=== PATIENT | male | born 1985 | race Caucasian/White ===

== ENCOUNTER 2017-07-16 09:09 | Emergency (ER) | payer SELFPAY ==
[~2017-07-16] VITALS: Ht 185.4 cm; Wt 127.0 kg
--- OUTSIDE RECORDS SUMMARY | 2017-07-16 09:24 | XMS REPORT | Continuity of Care Document ---
Author Author [facility] Organization [facility] Address [facility] [address] [place] [id number] Phone Unavailable Support Name Relationship Address Phone ALLISON BRITT MD Caregiver [address] [place] [id number] Unavailable TOM MAGAÑA Next Of Kin [address] [place], [place] [id number] Insurance Providers Payer Name Policy Number Subscriber Name Relationship Medicaid [place] [id number] Gene Magaña 18 Self / Same As Patient Advance Directives Directive Response Recorded Date/Time Advance Directives No 05/17/14 8:19pm Living Will No 05/17/14 8:19pm Health Care Proxy No 02/03/15 12:21pm Power of Emergency Communications Operator for Health Care No 05/17/14 8:19pm Organ, Tissue, or Eye Donor No 05/17/14 8:19pm Do you have a signed organ donor card? No 05/17/14 8:19pm Chief Complaint and Reason for Visit Chief Complaint ABDOMINAL PAIN Reason for Visit Urinary tract infection Gastroenteritis Problems Active Problems Medical Problem Onset Date Status Abdominal pain Unknown Acute Gastroenteritis Unknown Acute Urinary tract infection Unknown Acute Medications Current Home Medications Medication Dose Units Route Directions Days/Qty Instructions Start Date Phenytoin Sodium 100 Mg 200 Mg Oral Twice A Day for Seizure Activity 02/03/15 Metoprolol Succinate 25 Mg 25 Mg Oral Daily for Hypertension 30 Lisinopril (Zestril 20 Mg Tab*) 20 Mg 20 Mg Oral Daily for Hypertension 30 02/03/15 Fluoxetine Hcl 40 Mg 40 Mg Oral Daily for Depression 30 02/03/15 Buspirone Hcl 10 Mg 20 Mg Oral Twice A Day for Anxiety 02/03/15 Ibuprofen (Motrin 200 Mg Tab*) 200 Mg 400 Mg Oral Every 4-6 Hours Diclofenac Sodium 100 Mg 100 Mg Oral Daily 02/03/15 Phenytoin Sodium 100 Mg 200 Mg Oral Twice A Day 60 02/03/15 Ciprofloxacin Hcl 500 Mg 500 Mg Oral Twice A Day 10 02/03/15 Dicyclomine Hcl 20 Mg 20 Mg Oral Four Times Daily as needed for Abdominal Cramping 20 02/03/15 Acetaminophen/Hydrocodone Bitart (Lortab 5-325*) 1 Tab 1 Each Oral Every 6 Hrs As Needed For Pain 10 02/03/15 Past Home Medications Medication Directions Ordered Status Promethazine Hcl 25 Mg Tablet, 25 Mg Oral Every 8 Hours As Needed as needed for Nausea 05/17/14 Discontinued Acetaminophen/Hydrocodone Bitart (Lortab 5-325*) 1 Tab Tablet, 1 Ea Oral Every 4-6 Hrs As Needed Pain as needed for Pain 05/17/14 Discontinued Social History Social History Problem Response Recorded Date/Time Smoking Status Current every day smoker 02/03/2015 1:49pm Tobacco Use Cigarettes 02/03/2015 1:49pm Alcohol Use occasionally 02/03/2015 1:49pm Query Response Start Date Stop Date Smoking Status Current every day smoker Hospital Discharge Instructions No hospital discharge instructions. Plan of Care Discharge Date 02/03/15 2:37pm Disposition 01 HOME, [facility]SISTED LIVING Condition at Discharge Improved Instructions/Education Provided Urinary Tract Infection in Men (ED) Gastroenteritis (ED) Prescriptions See Medication Section Functional Status No functional status results. Allergies, Adverse Reactions, Alerts No known allergies. Immunizations Name Given Type Hx Diphtheria, Pertussis, Tetanus Vaccination Up To Date Historical Hx Influenza Vaccination Yes Historical Hx Pneumococcal Vaccination No Historical Vital Signs Acute Vital Signs Vital Response Date/Time Pain Intensity 4 02/03/2015 2:37pm Pain Location Body Site Modifier 02/03/2015 2:37pm Pain Description 02/03/2015 2:37pm Pain Duration > 6 Hours 02/03/2015 2:37pm Results Laboratory Results Test Name Result Units Flags Reference Collection Date/Time Result Date/ Time Comments White Blood Count 6.2 K/uL 4.8-10.8 02/03/2015 1:05pm 02/03/2015 1: 43pm Red Blood Count 4.61 M/uL L 4.70-6.10 02/03/2015 1:05pm 02/03/2015 1: 43pm Hemoglobin 14.7 gm/dL 14.0-18.0 02/03/2015 1:05pm 02/03/2015 1:43pm Hematocrit 42.9 % 42.0-52.0 02/03/2015 1:05pm 02/03/2015 1:43pm Mean Corpuscular Volume 93.1 fL 80.0-96.1 02/03/2015 1:05pm 02/03/2015 1:43pm Mean Corpuscular Hemoglobin 31.8 pg H 27.0-31.0 02/03/2015 1:05pm 2014 1:43pm Mean Corpuscular Hemoglobin Concent 34.2 g/dL 30.0-37.0 02/03/2015 1: 05pm 02/03/2015 1:43pm Red Cell Distribution Width 12.4 % 11.5-14.5 02/03/2015 1:05pm 2014 1:43pm Platelet Count 162 K/uL 130-400 02/03/2015 1:05pm 02/03/2015 1:43pm Mean Platelet Volume 8.5 fL 7.4-10.4 02/03/2015 1:05pm 02/03/2015 1: 43pm Neutrophils (%) (Auto) 61.8 % 42.2-75.2 02/03/2015 1:05pm 02/03/2015 1: 43pm Lymphocytes (%) (Auto) 22.9 % 20.5-51.1 02/03/2015 1:05pm 02/03/2015 1: 43pm Monocytes (%) (Auto) 10.7 % H 1.7-9.3 02/03/2015 1:05pm 02/03/2015 1: 43pm Eosinophils (%) (Auto) 3.2 % H 0-3 02/03/2015 1:05pm 02/03/2015 1:43pm Basophils (%) (Auto) 1.4 % H 0.0-1.0 02/03/2015 1:05pm 02/03/2015 1: 43pm Neutrophils # (Auto) 3.8 K/uL 2.0-6.9 02/03/2015 1:05pm 02/03/2015 1: 43pm Lymphocytes # (Auto) 1.4 K/uL 1.2-3.4 02/03/2015 1:05pm 02/03/2015 1: 43pm Monocytes # (Auto) 0.7 K/uL H 0.1-0.6 02/03/2015 1:05pm 02/03/2015 1: 43pm Eosinophils # (Auto) 0.2 K/uL 0.0-0.7 02/03/2015 1:05pm 02/03/2015 1: 43pm Basophils # (Auto) 0.1 K/uL 0.0-0.2 02/03/2015 1:05pm 02/03/2015 1: 43pm Random Glucose 89 mg/dL 70-110 02/03/2015 1:05pm 02/03/2015 1:43pm Blood Urea Nitrogen 10 mg/dL 7-18 02/03/2015 1:05pm 02/03/2015 1:43pm Creatinine 0.9 mg/dL 0.8-1.3 02/03/2015 1:05pm 02/03/2015 1:43pm Sodium Level 137 mEq/L 136-145 02/03/2015 1:05pm 02/03/2015 1:43pm Potassium Level 4.1 mEq/L 3.5-5.0 02/03/2015 1:05pm 02/03/2015 1:43pm Chloride Level 102 mEq/L 98-107 02/03/2015 1:05pm 02/03/2015 1:43pm Carbon Dioxide Level 31.0 mEq/L 21-32 02/03/2015 1:05pm 02/03/2015 1: 43pm Calcium Level 8.2 mg/dL L 8.8-10.5 02/03/2015 1:05pm 02/03/2015 1:43pm Total Protein 6.9 gm/dL 6.4-8.2 02/03/2015 1:05pm 02/03/2015 1:43pm Albumin 3.4 gm/dL 3.4-5.0 02/03/2015 1:05pm 02/03/2015 1:43pm Total Bilirubin 0.20 mg/dL 0.00-1.00 02/03/2015 1:05pm 02/03/2015 1: 43pm Aspartate Amino Transf (AST/SGOT) 15 U/L 15-37 02/03/2015 1:05pm 2014 1:43pm Alanine Aminotransferase (ALT/SGPT) 22 U/L 12-78 02/03/2015 1:05pm 1:43pm Total Alkaline Phosphatase 75 U/L 46-116 02/03/2015 1:05pm 02/03/2015 1 :43pm Lipase 183 U/L 65-230 02/03/2015 1:05pm 02/03/2015 1:43pm Phenytoin (Dilantin) Level < 0.5 ug/ml L 10.0-20.0 02/03/2015 1:05pm 1:43pm Urine Color YELLOW YELLOW 02/03/2015 1:05pm 02/03/2015 1:46pm Urine Appearance CLEAR CLEAR 02/03/2015 1:05pm 02/03/2015 1:46pm Urine Glucose (UA) NEGATIVE mg/dL NEGATIVE 02/03/2015 1:05pm 2014 1:46pm Urine Bilirubin NEGATIVE NEGATIVE 02/03/2015 1:05pm 02/03/2015 1: 46pm Urine Ketones NEGATIVE mg/dL NEGATIVE 02/03/2015 1:05pm 02/03/2015 1: 46pm Urine Specific [place] 1.010 1.010-1.025 02/03/2015 1:05pm 2014 1:46pm Urine Occult Blood NEGATIVE NEGATIVE 02/03/2015 1:05pm 02/03/2015 1: 46pm Urine pH 7.5 5.0-8.0 02/03/2015 1:05pm 02/03/2015 1:46pm Urine Protein NEGATIVE mg/dL NEGATIVE 02/03/2015 1:05pm 02/03/2015 1: 46pm Urine Urobilinogen 0.2 mg/dL E.U./dL 0.2-1.0 02/03/2015 1:05pm 2014 1:46pm Urine Nitrate NEGATIVE NEGATIVE 02/03/2015 1:05pm 02/03/2015 1:46pm Urine Leukocyte Esterase NEGATIVE NEGATIVE 02/03/2015 1:05pm 2014 1:46pm Urine RBC NEGATIVE /hpf 0 02/03/2015 1:05pm 02/03/2015 1:46pm Urine WBC 15-19 /hpf H 0-4 02/03/2015 1:05pm 02/03/2015 1:46pm Urine Squamous Epithelial Cells 6-8 /hpf 0-1 02/03/2015 1:05pm 2014 1:46pm Urine Transitional Epithelial Cells 0-1 /hpf 0 02/03/2015 1:05pm 2014 1:46pm Urine Bacteria TRACE H NEGATIVE 02/03/2015 1:05pm 02/03/2015 1:46pm Glomerular Filtration Rate Calc 106.8 mL/min 02/03/2015 1:05pm 2014 1:43pm Procedures No known history of procedures. Encounters Encounter Location Arrival/Admit Date Discharge/Depart Date Attending Provider Departed Emergency Room [place] 02/03/15 12:22pm 02/03/15 2:37pm ALLISON BRITT MD Recent Diagnosis
[2017-07-16] MEDS ORDERED: COLACE (09:39)
--- NOTE | 2017-07-16 09:48 | ED Abdominal Pain ---
General Chief Complaint: Abdominal/GI Problems Stated Complaint: RIGHT SIDE PAIN Source of Information: Patient History of Present Illness Date Seen by Provider: Jul 16, 2017 Time Seen by Provider: 09:30 Initial Comments C/O SEVERE, SHARP CONSTANT RLQ PAIN SINCE 0100 THIS AM C/O NAUSEA AND VOMITED X 1 AT 0300. ATE CEREAL AT 0230 NO DIARRHEA NO URINARY SYMPTOMS NO FEVER PAIN WORSE WITH LAYING FLAT, SLIGHTLY IMPROVED WITH SITTING UP NO IMPROVEMENT WITH IBUPROFEN, AND TOOK HIS REGULAR DOSES OF OMEPRAZOLE AND COLACE THIS AM NO HISTORY OF SIMILAR PT HAD HIRSCHSPRUNG'S AND HAD SURGERY PCP: NONE--MOVED HERE 1 WEEK AGO FROM [place] Allergies and Home Medications Allergies Coded Allergies: No Known Drug Allergies (Unverified , 07/16/17) Home Medications Ondansetron 4 Mg Tab.rapdis, 4 MG PO Q4H, #10 Prescribed by: KELSIE CRUZ on 07/16/17 1152 [Colace] , (Reported) Review of Systems Constitutional: no symptoms reported EENTM: No Symptoms Reported Respiratory: No Symptoms Reported Cardiovascular: No Symptoms Reported Gastrointestinal: See HPI, Abdominal Pain, Denies Constipated, Denies Diarrhea , Nausea, Vomiting Genitourinary: No Symptoms Reported Musculoskeletal: no symptoms reported Skin: no symptoms reported Psychiatric/Neurological: No Symptoms Reported Endocrine: No Symptoms Reported Hematologic/Lymphatic: No Symptoms Reported Past Gidwipk-Tuqqlm-Pnoagi Hx Patient Social History Alcohol Use: Occasionally Uses Recreational Drug Use: No Smoking Status: Current Everyday Smoker (1 PPD) Type Used: Cigarettes (1 PPD) Recent Foreign Travel: No Contact w/Someone Who Travel: No Surgeries History of Surgeries: Yes (BOWEL SURGERY FOR HIRSCHSPRUNG'S, THEN HAD NERVE RESECTION IN LOWER ABDOMEN. ) Surgeries: Abdominal Respiratory History of Respiratory Disorde: No Cardiovascular History of Cardiac Disorders: No Neurological History of Neurological Disord: No Genitourinary History of Genitourinary Disor: No Gastrointestinal History of Gastrointestinal Di: Yes (HIRSCHSPRUNG'S) Gastrointestinal Disorders: Gastroesophageal Reflux, Chronic Constipation Musculoskeletal History of Musculoskeletal Dis: No Endocrine History of Endocrine Disorders: No HEENT History of HEENT Disorders: No Cancer History of Cancer: No Psychosocial History of Psychiatric Problem: No Integumentary History of Skin or Integumenta: No Physical Exam Vital Signs VS - Last 72 Hours, by Label 07/16/17 07/16/17 09:14 10:50 Temp 98.7 Pulse 86 Resp 18 B/P (MAP) 162/124 (137) 167/106 (126) Pulse Ox 95 O2 Delivery Room Air Capillary Refill : General Appearance: WD/WN, no apparent distress, other (WALKS SLIGHTLY BENT AT WAIST, HOLDING RLQ) HEENT: PERRL/EOMI, other (POOR DENTITION) Neck: normal inspection Respiratory: normal breath sounds, no respiratory distress, no accessory muscle use Cardiovascular: regular rate, rhythm, no murmur Gastrointestinal: normal bowel sounds, soft, no organomegaly, no pulsatile mass , No distended, guarding (MUCH GUARDING, AND SPLINTING WITH A PILLOW), rebound, tenderness (RLQ), No hernia, No mass, other (+ PSOAS, + OBTURATOR, + HEEL TAP, NEGATIVE ROVSING'S) Extremities: normal inspection, normal capillary refill Back: normal inspection, no CVA tenderness Neurologic/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, no motor/sensory deficits, alert, normal mood/affect, oriented x 3 Skin: normal color, warm/dry Progress/Results/Core Measures Results/Orders Lab Results Laboratory Tests Test 07/16/17 09:35 07/16/17 10:16 Range/Units White Blood Count 8.8 4.3-11.0 10^3/uL Red Blood Count 5.19 4.35-5.85 10^6/uL Hemoglobin 16.0 13.3-17.7 G/DL Hematocrit 45 40-54 % Mean Corpuscular Volume 87 80-99 FL Mean Corpuscular Hemoglobin 31 25-34 PG Mean Corpuscular Hemoglobin Concent 36 32-36 G/DL Red Cell Distribution Width 12.1 10.0-14.5 % Platelet Count 233 130-400 10^3/uL Mean Platelet Volume 11.4 H 7.4-10.4 FL Neutrophils (%) (Auto) 64 42-75 % Lymphocytes (%) (Auto) 21 12-44 % Monocytes (%) (Auto) 13 H 0-12 % Eosinophils (%) (Auto) 2 0-10 % Basophils (%) (Auto) 0 0-10 % Neutrophils # (Auto) 5.6 1.8-7.8 X 10^3 Lymphocytes # (Auto) 1.9 1.0-4.0 X 10^3 Monocytes # (Auto) 1.1 H 0.0-1.0 X 10^3 Eosinophils # (Auto) 0.2 0.0-0.3 10^3/uL Basophils # (Auto) 0.0 0.0-0.1 10^3/uL Sodium Level 137 135-145 MMOL/L Potassium Level 4.2 3.6-5.0 MMOL/L Chloride Level 103 98-107 MMOL/L Carbon Dioxide Level 24 21-32 MMOL/L Anion Gap 10 5-14 MMOL/L Blood Urea Nitrogen 7 7-18 MG/DL Creatinine 0.74 0.60-1.30 MG/DL Estimat Glomerular Filtration Rate > 60 BUN/Creatinine Ratio 9 Glucose Level 87 70-105 MG/DL Calcium Level 9.7 8.5-10.1 MG/DL Total Bilirubin 0.4 0.1-1.0 MG/DL Aspartate Amino Transf (AST/SGOT) 18 5-34 U/L Alanine Aminotransferase (ALT/SGPT) 26 0-55 U/L Alkaline Phosphatase 69 40-136 U/L Total Protein 7.4 6.4-8.2 GM/DL Albumin 4.1 3.2-4.5 GM/DL Amylase Level 32 25-125 U/L Lipase 21 8-78 U/L Serum Alcohol < 10 <10 MG/DL Urine Color YELLOW Urine Clarity CLEAR Urine pH 7 5-9 Urine Specific [place] 1.015 L 1.016-1.022 Urine Protein NEGATIVE NEGATIVE Urine Glucose (UA) NEGATIVE NEGATIVE Urine Ketones NEGATIVE NEGATIVE Urine Nitrite NEGATIVE NEGATIVE Urine Bilirubin NEGATIVE NEGATIVE Urine Urobilinogen NORMAL NORMAL MG/DL Urine Leukocyte Esterase NEGATIVE NEGATIVE Urine RBC (Auto) NEGATIVE NEGATIVE Urine RBC NONE /HPF Urine WBC RARE /HPF Urine Squamous Epithelial Cells 0-2 /HPF Urine Crystals NONE /LPF Urine Bacteria NEGATIVE /HPF Urine Casts NONE /LPF Urine Mucus NEGATIVE /LPF Urine Culture Indicated NO Urine Opiates Screen NEGATIVE NEGATIVE Urine Oxycodone Screen NEGATIVE NEGATIVE Urine Methadone Screen NEGATIVE NEGATIVE Urine Propoxyphene Screen NEGATIVE NEGATIVE Urine Barbiturates Screen NEGATIVE NEGATIVE Ur Tricyclic Antidepressants Screen NEGATIVE NEGATIVE Urine Phencyclidine Screen NEGATIVE NEGATIVE Urine Amphetamines Screen NEGATIVE NEGATIVE Urine Methamphetamines Screen NEGATIVE NEGATIVE Urine Benzodiazepines Screen NEGATIVE NEGATIVE Urine Cocaine Screen NEGATIVE NEGATIVE Urine Cannabinoids Screen NEGATIVE NEGATIVE My Orders Orders - ANTHONY,KELSIE K DO Saline Lock/Iv-Start (07/16/17 09:34) Amylase (07/16/17 09:34) Cbc With Automated Diff (07/16/17 09:34) Comprehensive Metabolic Panel (07/16/17 09:34) Lipase (07/16/17 09:34) Ua Culture If Indicated (07/16/17 09:34) Saline Lock/Iv-Start (07/16/17 09:41) Lactated Ringers (Lr 1000 Ml Iv Solution (07/16/17 09:41) Ondansetron Injection (Zofran Injectio (07/16/17 09:45) Ketorolac Injection (Toradol Injection) (07/16/17 09:41) Alcohol (07/16/17 09:41) Drug Screen Stat (Urine) (07/16/17 09:41) Ct Abd/Pelv W (Appendicitis) (07/16/17 10:38) Iohexol Injection (Omnipaque 350 Mg/Ml 1 (07/16/17 10:45) Ns (Ivpb) (Sodium Chloride 0.9% Ivpb Bag (07/16/17 10:45) Medications Given in ED Current Medications Medications Dose Ordered Sig/Jose G Route Start Time Stop Time Status Last Admin Dose Admin Iohexol 100 ml ONCE ONCE IV 07/16/17 10:45 07/16/17 10:46 DC 07/16/17 10:48 100 ML Lactated Ringer's 1,000 ml @ 0 mls/hr Q0M ONCE IV 07/16/17 09:41 07/16/17 09:44 DC 07/16/17 10:25 1,000 MLS/HR Ondansetron HCl 4 mg ONCE ONCE IVP 07/16/17 09:45 07/16/17 09:46 DC 07/16/17 10:24 4 MG Sodium Chloride 100 ml ONCE ONCE IV 07/16/17 10:45 07/16/17 10:46 DC 07/16/17 10:48 80 ML Vital Signs/I&O Vital Sign - Last 12Hours 07/16/17 07/16/17 09:14 10:50 Temp 98.7 Pulse 86 Resp 18 B/P (MAP) 162/124 (137) 167/106 (126) Pulse Ox 95 O2 Delivery Room Air Departure Communication (Admissions) Progress Notes 1115--SPOKE WITH DR. CLAY, HE WILL BE DOWN TO SEE PT 1135--DR. CLAY HERE TO SEE PT. 1150--DR. CLAY ADVISES TO SEND PT HOME, ON CLEAR LIQUID DIET. RETURN TO ER OR FOLLOW UP WITH HIM IF NO IMPROVEMENT/SYMPTOMS WORSEN Impression Impression: Primary Impression: RLQ abdominal pain Disposition: HOME, SELF-CARE Condition: Stable Departure-Patient Inst. Referrals: REJI CLAY,LOCAL PHYSICIAN (PCP) Primary Care Physician Patient Instructions: Acute Abdomen (Belly Pain), Adult (DC) Add. Discharge Instructions: CLEAR LIQUIDS--WATER, BROTH, JELLO, GATORADE NO FOOD UNTIL YOUR PAIN IS GONE CONTINUE COLACE AND OMEPRAZOLE PRESCRIBED TAKE MIRALAX DAILY TAKE TYLENOL AND MOTRIN NEEDED FOR PAIN FOLLOW UP WITH DR. CLAY OR RETURN TO ER IF SYMPTOMS WORSEN, OR IF NO IMPROVEMENT IN 2 DAYS CALL TODAY TO ESTABLISH CARE WITH FAMILY PHYSICIAN All discharge instructions reviewed with patient and/or family. Voiced understanding. Scripts Ondansetron (Zofran Odt) 4 Mg Tab.rapdis 4 MG PO Q4H for Nausea/Vomiting, #10 TAB Prov: KELSIE CRUZ DO 07/16/17 Work/School Note: Local [employer] Staff Listing KELSIE CRUZ DO Jul 16, 2017 09:48
[2017-07-16 10:18] LABS: BASOPHILS % (AUTO) 0 % (0-10); EOSINOPHILS # (AUTO) 0.2 10^3/uL (0.0-0.3); EOSINOPHILS % (AUTO) 2 % (0-10); HEMATOCRIT 45 % (40-54); LYMPHOCYTES # (AUTO) 1.9 X 10^3 (1.0-4.0); LYMPHOCYTES % (AUTO) 21 % (12-44); MEAN CORPUSCULAR HEMOGLOBIN 31 PG (25-34); MEAN CORPUSCULAR HGB CONC 36 G/DL (32-36); MEAN CORPUSCULAR VOLUME 87 FL (80-99); MEAN PLATELET VOLUME 11.4 FL (7.4-10.4); MONOCYTES # (AUTO) 1.1 X 10^3 (0.0-1.0); MONOCYTES % (AUTO) 13 % (0-12); NEUTROPHILS # (AUTO) 5.6 X 10^3 (1.8-7.8); NEUTROPHILS % (AUTO) 64 % (42-75); PLATELET COUNT 233 10^3/uL (130-400); RED BLOOD COUNT 5.19 10^6/uL (4.35-5.85); RED CELL DISTRIBUTION WIDTH 12.1 % (10.0-14.5); WHITE BLOOD COUNT 8.8 10^3/uL (4.3-11.0)
[2017-07-16 10:22] LABS: BILIRUBIN,URINE NEGATIVE (NEGATIVE); CLARITY,URINE CLEAR; COLOR,URINE YELLOW; GLUCOSE, URINE (UA) NEGATIVE (NEGATIVE); KETONES,URINE NEGATIVE (NEGATIVE); LEUKOCYTE ESTERASE ,URINE NEGATIVE (NEGATIVE); NITRITE,URINE NEGATIVE (NEGATIVE); PH,URINE 7 (5-9); PROTEIN,URINE NEGATIVE (NEGATIVE); UROBILINOGEN,URINE NORMAL (NORMAL)
[2017-07-16] MEDS: ONDANSETRON 4 MG/2 ML (SDV) Z0FRAN IVP ONE (10:24)
[2017-07-16] MEDS: KETOROLAC 30 MG/ML VIAL IVP STA (10:25)
[2017-07-16] MEDS: LACTATED RINGERS 1,000 ML IV ONE (10:25)
[2017-07-16 10:32] LABS: ALANINE AMINOTRANSFERASE 26 U/L (0-55); ALBUMIN 4.1 GM/DL (3.2-4.5); ALKALINE PHOSPHATASE 69 U/L (40-136); AMYLASE 32 U/L (25-125); BILIRUBIN,TOTAL 0.4 MG/DL (0.1-1.0); BUN/CREATININE RATIO 9; CALCIUM 9.7 MG/DL (8.5-10.1); CARBON DIOXIDE 24 MMOL/L (21-32); CHLORIDE 103 MMOL/L (98-107); CREATININE SERUM 0.74 MG/DL (0.60-1.30); GFR ESTIMATED > 60; GLUCOSE 87 MG/DL (70-105); LIPASE 21 U/L (8-78); POTASSIUM 4.2 MMOL/L (3.6-5.0); SODIUM 137 MMOL/L (135-145); TOTAL PROTEIN 7.4 GM/DL (6.4-8.2)
[2017-07-16 10:37] LABS: BACTERIA,URINE NEGATIVE /HPF; SQUAMOUS EPITHELIAL CELL,UR 0-2 /HPF; WBC,URINE RARE /HPF
[2017-07-16 10:42] LABS: AMPHETAMINE SCREEN, URINE NEGATIVE (NEGATIVE); BARBITURATE SCREEN URINE NEGATIVE (NEGATIVE); BENZODIAZEPINES SCREEN URINE NEGATIVE (NEGATIVE); CANNABINOID SCREEN, URINE NEGATIVE (NEGATIVE); COCAINE SCREEN URINE NEGATIVE (NEGATIVE); METHADONE STAT NEGATIVE (NEGATIVE); METHAMPHETAMINE SCREEN URINE S NEGATIVE (NEGATIVE); OPIATE SCREEN URINE NEGATIVE (NEGATIVE); OXYCODONE STAT NEGATIVE (NEGATIVE); PROPOXYPHENE STAT NEGATIVE (NEGATIVE); TRICYCLIC ANTIDEPRESSANTS SCRE NEGATIVE (NEGATIVE)
[2017-07-16] MEDS: NS 100 ML (IVPB) BAG IV ONE (10:48)
[2017-07-16] MEDS: IOHEXOL 350 MG/ML 100 ML (OMNIPAQUE 350) VIAL IV ONE (10:48)
[2017-07-16 10:50] VITALS: BP 167/106
--- NOTE | 2017-07-16 11:14 | Diagnostic Imaging Report ---
PROCEDURE: CT abdomen and pelvis with contrast, rule out appendicitis. TECHNIQUE: Multiple contiguous axial images were obtained through the abdomen and pelvis after the administration of intravenous contrast. INDICATION: Right-sided abdominal pain with nausea and vomiting. The study is performed to evaluate for appendicitis. No prior studies are available for comparison. The lung bases are clear. The liver and gallbladder are unremarkable. Pancreas and spleen are unremarkable. No adrenal masses detected. There is a tiny cortical low density involving the right kidney, too small to characterize but statistically likely a cyst. Aorta is nonaneurysmal. The small and large bowel loops are normal caliber. The appendix is visualized in the right lower quadrant and is unremarkable. No inflammatory process is seen. There is a moderate stool identified in the rectum and sigmoid. Moderate stool in the right colon is also seen. Small bowel loops are normal caliber. There is no ascites. Bladder is unremarkable. IMPRESSION: 1. No CT evidence of acute appendicitis. 2. Moderate stool within the colon. Study is otherwise unremarkable. Dictated by: Dictated on workstation # [id number]
[2017-07-16] MEDS ORDERED: ONDA4TAB8 PO (11:52)
[2017-07-16 13:10] VITALS: BP 131/74
--- NOTE | 2017-07-16 13:31 | Consultation ---
History of Present Illness History of Present Illness Patient Consulted On(jaida/time) 07/16/17 11:32 Date Seen by Provider: Jul 16, 2017 Time Seen by Provider: 11:32 History of Present Illness Consult requested by Dr. Shah for RLQ abdominal pain. Patient is a 32 year old male who presented to emergency department with abdominal pain nausea and vomiting. Patient states that last night around 11 pm he began having abdominal pain in epigastric that radiated up into his chest. He felt it was his reflux. He took his omeprazole which maybe helped a little. He states the pain the started to move into the right lower quadrant of his abdomen. He went to bed and around 1 am began having emesis and last vomiting at 3 am He was having constant right lower quadrant abdominal pain. Pain is sharp. Still with some nausea. Not had any pain like this previously.Has chronic constipation, but having bowel movements, no blood in stool. Patient had a ct scan which has moderate stool in colon, appendix is visualized without any abnormality. White count is normal. Denies fever sweats chills shortness of breath or chest pain. Allergies and Home Medications Allergies Coded Allergies: No Known Drug Allergies (Unverified , 07/16/17) Home Medications Ondansetron 4 Mg Tab.rapdis, 4 MG PO Q4H, #10 Prescribed by: KELSIE SHAH on 07/16/17 1152 [Colace] , (Reported) Past Ihrmpin-Szycnd-Hhjufw Hx Patient Social History Alcohol Use: Occasionally Uses Recreational Drug Use: No Smoking Status: Current Everyday Smoker (1 PPD) Type Used: Cigarettes (1 PPD) Recent Foreign Travel: No Contact w/Someone Who Travel: No Recent Infectious Disease Expo: No Surgeries History of Surgeries: Yes (BOWEL SURGERY FOR HIRSCHSPRUNG'S, THEN HAD NERVE RESECTION IN LOWER ABDOMEN. ) Surgeries: Abdominal Respiratory History of Respiratory Disorde: No Cardiovascular History of Cardiac Disorders: No Neurological History of Neurological Disord: No Genitourinary History of Genitourinary Disor: No Gastrointestinal History of Gastrointestinal Di: Yes (HIRSCHSPRUNG'S) Gastrointestinal Disorders: Gastroesophageal Reflux, Chronic Constipation Musculoskeletal History of Musculoskeletal Dis: No Endocrine History of Endocrine Disorders: No HEENT History of HEENT Disorders: No Cancer History of Cancer: No Psychosocial History of Psychiatric Problem: No Integumentary History of Skin or Integumenta: No Family Medical History Significant Family History: No Pertinent Family Hx Review of Systems-General Constitutional: no symptoms reported EENTM: no symptoms reported Respiratory: no symptoms reported Cardiovascular: no symptoms reported Gastrointestinal: RLQ, abdominal pain (RLQ), nausea, vomiting Genitourinary: no symptoms reported Musculoskeletal: no symptoms reported Skin: no symptoms reported Psychiatric/Neurological: No Symptoms Reported Physical Exam-General Problems Physical Exam Vital Signs Vital Sign - Last 12Hours 07/16/17 09:14 Temp 98.7 Pulse 86 Resp 18 B/P (MAP) 162/124 (137) Pulse Ox 95 O2 Delivery Room Air Capillary Refill : Less Than 3 Seconds General Appearance: WD/WN, no apparent distress HEENT: PERRL/EOMI, normal ENT inspection Neck: full range of motion, supple Respiratory: chest non-tender, no respiratory distress, no accessory muscle use Cardiovascular: regular rate, rhythm Gastrointestinal: soft (midline scar, does not seem to have pain with palpation in the right lower quadrant no guarding or rebounding) Rectal: deferred Back: normal inspection, no CVA tenderness Neurologic/Psychiatric: alert, oriented x 3 Skin: normal color, warm/dry Lymphatic: no adenopathy Data Review Labs Laboratory Tests 07/16/17 09:35: White Blood Count 8.8, Red Blood Count 5.19, Hemoglobin 16.0, Hematocrit 45, Mean Corpuscular Volume 87, Mean Corpuscular Hemoglobin 31, Mean Corpuscular Hemoglobin Concent 36, Red Cell Distribution Width 12.1, Platelet Count 233, Mean Platelet Volume 11.4H, Neutrophils (%) (Auto) 64, Lymphocytes (%) (Auto) 21 , Monocytes (%) (Auto) 13H, Eosinophils (%) (Auto) 2, Basophils (%) (Auto) 0, Neutrophils # (Auto) 5.6, Lymphocytes # (Auto) 1.9, Monocytes # (Auto) 1.1H, Eosinophils # (Auto) 0.2, Basophils # (Auto) 0.0, Sodium Level 137, Potassium Level 4.2, Chloride Level 103, Carbon Dioxide Level 24, Anion Gap 10, Blood Urea Nitrogen 7, Creatinine 0.74, Estimat Glomerular Filtration Rate > 60, BUN/ Creatinine Ratio 9, Glucose Level 87, Calcium Level 9.7, Total Bilirubin 0.4, Aspartate Amino Transf (AST/SGOT) 18, Alanine Aminotransferase (ALT/SGPT) 26, Alkaline Phosphatase 69, Total Protein 7.4, Albumin 4.1, Amylase Level 32, Lipase 21, Serum Alcohol < 10 07/16/17 10:16: Urine Color YELLOW, Urine Clarity CLEAR, Urine pH 7, Urine Specific [place] 1.015L, Urine Protein NEGATIVE, Urine Glucose (UA) NEGATIVE, Urine Ketones NEGATIVE, Urine Nitrite NEGATIVE, Urine Bilirubin NEGATIVE, Urine Urobilinogen NORMAL, Urine Leukocyte Esterase NEGATIVE, Urine RBC (Auto) NEGATIVE, Urine RBC NONE, Urine WBC RARE, Urine Squamous Epithelial Cells 0-2, Urine Crystals NONE, Urine Bacteria NEGATIVE, Urine Casts NONE, Urine Mucus NEGATIVE, Urine Culture Indicated NO, Urine Opiates Screen NEGATIVE, Urine Oxycodone Screen NEGATIVE, Urine Methadone Screen NEGATIVE, Urine Propoxyphene Screen NEGATIVE, Urine Barbiturates Screen NEGATIVE, Ur Tricyclic Antidepressants Screen NEGATIVE, Urine Phencyclidine Screen NEGATIVE, Urine Amphetamines Screen NEGATIVE, Urine Methamphetamines Screen NEGATIVE, Urine Benzodiazepines Screen NEGATIVE, Urine Cocaine Screen NEGATIVE, Urine Cannabinoids Screen NEGATIVE Assessment/Plan Assessment/Plan Assessment/Plan right lower quadrant abdominal pain, nausea and vomiting. patient with normal labs and normal cat scan, he does have moderate stool in colon. I do not feel that he has appendicitis. Would recommend staying on clear liquids 2 days then advance as tolerates. Miralax for approximately 2 days to decrease stool volume in colon. If any worsening of symptoms or changes in symptoms be re-evaluated at that time. Patient is in agreement with plan. REJI CLAY DO Jul 16, 2017 13:31
== END 2017-07-16 12:08 | disposition home or self-care (01) ==
LOC: ER 09:12
DX: R10.31 Right lower quadrant pain (principal); K21.9 Gastro-esophageal reflux disease without esophagitis
CPT/HCPCS: 36415; 74177; 80053; 80306; 80320; 81000; 82150; 83690; 85025; 96374; 96375

== ENCOUNTER 2017-07-19 02:42 | Inpatient (IN) | payer SELFPAY ==
[~2017-07-19] VITALS: Ht 185.4 cm; Wt 131.7 kg
[~2017-07-19 02:42] MED LIST: COLACE; ONDA4TAB8 PO
[2017-07-19] MEDS ORDERED: LACTATED RINGERS 1,000 ML IV ONE ×2 (03:02→09:05)
--- NOTE | 2017-07-19 03:09 | ED Abdominal Pain ---
General Stated Complaint: ABD PAIN,VOMITING Source of Information: Patient, Other Exam Limitations: No Limitations History of Present Illness Date Seen by Provider: Jul 19, 2017 Time Seen by Provider: 02:56 Initial Comments Patient presents to ER by private conveyance with a chief complaint that he was having abdominal pain in the right lower quadrant radiating to his back and his periumbilical and epigastric region. He describes the pain as sharp and used to be intermittent and has now last day became constant and unbearable despite Tylenol and Motrin. He's not able to keep the medicines down or food down because he is having nausea and vomiting. He was seen a couple days ago in this ER and those records were reviewed. He was seen by surgery as well and had a normal CT scan and labs and sent home on a clear liquid diet which he says he's been doing but keeps throwing it up despite the Zofran every 4-6 hours. He says the Zofran will control his nausea for about 2 hours. He has been using the MiraLAX as well and has had loose stools with that. He's had no fevers, chills, rash. 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 Allergies and Home Medications Allergies Coded Allergies: No Known Drug Allergies (Unverified , 07/16/17) Home Medications Ondansetron 4 Mg Tab.rapdis, 4 MG PO Q4H, #10 Prescribed by: KELSIE CRUZ on 07/16/17 1152 [Colace] , (Reported) Review of Systems Constitutional: No chills, No diaphoresis, No fever, No malaise EENTM: No Blurred Vision, No Double Vision Respiratory: Denies Cough, Denies Shortness of Air Cardiovascular: Denies Chest Pain, Denies Edema Gastrointestinal: See HPI, Abdomen Distended, Abdominal Pain, Denies Constipated, Diarrhea, Nausea, Poor Appetite, Poor Fluid Intake, Denies Rectal Bleeding, Vomiting Genitourinary: Denies Burning, Denies Discharge Musculoskeletal: No back pain, No joint pain Skin: No pruritus, No rash Past Klhmlnl-[id number]-Kooqzq Hx Patient Social History Alcohol Use: Denies Use Recreational Drug Use: No Smoking Status: Current Everyday Smoker Type Used: Cigarettes (0.5 ppd) Recent Foreign Travel: No Contact w/Someone Who Travel: No Surgeries History of Surgeries: Yes Surgeries: Abdominal Respiratory History of Respiratory Disorde: No Cardiovascular History of Cardiac Disorders: No Neurological History of Neurological Disord: No Genitourinary History of Genitourinary Disor: No Gastrointestinal History of Gastrointestinal Di: Yes (HIRSCHSPRUNG'S) Gastrointestinal Disorders: Gastroesophageal Reflux, Chronic Constipation Musculoskeletal History of Musculoskeletal Dis: No Endocrine History of Endocrine Disorders: No HEENT History of HEENT Disorders: No Cancer History of Cancer: No Psychosocial History of Psychiatric Problem: No Integumentary History of Skin or Integumenta: No Family Medical History Significant Family History: No Pertinent Family Hx Physical Exam Vital Signs VS - Last 72 Hours, by Label 07/19/17 02:50 Temp 96.8 Pulse 87 Resp 16 B/P (MAP) 169/99 (122) Pulse Ox 97 O2 Delivery Room Air Capillary Refill : General Appearance: WD/WN, mild distress HEENT: PERRL/EOMI, pharynx normal (oral mucosa is moist) Respiratory: lungs clear, normal breath sounds, no respiratory distress Cardiovascular: normal peripheral pulses, regular rate, rhythm, no edema Peripheral Pulses: 2+ Dorsalis Pedis (R), 2+ Left Dors-Pedis (L), 2+ Radial Pulses (R), 2+ Radial Pulses (L) Gastrointestinal: normal bowel sounds (active), soft, No rebound, tenderness ( right lower quadrant, periumbilical and epigastric as well as a little bit right upper quadrant.) Extremities: normal inspection, no pedal edema, normal capillary refill Back: normal inspection, no CVA tenderness Neurologic/Psychiatric: alert, oriented x 3 Skin: normal color, warm/dry Progress/Results/Core Measures Results/Orders Lab Results Laboratory Tests Test 07/19/17 03:06 07/19/17 04:23 Range/Units White Blood Count 11.7 H 4.3-11.0 10^3/uL Red Blood Count 5.30 4.35-5.85 10^6/uL Hemoglobin 16.5 13.3-17.7 G/DL Hematocrit 45 40-54 % Mean Corpuscular Volume 85 80-99 FL Mean Corpuscular Hemoglobin 31 25-34 PG Mean Corpuscular Hemoglobin Concent 37 H 32-36 G/DL Red Cell Distribution Width 11.7 10.0-14.5 % Platelet Count 235 130-400 10^3/uL Mean Platelet Volume 10.7 H 7.4-10.4 FL Neutrophils (%) (Auto) 74 42-75 % Lymphocytes (%) (Auto) 14 12-44 % Monocytes (%) (Auto) 12 0-12 % Eosinophils (%) (Auto) 1 0-10 % Basophils (%) (Auto) 0 0-10 % Neutrophils # (Auto) 8.6 H 1.8-7.8 X 10^3 Lymphocytes # (Auto) 1.6 1.0-4.0 X 10^3 Monocytes # (Auto) 1.4 H 0.0-1.0 X 10^3 Eosinophils # (Auto) 0.1 0.0-0.3 10^3/uL Basophils # (Auto) 0.0 0.0-0.1 10^3/uL Sodium Level 137 135-145 MMOL/L Potassium Level 4.0 3.6-5.0 MMOL/L Chloride Level 101 98-107 MMOL/L Carbon Dioxide Level 24 21-32 MMOL/L Anion Gap 12 5-14 MMOL/L Blood Urea Nitrogen 13 7-18 MG/DL Creatinine 0.84 0.60-1.30 MG/DL Estimat Glomerular Filtration Rate > 60 BUN/Creatinine Ratio 15 Glucose Level 109 H 70-105 MG/DL Calcium Level 9.6 8.5-10.1 MG/DL Magnesium Level 2.1 1.8-2.4 MG/DL Total Bilirubin 0.4 0.1-1.0 MG/DL Aspartate Amino Transf (AST/SGOT) 15 5-34 U/L Alanine Aminotransferase (ALT/SGPT) 19 0-55 U/L Alkaline Phosphatase 77 40-136 U/L C-Reactive Protein High Sensitivity 0.93 H 0.00-0.50 MG/DL Total Protein 7.9 6.4-8.2 GM/DL Albumin 4.3 3.2-4.5 GM/DL Lipase 19 8-78 U/L Urine Color YELLOW Urine Clarity CLEAR Urine pH 7 5-9 Urine Specific [place] 1.015 L 1.016-1.022 Urine Protein 1+ H NEGATIVE Urine Glucose (UA) NEGATIVE NEGATIVE Urine Ketones 1+ H NEGATIVE Urine Nitrite NEGATIVE NEGATIVE Urine Bilirubin NEGATIVE NEGATIVE Urine Urobilinogen 1 NORMAL MG/DL Urine Leukocyte Esterase 1+ H NEGATIVE Urine RBC (Auto) NEGATIVE NEGATIVE Urine RBC NONE /HPF Urine WBC RARE /HPF Urine Squamous Epithelial Cells 2-5 /HPF Urine Crystals NONE /LPF Urine Bacteria NEGATIVE /HPF Urine Casts NONE /LPF Urine Mucus MODERATE H /LPF Urine Culture Indicated NO Urine Opiates Screen NEGATIVE NEGATIVE Urine Oxycodone Screen NEGATIVE NEGATIVE Urine Methadone Screen NEGATIVE NEGATIVE Urine Propoxyphene Screen NEGATIVE NEGATIVE Urine Barbiturates Screen NEGATIVE NEGATIVE Ur Tricyclic Antidepressants Screen NEGATIVE NEGATIVE Urine Phencyclidine Screen NEGATIVE NEGATIVE Urine Amphetamines Screen NEGATIVE NEGATIVE Urine Methamphetamines Screen NEGATIVE NEGATIVE Urine Benzodiazepines Screen NEGATIVE NEGATIVE Urine Cocaine Screen NEGATIVE NEGATIVE Urine Cannabinoids Screen NEGATIVE NEGATIVE My Orders Orders - ISAIAS PARKER Ct Abd/Pelv W (Appendicitis) (07/19/17 03:02) Cbc With Automated Diff (07/19/17 03:02) Comprehensive Metabolic Panel (07/19/17 03:02) Hs C Reactive Protein (07/19/17 03:02) Drug Screen Stat (Urine) (07/19/17 03:02) Magnesium (07/19/17 03:02) Ua Culture If Indicated (07/19/17 03:02) Saline Lock/Iv-Start (07/19/17 03:02) Lactated Ringers (Lr 1000 Ml Iv Solution (07/19/17 03:02) Fentanyl Injection (Sublimaze Injection (07/19/17 03:15) Lipase (07/19/17 03:09) Ondansetron Injection (Zofran Injectio (07/19/17 03:15) Ondansetron Injection (Zofran Injectio (07/19/17 03:10) Iohexol Injection (Omnipaque 350 Mg/Ml 1 (07/19/17 04:00) Ns (Ivpb) (Sodium Chloride 0.9% Ivpb Bag (07/19/17 04:00) Ketorolac Injection (Toradol Injection) (07/19/17 04:30) Protonix Drip (07/19/17 05:15) Pantoprazole Injection (Protonix Injecti (07/19/17 05:15) Medications Given in ED Current Medications Medications Dose Ordered Sig/Jose G Route Start Time Stop Time Status Last Admin Dose Admin Fentanyl Citrate 50 mcg ONCE ONCE IVP 07/19/17 03:15 07/19/17 03:16 DC 07/19/17 03:14 50 MCG Iohexol 100 ml ONCE ONCE IV 07/19/17 04:00 07/19/17 04:56 DC 07/19/17 03:54 100 ML Ketorolac Tromethamine 15 mg ONCE ONCE IVP 07/19/17 04:30 07/19/17 04:31 DC 07/19/17 04:34 15 MG Lactated Ringer's 1,000 ml @ 0 mls/hr Q0M ONCE IV 07/19/17 03:02 07/19/17 03:05 DC 07/19/17 03:15 0 MLS/HR Ondansetron HCl 8 mg ONCE ONCE IVP 07/19/17 03:15 07/19/17 03:16 DC 07/19/17 03:15 8 MG Sodium Chloride 80 ml ONCE ONCE IV 07/19/17 04:00 07/19/17 04:56 DC 07/19/17 03:54 80 ML Vital Signs/I&O Vital Sign - Last 12Hours 07/19/17 02:50 Temp 96.8 Pulse 87 Resp 16 B/P (MAP) 169/99 (122) Pulse Ox 97 O2 Delivery Room Air Progress Note : Time: 03:09 Progress Note We will repeat abdominal imaging get some lab work and urinalysis. We'll give him some pain medicine and nausea medicine. Departure Communication (Admissions) Time/Spoke to Admitting Phy: 05:[address] Dennis, General Surgery and he recommends in by mouth, Protonix drip and plan for endoscopy today. Impression Impression: Primary Impression: Peptic ulcer disease Disposition: ADMITTED INPATIENT Condition: Improved Admissions Decision to Admit Reason: Admit from ER (General) Decision to Admit/Date: Jul 19, 2017 Time/Decision to Admit Time: 05:16 Departure-Patient Inst. Referrals: NO,LOCAL PHYSICIAN (PCP/Family) Primary Care Physician Copy Copies To 1: NORMAN DENNIS TITUS J Jul 19, 2017 03:09
[2017-07-19] MEDS ORDERED: ONDANSETRON 4 MG/2 ML (SDV) Z0FRAN ONE (03:10)
[2017-07-19 03:15] LABS: BASOPHILS % (AUTO) 0 % (0-10); EOSINOPHILS # (AUTO) 0.1 10^3/uL (0.0-0.3); EOSINOPHILS % (AUTO) 1 % (0-10); HEMATOCRIT 45 % (40-54); HEMOGLOBIN 16.5 G/DL (13.3-17.7); LYMPHOCYTES # (AUTO) 1.6 X 10^3 (1.0-4.0); LYMPHOCYTES % (AUTO) 14 % (12-44); MEAN CORPUSCULAR HEMOGLOBIN 31 PG (25-34); MEAN CORPUSCULAR HGB CONC 37 G/DL (32-36); MEAN CORPUSCULAR VOLUME 85 FL (80-99); MEAN PLATELET VOLUME 10.7 FL (7.4-10.4); MONOCYTES # (AUTO) 1.4 X 10^3 (0.0-1.0); MONOCYTES % (AUTO) 12 % (0-12); NEUTROPHILS # (AUTO) 8.6 X 10^3 (1.8-7.8); NEUTROPHILS % (AUTO) 74 % (42-75); PLATELET COUNT 235 10^3/uL (130-400); RED CELL DISTRIBUTION WIDTH 11.7 % (10.0-14.5); WHITE BLOOD COUNT 11.7 10^3/uL (4.3-11.0)
[2017-07-19] MEDS ORDERED: fentaNYL INJECTION 100 MCG/2 ML AMP IVP ONE (03:15)
[2017-07-19] MEDS ORDERED: ONDANSETRON 4 MG/2 ML (SDV) Z0FRAN IVP ONE ×2 (03:15→05:30)
[2017-07-19 03:34] LABS: ALANINE AMINOTRANSFERASE 19 U/L (0-55); ALBUMIN 4.3 GM/DL (3.2-4.5); ALKALINE PHOSPHATASE 77 U/L (40-136); BILIRUBIN,TOTAL 0.4 MG/DL (0.1-1.0); BUN/CREATININE RATIO 15; CALCIUM 9.6 MG/DL (8.5-10.1); CARBON DIOXIDE 24 MMOL/L (21-32); CHLORIDE 101 MMOL/L (98-107); CREATININE SERUM 0.84 MG/DL (0.60-1.30); GFR ESTIMATED > 60; GLUCOSE 109 MG/DL (70-105); MAGNESIUM 2.1 MG/DL (1.8-2.4); SODIUM 137 MMOL/L (135-145); TOTAL PROTEIN 7.9 GM/DL (6.4-8.2)
[2017-07-19] MEDS ORDERED: IOHEXOL 350 MG/ML 100 ML (OMNIPAQUE 350) VIAL IV ONE (04:00)
[2017-07-19] MEDS ORDERED: NS 100 ML (IVPB) BAG IV ONE (04:00)
[2017-07-19] MEDS ORDERED: KETOROLAC 30 MG/ML VIAL IVP ONE (04:30)
[2017-07-19 04:35] LABS: BILIRUBIN,URINE NEGATIVE (NEGATIVE); CLARITY,URINE CLEAR; COLOR,URINE YELLOW; GLUCOSE, URINE (UA) NEGATIVE (NEGATIVE); KETONES,URINE 1+ (NEGATIVE); LEUKOCYTE ESTERASE ,URINE 1+ (NEGATIVE); NITRITE,URINE NEGATIVE (NEGATIVE); PH,URINE 7 (5-9); PROTEIN,URINE 1+ (NEGATIVE); UROBILINOGEN,URINE 1 MG/DL (NORMAL)
[2017-07-19 04:43] LABS: AMPHETAMINE SCREEN, URINE NEGATIVE (NEGATIVE); BARBITURATE SCREEN URINE NEGATIVE (NEGATIVE); BENZODIAZEPINES SCREEN URINE NEGATIVE (NEGATIVE); CANNABINOID SCREEN, URINE NEGATIVE (NEGATIVE); COCAINE SCREEN URINE NEGATIVE (NEGATIVE); METHADONE STAT NEGATIVE (NEGATIVE); METHAMPHETAMINE SCREEN URINE S NEGATIVE (NEGATIVE); OPIATE SCREEN URINE NEGATIVE (NEGATIVE); OXYCODONE STAT NEGATIVE (NEGATIVE); PROPOXYPHENE STAT NEGATIVE (NEGATIVE); TRICYCLIC ANTIDEPRESSANTS SCRE NEGATIVE (NEGATIVE)
[2017-07-19 04:53] LABS: BACTERIA,URINE NEGATIVE /HPF; WBC,URINE RARE /HPF
[2017-07-19] MEDS ORDERED: PANTOPRAZOLE INJECTION 200 MG in D5W 100 ML IVPB 50 ML IV SCH (05:15)
[2017-07-19] MEDS ORDERED: PANTOPRAZOLE 40 MG/10 ML (PROTONIX) VIAL IV ONE (05:15)
--- NOTE | 2017-07-19 06:09 | Diagnostic Imaging Report ---
PROCEDURE: CT abdomen and pelvis with contrast, rule out appendicitis. TECHNIQUE: Multiple contiguous axial images were obtained through the abdomen and pelvis after the administration of intravenous contrast. INDICATION: Abdominal pain with nausea and vomiting. No prior examinations are available for comparison. FINDINGS: Heart size is normal. Lung bases are clear. The liver is normal in size without focal lesions. Gallbladder is unremarkable. There is no biliary ductal dilatation. Spleen is normal. The pancreas and adrenal glands are unremarkable. There is a small right renal cyst. There is no evidence of nephrolithiasis or obstructive uropathy. There is some questionable mucosal thickening in the distal stomach. There is a small fluid collection contiguous with the gastric lumen extending through the posterior gastric wall suspicious for ulceration with some adjacent stranding. The bowel gas pattern is otherwise nonspecific. There are postsurgical changes in the rectosigmoid colon. There is no CT evidence of appendicitis. The bladder is unremarkable. There is no free air. There is no ascites. The osseous structures are unremarkable. There is no pathologically enlarged adenopathy. Aorta is nonaneurysmal. There are some subcentimeter mesenteric lymph nodes in the upper abdomen. IMPRESSION: Focal mucosal thickening in the distal stomach with a small fluid collection contiguous with the gastric lumen extending through the posterior gastric wall. There is some adjacent inflammatory stranding. Findings are suspicious for gastric ulcer. There is, however, no free air to suggest perforation although penetration through the gastric wall is not excluded given surrounding inflammatory findings. Recommend GI consultation for further workup/management. No evidence of bowel obstruction. There are postsurgical changes in the rectosigmoid colon. No CT evidence of appendicitis. Dictated by: Dictated on workstation # [id number]
[2017-07-19 06:30] VITALS: BP 131/89
[2017-07-19] MEDS ORDERED: 1/2 NS W/KCL 20 MEQ/L 1,000 ML IV SCH (06:45)
[2017-07-19] MEDS: fentaNYL INJECTION 100 MCG/2 ML AMP IV PRN ×4 (06:45→18:15)
[2017-07-19] MEDS: DEXTROSE IV SCH ×2 (07:45)
[2017-07-19] MEDS: PANTOPRAZOLE IV SCH ×2 (07:45)
[2017-07-19 08:00] VITALS: BP 130/70
[2017-07-19] MEDS ORDERED: OMEP20TA7 PO (08:02)
[2017-07-19] MEDS ORDERED: DOCU-143 PO (08:02)
[2017-07-19] MEDS ORDERED: LACTATED RINGERS 1,000 ML IV PRN (09:00)
[2017-07-19] MEDS ORDERED: MIDAZOLAM 5 MG/5 ML (VERSED) VIAL ONE (09:17)
[2017-07-19] MEDS ORDERED: proPOfol 200 MG/20 ML (DIPRIVAN) VIAL IV ONE ×2 (09:17→09:29)
--- NOTE | 2017-07-19 09:21 | History & Physical-Surgical ---
History of Present Illness History of Present Illness Reason for visit/HPI HPI per ED: Patient presents to ER by private conveyance with a chief complaint that he was having abdominal pain in the right lower quadrant radiating to his back and his periumbilical and epigastric region. He describes the pain as sharp and used to be intermittent and has now last day became constant and unbearable despite Tylenol and Motrin. He's not able to keep the medicines down or food down because he is having nausea and vomiting. He was seen a couple days ago in this ER and those records were reviewed. He was seen by surgery as well and had a normal CT scan and labs and sent home on a clear liquid diet which he says he's been doing but keeps throwing it up despite the Zofran every 4-6 hours. He says the Zofran will control his nausea for about 2 hours. He has been using the MiraLAX as well and has had loose stools with that. He's had no fevers, chills, rash. 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 When seen this am he states the pain has been constant and sharp since he left ER 2 day ago, now rating it 10 out of 10. He states all food makes it worse and nothing makes it better. He has hx of "reflux" and has been on omeprazole for 3 months, that was for burning in his throat. He states this is a RUQ pain. Prior to 2 days ago he has never had any pain like this. Date of Admission Jul 19, 2017 at 05:15 Time Seen by Provider: 09:01 I consulted on this patient on 07/19/17 09:16 Attending Physician Cabrera Dennis DO Admitting Physician No,Local Physician Consult Allergies and Home Medications Allergies Coded Allergies: No Known Drug Allergies (Unverified , 07/16/17) Home Medications Docusate Sodium 100 Mg Capsule, 100 MG PO DAILY, (Reported) Omeprazole 20 Mg Tablet.dr, 20 MG PO DAILY, (Reported) Ondansetron 4 Mg Tab.rapdis, 4 MG PO Q4H, #10 Prescribed by: KELSIE CRUZ on 07/16/17 1152 Past [id number]-[id number] Hx Patient Social History Alcohol Use: Denies Use Recreational Drug Use: No Smoking Status: Current Everyday Smoker Type Used: Cigarettes 2nd Hand Smoke Exposure: Yes Recent Foreign Travel: No Contact w/Someone Who Travel: No Recent Infectious Disease Expo: No Recent Hopitalizations: No Physical Abuse Screen: No Sexual Abuse: No Immunizations Up To Date PED Vaccines UTD: No Date of Influenza Vaccine: May 24, 2017 Seasonal Allergies Seasonal Allergies: No Surgeries History of Surgeries: Yes (colon resection) Surgeries: Abdominal Respiratory History of Respiratory Disorde: No Cardiovascular History of Cardiac Disorders: No Neurological History of Neurological Disord: No Genitourinary History of Genitourinary Disor: No Gastrointestinal History of Gastrointestinal Di: Yes (HIRSCHSPRUNG'S) Gastrointestinal Disorders: Gastroesophageal Reflux, Chronic Constipation Musculoskeletal History of Musculoskeletal Dis: No Endocrine History of Endocrine Disorders: No HEENT History of HEENT Disorders: No Cancer History of Cancer: No Psychosocial History of Psychiatric Problem: No Integumentary History of Skin or Integumenta: No Blood Transfusions History of Blood Disorders: No Adverse Reaction to a Blood Tr: No Family Medical History Significant Family History: No Pertinent Family Hx (Pt is adopted and doesn't know) Constitutional: chills, malaise, weakness EENTM: No blurred vision, No mouth pain, No mouth swelling, No epistaxis, No throat pain, No throat swelling Respiratory: No cough, No dyspnea on exertion, No hemoptysis Cardiovascular: No chest pain, No palpitations Gastrointestinal: RUQ, constipation, No hematemesis, No jaundice, No melena, nausea, vomiting Genitourinary: No dysuria, No frequency, No hematuria Musculoskeletal: No back pain, No joint pain, No muscle stiffness Psychiatric/Neurological: Denies Anxiety, Denies Depressed, Denies Headache, Denies Seizure, Denies Tremors Physical Exam Vital Signs Vital Sign - Last 12Hours 07/19/17 02:50 Temp 96.8 Pulse 87 Resp 16 B/P (MAP) 169/99 (122) Pulse Ox 97 O2 Delivery Room Air Capillary Refill : Less Than 3 Seconds General Appearance: WD/WN, Moderate Distress Eyes: Bilateral Eye PERRL, Bilateral Eye EOMI HEENT: Pharynx Normal, No Pale Conjunctivae (L), No Pale Conjunctivae (R), No Scleral Icterus (L), No Scleral Icterus (R) Neck: Full Range of Motion, Normal Inspection, Non Tender, Supple, No Thyromegaly Respiratory: Lungs Clear, Normal Breath Sounds, No Accessory Muscle Use, No Respiratory Distress Cardiovascular: Regular Rate, Rhythm, No Edema, No Murmur Gastrointestinal: Normal Bowel Sounds, No Pulsatile Mass, Soft, Guarding ( voluntary in upper quadrants), Tenderness Rectal: Deferred Back: No CVA Tenderness, No Vertebral Tenderness Extremity: Normal Capillary Refill, Normal Inspection, Normal Range of Motion, Non Tender, No Calf Tenderness Neurologic/Psychiatric: Alert, Oriented x3, No 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, 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 Skin: Normal Color, Warm/Dry Lymphatic: No Adenopathy (neck, axilla or groin) Data Review Labs Laboratory Tests 07/19/17 03:06: White Blood Count 11.7H, Red Blood Count 5.30, Hemoglobin 16.5, Hematocrit 45, Mean Corpuscular Volume 85, Mean Corpuscular Hemoglobin 31, Mean Corpuscular Hemoglobin Concent 37H, Red Cell Distribution Width 11.7, Platelet Count 235, Mean Platelet Volume 10.7H, Neutrophils (%) (Auto) 74, Lymphocytes (%) (Auto) 14 , Monocytes (%) (Auto) 12, Eosinophils (%) (Auto) 1, Basophils (%) (Auto) 0, Neutrophils # (Auto) 8.6H, Lymphocytes # (Auto) 1.6, Monocytes # (Auto) 1.4H, Eosinophils # (Auto) 0.1, Basophils # (Auto) 0.0, Sodium Level 137, Potassium Level 4.0, Chloride Level 101, Carbon Dioxide Level 24, Anion Gap 12, Blood Urea Nitrogen 13, Creatinine 0.84, Estimat Glomerular Filtration Rate > 60, BUN/ Creatinine Ratio 15, Glucose Level 109H, Calcium Level 9.6, Magnesium Level 2.1 , Total Bilirubin 0.4, Aspartate Amino Transf (AST/SGOT) 15, Alanine Aminotransferase (ALT/SGPT) 19, Alkaline Phosphatase 77, C-Reactive Protein High Sensitivity 0.93H, Total Protein 7.9, Albumin 4.3, Lipase 19 07/19/17 04:23: Urine Color YELLOW, Urine Clarity CLEAR, Urine pH 7, Urine Specific [place] 1.015L, Urine Protein 1+H, Urine Glucose (UA) NEGATIVE, Urine Ketones 1+H, Urine Nitrite NEGATIVE, Urine Bilirubin NEGATIVE, Urine Urobilinogen 1, Urine Leukocyte Esterase 1+H, Urine RBC (Auto) NEGATIVE, Urine RBC NONE, Urine WBC RARE, Urine Squamous Epithelial Cells 2-5, Urine Crystals NONE, Urine Bacteria NEGATIVE, Urine Casts NONE, Urine Mucus MODERATEH, Urine Culture Indicated NO, Urine Opiates Screen NEGATIVE, Urine Oxycodone Screen NEGATIVE, Urine Methadone Screen NEGATIVE, Urine Propoxyphene Screen NEGATIVE, Urine Barbiturates Screen NEGATIVE, Ur Tricyclic Antidepressants Screen NEGATIVE, Urine Phencyclidine Screen NEGATIVE, Urine Amphetamines Screen NEGATIVE, Urine Methamphetamines Screen NEGATIVE, Urine Benzodiazepines Screen NEGATIVE, Urine Cocaine Screen NEGATIVE, Urine Cannabinoids Screen NEGATIVE Assessment/Plan Assessment/Plan Assessment/Plan RUQ and Epigastric Abd pain CT shows inflammation of stomach, cannot rule out ulcer but no signs of perforation. Pain is getting worse and will therefore do an EGD on the patient to check stomach. He was admitted last night with pain control, anti-emetics, IV fluids and NPO. Discussed the EGD with pt; risks and complications not limited to pain, bleeding, infection and even possible esophageal perforation. Will probably do biopsies and if it doesn't look to bad will send him home today. All questions answered to his satisfaction. Clinical Quality Measures DVT/VTE Risk/Contraindication: Risk Factor Score Per Nursin RFS Level Per Nursing on Admit: 2=Moderate CABRERA DENNIS DO Jul 19, 2017 09:21
--- NOTE | 2017-07-19 09:44 | Progress Note-Post Operative ---
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
[2017-07-19] MEDS ORDERED: HURRICAINE EXT TUBE (BENZOCAINE) XX PRN (10:00)
--- NOTE | 2017-07-19 10:16 | Physician Progress Note ---
Progress Note Assessment/Plan Time Seen by Provider: 09:58 Events since last exam Pt had EGD and it showed large Duodenal Ulcer that had clotted blood in it; clot cleared out and no active bleeding. He also had a small ulcer in stomach; does not look like it had bled. Could not get past ulcer into duodenum and did not want to cause a perforation. Assessment/Plan Duodenal Ulcer with bleeding Gastric Ulcer Gastritis and Esophagitis Pt will need to be admitted to hospital; probably through the weekend to be kept on a Protonix drip. Will monitor H/H and watch for possible gastric perforation. He cannot eat because this will start production of stomach acids; will wait at least 2 days to feed him. Vitals Last set of Vitals Signs Vital Signs Date Time Temp Pulse Resp B/P (MAP) Pulse Ox O2 Delivery O2 Flow Rate FiO2 07/19/17 09:00 94 Room Air 07/19/17 08:00 97.4 59 20 130/70 (90) Labs Laboratory Tests 07/19/17 03:06: White Blood Count 11.7H, Red Blood Count 5.30, Hemoglobin 16.5, Hematocrit 45, Mean Corpuscular Volume 85, Mean Corpuscular Hemoglobin 31, Mean Corpuscular Hemoglobin Concent 37H, Red Cell Distribution Width 11.7, Platelet Count 235, Mean Platelet Volume 10.7H, Neutrophils (%) (Auto) 74, Lymphocytes (%) (Auto) 14 , Monocytes (%) (Auto) 12, Eosinophils (%) (Auto) 1, Basophils (%) (Auto) 0, Neutrophils # (Auto) 8.6H, Lymphocytes # (Auto) 1.6, Monocytes # (Auto) 1.4H, Eosinophils # (Auto) 0.1, Basophils # (Auto) 0.0, Sodium Level 137, Potassium Level 4.0, Chloride Level 101, Carbon Dioxide Level 24, Anion Gap 12, Blood Urea Nitrogen 13, Creatinine 0.84, Estimat Glomerular Filtration Rate > 60, BUN/ Creatinine Ratio 15, Glucose Level 109H, Calcium Level 9.6, Magnesium Level 2.1 , Total Bilirubin 0.4, Aspartate Amino Transf (AST/SGOT) 15, Alanine Aminotransferase (ALT/SGPT) 19, Alkaline Phosphatase 77, C-Reactive Protein High Sensitivity 0.93H, Total Protein 7.9, Albumin 4.3, Lipase 19 1/26/18 04:23: Urine Color YELLOW, Urine Clarity CLEAR, Urine pH 7, Urine Specific [place] 1.015L, Urine Protein 1+H, Urine Glucose (UA) NEGATIVE, Urine Ketones 1+H, Urine Nitrite NEGATIVE, Urine Bilirubin NEGATIVE, Urine Urobilinogen 1, Urine Leukocyte Esterase 1+H, Urine RBC (Auto) NEGATIVE, Urine RBC NONE, Urine WBC RARE, Urine Squamous Epithelial Cells 2-5, Urine Crystals NONE, Urine Bacteria NEGATIVE, Urine Casts NONE, Urine Mucus MODERATEH, Urine Culture Indicated NO, Urine Opiates Screen NEGATIVE, Urine Oxycodone Screen NEGATIVE, Urine Methadone Screen NEGATIVE, Urine Propoxyphene Screen NEGATIVE, Urine Barbiturates Screen NEGATIVE, Ur Tricyclic Antidepressants Screen NEGATIVE, Urine Phencyclidine Screen NEGATIVE, Urine Amphetamines Screen NEGATIVE, Urine Methamphetamines Screen NEGATIVE, Urine Benzodiazepines Screen NEGATIVE, Urine Cocaine Screen NEGATIVE, Urine Cannabinoids Screen NEGATIVE Clinical Quality Measures DVT/VTE Risk/Contraindication: Risk Factor Score Per Nursin RFS Level Per Nursing on Admit: 2=Moderate NORMAN VEGA DO Jul 19, 2017 10:16
[2017-07-19] MEDS ORDERED: HURRICAINE EXT TUBE (BENZOCAINE) ONE (10:52)
[2017-07-19] MEDS: LACTATED RINGERS 1,000 ML IV SCH ×2 (11:04→18:17)
[2017-07-19 11:39] VITALS: BP 117/70
[2017-07-19] MEDS: NICOTINE 14 MG (NICODERM) PATCH TD SCH (12:57)
--- NOTE | 2017-07-19 14:16 | OPERATIVE REPORT ---
DATE OF SERVICE: 07/19/2017 PREOPERATIVE DIAGNOSIS: Right upper quadrant epigastric pain. POSTOPERATIVE DIAGNOSES: 1. Duodenal ulcer with signs of old bleeding. 2. Gastric ulcer. 3. Gastritis. 4. Esophagitis. PROCEDURE: EGD with biopsy of duodenum as well as antrum, gastric ulcer, and esophagus. SURGEON: NORMAN VEGA DO [employer]ATION ENFORCEMENT OFFICER: None. ANESTHESIA: IV sedation by MED AIDE. SPECIMEN: One biopsy from the duodenum, one biopsy from the antrum, one biopsy from the gastric ulcer, and one biopsy from the esophagus. BLOOD LOSS: Scant. FLUIDS: Per anesthesia. POSTOPERATIVE CONDITION: Stable. INDICATION FOR PROCEDURE: The patient is a 32-year-old male who had increasing abdominal pain. Actually, he presented to the ER 2 days ago, was then sent home on clear liquids and came back with worsening pain, pain 10/10, vomiting, and CT showed inflammation in the stomach and duodenum. FINDINGS: The patient had a small ulcer in the stomach that was not bleeding. He had a very large ulcer in the first portion, right passed the pylorus and duodenum that had some old blood in it, but no active bleeding. He had some gastritis seen and some esophagitis. PROCEDURE NOTE: After informed consent was obtained, the patient was brought to the endoscopy suite and placed in the left lateral decubitus position, administered IV sedation by the MED AIDE who monitored his vitals the entire time, heart rate, blood pressure, and pulse ox and the scope was inserted down the mouth into the esophagus. Distal portion of esophagus looked erythematous. Pushed the scope into the stomach and as soon as I got into the stomach noted a gastric ulcer, took a picture of this. There was also some gastritis and then pushed to the pylorus and into the duodenum and just barely into the duodenum saw old clotted blood, able to suction this out and then saw a very large ulcer. There did not appear to be any bleeding at this time. Took a picture, could not get past this into the rest of the duodenum. I elected to do a biopsy of the duodenum, then did a biopsy of antrum, and then did a biopsy on the edge of the gastric ulcer, retroflexed, did not otherwise appeared to be a hiatal hernia, pulled back into the esophagus and then took another biopsy right at the GE junction and was very erythematous. Then pulled the scope out. The patient tolerated the procedure and he was recovered in the endoscopy suite. Job ID: [id number] DocumentID: [id number] Dictated Date: 07/19/2017 09:54:15 Reprint Sorter Date: 07/19/2017 13:33:41 Dictated By: DO TRACY DEL CID
[2017-07-19 15:14] LABS: BASOPHILS % (AUTO) 0 % (0-10); EOSINOPHILS # (AUTO) 0.1 10^3/uL (0.0-0.3); EOSINOPHILS % (AUTO) 1 % (0-10); HEMATOCRIT 39 % (40-54); HEMOGLOBIN 13.8 G/DL (13.3-17.7); LYMPHOCYTES # (AUTO) 1.8 X 10^3 (1.0-4.0); LYMPHOCYTES % (AUTO) 24 % (12-44); MEAN CORPUSCULAR HEMOGLOBIN 31 PG (25-34); MEAN CORPUSCULAR HGB CONC 36 G/DL (32-36); MEAN CORPUSCULAR VOLUME 87 FL (80-99); MEAN PLATELET VOLUME 10.6 FL (7.4-10.4); MONOCYTES # (AUTO) 1.1 X 10^3 (0.0-1.0); MONOCYTES % (AUTO) 15 % (0-12); NEUTROPHILS # (AUTO) 4.6 X 10^3 (1.8-7.8); NEUTROPHILS % (AUTO) 60 % (42-75); PLATELET COUNT 173 10^3/uL (130-400); RED BLOOD COUNT 4.44 10^6/uL (4.35-5.85); RED CELL DISTRIBUTION WIDTH 11.7 % (10.0-14.5); WHITE BLOOD COUNT 7.6 10^3/uL (4.3-11.0)
[2017-07-19 15:53] VITALS: BP 128/71
[2017-07-19] MEDS: ONDANSETRON 4 MG/2 ML (SDV) Z0FRAN IV PRN ×2 (16:19→21:20)
[2017-07-19 20:46] VITALS: BP 108/58
[2017-07-20] VITALS: BP 104/52
[2017-07-20] MEDS: LACTATED RINGERS 1,000 ML IV SCH ×4 (00:07→18:47)
[2017-07-20] MEDS: fentaNYL INJECTION 100 MCG/2 ML AMP IV PRN ×5 (00:07→18:48)
[2017-07-20 04:00] VITALS: BP 111/55
[2017-07-20] MEDS: DEXTROSE IV SCH ×2 (06:06)
[2017-07-20] MEDS: PANTOPRAZOLE IV SCH ×2 (06:06)
[2017-07-20] MEDS: ONDANSETRON 4 MG/2 ML (SDV) Z0FRAN IV PRN ×4 (06:46→18:47)
[2017-07-20 08:00] VITALS: BP 116/68
[2017-07-20 08:55] LABS: HEMOGLOBIN 14.3 G/DL (13.3-17.7)
[2017-07-20] MEDS ORDERED: NICOTINE PATCH REMOVAL TP SCH (08:59)
[2017-07-20] MEDS ORDERED: NICOTINE 14 MG (NICODERM) PATCH TD SCH (09:00)
[2017-07-20] MEDS: NICOTINE 14 MG (NICODERM) PATCH TD SCH (09:25)
[2017-07-20] MEDS: NICOTINE PATCH REMOVAL TP SCH (09:25)
[2017-07-20 11:59] VITALS: BP 120/72
[2017-07-20 16:00] VITALS: BP 132/71
--- NOTE | 2017-07-20 16:49 | Progress Note ---
Subjective Date Seen by Provider: Jul 20, 2017 Time Seen by Provider: 09:04 Subjective/Events-last exam patient states not had any more emesis. He does have some nausea. Pain he states has improved but still having pain in the epigastric region. Patient hgb is stable so far. He has no other complaints at this time. Denies any vomiting, fever sweats chills shortness of breath or chest pain. Objective Exam Vital Signs Date Time Temp Pulse Resp B/P (MAP) Pulse Ox O2 Delivery O2 Flow Rate FiO2 07/20/17 16:00 98.7 52 20 132/71 (91) 94 Room Air 07/20/17 11:59 97.7 66 20 120/72 (88) 92 Room Air 07/20/17 09:00 Room Air 07/20/17 08:00 97.2 57 20 116/68 (84) 93 Room Air 07/20/17 04:00 96.8 61 20 111/55 (73) 94 Room Air 07/20/17 00:00 97.2 59 16 104/52 (69) 94 Room Air 07/19/17 21:00 Room Air 07/19/17 20:46 98.8 63 20 108/58 (75) 95 Room Air I & O 07/20/17 07:00 Intake Total 1850 ml Output Total 1500 ml Balance 350 ml Capillary Refill : Less Than 3 Seconds General Appearance: WD/WN HEENT: PERRL/EOMI, No Pale Conjunctivae (L), No Pale Conjunctivae (R), No Scleral Icterus (L), No Scleral Icterus (R) Neck: Full Range of Motion, Normal Inspection, Non Tender, Supple, No Thyromegaly Respiratory: No Accessory Muscle Use, No Respiratory Distress Cardiovascular: Regular Rate, Rhythm, No Edema, No Murmur Peripheral Pulses: 2+ Dorsalis Pedis (R), 2+ Left Dors-Pedis (L), 2+ Radial Pulses (R), 2+ Radial Pulses (L) Gastrointestinal: normal bowel sounds, soft, No rebound, tenderness (minimal tenderness in the epigastric region) Extremity: Normal Capillary Refill, Normal Inspection, Normal Range of Motion, Non Tender, No Calf Tenderness Neurologic/Psychiatric: Alert, Oriented x3, No 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, material inspector II- XII Norm as Tested Skin: Normal Color, Warm/Dry Lymphatic: No Adenopathy (neck, axilla or groin) Results Lab Laboratory Tests 07/20/17 08:50: Hemoglobin 14.3, Hematocrit 40 Assessment/Plan Assessment/Plan Assessment/Plan Duodenal Ulcer with bleeding Gastric Ulcer Gastritis and Esophagitis Pt hemoglobin stable. Will continue to check blood work. Patient NPO and IV hydration continue protonix all questions answered. family at bedside Clinical Quality Measures DVT/VTE Risk/Contraindication: Risk Factor Score Per Nursin RFS Level Per Nursing on Admit: 2=Moderate REJI CLAY DO Jul 20, 2017 16:49
[2017-07-20 20:00] VITALS: BP 119/64
[2017-07-21] VITALS: BP 124/77
[2017-07-21] MEDS: fentaNYL INJECTION 100 MCG/2 ML AMP IV PRN ×5 (00:29→19:38)
[2017-07-21] MEDS: ONDANSETRON 4 MG/2 ML (SDV) Z0FRAN IV PRN ×5 (00:29→19:37)
[2017-07-21] MEDS: LACTATED RINGERS 1,000 ML IV SCH ×4 (00:35→21:00)
[2017-07-21] MEDS: PANTOPRAZOLE IV SCH ×2 (05:09)
[2017-07-21] MEDS: DEXTROSE IV SCH ×2 (05:09)
[2017-07-21 06:41] LABS: BASOPHILS % (AUTO) 1 % (0-10); EOSINOPHILS # (AUTO) 0.1 10^3/uL (0.0-0.3); EOSINOPHILS % (AUTO) 2 % (0-10); HEMATOCRIT 37 % (40-54); HEMOGLOBIN 13.4 G/DL (13.3-17.7); LYMPHOCYTES # (AUTO) 1.4 X 10^3 (1.0-4.0); LYMPHOCYTES % (AUTO) 23 % (12-44); MEAN CORPUSCULAR HEMOGLOBIN 32 PG (25-34); MEAN CORPUSCULAR HGB CONC 37 G/DL (32-36); MEAN CORPUSCULAR VOLUME 87 FL (80-99); MEAN PLATELET VOLUME 11.5 FL (7.4-10.4); MONOCYTES # (AUTO) 0.8 X 10^3 (0.0-1.0); MONOCYTES % (AUTO) 14 % (0-12); NEUTROPHILS # (AUTO) 3.6 X 10^3 (1.8-7.8); NEUTROPHILS % (AUTO) 61 % (42-75); PLATELET COUNT 165 10^3/uL (130-400); RED BLOOD COUNT 4.24 10^6/uL (4.35-5.85); RED CELL DISTRIBUTION WIDTH 11.6 % (10.0-14.5)
[2017-07-21 07:37] VITALS: BP 139/89
[2017-07-21] MEDS: NICOTINE 14 MG (NICODERM) PATCH TD SCH (08:58)
[2017-07-21] MEDS: NICOTINE PATCH REMOVAL TP SCH (09:18)
--- NOTE | 2017-07-21 15:37 | Progress Note ---
Subjective Date Seen by Provider: Jul 21, 2017 Time Seen by Provider: 15:35 Subjective/Events-last exam feeling better. pain minimal. no radiation of pain. hgb stable denies n/v fever sweats chills shortness of breath or chest pain. Objective Exam Vital Signs Date Time Temp Pulse Resp B/P (MAP) Pulse Ox O2 Delivery O2 Flow Rate FiO2 07/21/17 08:45 Room Air 07/21/17 07:37 97.5 57 20 139/89 (106) 95 Room Air 07/21/17 00:00 97.0 55 16 124/77 (93) 93 Room Air 07/20/17 21:00 Room Air 07/20/17 20:00 97.5 55 20 119/64 (82) 94 Room Air 07/20/17 16:00 98.7 52 20 132/71 (91) 94 Room Air I & O 07/21/17 07:00 Intake Total 2100 ml Output Total 2620 ml Balance -520 ml Capillary Refill : Less Than 3 Seconds General Appearance: No Apparent Distress, WD/WN HEENT: PERRL/EOMI, No Pale Conjunctivae (L), No Pale Conjunctivae (R), No Scleral Icterus (L), No Scleral Icterus (R) Neck: Full Range of Motion, Normal Inspection, Non Tender, Supple, No Thyromegaly Respiratory: No Accessory Muscle Use, No Respiratory Distress Cardiovascular: Regular Rate, Rhythm, No Edema, No Murmur Peripheral Pulses: 2+ Dorsalis Pedis (R), 2+ Left Dors-Pedis (L), 2+ Radial Pulses (R), 2+ Radial Pulses (L) Gastrointestinal: non tender, soft, no organomegaly, No rebound Extremity: Normal Capillary Refill, Normal Inspection, Normal Range of Motion, Non Tender, No Calf Tenderness Neurologic/Psychiatric: Alert, Oriented x3, No 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, air sealing technician II- XII Norm as Tested Skin: Normal Color, Warm/Dry Lymphatic: No Adenopathy Results Lab Laboratory Tests 07/21/17 06:07: White Blood Count 6.0, Red Blood Count 4.24L, Hemoglobin 13.4, Hematocrit 37L, Mean Corpuscular Volume 87, Mean Corpuscular Hemoglobin 32, Mean Corpuscular Hemoglobin Concent 37H, Red Cell Distribution Width 11.6, Platelet Count 165, Mean Platelet Volume 11.5H, Neutrophils (%) (Auto) 61, Lymphocytes (%) (Auto) 23 , Monocytes (%) (Auto) 14H, Eosinophils (%) (Auto) 2, Basophils (%) (Auto) 1, Neutrophils # (Auto) 3.6, Lymphocytes # (Auto) 1.4, Monocytes # (Auto) 0.8, Eosinophils # (Auto) 0.1, Basophils # (Auto) 0.0 Assessment/Plan Assessment/Plan Assessment/Plan Duodenal Ulcer with bleeding Gastric Ulcer Gastritis and Esophagitis Pt hemoglobin stable. Will continue to check blood work. Patient started on clears continue protonix Clinical Quality Measures DVT/VTE Risk/Contraindication: Risk Factor Score Per Nursin RFS Level Per Nursing on Admit: 2=Moderate REJI CLAY DO Jul 21, 2017 15:37
[2017-07-21 16:00] VITALS: BP 147/67
[2017-07-22] VITALS: BP 129/78
[2017-07-22] MEDS: fentaNYL INJECTION 100 MCG/2 ML AMP IV PRN ×4 (00:28→14:19)
[2017-07-22] MEDS: LACTATED RINGERS 1,000 ML IV SCH ×2 (03:50→10:25)
[2017-07-22] MEDS: DEXTROSE IV SCH ×2 (05:21)
[2017-07-22] MEDS: PANTOPRAZOLE IV SCH ×2 (05:21)
[2017-07-22] MEDS: ONDANSETRON 4 MG/2 ML (SDV) Z0FRAN IV PRN ×2 (05:23→09:20)
[2017-07-22 06:18] LABS: HEMOGLOBIN 13.5 G/DL (13.3-17.7); MEAN PLATELET VOLUME 10.9 FL (7.4-10.4); RED BLOOD COUNT 4.3 10^6/uL (4.35-5.85); RED CELL DISTRIBUTION WIDTH 11.6 % (10.0-14.5); WHITE BLOOD COUNT 5.4 10^3/uL (4.3-11.0)
[2017-07-22 06:36] LABS: BUN/CREATININE RATIO 7; CALCIUM 8.8 MG/DL (8.5-10.1); CARBON DIOXIDE 26 MMOL/L (21-32); CHLORIDE 104 MMOL/L (98-107); CREATININE SERUM 0.81 MG/DL (0.60-1.30); GFR ESTIMATED > 60; GLUCOSE 117 MG/DL (70-105); POTASSIUM 3.6 MMOL/L (3.6-5.0); SODIUM 139 MMOL/L (135-145)
[2017-07-22 08:00] VITALS: BP 155/74
[2017-07-22] MEDS: NICOTINE 14 MG (NICODERM) PATCH TD SCH (09:20)
[2017-07-22] MEDS: NICOTINE PATCH REMOVAL TP SCH (09:20)
--- NOTE | 2017-07-22 14:47 | Physician Progress Note ---
Progress Note Assessment/Plan Time Seen by Provider: 14:31 Events since last exam Pt seen, tolerating clears. Denies hematemesis, ?? melena. Pt wants to eat solid food. Assessment/Plan Duodenal Ulcer with bleeding Gastric Ulcer Gastritis and Esophagitis Will D/C pt home to take Oral Omeprazole 20mg BID. Vitals Last set of Vitals Signs Vital Signs Date Time Temp Pulse Resp B/P (MAP) Pulse Ox O2 Delivery O2 Flow Rate FiO2 07/22/17 09:50 Room Air 07/22/17 08:00 97.5 65 18 155/74 (101) 97 I&O I&O Intake and Output 07/22/17 00:00 Intake Total 3610 ml Output Total 3500 ml Balance 110 ml Intake Oral 1510 ml IV Total 2100 ml Output Urine Total 3500 ml Labs Laboratory Tests 07/22/17 06:12: White Blood Count 5.4, Red Blood Count 4.30L, Hemoglobin 13.5, Hematocrit 37L, Mean Corpuscular Volume 86, Mean Corpuscular Hemoglobin 31, Mean Corpuscular Hemoglobin Concent 36, Red Cell Distribution Width 11.6, Platelet Count 176, Mean Platelet Volume 10.9H, Sodium Level 139, Potassium Level 3.6, Chloride Level 104, Carbon Dioxide Level 26, Anion Gap 9, Blood Urea Nitrogen 6L, Creatinine 0.81, Estimat Glomerular Filtration Rate > 60, BUN/Creatinine Ratio 7 , Glucose Level 117H, Calcium Level 8.8 Clinical Quality Measures DVT/VTE Risk/Contraindication: Risk Factor Score Per Nursin RFS Level Per Nursing on Admit: 2=Moderate NORMAN VEGA DO Jul 22, 2017 14:47
[2017-07-22] MEDS ORDERED: OMEP20TA7 PO (14:49)
--- NOTE | 2017-07-22 14:52 | Discharge Inst-Surgical ---
Discharge Inst-Surgical Depart Medication/Instructions New, Converted or Re-Newed RX: Transmitted to Pharmacy Patient Instructions Follow up Appt: Make appointment for 1 week. Instructions: No lifting restrictions May shower or tub bath; soaking. Use incentive spirometer at home as directed. No Smoking Symptoms to Report: Appetite Changes, Extremity Discoloration, Numbness/Tingling, Swelling Increased , Bleeding Excessive, Eyesight Changes, Pain Increased, Urine Color Change, Constipation(Persistent), Fever over 101 degree F, Pain/Pressure in chest, Urinating Difficulty, Cough Up/Vomit Blood, Heart Beat Irreg/Pounding, Pain/ Pressure in jaw, Cramps in feet or legs, Lightheadedness, Pain/Pressure in shoulder, Diarrhea(Persistent), Memory Changes Suddenly, Questions/Concerns, Weight gain consecutive days, Dizziness/Fainting, Nausea/Vomiting, Shortness of Breath, Weight gain over 2 pounds If questions or concerns contact your physician Or seek help at emergency department. Activity Driving Instructions: You May Drive Diet Discharge Diet: No Restrictions Diet After 24 Hours: Clear Liquid if Nauseous If Any Problems/Questions/Issu: Contact Your Physician, Go to Emergency Room Skin/Wound Care Infection Signs and Symptoms: Temperature Above 101 F NORMAN VEGA DO Jul 22, 2017 14:52
[2017-07-22 15:53] VITALS: BP 155/74
[2017-07-22] MEDS ORDERED: PANTOPRAZOLE 40 MG/10 ML (PROTONIX) VIAL IV SCH (21:00)
== END 2017-07-22 15:50 | disposition home or self-care (01) | DRG 379 ==
LOC: EDUNIT# 02:42 → ER 02:44 → 4TH 05:15
PROVIDERS: ADMIT Surgery; ATTEND Surgery
PROC: 0DB78ZX Excision of Stomach, Pylorus, Via Natural or Artificial Opening Endoscopic, Diagnostic (ICD-10-PCS; 2017-07-19)
PROC: 0DB48ZX Excision of Esophagogastric Junction, Via Natural or Artificial Opening Endoscopic, Diagnostic (ICD-10-PCS; 2017-07-19)
PROC: 0DB98ZX Excision of Duodenum, Via Natural or Artificial Opening Endoscopic, Diagnostic (ICD-10-PCS; principal; 2017-07-19 09:00)
DX: K26.4 Chronic or unspecified duodenal ulcer with hemorrhage (principal); B96.81 Helicobacter pylori [H. pylori] as the cause of diseases classified elsewhere; K29.50 Unspecified chronic gastritis without bleeding; K21.0 Gastro-esophageal reflux disease with esophagitis; F17.210 Nicotine dependence, cigarettes, uncomplicated; K59.09 Other constipation
CPT/HCPCS: 36415; 74177; 80048; 80053; 80306; 81000; 83690; 83735; 85014; 85018; 85025; 85027; 86141

== ENCOUNTER 2017-07-28 13:51 | Emergency (ER) | payer SELFPAY ==
[~2017-07-28] VITALS: Ht 185.4 cm; Wt 129.3 kg
[~2017-07-28 13:51] MED LIST changes: +DOCU-143 PO; +OMEP20TA7 PO
[2017-07-28] MEDS ORDERED: NS IV 1000 ML 1,000 ML IV ONE (14:29)
[2017-07-28] MEDS ORDERED: FAMOTIDINE 20MG/2ML IV (PEPCID) IVP ONE (14:30)
[2017-07-28] MEDS ORDERED: ONDANSETRON 4 MG/2 ML (SDV) Z0FRAN IVP ONE (14:30)
[2017-07-28 14:50] LABS: BASOPHILS # (AUTO) 0.1 10^3/uL (0.0-0.1); BASOPHILS % (AUTO) 1 % (0-10); EOSINOPHILS # (AUTO) 0.2 10^3/uL (0.0-0.3); EOSINOPHILS % (AUTO) 3 % (0-10); HEMATOCRIT 43 % (40-54); HEMOGLOBIN 15.5 G/DL (13.3-17.7); LYMPHOCYTES # (AUTO) 1.5 X 10^3 (1.0-4.0); LYMPHOCYTES % (AUTO) 20 % (12-44); MEAN CORPUSCULAR HEMOGLOBIN 31 PG (25-34); MEAN CORPUSCULAR HGB CONC 36 G/DL (32-36); MEAN CORPUSCULAR VOLUME 87 FL (80-99); MEAN PLATELET VOLUME 10.8 FL (7.4-10.4); MONOCYTES # (AUTO) 0.9 X 10^3 (0.0-1.0); MONOCYTES % (AUTO) 12 % (0-12); NEUTROPHILS # (AUTO) 4.9 X 10^3 (1.8-7.8); NEUTROPHILS % (AUTO) 64 % (42-75); PLATELET COUNT 220 10^3/uL (130-400); RED BLOOD COUNT 4.94 10^6/uL (4.35-5.85); RED CELL DISTRIBUTION WIDTH 12.1 % (10.0-14.5); WHITE BLOOD COUNT 7.6 10^3/uL (4.3-11.0)
[2017-07-28] MEDS ORDERED: fentaNYL INJECTION 100 MCG/2 ML AMP IVP ONE (15:00)
[2017-07-28 15:08] LABS: ALANINE AMINOTRANSFERASE 57 U/L (0-55); ALKALINE PHOSPHATASE 54 U/L (40-136); BILIRUBIN,TOTAL 0.2 MG/DL (0.1-1.0); BUN/CREATININE RATIO 13; CALCIUM 9.5 MG/DL (8.5-10.1); CARBON DIOXIDE 21 MMOL/L (21-32); CHLORIDE 106 MMOL/L (98-107); CREATININE SERUM 0.84 MG/DL (0.60-1.30); GFR ESTIMATED > 60; GLUCOSE 94 MG/DL (70-105); LIPASE 37 U/L (8-78); POTASSIUM 4.1 MMOL/L (3.6-5.0); SODIUM 137 MMOL/L (135-145); TOTAL PROTEIN 7.1 GM/DL (6.4-8.2)
--- NOTE | 2017-07-28 15:28 | Diagnostic Imaging Report ---
Abdominal series. INDICATION: Abdominal pain. Comparison is made with CT from 07/19/2017. FINDINGS: There are surgical sutures demonstrated within the pelvis compatible with prior rectal surgery. Bowel gas pattern is nonobstructed. There is moderate stool within the colon. There is no free air. There are no abdominal calcifications. Lung bases are clear. IMPRESSION: 1. Previous surgical changes involving the rectum. Bowel gas pattern nonobstructed. There is no free air. There is moderate stool within the colon. Dictated by: Dictated on workstation # [id number]
[2017-07-28] MEDS ORDERED: ANTACID SUSP 30 ML UDC (MYLANTA) PO ONE (15:30)
[2017-07-28] MEDS ORDERED: LIDOCAINE 2% VISCOUS 15 ML UDC PO ONE (15:30)
--- NOTE | 2017-07-28 16:01 | ED Abdominal Pain ---
General Chief Complaint: Abdominal/GI Problems Stated Complaint: ULCER/ABD PAIN/VOMITING Nursing Triage Note: ARRIVED VIA AMB TO ROOM 07. STATES HE WAS JUST DISCHARGED ON SATURDAY WITH AN BLEEDING ULCER. COMPLAINS OF INCREASED ABD PAIN ET THAT HE CALLED DR ANDRADE WHO TOLD HIM TO COME TO THE ER. Sepsis Screen: No Definite Risk Source of Information: Patient, Old Records Exam Limitations: No Limitations History of Present Illness Date Seen by Provider: Jul 28, 2017 Time Seen by Provider: 14:14 Initial Comments This 32-year-old gentleman presents to the emergency room with complaints of upper abdominal pain. He was admitted July 19 and found to have gastric and duodenal ulcers by endoscopy with Dr. Vega. He was placed on PPI therapy. Biopsies were performed at that time. Pathology report was reviewed after initial assessment and he was found to have positive H. pylori organisms reported. Patient was not yet aware of this. Patient is afebrile at present but reports a temp of 100.1 last night. He is nauseated. Patient thought he had some blood in his stools recently as well. Allergies and Home Medications Allergies Coded Allergies: No Known Drug Allergies (Verified , 07/19/17) Home Medications Amoxicillin 500 Mg Capsule, 1,000 MG PO BID, #54 Prescribed by: WILLIAM PRATT on 07/28/17 1606 Clarithromycin 500 Mg Tablet, 500 MG PO BID, #28 Prescribed by: WILLIAM PRATT on 07/28/17 1606 Omeprazole 20 Mg Tablet.dr, 20 MG PO BID, #60 Prescribed by: NORMAN VEGA on 07/22/17 1449 Ondansetron 4 Mg Tab.rapdis, 4 MG SL Q4H, #20 Prescribed by: WILLIAM PRATT on 07/28/17 1606 Review of Systems Constitutional: no symptoms reported EENTM: No Symptoms Reported Respiratory: No Symptoms Reported Cardiovascular: No Symptoms Reported Gastrointestinal: See HPI Genitourinary: No Symptoms Reported Musculoskeletal: no symptoms reported Skin: no symptoms reported Psychiatric/Neurological: No Symptoms Reported Endocrine: No Symptoms Reported Hematologic/Lymphatic: No Symptoms Reported Past Vjfhpnq-Whqfdq-Jujlar Hx Patient Social History Alcohol Use: Denies Use Recreational Drug Use: No Smoking Status: Current Everyday Smoker Type Used: Cigarettes 2nd Hand Smoke Exposure: Yes Recent Foreign Travel: No Contact w/Someone Who Travel: No Recent Infectious Disease Expo: No Recent Hopitalizations: No Immunizations Up To Date PED Vaccines UTD: No Date of Influenza Vaccine: May 24, 2017 Seasonal Allergies Seasonal Allergies: No Surgeries History of Surgeries: Yes (colon resection, endoscopy) Surgeries: Abdominal Respiratory History of Respiratory Disorde: No Cardiovascular History of Cardiac Disorders: No Neurological History of Neurological Disord: No Genitourinary History of Genitourinary Disor: No Gastrointestinal History of Gastrointestinal Di: Yes (HIRSCHSPRUNG'S) Gastrointestinal Disorders: Gastroesophageal Reflux, Chronic Constipation, Ulcer Musculoskeletal History of Musculoskeletal Dis: No Endocrine History of Endocrine Disorders: No HEENT History of HEENT Disorders: No Cancer History of Cancer: No Psychosocial History of Psychiatric Problem: No Integumentary History of Skin or Integumenta: No Blood Transfusions History of Blood Disorders: No Adverse Reaction to a Blood Tr: No Family Medical History Significant Family History: No Pertinent Family Hx Physical Exam Vital Signs VS - Last 72 Hours, by Label 07/28/17 07/28/17 13:58 16:14 Temp 97.9 Pulse 98 81 Resp 18 18 B/P (MAP) 151/98 (115) Pulse Ox 98 98 Capillary Refill : Less Than 3 Seconds General Appearance: WD/WN, no apparent distress HEENT: PERRL/EOMI, normal ENT inspection Respiratory: lungs clear, normal breath sounds, no respiratory distress, no accessory muscle use Cardiovascular: regular rate, rhythm, no edema Gastrointestinal: normal bowel sounds, soft, tenderness (Epigastric) Extremities: normal inspection, no pedal edema Neurologic/Psychiatric: lab head II-XII nml as tested, no motor/sensory deficits, alert, normal mood/affect, oriented x 3 Skin: normal color, warm/dry Progress/Results/Core Measures Results/Orders Lab Results Laboratory Tests Test 07/28/17 14:43 Range/Units White Blood Count 7.6 4.3-11.0 10^3/uL Red Blood Count 4.94 4.35-5.85 10^6/uL Hemoglobin 15.5 13.3-17.7 G/DL Hematocrit 43 40-54 % Mean Corpuscular Volume 87 80-99 FL Mean Corpuscular Hemoglobin 31 25-34 PG Mean Corpuscular Hemoglobin Concent 36 32-36 G/DL Red Cell Distribution Width 12.1 10.0-14.5 % Platelet Count 220 130-400 10^3/uL Mean Platelet Volume 10.8 H 7.4-10.4 FL Neutrophils (%) (Auto) 64 42-75 % Lymphocytes (%) (Auto) 20 12-44 % Monocytes (%) (Auto) 12 0-12 % Eosinophils (%) (Auto) 3 0-10 % Basophils (%) (Auto) 1 0-10 % Neutrophils # (Auto) 4.9 1.8-7.8 X 10^3 Lymphocytes # (Auto) 1.5 1.0-4.0 X 10^3 Monocytes # (Auto) 0.9 0.0-1.0 X 10^3 Eosinophils # (Auto) 0.2 0.0-0.3 10^3/uL Basophils # (Auto) 0.1 0.0-0.1 10^3/uL Sodium Level 137 135-145 MMOL/L Potassium Level 4.1 3.6-5.0 MMOL/L Chloride Level 106 98-107 MMOL/L Carbon Dioxide Level 21 21-32 MMOL/L Anion Gap 10 5-14 MMOL/L Blood Urea Nitrogen 11 7-18 MG/DL Creatinine 0.84 0.60-1.30 MG/DL Estimat Glomerular Filtration Rate > 60 BUN/Creatinine Ratio 13 Glucose Level 94 70-105 MG/DL Calcium Level 9.5 8.5-10.1 MG/DL Total Bilirubin 0.2 0.1-1.0 MG/DL Aspartate Amino Transf (AST/SGOT) 23 5-34 U/L Alanine Aminotransferase (ALT/SGPT) 57 H 0-55 U/L Alkaline Phosphatase 54 40-136 U/L Total Protein 7.1 6.4-8.2 GM/DL Albumin 4.0 3.2-4.5 GM/DL Lipase 37 8-78 U/L My Orders Orders - WILLIAM ALVARES MD Cbc With Automated Diff (07/28/17 14:29) Comprehensive Metabolic Panel (07/28/17 14:29) Lipase (07/28/17 14:29) Abdomen, Flat & Upright/Decub (07/28/17 14:29) Saline Lock/Iv-Start (07/28/17 14:29) Ns Iv 1000 Ml (Sodium Chloride 0.9%) (07/28/17 14:29) Famotidine Injection (Pepcid Injection) (07/28/17 14:30) Ondansetron Injection (Zofran Injectio (07/28/17 14:30) Fentanyl Injection (Sublimaze Injection (07/28/17 15:00) Lidocaine 2% Viscous 15 Ml (Xylocaine Vi (07/28/17 15:30) Antacid Suspension (Mylanta Suspension (07/28/17 15:30) Iv Push Cardiac Technician Ed (07/28/17 ) Medications Given in ED Vital Signs/I&O Vital Sign - Last 12Hours 07/28/17 07/28/17 13:58 16:14 Temp 97.9 Pulse 98 81 Resp 18 18 B/P (MAP) 151/98 (115) Pulse Ox 98 98 Blood Pressure Mean: 115 Progress Note : Progress Note Patient was treated with Pepcid, Zofran, and fentanyl followed by GI cocktail. He did have improvement in symptoms. He was hydrated with a liter of normal saline. I discussed his pathology reports with him and the need for treating H. pylori. Labs and KUB and upright x-rays were relatively unremarkable. Diagnostic Imaging Diagonstic Imaging: Xray Plain Films/CT/US/NM/MRI: abdomen, pelvis Comments Abdominal x-ray viewed by me and report reviewed. See report below: NAME: GENE GOLDMAN MED REC#: [id number] PT STATUS: REG ER : 1985 PHYSICIAN: WILLIAM ALVARES MD ADMIT DATE: 07/28/17/ER Signed Date of Exam: 07/28/17 ABDOMEN, FLAT & UPRIGHT/DECUB Abdominal series. INDICATION: Abdominal pain. Comparison is made with CT from 07/19/2017. FINDINGS: There are surgical sutures demonstrated within the pelvis compatible with prior rectal surgery. Bowel gas pattern is nonobstructed. There is moderate stool within the colon. There is no free air. There are no abdominal calcifications. Lung bases are clear. IMPRESSION: 1. Previous surgical changes involving the rectum. Bowel gas pattern nonobstructed. There is no free air. There is moderate stool within the colon. Dictated by: Dictated on workstation # [id number] Dict: 07/28/17 1516 Trans: 07/28/17 1536 Interpreted by: MARIIA PEDERSON MD Electronically signed by: MARIIA PEDERSON MD 07/28/17 1536 Departure Impression Impression: Primary Impression: Peptic ulcer disease Additional Impression: H pylori ulcer Disposition: HOME, SELF-CARE Condition: Improved Departure-Patient Inst. Referrals: NO,LOCAL PHYSICIAN (PCP/Family) Primary Care Physician Patient Instructions: Peptic Ulcers Add. Discharge Instructions: Your biopsies from your endoscopy showed H. pylori. This is a bacteria that grows in the stomach and can cause ulcers. You need to treat this with antibiotics. Complete the entire 2 week course of the antibiotics. You need to continue omeprazole twice daily for at least one month. Follow-up with Dr. Vega within the next couple of weeks. Avoid the following: Eating large meals, eating close to bedtime, caffeine, carbonation, chocolate, tobacco products, alcohol, tomato products, mints, spicy foods, NSAID medications such as ibuprofen or naproxen, fatty or greasy foods, or anything else you know irritates your stomach. Use Zofran as prescribed for nausea. Return to care if symptoms worsen. You should expect gradual improvement over the next few weeks as healing from ulcers takes time. All discharge instructions reviewed with patient and/or family. Voiced understanding. Scripts Ondansetron (Zofran Odt) 4 Mg Tab.rapdis 4 MG SL Q4H, #20 TAB Prov: WILLIAM ALVARES MD 07/28/17 Amoxicillin (Amoxicillin) 500 Mg Capsule 1000 MG PO BID, #54 CAP Prov: WILLIAM ALVARES MD 07/28/17 Clarithromycin (Clarithromycin) 500 Mg Tablet 500 MG PO BID, #28 TAB Prov: WILLIAM ALVARES MD 07/28/17 Copy Copies To 1: NORMAN VEGA JOSHUA T MD Jul 28, 2017 16:01
[2017-07-28] MEDS ORDERED: ONDA4TAB8 SL (16:06)
[2017-07-28] MEDS ORDERED: CLAR-19 PO (16:06)
[2017-07-28] MEDS ORDERED: AMOX500C2 PO (16:06)
[2017-07-28 16:14] VITALS: BP 118/74
== END 2017-07-28 16:14 | disposition home or self-care (01) ==
LOC: EDUNIT# 13:51 → ER 13:52
DX: K25.4 Chronic or unspecified gastric ulcer with hemorrhage (principal); B96.81 Helicobacter pylori [H. pylori] as the cause of diseases classified elsewhere; K21.9 Gastro-esophageal reflux disease without esophagitis; F17.210 Nicotine dependence, cigarettes, uncomplicated
CPT/HCPCS: 36415; 74019; 80053; 83690; 85025; 96374; 96375

== ENCOUNTER → 2017-09-12 | Outpatient (CLI) | payer MEDICAID ==
[~2017-09-12] MED LIST changes: +AMOX500C2 PO; +CLAR-19 PO; +ONDA4TAB8 SL; +TRAM50TA2 PO
--- NOTE | 2017-09-12 14:21 | Diagnostic Imaging Report ---
INDICATION: Injury to the right foot and ankle. TIME OF EXAM: 2:27 p.m. Three views of the right ankle were obtained. FINDINGS: Alignment is normal. The ankle mortise is well maintained. There is a well-corticated osseous density adjacent to the tip of the medial malleolus consistent with an old avulsion. No acute fracture is identified. There are mild talonavicular joint degenerative changes noted. No significant soft tissue swelling is seen. IMPRESSION: Chronic changes. No acute bony abnormality is detected. Dictated by: Dictated on workstation # [id number]
--- NOTE | 2017-09-12 14:25 | Diagnostic Imaging Report ---
INDICATION: Injury to the right foot and ankle. TIME OF EXAM: 02:24 p.m. FINDINGS: The metatarsals are intact. No periosteal reaction or stress reaction is seen. The phalanges are intact. There is a lucency extending through the medial aspect of the navicular bone, suggestive of a fracture. No significant displacement is seen. No other fractures are identified. The hind foot is unremarkable. IMPRESSION: Findings suggestive of a navicular fracture along the medial aspect. No other significant abnormality is detected. Dictated by: Dictated on workstation # [id number]
== END ==
LOC: RAD 13:23
PROVIDERS: ATTEND Nurse Practitioner Family
DX: S99.911A Unspecified injury of right ankle, initial encounter (principal); S99.921A Unspecified injury of right foot, initial encounter
CPT/HCPCS: 73610; 73630

== ENCOUNTER 2017-09-13 13:13 | Emergency (ER) | payer MEDICAID ==
[~2017-09-13] VITALS: Ht 182.9 cm; Wt 127.0 kg
[~2017-09-13 13:13] MED LIST changes: -TRAM50TA2 PO
[2017-09-13 14:44] VITALS: BP 143/91
--- NOTE | 2017-09-13 15:05 | ED Lower Extremity ---
General Chief Complaint: Lower Extremity Stated Complaint: RT FOOT PAIN Nursing Triage Note: Pt c/o R foot pain. Pt had xrays done yesterday and has navicular fracture of R foot. Pt reports he is to be non weight bearing for 6 weeks and is to follow-up with ortho. Pt reports his pain is worse today. Nursing Sepsis Screen: No Definite Risk Source: patient Exam Limitations: no limitations History of Present Illness Date Seen by Provider: Sep 13, 2017 Time Seen by Provider: 15:04 Initial Comments 32-year-old male patient presents to the emergency department with complaints of right foot pain. Patient was diagnosed yesterday with a navicular fracture of the right foot by [facility]. States insurance will not pay for the walking boot, but they will pay for the crutches. he has not picked the crutches up yet. He denies being prescribed pain medication. Reports zhvw-[id number] medications are not controlling symptoms. Onset: yesterday Pain/Injury Location: right foot Method of Injury: twisted Modifying Factors: Improves With Immobilization, Worse With Movement Allergies and Home Medications Allergies Coded Allergies: No Known Drug Allergies (Verified , 07/19/17) Home Medications Amoxicillin 500 Mg Capsule, 1,000 MG PO BID Prescribed by: WILLIAM PRATT on 07/28/17 1606 Clarithromycin 500 Mg Tablet, 500 MG PO BID Prescribed by: WILLIAM PRATT on 07/28/17 1606 Omeprazole 20 Mg Tablet.dr, 20 MG PO BID Prescribed by: NORMAN VEGA on 07/22/17 1449 Ondansetron 4 Mg Tab.rapdis, 4 MG SL Q4H Prescribed by: WILLIAM PRATT on 07/28/17 1606 Tramadol HCl 50 Mg Tablet, 50 MG PO Q4H PRN for pain Prescribed by: NEDA MCNALLY on 09/13/17 1520 Patient Home Medication List Home Medication List Reviewed: Yes Constitutional: no symptoms reported Respiratory: no symptoms reported Cardiovascular: no symptoms reported Musculoskeletal: see HPI, joint pain (rt foot pain), joint swelling (rt foot swelling) Skin: no symptoms reported Psychiatric/Neurological: No Symptoms Reported All Other Systems Reviewed Negative Unless Noted: Yes (Negative excepted noted.) Past Wdohszv-Mokppc-Ezabqy Hx Patient Social History Type Used: Cigarettes 2nd Hand Smoke Exposure: Yes Recent Foreign Travel: No Contact w/Someone Who Travel: No Recent Infectious Disease Expo: No Recent Hopitalizations: No Immunizations Up To Date PED Vaccines UTD: No Date of Influenza Vaccine: May 24, 2017 Seasonal Allergies Seasonal Allergies: No Surgeries History of Surgeries: Yes (colon resection, endoscopy) Surgeries: Abdominal Respiratory History of Respiratory Disorde: No Cardiovascular History of Cardiac Disorders: No Neurological History of Neurological Disord: No Genitourinary History of Genitourinary Disor: No Gastrointestinal History of Gastrointestinal Di: Yes (HIRSCHSPRUNG'S) Gastrointestinal Disorders: Gastroesophageal Reflux, Chronic Constipation, Ulcer Musculoskeletal History of Musculoskeletal Dis: No Endocrine History of Endocrine Disorders: No HEENT History of HEENT Disorders: No Cancer History of Cancer: No Psychosocial History of Psychiatric Problem: No Integumentary History of Skin or Integumenta: No Blood Transfusions History of Blood Disorders: No Adverse Reaction to a Blood Tr: No Reviewed Nursing Assessment Reviewed/Agree w Nursing PMH: Yes Family Medical History Significant Family History: No Pertinent Family Hx Physical Exam Vital Signs Vital Signs - First Documented 09/13/17 14:44 Temp 98.1 Pulse 72 Resp 18 B/P (MAP) 143/91 (108) Pulse Ox 96 O2 Delivery Room Air Capillary Refill : Less Than 3 Seconds General Appearance: WD/WN, no apparent distress Cardiovascular: normal peripheral pulses, regular rate, rhythm, no murmur Respiratory: lungs clear, normal breath sounds, no respiratory distress, no accessory muscle use Legs: bilateral leg non-tender, bilateral leg normal inspection, bilateral leg normal range of motion, bilateral leg no evidence of injury Knees: bilateral knee non-tender, bilateral knee normal inspection, bilateral knee normal range of motion, bilateral knee no evidence of injury Ankles: bilateral ankle non-tender, bilateral ankle normal inspection, bilateral ankle normal range of motion, bilateral ankle no evidence of injury Feet: left foot non-tender, left foot normal inspection, left foot normal range of motion, left foot no evidence of injury, right foot bone tenderness, right foot limited range of motion, right foot pain, right foot soft tissue tenderness, right foot swelling Neurologic/Tendon: normal sensation, normal motor functions, normal tendon functions, responds to pain, no evidence tendon injury Neurologic/Psychiatric: no motor/sensory deficits, alert, normal mood/affect, oriented x 3 Skin: normal color, warm/dry Progress/Results/Core Measures Results/Orders My Orders Orders - NEDA MCNALLY Hydrocodone/Apap 5/325 Tablet (Lortab 5 (09/13/17 15:18) Steplite (09/13/17 15:19) Vital Signs/I&O Vital Sign - Last 12Hours 09/13/17 14:44 Temp 98.1 Pulse 72 Resp 18 B/P (MAP) 143/91 (108) Pulse Ox 96 O2 Delivery Room Air Blood Pressure Mean: 108 Departure Communication (Admissions) Progress Notes radiographs from 09/12/17 reviewed. patient placed in a steplite boot and given 1 dose of hydrocodone. plan for dsch to home. patient to go to DME to get the crutches as instructed by Gisella Pierce. Impression Impression: Primary Impression: Closed navicular fracture of right foot Qualified Codes: S92.254A - Nondisplaced fracture of navicular [scaphoid] of right foot, initial encounter for closed fracture Disposition: HOME, SELF-CARE Condition: Improved Departure-Patient Inst. Decision time for Depature: 15:07 Referrals: SANTINO LINCOLN MD, GORDON L MD (PCP) Primary Care Physician JUAN BENSON MD Patient Instructions: Foot Fracture (DC) Add. Discharge Instructions: All discharge instructions reviewed with patient and/or family. Voiced understanding. Medications as instructed. Elevate the right foot on pillows. Picked at and use the crutches as instructed by Gisella pierce yesterday. Ice pack for 20 minute intervals as needed for pain. Nonweightbearing on the right foot until released by the orthopedic surgeon. Follow-up with orthopedics as instructed by Gisella pierce. Call for appointment time if you have not done so already. Return to the emergency department for worsened symptoms or any other concerns. Scripts Tramadol HCl (Tramadol HCl) 50 Mg Tablet 50 MG PO Q4H Y for pain, #14 TAB 0 Refills Prov: NEDA MCNALLY 09/13/17 Work/School Note: Local [employer] Listing NEDA MCNALLY Sep 13, 2017 15:05
[2017-09-13] MEDS ORDERED: HYDROcodone/APAP 5 MG/325 MG (LORTAB) TAB PO STA (15:18)
[2017-09-13] MEDS ORDERED: TRAM50TA2 PO (15:20)
== END 2017-09-13 15:31 | disposition home or self-care (01) ==
LOC: EDUNIT# 13:13 → ER 13:15
DX: S92.251A Displaced fracture of navicular [scaphoid] of right foot, initial encounter for closed fracture (principal); K21.9 Gastro-esophageal reflux disease without esophagitis; K59.09 Other constipation; Z87.19 Personal history of other diseases of the digestive system; Z77.22 Contact with and (suspected) exposure to environmental tobacco smoke (acute) (chronic); X50.1XXA Overexertion from prolonged static or awkward postures, initial encounter
CPT/HCPCS: 99282

== ENCOUNTER 2017-09-25 05:39 | Outpatient (CLI) | payer MEDICAID ==
[~2017-09-25] VITALS: Ht 182.9 cm; Wt 136.1 kg
[~2017-09-25 05:39] MED LIST changes: +TRAM50TA2 PO
[2017-09-25] MEDS ORDERED: TRAM50TA2 PO ×2 (12:49)
[2017-09-25] MEDS ORDERED: OMEP20TA7 PO ×2 (12:49)
[2017-09-26] MEDS ORDERED: HYDR-34 PO ×2 (12:04)
== END 2017-09-25 13:30 ==
LOC: PREOP 05:39
PROVIDERS: ATTEND Surgery
DX: Z01.818 Encounter for other preprocedural examination (principal); K25.9 Gastric ulcer, unspecified as acute or chronic, without hemorrhage or perforation; B96.81 Helicobacter pylori [H. pylori] as the cause of diseases classified elsewhere

== ENCOUNTER 2017-09-26 09:10 | Emergency (ER) | payer MEDICAID ==
[~2017-09-26] VITALS: Ht 185.4 cm; Wt 131.5 kg
[2017-09-26] MEDS ORDERED: NS IV 1000 ML 1,000 ML IV ONE (09:24)
[2017-09-26] MEDS ORDERED: FAMOTIDINE 20MG/2ML IV (PEPCID) IV STA (09:24)
[2017-09-26] MEDS ORDERED: LIDOCAINE 2% VISCOUS 15 ML UDC PO ONE (09:30)
[2017-09-26] MEDS ORDERED: ANTACID SUSP 30 ML UDC (MYLANTA) PO ONE (09:30)
--- NOTE | 2017-09-26 09:36 | ED GI ---
General Chief Complaint: Abdominal/GI Problems Stated Complaint: RIGHT SIDE PAIN,N/DIZZINESS Nursing Triage Note: TO ROOM C/O ABD PAIN WITH VOMITING FOR 3 DAYS PMH OF Hodan ADAMSON SUPPOSE TO HAVE SCOPE DONE ON SATURDAY. Sepsis Screen: No Definite Risk Source of Information: Patient Exam Limitations: No Limitations History of Present Illness Date Seen by Provider: Sep 26, 2017 Time Seen by Provider: 09:26 Initial Comments Here with report of right upper quadrant abdominal pain. Does have history of H. pylori as well as duodenal ulcer and gastritis. He follows under the care of Dr. Vega. Reports that he's been taking his omeprazole and that is not helping. Reports that he has taken pain medicine which turns out to be ibuprofen. Denies vomiting or diarrhea. Denies blood in his vomit or stool. Has follow-up upper endoscopy scheduled for next Saturday with Dr. Vega. Timing/Duration: 3-4 Days Severity/Quality: Moderate, Severe Location: RUQ Radiation: No Radiation Modifying Factors: Worsens With Eating Associated Symptoms: No Back Pain, No Chest Pain, No Fever/Chills, No Nausea/ Vomiting, No Shortness of Air, No Weakness Allergies and Home Medications Allergies Coded Allergies: No Known Drug Allergies (Verified , 07/19/17) Home Medications Hydrocodone Bit/Acetaminophen 1 Ea Tablet, 1 EACH PO Q6H PRN for PAIN-MODERATE Prescribed by: TAINA SCHULER on 09/26/17 1204 Omeprazole 20 Mg Tablet.dr, 20 MG PO BID, (Reported) Tramadol HCl 50 Mg Tablet, 50 MG PO Q4H PRN for PAIN-MILD TO MODERATE, (Reported ) Patient Home Medication List Home Medication List Reviewed: Yes Review of Systems Constitutional: see HPI, No chills, No fever EENTM: No Symptoms Reported Respiratory: No Symptoms Reported Cardiovascular: Denies Chest Pain, Denies Edema Gastrointestinal: Abdominal Pain, Denies Constipated, Denies Diarrhea, Denies Nausea, Denies Rectal Bleeding, Denies Vomiting Genitourinary: No Symptoms Reported Musculoskeletal: no symptoms reported All Other Systems Reviewed Negative Unless Noted: Yes Past Kxocogo-Qqmvbf-Ajftgt Hx Patient Social History Alcohol Use: Denies Use Recreational Drug Use: No Smoking Status: Current Everyday Smoker Type Used: Cigarettes 2nd Hand Smoke Exposure: Yes Recent Foreign Travel: No Contact w/Someone Who Travel: No Recent Infectious Disease Expo: No Recent Hopitalizations: No Immunizations Up To Date Tetanus Booster (TDap): Unknown PED Vaccines UTD: No Date of Influenza Vaccine: May 24, 2017 Seasonal Allergies Seasonal Allergies: No Surgeries History of Surgeries: Yes (colon resection, r inguinal nerve cut?) Surgeries: Abdominal Respiratory History of Respiratory Disorde: Yes (asthma as kid) Respiratory Disorders: Asthma, Sleep Apnea Cardiovascular History of Cardiac Disorders: No Neurological History of Neurological Disord: No Genitourinary History of Genitourinary Disor: No Gastrointestinal History of Gastrointestinal Di: Yes (HIRSCHSPRUNG'S) Gastrointestinal Disorders: Gastroesophageal Reflux, Ulcer Musculoskeletal History of Musculoskeletal Dis: Yes (right foot fx, currently wearing a boot) Endocrine History of Endocrine Disorders: No HEENT History of HEENT Disorders: No Cancer History of Cancer: No Psychosocial History of Psychiatric Problem: No Integumentary History of Skin or Integumenta: No Blood Transfusions History of Blood Disorders: No Adverse Reaction to a Blood Tr: No Reviewed Nursing Assessment Reviewed/Agree w Nursing PMH: Yes Family Medical History Significant Family History: No Pertinent Family Hx Physical Exam Vital Signs VS - Last 72 Hours, by Label 09/26/17 09:27 Temp 96.6 Pulse 82 Resp 18 B/P (MAP) 149/104 (119) Pulse Ox 98 Capillary Refill : Less Than 3 Seconds General Appearance: WD/WN, no apparent distress HEENT: PERRL/EOMI, pharynx normal Neck: full range of motion, supple Respiratory: lungs clear, normal breath sounds Cardiovascular: regular rate, rhythm, no murmur Gastrointestinal: soft, No guarding, No rebound, tenderness (right upper quadrant) Extremities: non-tender, normal inspection Back: normal inspection, no CVA tenderness, no vertebral tenderness Neurologic/Psychiatric: alert, normal mood/affect Skin: normal color, warm/dry Progress/Results/Core Measures Results/Orders Lab Results Laboratory Tests Test 09/26/17 09:42 09/26/17 09:55 Range/Units Urine Color YELLOW Urine Clarity CLEAR Urine pH 6 5-9 Urine Specific [place] 1.025 H 1.016-1.022 Urine Protein NEGATIVE NEGATIVE Urine Glucose (UA) NEGATIVE NEGATIVE Urine Ketones NEGATIVE NEGATIVE Urine Nitrite NEGATIVE NEGATIVE Urine Bilirubin NEGATIVE NEGATIVE Urine Urobilinogen 4 H NORMAL MG/DL Urine Leukocyte Esterase 1+ H NEGATIVE Urine RBC (Auto) NEGATIVE NEGATIVE Urine RBC NONE /HPF Urine WBC NONE /HPF Urine Squamous Epithelial Cells 0-2 /HPF Urine Crystals PRESENT H /LPF Urine Amorphous Sediment RARE RAMIRO URATES H /LPF Urine Bacteria NEGATIVE /HPF Urine Casts NONE /LPF Urine Mucus MODERATE H /LPF Urine Culture Indicated NO White Blood Count 8.1 4.3-11.0 10^3/uL Red Blood Count 4.86 4.35-5.85 10^6/uL Hemoglobin 15.1 13.3-17.7 G/DL Hematocrit 42 40-54 % Mean Corpuscular Volume 87 80-99 FL Mean Corpuscular Hemoglobin 31 25-34 PG Mean Corpuscular Hemoglobin Concent 36 32-36 G/DL Red Cell Distribution Width 12.5 10.0-14.5 % Platelet Count 233 130-400 10^3/uL Mean Platelet Volume 10.5 H 7.4-10.4 FL Neutrophils (%) (Auto) 60 42-75 % Lymphocytes (%) (Auto) 21 12-44 % Monocytes (%) (Auto) 15 H 0-12 % Eosinophils (%) (Auto) 3 0-10 % Basophils (%) (Auto) 1 0-10 % Neutrophils # (Auto) 4.9 1.8-7.8 X 10^3 Lymphocytes # (Auto) 1.7 1.0-4.0 X 10^3 Monocytes # (Auto) 1.2 H 0.0-1.0 X 10^3 Eosinophils # (Auto) 0.2 0.0-0.3 10^3/uL Basophils # (Auto) 0.1 0.0-0.1 10^3/uL Sodium Level 137 135-145 MMOL/L Potassium Level 4.1 3.6-5.0 MMOL/L Chloride Level 103 98-107 MMOL/L Carbon Dioxide Level 24 21-32 MMOL/L Anion Gap 10 5-14 MMOL/L Blood Urea Nitrogen 10 7-18 MG/DL Creatinine 0.82 0.60-1.30 MG/DL Estimat Glomerular Filtration Rate > 60 BUN/Creatinine Ratio 12 Glucose Level 70 70-105 MG/DL Calcium Level 9.4 8.5-10.1 MG/DL Magnesium Level 2.3 1.8-2.4 MG/DL Total Bilirubin 0.4 0.1-1.0 MG/DL Aspartate Amino Transf (AST/SGOT) 23 5-34 U/L Alanine Aminotransferase (ALT/SGPT) 29 0-55 U/L Alkaline Phosphatase 68 40-136 U/L Total Protein 7.4 6.4-8.2 GM/DL Albumin 4.2 3.2-4.5 GM/DL Amylase Level 31 25-125 U/L Lipase 28 8-78 U/L My Orders Orders - TAINA SCHULER MD Amylase (09/26/17 09:24) Cbc With Automated Diff (09/26/17:24) Comprehensive Metabolic Panel (09/26/17:24) Lipase (09/26/17:24) Magnesium (09/26/17:24) Ua Culture If Indicated (09/26/17:24) Saline Lock/Iv-Start (09/26/17:24) Ns Iv 1000 Ml (Sodium Chloride 0.9%) (09/26/17:24) Famotidine Injection (Pepcid Injection) (09/26/17 09:24) Lidocaine 2% Viscous 15 Ml (Xylocaine Vi (09/26/17 09:30) Antacid Suspension (Mylanta Suspension (09/26/17 09:30) Fentanyl Injection (Sublimaze Injection (09/26/17 10:25) Chest 1 View, Ap/Pa Only (09/26/17 11:59) Medications Given in ED Current Medications Medications Dose Ordered Sig/Jose G Route Start Time Stop Time Status Last Admin Dose Admin Al Hydrox/Mg Hydrox/Simethicone 30 ml ONCE ONCE PO 09/26/17 09:30 09/26/17 09:31 DC 09/26/17 09:57 30 ML Lidocaine HCl 15 ml ONCE ONCE PO 09/26/17 09:30 09/26/17 09:31 DC 09/26/17 09:57 15 ML Ondansetron HCl 4 mg ONCE ONCE IVP 09/26/17 11:15 09/26/17 11:16 DC 09/26/17 11:14 4 MG Sodium Chloride 1,000 ml @ 0 mls/hr Q0M ONCE IV 09/26/17 09:24 09/26/17 09:27 DC 09/26/17 09:59 1,000 MLS/HR Vital Signs/I&O Vital Sign - Last 12Hours 09/26/17 09:27 Temp 96.6 Pulse 82 Resp 18 B/P (MAP) 149/104 (119) Pulse Ox 98 Blood Pressure Mean: 119 Progress Note : Progress Note IV, labs, normal saline 1 L bolus, Pepcid 20 mg IV and GI cocktail ordered. Pain persists. Fentanyl 75 g IV ordered. Patient instructed to stop taking ibuprofen as this will worsen his ulcers. Monitor patient. 1200: I discussed the case with Dr. Vega. He is requesting x-ray. If there is no free air it' s okay for discharge with pain medicine and continue with scheduled upper endoscopy next week. This was discussed with the patient and he agrees. X-ray ordered. Diagnostic Imaging Diagonstic Imaging: Xray Plain Films/CT/US/NM/MRI: chest Comments NAME: G[facility] REC#: [id number] PT STATUS: REG ER : 1985 PHYSICIAN: TAINA SCHULER MD ADMIT DATE: 09/26/17/ER Draft Date of Exam:09/26/17 CHEST 1 VIEW, AP/PA ONLY INDICATION: Upper abdominal pain and vomiting. COMPARISON: CT abdomen pelvis from 07/19/2017. FINDINGS: No airspace consolidations in the visible lungs. Please note the posterior lower lobes are poorly evaluated by portable radiography. No pleural effusion or pneumothorax. Heart is normal in size. Prominence of the left leno is likely due to normal pulmonary vasculature. No free intraperitoneal air. IMPRESSION: 1. No acute cardiopulmonary process by portable radiography. 2. No free intraperitoneal air. Dictated on workstation # [id number] Dict: 09/26/17 1217 Trans: 09/26/17 1222 [facility] [id number] Interpreted by: LANA SIMPSON MD Electronically signed by: Departure Impression Impression: Primary Impression: Right upper quadrant abdominal pain Additional Impression: Peptic ulcer disease Disposition: 01 HOME, SELF-CARE Condition: Stable Departure-Patient Inst. Decision time for Depature: 12:02 Referrals: CAMERON JUAREZ MD (PCP/Family) Primary Care Physician Patient Instructions: Acute Abdomen (Belly Pain), Adult (DC), Peptic Ulcers (DC ) Add. Discharge Instructions: All discharge instructions reviewed with patient and/or family. Voiced understanding. Clear liquid diet or light diet for the next few days and then follow instructions for prep for upper endoscopy. Avoid ibuprofen/Motrin/Aleve/ Naprosyn/aspirin for pain control as this will increase her risk of bleeding. You may take the prescribed pain medicine or Tylenol/acetaminophen but do not take both as both have acetaminophen as an ingredient. Return for worse pain, fever, vomiting, weakness, breathing problems or other concerns as needed. You should take your omeprazole 20 mg tablets twice daily and you may add Pepcid or the generic famotidine 20 mg twice daily to decrease acid. Scripts Hydrocodone Bit/Acetaminophen (LORTAB 7.5 MG TABLET) 1 Ea Tablet 1 EACH PO Q6H Y for PAIN-MODERATE, #14 TAB 0 Refills Prov: TAINA SCHULER MD 09/26/17 Copy Copies To 1: NORMAN VEGA TIMOTHY D MD Sep 26, 2017 09:36
[2017-09-26 09:49] LABS: BILIRUBIN,URINE NEGATIVE (NEGATIVE); CLARITY,URINE CLEAR; COLOR,URINE YELLOW; GLUCOSE, URINE (UA) NEGATIVE (NEGATIVE); KETONES,URINE NEGATIVE (NEGATIVE); LEUKOCYTE ESTERASE ,URINE 1+ (NEGATIVE); NITRITE,URINE NEGATIVE (NEGATIVE); PH,URINE 6 (5-9); PROTEIN,URINE NEGATIVE (NEGATIVE); UROBILINOGEN,URINE 4 MG/DL (NORMAL)
[2017-09-26 10:07] LABS: BASOPHILS # (AUTO) 0.1 10^3/uL (0.0-0.1); BASOPHILS % (AUTO) 1 % (0-10); EOSINOPHILS # (AUTO) 0.2 10^3/uL (0.0-0.3); EOSINOPHILS % (AUTO) 3 % (0-10); HEMATOCRIT 42 % (40-54); HEMOGLOBIN 15.1 G/DL (13.3-17.7); LYMPHOCYTES # (AUTO) 1.7 X 10^3 (1.0-4.0); LYMPHOCYTES % (AUTO) 21 % (12-44); MEAN CORPUSCULAR HEMOGLOBIN 31 PG (25-34); MEAN CORPUSCULAR HGB CONC 36 G/DL (32-36); MEAN CORPUSCULAR VOLUME 87 FL (80-99); MEAN PLATELET VOLUME 10.5 FL (7.4-10.4); MONOCYTES # (AUTO) 1.2 X 10^3 (0.0-1.0); MONOCYTES % (AUTO) 15 % (0-12); NEUTROPHILS # (AUTO) 4.9 X 10^3 (1.8-7.8); NEUTROPHILS % (AUTO) 60 % (42-75); PLATELET COUNT 233 10^3/uL (130-400); RED BLOOD COUNT 4.86 10^6/uL (4.35-5.85); RED CELL DISTRIBUTION WIDTH 12.5 % (10.0-14.5); WHITE BLOOD COUNT 8.1 10^3/uL (4.3-11.0)
[2017-09-26] MEDS ORDERED: fentaNYL INJECTION 100 MCG/2 ML AMP IVP STA (10:25)
[2017-09-26 10:27] LABS: ALANINE AMINOTRANSFERASE 29 U/L (0-55); ALBUMIN 4.2 GM/DL (3.2-4.5); ALKALINE PHOSPHATASE 68 U/L (40-136); AMYLASE 31 U/L (25-125); BILIRUBIN,TOTAL 0.4 MG/DL (0.1-1.0); BUN/CREATININE RATIO 12; CALCIUM 9.4 MG/DL (8.5-10.1); CARBON DIOXIDE 24 MMOL/L (21-32); CHLORIDE 103 MMOL/L (98-107); CREATININE SERUM 0.82 MG/DL (0.60-1.30); GFR ESTIMATED > 60; GLUCOSE 70 MG/DL (70-105); LIPASE 28 U/L (8-78); MAGNESIUM 2.3 MG/DL (1.8-2.4); POTASSIUM 4.1 MMOL/L (3.6-5.0); SODIUM 137 MMOL/L (135-145); TOTAL PROTEIN 7.4 GM/DL (6.4-8.2)
[2017-09-26 10:41] LABS: AMORPHOUS SEDIMENT,UR RARE AMOR URATES /LPF; BACTERIA,URINE NEGATIVE /HPF; SQUAMOUS EPITHELIAL CELL,UR 0-2 /HPF
[2017-09-26] MEDS ORDERED: ONDANSETRON 4 MG/2 ML (SDV) Z0FRAN IVP ONE (11:15)
[2017-09-26] MEDS ORDERED: HYDR-34 PO (12:04)
--- NOTE | 2017-09-26 12:22 | Diagnostic Imaging Report ---
INDICATION: Upper abdominal pain and vomiting. COMPARISON: CT abdomen pelvis from 07/19/2017. FINDINGS: No airspace consolidations in the visible lungs. Please note the posterior lower lobes are poorly evaluated by portable radiography. No pleural effusion or pneumothorax. Heart is normal in size. Prominence of the left leno is likely due to normal pulmonary vasculature. No free intraperitoneal air. IMPRESSION: 1. No acute cardiopulmonary process by portable radiography. 2. No free intraperitoneal air. Dictated by: Dictated on workstation # [id number]
[2017-09-26 12:30] VITALS: BP 142/88
[2017-09-30] MEDS ORDERED: SUCR1TAB36 PO (13:41)
== END 2017-09-26 12:30 | disposition home or self-care (01) ==
LOC: EDUNIT# 09:10 → ER 09:12
DX: K27.9 Peptic ulcer, site unspecified, unspecified as acute or chronic, without hemorrhage or perforation (principal); J45.909 Unspecified asthma, uncomplicated; G47.30 Sleep apnea, unspecified; K21.9 Gastro-esophageal reflux disease without esophagitis; F17.210 Nicotine dependence, cigarettes, uncomplicated; Z90.49 Acquired absence of other specified parts of digestive tract; Z87.19 Personal history of other diseases of the digestive system; Z86.19 Personal history of other infectious and parasitic diseases
CPT/HCPCS: 36415; 71045; 80053; 81000; 82150; 83690; 83735; 85025; 96361; 96374; 96375

== ENCOUNTER 2017-09-30 06:57 | Day surgery (SDC) | payer MEDICAID ==
[~2017-09-30] VITALS: Ht 185.4 cm; Wt 131.5 kg
[~2017-09-30 06:57] MED LIST changes: +HYDR-34 PO
[2017-09-30] MEDS ORDERED: ONDANSETRON 4 MG (ZOFRAN) ORAL DISSOLVE TAB SL STA (07:13)
[2017-09-30] MEDS ORDERED: NS IV 1000 ML 1,000 ML IV STA (07:13)
[2017-09-30] MEDS ORDERED: fentaNYL INJECTION 100 MCG/2 ML AMP IVP STA (07:13)
[2017-09-30 07:31] LABS: BASOPHILS % (AUTO) 1 % (0-10); EOSINOPHILS # (AUTO) 0.2 10^3/uL (0.0-0.3); EOSINOPHILS % (AUTO) 2 % (0-10); HEMATOCRIT 44 % (40-54); HEMOGLOBIN 15.6 G/DL (13.3-17.7); LYMPHOCYTES % (AUTO) 24 % (12-44); MEAN CORPUSCULAR HEMOGLOBIN 31 PG (25-34); MEAN CORPUSCULAR HGB CONC 36 G/DL (32-36); MEAN CORPUSCULAR VOLUME 87 FL (80-99); MEAN PLATELET VOLUME 10.4 FL (7.4-10.4); MONOCYTES # (AUTO) 1.1 X 10^3 (0.0-1.0); MONOCYTES % (AUTO) 14 % (0-12); NEUTROPHILS # (AUTO) 4.7 X 10^3 (1.8-7.8); NEUTROPHILS % (AUTO) 59 % (42-75); PLATELET COUNT 235 10^3/uL (130-400); RED BLOOD COUNT 5.07 10^6/uL (4.35-5.85); RED CELL DISTRIBUTION WIDTH 12.5 % (10.0-14.5)
--- NOTE | 2017-09-30 07:38 | ED Abdominal Pain ---
General Stated Complaint: AB PAIN W VOMITING Source of Information: Patient History of Present Illness Date Seen by Provider: Sep 30, 2017 Time Seen by Provider: 07:00 Initial Comments Here with report of right upper quadrant abdominal pain and vomiting. Reports that he vomited blood at 11 p.m. last night. Has had a few other episodes of vomiting until about 3 a.m. and none since. States that progressively lessened with respect to bloody show on the vomit. He is due to have upper endoscopy today with Dr. Dennis. Presented to the ER due to pain and concerns for vomiting blood. Timing/Duration: 12 Hours, Getting Worse Severity/Quality: Moderate, Severe Location: RUQ Radiation: Back Activities at Onset: None Modifying Factors: Worsens With Eating, Improves With Vomiting Associated Symptoms: Nausea/Vomiting Allergies and Home Medications Allergies Coded Allergies: No Known Drug Allergies (Verified , 07/19/17) Home Medications Hydrocodone Bit/Acetaminophen 1 Ea Tablet, 1 EACH PO Q6H PRN for PAIN-MODERATE Prescribed by: TAINA SCHULER on 09/26/17 1204 Omeprazole 20 Mg Tablet., 20 MG PO BID, (Reported) Tramadol HCl 50 Mg Tablet, 50 MG PO Q4H PRN for PAIN-MILD TO MODERATE, (Reported ) Patient Home Medication List Home Medication List Reviewed: Yes Review of Systems Constitutional: no symptoms reported EENTM: No Symptoms Reported Respiratory: Denies Cough, Denies Shortness of Air Cardiovascular: Denies Chest Pain, Denies Edema Gastrointestinal: Abdominal Pain, Denies Rectal Bleeding, Vomiting Genitourinary: No Symptoms Reported Musculoskeletal: no symptoms reported All Other Systems Reviewed Negative Unless Noted: Yes Past Bxhpiny-Imzxze-Rnustf Hx Past Med/Social Hx: Reviewed Nursing Past Med/Soc Hx Patient Social History Alcohol Use: Denies Use Recreational Drug Use: No Smoking Status: Current Everyday Smoker Type Used: Cigarettes, Smokeless Tobacco 2nd Hand Smoke Exposure: Yes Recent Foreign Travel: No Contact w/Someone Who Travel: No Recent Hopitalizations: No Immunizations Up To Date Tetanus Booster (TDap): Unknown PED Vaccines UTD: No Date of Influenza Vaccine: May 24, 2017 Seasonal Allergies Seasonal Allergies: No Past Medical History Surgeries: Yes (colon resection, r inguinal nerve cut?) Abdominal Respiratory: Yes (asthma as kid) Asthma, Sleep Apnea Cardiac: No Neurological: No Genitourinary: No Gastrointestinal: Yes (HIRSCHSPRUNG'S) Gastroesophageal Reflux, Ulcer Musculoskeletal: Yes (right foot fx, currently wearing a boot) Endocrine: No HEENT: No Cancer: No Psychosocial: No Integumentary: No Blood Disorders: No Adverse Reaction/Blood Tranf: No Family Medical History Reviewed Nursing Family Hx No Pertinent Family Hx Physical Exam Vital Signs Vital Signs - First Documented 09/30/17 07:03 Temp 97.6 Pulse 92 Resp 14 B/P (MAP) 153/104 (120) O2 Delivery Room Air Capillary Refill : General Appearance: WD/WN, no apparent distress HEENT: PERRL/EOMI, pharynx normal Neck: full range of motion, supple Respiratory: lungs clear, normal breath sounds Cardiovascular: regular rate, rhythm, no murmur Gastrointestinal: non tender, soft Extremities: non-tender, normal inspection Back: normal inspection, no CVA tenderness, no vertebral tenderness Neurologic/Psychiatric: alert, oriented x 3 Skin: normal color, warm/dry Progress/Results/Core Measures Lab Results Laboratory Tests Test 09/30/17 07:15 Range/Units White Blood Count 8.0 4.3-11.0 10^3/uL Red Blood Count 5.07 4.35-5.85 10^6/uL Hemoglobin 15.6 13.3-17.7 G/DL Hematocrit 44 40-54 % Mean Corpuscular Volume 87 80-99 FL Mean Corpuscular Hemoglobin 31 25-34 PG Mean Corpuscular Hemoglobin Concent 36 32-36 G/DL Red Cell Distribution Width 12.5 10.0-14.5 % Platelet Count 235 130-400 10^3/uL Mean Platelet Volume 10.4 7.4-10.4 FL Neutrophils (%) (Auto) 59 42-75 % Lymphocytes (%) (Auto) 24 12-44 % Monocytes (%) (Auto) 14 H 0-12 % Eosinophils (%) (Auto) 2 0-10 % Basophils (%) (Auto) 1 0-10 % Neutrophils # (Auto) 4.7 1.8-7.8 X 10^3 Lymphocytes # (Auto) 2.0 1.0-4.0 X 10^3 Monocytes # (Auto) 1.1 H 0.0-1.0 X 10^3 Eosinophils # (Auto) 0.2 0.0-0.3 10^3/uL Basophils # (Auto) 0.0 0.0-0.1 10^3/uL Sodium Level 139 135-145 MMOL/L Potassium Level 4.3 3.6-5.0 MMOL/L Chloride Level 105 98-107 MMOL/L Carbon Dioxide Level 26 21-32 MMOL/L Anion Gap 8 5-14 MMOL/L Blood Urea Nitrogen 11 7-18 MG/DL Creatinine 0.87 0.60-1.30 MG/DL Estimat Glomerular Filtration Rate > 60 BUN/Creatinine Ratio 13 Glucose Level 95 70-105 MG/DL Calcium Level 9.5 8.5-10.1 MG/DL Total Bilirubin 0.4 0.1-1.0 MG/DL Aspartate Amino Transf (AST/SGOT) 19 5-34 U/L Alanine Aminotransferase (ALT/SGPT) 25 0-55 U/L Alkaline Phosphatase 71 40-136 U/L Total Protein 7.1 6.4-8.2 GM/DL Albumin 4.3 3.2-4.5 GM/DL Lipase 29 8-78 U/L My Orders Orders - TAINA SCHULER MD Cbc With Automated Diff (09/30/17 07:13) Comprehensive Metabolic Panel (09/30/17 07:13) Lipase (09/30/17 07:13) Chest 1 View, Ap/Pa Only (09/30/17 07:13) Ondansetron Oral Dissolve Tab (Zofran (09/30/17 07:13) Ns Iv 1000 Ml (Sodium Chloride 0.9%) (09/30/17 07:13) Saline Lock/Iv-Start (09/30/17 07:13) Fentanyl Injection (Sublimaze Injection (09/30/17 07:13) Morphine Injection (Morphine Injection (09/30/17 08:15) Lr 1000 Ml (09/30/17 08:30) Vital Signs/I&O 09/30/17 07:03 Temp 97.6 Pulse 92 Resp 14 B/P (MAP) 153/104 (120) O2 Delivery Room Air Progress Note : Progress Note Seen and evaluated. I did discuss discussed the case with Dr. Dennis. We will get basic labs, chest x-ray and provide IV fluids and nausea and pain relief. Normal saline 1 L bolus, fentanyl 75 g IV and Zofran 4 mg IV ordered. 0820: Labs complete and x-ray complete. I did discuss the case with Dr. Dennis. We will send the patient down to outpatient surgery area were he will await endoscopy later today. Hopefully it will be prior to the 1300 schedule appointment time that he has. This is discussed with patient and family who agree. We will initiate LR at 125 an hour. Morphine 6 mg IV ordered for continued pain. Diagonstic Imaging: Xray Plain Films/CT/US/NM/MRI: chest Comments [facility]IA [facility]. [place], [place] NAME: GENE GOLDMAN [facility] REC#: [id number] PT STATUS: REG ER : 1985 PHYSICIAN: TAINA SCHULER MD ADMIT DATE: 09/30/17/ER Draft Date of Exam:09/30/17 CHEST 1 VIEW, AP/PA ONLY INDICATION: Hemoptysis COMPARISON: 09/26/2017 FINDINGS: Single frontal view of the chest demonstrates normal heart size and pulmonary vascularity. The lungs are well aerated and clear. No large pleural effusion or pneumothorax is seen. The visualized osseous structures show no acute abnormalities. IMPRESSION: 1. No acute cardiopulmonary process. Dictated on workstation # [id number] Dict: 09/30/17 0802 Trans: 09/30/17 0803 REGINA [id number] Interpreted by: ANAHI GAY MD Electronically signed by: Departure Impression Primary Impression: Right upper quadrant abdominal pain Additional Impression: Hematemesis Qualified Codes: K92.0 - Hematemesis Disposition: ADMITTED INPATIENT Condition: Stable Departure-Patient Inst. Decision time for Depature: 08:27 Referrals: CAMERON JUAREZ MD (PCP/Family) Primary Care Physician Patient Instructions: Peptic Ulcers (DC) Add. Discharge Instructions: Go directly to same day surgery. Discharge instructions per Dr. Dennis. TAINA SCHULER MD Sep 30, 2017 07:38
[2017-09-30 07:58] LABS: ALANINE AMINOTRANSFERASE 25 U/L (0-55); ALBUMIN 4.3 GM/DL (3.2-4.5); ALKALINE PHOSPHATASE 71 U/L (40-136); BILIRUBIN,TOTAL 0.4 MG/DL (0.1-1.0); BUN/CREATININE RATIO 13; CALCIUM 9.5 MG/DL (8.5-10.1); CARBON DIOXIDE 26 MMOL/L (21-32); CHLORIDE 105 MMOL/L (98-107); CREATININE SERUM 0.87 MG/DL (0.60-1.30); GFR ESTIMATED > 60; GLUCOSE 95 MG/DL (70-105); LIPASE 29 U/L (8-78); POTASSIUM 4.3 MMOL/L (3.6-5.0); SODIUM 139 MMOL/L (135-145); TOTAL PROTEIN 7.1 GM/DL (6.4-8.2)
--- NOTE | 2017-09-30 08:04 | Diagnostic Imaging Report ---
INDICATION: Hemoptysis COMPARISON: 09/26/2017 FINDINGS: Single frontal view of the chest demonstrates normal heart size and pulmonary vascularity. The lungs are well aerated and clear. No large pleural effusion or pneumothorax is seen. The visualized osseous structures show no acute abnormalities. IMPRESSION: 1. No acute cardiopulmonary process. Dictated by: Dictated on workstation # [id number]
[2017-09-30] MEDS ORDERED: morphine INJ 10 MG/ML 1ML (SYR OR VIAL) IVP STA (08:15)
[2017-09-30] MEDS ORDERED: LACTATED RINGERS 1,000 ML IV SCH (08:30)
[2017-09-30] MEDS ORDERED: LACTATED RINGERS 1,000 ML IV STA (11:12)
[2017-09-30 11:13] VITALS: BP 119/71
[2017-09-30] MEDS ORDERED: HURRICAINE EXT TUBE (BENZOCAINE) XX PRN (11:15)
[2017-09-30] MEDS ORDERED: MIDAZOLAM 2 MG/2 ML (VERSED) VIAL ONE (12:47)
[2017-09-30] MEDS ORDERED: proPOfol 200 MG/20 ML (DIPRIVAN) VIAL IV ONE ×2 (12:47→13:05)
--- NOTE | 2017-09-30 13:19 | Progress Note-Pre Operative ---
Pre-Operative Progress Note H&P Reviewed The H&P was reviewed, patient examined and no changes noted. Time Seen by Provider: 12:14 Date H&P Reviewed: Sep 30, 2017 Time H&P Reviewed: 12:16 Pre-Operative Diagnosis: Hematemesis, hx gastric ulcer NORMAN VEGA DO Sep 30, 2017 13:18
--- NOTE | 2017-09-30 13:20 | Progress Note-Post Operative ---
Post-Operative Progess Note Surgeon (s)/Salesperson Fashion Accessories (s) Surgeon NORMAN VEGA DO Salesperson Fashion Accessories: none Pre-Operative Diagnosis Hematemesis, hx gastric ulcer Post-Operative Diagnosis Duodenal Ulcer Gastric ulcer Gastritis Esophagitis Procedure & Operative Findings Date of Procedure 09/30/17 Procedure Performed/Findings EGD with biopsy Anesthesia Type IV sedation by HORIZONTAL BORING MILL OPERATOR Estimated Blood Loss Estimated blood loss (mL): scant Specimens/Packing Specimens Removed duodenal bx antral bx NORMAN VEGA DO Sep 30, 2017 13:19
[2017-09-30 13:35] VITALS: BP 112/62
[2017-09-30] MEDS ORDERED: SUCR1TAB36 PO ×2 (13:41)
--- NOTE | 2017-09-30 13:43 | Endoscopy Discharge Instruct ---
Endo Procedure/Findings Findings 1.: Duodenal Ulcer 2.: Gastric Ulcer 3.: Gastritis 4.: Hamilton's Esophagus Discharge Instructions - Activity: You might feel a little sleepy until tomorrow. This is due to the medicine you received to relax you. Until tomorrow, you should: NOT drive a car, operate machinery or power tools. NOT drink any alcoholic beverages. NOT make any important decisions or sign importortant papers. Do not return to work until tomorrow, unless otherwise instructed. Resume previous activities tomorrow. Diet: Start by taking liquids. If you tolerate liquids, advance to solid food. Notify Physician - If you experience excessive bleeding, unusual abdominal pain, fever, or chest pain, contact your doctor immediately. Follow-Up: - I have received and understand the above instructions and will call my doctor if I have any further questions. Patient Signature Date Nurse Signature Other (Relationship) NORMAN VEGA DO Sep 30, 2017 13:43
[2017-09-30 13:55] VITALS: BP 105/70
[2017-09-30 14:13] VITALS: BP 105/70
[2017-09-30] MEDS ORDERED: HURRICAINE EXT TUBE (BENZOCAINE) ONE (14:27)
--- NOTE | 2017-09-30 21:41 | OPERATIVE REPORT ---
DATE OF SERVICE: PREOPERATIVE DIAGNOSES: Hematemesis, history of gastric ulcer, H. pylori. POSTOPERATIVE DIAGNOSES: 1. Duodenal ulcer. 2. Gastric ulcer. 3. Gastritis. 4. Esophagitis. 5. Hematemesis. PROCEDURE: EGD with biopsy. SURGEON: Cabrera Dennis DO TAFFY PULLER: None. ANESTHESIA: IV sedation by AMERICAN HISTORY PROFESSOR. SPECIMENS: One biopsy from the duodenum and one biopsy of the antrum. BLOOD LOSS: Scant. FLUIDS: Per anesthesia. POSTOPERATIVE CONDITION: Stable. INDICATION FOR PROCEDURE: The patient is a 32-year-old male who had a history of some gastritis. I believe he had a duodenal ulcer previously as well as a gastric ulcer. H. pylori positive came in actually last night for hematemesis, but workup in the ER was negative. Hemoglobin was stable. Chest x-ray was normal, and he was discharged and then admitted to same-day surgery for his planned EGD today. FINDINGS: The patient still had a duodenal ulcer that looked a little bit better, very small, possibly beginning of a gastric ulcer, had some gastritis as well as some esophagitis, almost looked like possibly beginnings of Hamilton's, but no active bleeding, did not see any blood in the stomach. PROCEDURE NOTE: After informed consent was obtained, the patient was brought to the endoscopy suite, placed in the bed in the left lateral decubitus position. He was administered IV sedation by the AMERICAN HISTORY PROFESSOR, who then monitored his vitals the entire time, heart rate, blood pressure and pulse ox and the scope was then inserted, pushed down the mouth into the esophagus and down in the stomach. Upon entering noted some gastritis, pushed toward the pylorus and noted the gastric ulcer, able to get past this and the second portion of the duodenum looked good, took a picture of this. There was the beginnings of an ulcer in the stomach just away from the pylorus. There was no blood, bright red or maroon in the stomach. Elected to do a biopsy at the duodenal ulcer and then a biopsy at the antrum of the to get the gastric ulcer, took pictures. Retroflexed, took pictures and then pulled back into the esophagus, looked like some creeping up of the Z-line, took a picture of this. This is definitely esophagitis, may be the beginnings of Hamilton esophagus and at this point then removed the scope. The patient tolerated the procedure and he was recovered in the endoscopy suite. Job ID: [id number] DocumentID: [id number] Dictated Date: 09/30/2017 13:49:48 Pit Clerk Date: 09/30/2017 21:40:10 Dictated By: CABRERA DENNIS DO
== END 2017-09-30 14:05 | disposition home or self-care (01) ==
LOC: EDUNIT# 06:57 → ER 06:59 → SDC 08:39
PROVIDERS: ATTEND Surgery
DX: K26.9 Duodenal ulcer, unspecified as acute or chronic, without hemorrhage or perforation (principal); K29.70 Gastritis, unspecified, without bleeding; K25.9 Gastric ulcer, unspecified as acute or chronic, without hemorrhage or perforation; K20.9 Esophagitis, unspecified; K92.0 Hematemesis; F17.210 Nicotine dependence, cigarettes, uncomplicated
CPT/HCPCS: 36415; 71045; 80053; 83690; 85025; 96361; 96374; 96375

== ENCOUNTER 2017-10-18 10:03 | Emergency (ER) | payer MEDICAID ==
[~2017-10-18] VITALS: Ht 185.4 cm; Wt 131.5 kg
[~2017-10-18 10:03] MED LIST changes: +ONDA8TAB13 PO; +SUCR1TAB36 PO
--- NOTE | 2017-10-18 11:13 | Diagnostic Imaging Report ---
Patient History: Dyspnea, cough. Technique: Two views of the chest Comparison: 09/30/2017 FINDINGS: The lung volumes are normal. No focal consolidation is seen. No large pleural effusion or pneumothorax is seen. The cardiomediastinal silhouette is normal in size and contour. No acute osseous abnormality is seen. IMPRESSION: No acute pulmonary abnormality seen. Dictated by: Dictated on workstation # [id number]
[2017-10-18] MEDS ORDERED: D-ME118S33 PO (11:17)
[2017-10-18] MEDS ORDERED: AZIT250T12 PO (11:17)
[2017-10-18] MEDS ORDERED: PRD20T PO (11:17)
--- NOTE | 2017-10-18 11:18 | ED Cough/URI ---
General Chief Complaint: Cough/Cold/Flu Symptoms Stated Complaint: CHEST DISCOMFORT,BACKPAIN,THROAT PAIN Nursing Triage Note: PT HAS COUGH, C/P SORE THROAT FROM HAVING VIRAL ILLNESS Source: patient Exam Limitations: no limitations History of Present Illness Date Seen by Provider: Oct 18, 2017 Time Seen by Provider: 11:13 Initial Comments ER with a cough or elective of greenish sputum, left lateral lower chest pain worse with deep breathing and coughing, sore throat, diffuse body aches. He was seen here a few days ago diagnosed with viral illness. He continues to smoke but states that he used to smoke 2 packs per day and now he only smokes 5 cigarettes per day. No fevers. Timing/Duration: constant Severity/Quality: productive cough Associated Symptoms: cough Allergies and Home Medications Allergies Coded Allergies: No Known Drug Allergies (Verified , 07/19/17) Home Medications Hydrocodone Bit/Acetaminophen 1 Ea Tablet, 1 EACH PO Q6H PRN for PAIN-MODERATE Prescribed by: TAINA SCHULER on 09/26/17 1204 Omeprazole 20 Mg Tablet.dr, 20 MG PO BID, (Reported) Ondansetron 8 Mg Tab.rapdis, 8 MG PO Q6H PRN for NAUSEA/VOMITING-1ST LINE Prescribed by: NEDA MCNALLY on 10/14/17 1913 Sucralfate 1 Gm Tablet, 1 GM PO QID Prescribed by: NORMAN VEGA on 09/30/17 1341 Tramadol HCl 50 Mg Tablet, 50 MG PO Q4H PRN for PAIN-MILD TO MODERATE, (Reported ) Patient Home Medication List Home Medication List Reviewed: Yes Review of Systems Constitutional: see HPI; No chills, No fever EENTM: see HPI Respiratory: see HPI, cough; No hemoptysis, No orthopnea; phlegm, short of breath Cardiovascular: no symptoms reported Genitourinary: no symptoms reported Musculoskeletal: no symptoms reported Skin: no symptoms reported Psychiatric/Neurological: No Symptoms Reported Hematologic/Lymphatic: No Symptoms Reported Immunological/Allergic: no symptoms reported Past Npjtgvs-Aevqpz-Jhstew Hx Patient Social History Alcohol Use: Denies Use Recreational Drug Use: No Type Used: Cigarettes, Smokeless Tobacco 2nd Hand Smoke Exposure: Yes Recent Foreign Travel: No Contact w/Someone Who Travel: No Recent Infectious Disease Expo: No Recent Hopitalizations: No Physical Abuse: No Sexual Abuse: No Immunizations Up To Date Tetanus Booster (TDap): Unknown PED Vaccines UTD: No Date of Influenza Vaccine: May 24, 2017 Seasonal Allergies Seasonal Allergies: No Past Medical History Surgeries: Yes (colon resection, r inguinal nerve cut?) Abdominal Respiratory: Yes (asthma as kid) Asthma, Sleep Apnea Cardiac: No Neurological: No Genitourinary: No Gastrointestinal: Yes (HIRSCHSPRUNG'S) Gastroesophageal Reflux, Ulcer Musculoskeletal: Yes (right foot fx, currently wearing a boot) Endocrine: No HEENT: No Cancer: No Psychosocial: No Nursing Suicide Risk Score: 0 Integumentary: No Blood Disorders: No Adverse Reaction/Blood Tranf: No Family Medical History No Pertinent Family Hx Physical Exam Vital Signs Vital Signs - First Documented 10/18/17 10:10 Temp 97.8 Pulse 87 Resp 16 B/P (MAP) 148/90 (109) Pulse Ox 97 Capillary Refill : Less Than 3 Seconds General Appearance: WD/WN, no apparent distress Eyes: Bilateral Eye Normal Inspection, Bilateral Eye PERRL, Bilateral Eye EOMI HEENT: PERRL/EOMI, normal ENT inspection Neck: non-tender, full range of motion Respiratory: normal breath sounds, no respiratory distress, no accessory muscle use; No wheezing Cardiovascular: regular rate, rhythm, no murmur Gastrointestinal: normal bowel sounds, non tender, soft Neurologic/Psychiatric: alert, normal mood/affect, oriented x 3 Skin: normal color, warm/dry Progress/Results/Core Measures Suspected Sepsis Recent Fever Within 48 Hours: No Infection Criteria Present: None New/Unexplained Altered Menta: No Sepsis Screen: No Definite Risk SIRS Temperature:97.8 Pulse: 87 Respiratory Rate: 16 Blood Pressure 148 /90 Mean: 109 Results/Orders My Orders Orders - HUNTER COULTER APRN Chest Pa/Lat (2 View) (10/18/17 11:00) Vital Signs/I&O 10/18/17 10:10 Temp 97.8 Pulse 87 Resp 16 B/P (MAP) 148/90 (109) Pulse Ox 97 Capillary Refill : Less Than 3 Seconds Blood Pressure Mean: 109 Departure Impression Primary Impression: Bronchitis Disposition: 01 HOME, SELF-CARE Condition: Stable Departure-Patient Inst. Decision time for Depature: 11:15 Referrals: CAMERON JUAREZ MD (PCP/Family) Primary Care Physician Patient Instructions: Acute Bronchitis, Adult (DC) Add. Discharge Instructions: 1. Continue to reduce your smoking 2. Medication as directed 3. See your doctor next week and return to ER for any worsening . All discharge instructions reviewed with patient and/or family. Voiced understanding. Scripts Prednisone (Prednisone) 20 Mg Tab 40 MG PO DAILY, #8 TAB Prov: HUNTER COULTER APRN 10/18/17 D-Methorphan Hb/P-Epd HCl/Bpm (Bromfed Dm Cough Syrup) 118 Ml Syrup 5 ML PO Q4H PRN for CONGESTION, #120 ML Prov: HUNTER COULTER APRN 10/18/17 Azithromycin (Azithromycin) 250 Mg Tablet 250 MG PO UD, #6 TAB TAKE 2 TABLETS ON DAY ONE THEN TAKE 1 TABLET DAILY FOR FOUR MORE DAYS Prov: HUNTER COULTER APRN 10/18/17 HUNTER COULTER APRN Oct 18, 2017 11:18
[2017-10-18 11:26] VITALS: BP 148/90
[2017-11-07] MEDS ORDERED: CYCL5TAB PO (12:18)
== END 2017-10-18 11:26 | disposition home or self-care (01) ==
LOC: EDUNIT# 10:03 → ER 10:06
DX: J40 Bronchitis, not specified as acute or chronic (principal); G47.30 Sleep apnea, unspecified; K21.9 Gastro-esophageal reflux disease without esophagitis; F17.210 Nicotine dependence, cigarettes, uncomplicated; Z77.22 Contact with and (suspected) exposure to environmental tobacco smoke (acute) (chronic); Z87.19 Personal history of other diseases of the digestive system; Z90.49 Acquired absence of other specified parts of digestive tract
CPT/HCPCS: 71046

== ENCOUNTER 2017-11-20 08:13 | Emergency (ER) | payer MEDICAID ==
[~2017-11-20] VITALS: Ht 182.9 cm; Wt 2.7 kg
[~2017-11-20 08:13] MED LIST changes: +AZIT250T12 PO; +CYCL5TAB PO; +D-ME118S33 PO; +PRD20T PO
[2017-11-20] MEDS ORDERED: NS IV 1000 ML 1,000 ML IV ONE (08:28)
[2017-11-20] MEDS ORDERED: fentaNYL INJECTION 100 MCG/2 ML AMP IVP ONE (08:30)
[2017-11-20] MEDS ORDERED: ONDANSETRON 4 MG/2 ML (SDV) Z0FRAN IVP ONE (08:30)
[2017-11-20 09:06] LABS: BASOPHILS % (AUTO) 0 % (0-10); EOSINOPHILS # (AUTO) 0.3 10^3/uL (0.0-0.3); EOSINOPHILS % (AUTO) 5 % (0-10); HEMATOCRIT 45 % (40-54); HEMOGLOBIN 15.9 G/DL (13.3-17.7); LYMPHOCYTES # (AUTO) 1.7 X 10^3 (1.0-4.0); LYMPHOCYTES % (AUTO) 25 % (12-44); MEAN CORPUSCULAR HEMOGLOBIN 30 PG (25-34); MEAN CORPUSCULAR HGB CONC 35 G/DL (32-36); MEAN CORPUSCULAR VOLUME 86 FL (80-99); MEAN PLATELET VOLUME 10.7 FL (7.4-10.4); MONOCYTES # (AUTO) 0.8 X 10^3 (0.0-1.0); MONOCYTES % (AUTO) 12 % (0-12); NEUTROPHILS # (AUTO) 4.1 X 10^3 (1.8-7.8); NEUTROPHILS % (AUTO) 59 % (42-75); PLATELET COUNT 234 10^3/uL (130-400); RED BLOOD COUNT 5.23 10^6/uL (4.35-5.85); RED CELL DISTRIBUTION WIDTH 12.8 % (10.0-14.5); WHITE BLOOD COUNT 6.9 10^3/uL (4.3-11.0)
[2017-11-20 09:07] LABS: BILIRUBIN,URINE NEGATIVE (NEGATIVE); CLARITY,URINE CLEAR; COLOR,URINE YELLOW; GLUCOSE, URINE (UA) NEGATIVE (NEGATIVE); KETONES,URINE NEGATIVE (NEGATIVE); LEUKOCYTE ESTERASE ,URINE NEGATIVE (NEGATIVE); NITRITE,URINE NEGATIVE (NEGATIVE); PH,URINE 7 (5-9); PROTEIN,URINE NEGATIVE (NEGATIVE); UROBILINOGEN,URINE NORMAL (NORMAL)
[2017-11-20 09:15] LABS: BACTERIA,URINE NEGATIVE /HPF
[2017-11-20 09:29] LABS: ALANINE AMINOTRANSFERASE 25 U/L (0-55); ALBUMIN 4.1 GM/DL (3.2-4.5); ALKALINE PHOSPHATASE 67 U/L (40-136); BILIRUBIN,TOTAL 0.3 MG/DL (0.1-1.0); BUN/CREATININE RATIO 11; CALCIUM 9.3 MG/DL (8.5-10.1); CARBON DIOXIDE 24 MMOL/L (21-32); CHLORIDE 106 MMOL/L (98-107); CREATININE SERUM 0.75 MG/DL (0.60-1.30); GFR ESTIMATED > 60; GLUCOSE 113 MG/DL (70-105); POTASSIUM 4.3 MMOL/L (3.6-5.0); SODIUM 139 MMOL/L (135-145)
[2017-11-20] MEDS ORDERED: IOHEXOL 350 MG/ML 100 ML (OMNIPAQUE 350) VIAL IV ONE (09:30)
[2017-11-20] MEDS ORDERED: NS 250 ML (IVPB) BAG IV ONE (09:30)
--- NOTE | 2017-11-20 09:56 | Diagnostic Imaging Report ---
PROCEDURE: CT abdomen and pelvis with contrast, rule out appendicitis. TECHNIQUE: Multiple contiguous axial images were obtained through the abdomen and pelvis after the administration of intravenous contrast. INDICATION: 24 hours history of progressive severity of right lower quadrant pain accompanied by nausea. Exam compared with study 11/07/2017. The air-containing appendix is once again visualized and unremarkable. No findings of appendicitis. The liver, gallbladder, bile ducts, spleen, adrenals and pancreas were unremarkable. There is a right renal cortical cyst, simple and benign, the kidney is unobstructed and appeared otherwise normal and were nonacute. There is postsurgical changes to the rectosigmoid with mild rectosigmoidal colonic constipation but no kristina obstruction. Urinary bladder tariq are mildly thickened however it is not well distended and this may be on an artifactual basis. Cystitis could not be excluded however based upon its CT thickening. No perinephric or periureteric edema and there is no focal inflammatory infiltration of fat identified. There is no ascites, abscess, hematoma or other fluid collection. There is no diverticulitis. IMPRESSION: 1. Mild rectosigmoidal constipation postsurgical change without evidence for breakdown or obstruction. Benign renal cortical cyst. Normal appendix. No focal inflammatory process. We do acknowledge thickening of the urinary bladder tariq however is not well-distended and may be physiologic. Correlate clinically for potential cystitis however. No other potential acute findings were found. Dictated by: Dictated on workstation # [id number]
[2017-11-20] MEDS ORDERED: KETOROLAC 30 MG/ML VIAL IVP ONE (10:15)
[2017-11-20] MEDS ORDERED: POLY119P5 PO (10:57)
[2017-11-20] MEDS ORDERED: ONDA4TAB8 SL (10:57)
--- NOTE | 2017-11-20 10:57 | ED Abdominal Pain ---
General Chief Complaint: Abdominal/GI Problems Stated Complaint: RT SIDE PAIN/NAUSEA,LIGHT-HEADED History of Present Illness Date Seen by Provider: November 20, 2017 Time Seen by Provider: 08:15 Initial Comments This 32-year-old gentleman presents to the emergency room with complaints of right lower quadrant pain and vomiting that started yesterday. It has intensified since onset. He states pain is worse with walking. Applying pressure to the abdomen improves the pain. She did have some diarrhea. He denies fever. He has a history of Hirschsprung's disease and bowel surgery. He also had an EGD in September demonstrating duodenal and gastric ulcers as well as esophagitis. Allergies and Home Medications Allergies Coded Allergies: No Known Drug Allergies (Verified , 07/19/17) Home Medications Azithromycin 250 Mg Tablet, 250 MG PO UD TAKE 2 TABLETS ON DAY ONE THEN TAKE 1 TABLET DAILY FOR FOUR MORE DAYS Prescribed by: HUNTER COULTER on 10/18/17 1117 Cyclobenzaprine HCl 5 Mg Tablet, 5 MG PO TID Prescribed by: HUNTER COULTER on 11/07/17 1218 D-Methorphan Hb/P-Epd HCl/Bpm 118 Ml Syrup, 5 ML PO Q4H PRN for CONGESTION Prescribed by: HUNTER COULTER on 10/18/17 111 Hydrocodone Bit/Acetaminophen 1 Ea Tablet, 1 EACH PO Q6H PRN for PAIN-MODERATE Prescribed by: TAINA SCHULER on 09/26/17 1204 Omeprazole 20 Mg Tablet.dr, 20 MG PO BID, (Reported) Ondansetron 8 Mg Tab.rapdis, 8 MG PO Q6H PRN for NAUSEA/VOMITING-1ST LINE Prescribed by: NEDA MCNALLY on 10/14/17 191 Ondansetron 4 Mg Tab.rapdis, 4 MG SL Q4H PRN for NAUSEA/VOMITING-1ST LINE Prescribed by: WILLIAM PRATT on 11/20/17 105 Polyethylene Glycol 3350 119 Gm Powder, 17 GM PO TID PRN for CONSTIPATION-1ST LINE Fill cap to line. Disolve in 8-12 oz clear liquid. Take 3 doses today, then TID as needed Prescribed by: WILLIAM PRATT on 11/20/17 105 Prednisone 20 Mg Tab, 40 MG PO DAILY Prescribed by: HUNTER COULTER on 10/18/17 1117 Sucralfate 1 Gm Tablet, 1 GM PO QID Prescribed by: NORMAN VEGA on 09/30/17 1341 Tramadol HCl 50 Mg Tablet, 50 MG PO Q4H PRN for PAIN-MILD TO MODERATE, (Reported ) Patient Home Medication List Home Medication List Reviewed: Yes Review of Systems Constitutional: no symptoms reported EENTM: No Symptoms Reported Respiratory: No Symptoms Reported Cardiovascular: No Symptoms Reported Gastrointestinal: See HPI Genitourinary: No Symptoms Reported Musculoskeletal: no symptoms reported Skin: no symptoms reported Psychiatric/Neurological: No Symptoms Reported Endocrine: No Symptoms Reported Hematologic/Lymphatic: No Symptoms Reported Past Hqeppdu-Ngxcfn-Zbvicc Hx Past Med/Social Hx: Reviewed and Corrections made Patient Social History Type Used: Cigarettes, Smokeless Tobacco 2nd Hand Smoke Exposure: Yes Recent Foreign Travel: No Contact w/Someone Who Travel: No Recent Hopitalizations: No Immunizations Up To Date Tetanus Booster (TDap): Unknown PED Vaccines UTD: No Date of Influenza Vaccine: May 24, 2017 Seasonal Allergies Seasonal Allergies: No Past Medical History Surgeries: Yes (colon resection, r inguinal nerve cut?) Abdominal Respiratory: Yes (asthma as kid) Asthma, Sleep Apnea Cardiac: No Neurological: No Genitourinary: No Gastrointestinal: Yes (HIRSCHSPRUNG'S, esophagitis) Gastroesophageal Reflux, Ulcer (Duodenal and gastric) Musculoskeletal: Yes (right foot fx) Endocrine: No HEENT: No Cancer: No Psychosocial: No Integumentary: No Blood Disorders: No Adverse Reaction/Blood Tranf: No Family Medical History Reviewed Nursing Family Hx No Pertinent Family Hx Physical Exam Vital Signs Vital Signs - First Documented 11/20/17 08:20 Temp 98.1 Pulse 70 Resp 16 B/P (MAP) 140/92 (108) Pulse Ox 98 Capillary Refill : General Appearance: WD/WN, no apparent distress HEENT: PERRL/EOMI, normal ENT inspection Neck: normal inspection Respiratory: lungs clear, normal breath sounds, no respiratory distress, no accessory muscle use Cardiovascular: regular rate, rhythm, no edema, no murmur Gastrointestinal: soft, abnormal bowel sounds (Decreased), rebound (Lower quadrant), tenderness (Right lower quadrant), other (Positive Rovsing's and heel tap on the right) Extremities: normal inspection, no pedal edema Neurologic/Psychiatric: intelligence analyst II-XII nml as tested, no motor/sensory deficits, alert, normal mood/affect, oriented x 3 Skin: normal color, warm/dry Progress/Results/Core Measures Results/Orders Lab Results Laboratory Tests Test 11/20/17 08:50 Range/Units White Blood Count 6.9 4.3-11.0 10^3/uL Red Blood Count 5.23 4.35-5.85 10^6/uL Hemoglobin 15.9 13.3-17.7 G/DL Hematocrit 45 40-54 % Mean Corpuscular Volume 86 80-99 FL Mean Corpuscular Hemoglobin 30 25-34 PG Mean Corpuscular Hemoglobin Concent 35 32-36 G/DL Red Cell Distribution Width 12.8 10.0-14.5 % Platelet Count 234 130-400 10^3/uL Mean Platelet Volume 10.7 H 7.4-10.4 FL Neutrophils (%) (Auto) 59 42-75 % Lymphocytes (%) (Auto) 25 12-44 % Monocytes (%) (Auto) 12 0-12 % Eosinophils (%) (Auto) 5 0-10 % Basophils (%) (Auto) 0 0-10 % Neutrophils # (Auto) 4.1 1.8-7.8 X 10^3 Lymphocytes # (Auto) 1.7 1.0-4.0 X 10^3 Monocytes # (Auto) 0.8 0.0-1.0 X 10^3 Eosinophils # (Auto) 0.3 0.0-0.3 10^3/uL Basophils # (Auto) 0.0 0.0-0.1 10^3/uL Urine Color YELLOW Urine Clarity CLEAR Urine pH 7 5-9 Urine Specific [place] 1.010 L 1.016-1.022 Urine Protein NEGATIVE NEGATIVE Urine Glucose (UA) NEGATIVE NEGATIVE Urine Ketones NEGATIVE NEGATIVE Urine Nitrite NEGATIVE NEGATIVE Urine Bilirubin NEGATIVE NEGATIVE Urine Urobilinogen NORMAL NORMAL MG/DL Urine Leukocyte Esterase NEGATIVE NEGATIVE Urine RBC (Auto) NEGATIVE NEGATIVE Urine RBC NONE /HPF Urine WBC NONE /HPF Urine Squamous Epithelial Cells 2-5 /HPF Urine Crystals NONE /LPF Urine Bacteria NEGATIVE /HPF Urine Casts NONE /LPF Urine Mucus NEGATIVE /LPF Urine Culture Indicated NO Sodium Level 139 135-145 MMOL/L Potassium Level 4.3 3.6-5.0 MMOL/L Chloride Level 106 98-107 MMOL/L Carbon Dioxide Level 24 21-32 MMOL/L Anion Gap 9 5-14 MMOL/L Blood Urea Nitrogen 8 7-18 MG/DL Creatinine 0.75 0.60-1.30 MG/DL Estimat Glomerular Filtration Rate > 60 BUN/Creatinine Ratio 11 Glucose Level 113 H 70-105 MG/DL Calcium Level 9.3 8.5-10.1 MG/DL Total Bilirubin 0.3 0.1-1.0 MG/DL Aspartate Amino Transf (AST/SGOT) 21 5-34 U/L Alanine Aminotransferase (ALT/SGPT) 25 0-55 U/L Alkaline Phosphatase 67 40-136 U/L Total Protein 7.0 6.4-8.2 GM/DL Albumin 4.1 3.2-4.5 GM/DL My Orders Orders - WILLIAM ALVARES MD Cbc With Automated Diff (11/20/17 08:28) Comprehensive Metabolic Panel (11/20/17 08:28) Ua Culture If Indicated (11/20/17 08:28) Saline Lock/Iv-Start (11/20/17 08:28) Ns Iv 1000 Ml (Sodium Chloride 0.9%) (11/20/17 08:28) Ondansetron Injection (Zofran Injectio (11/20/17 08:30) Fentanyl Injection (Sublimaze Injection (11/20/17 08:30) Ct Abd/Pelv W (Appendicitis) (11/20/17 09:16) Iohexol Injection (Omnipaque 350 Mg/Ml 1 (11/20/17 09:30) Ns (Ivpb) (Sodium Chloride 0.9%) (11/20/17 09:30) Ketorolac Injection (Toradol Injection) (11/20/17 10:15) Iv [employer] Ed (11/20/17 ) Medications Given in ED Vital Signs/I&O 11/20/17 11/20/17 11/20/17 11/20/17 08:20 08:58 10:20 11:10 Temp 98.1 97.5 97.5 97.5 Pulse 70 70 Resp 16 16 B/P (MAP) 140/92 (108) 132/82 (83) Pulse Ox 98 98 Progress Progress Note : Progress Note Patient was initially treated with fentanyl, Zofran, and IV fluids. Patient had signs of peritonitis on exam and CT scan was felt appropriate. CT demonstrated rectosigmoid constipation but a normal appendix. After further discussion with the patient, I believe he has had some overflow diarrhea related to constipation. We discussed treatment plan. Toradol was given for further pain management. Diagnostic Imaging Diagonstic Imaging: CT Plain Films/CT/US/NM/MRI: abdomen, pelvis Comments CT abdomen and pelvis viewed by me and report reviewed. See report below: NAME: GENE GOLDMAN [facility] REC#: [id number] PT STATUS: DEP ER : 1985 PHYSICIAN: WILLIAM ALVARES MD ADMIT DATE: 11/20/17/ER Signed Date of Exam: 11/20/17 CT ABD/PELV W (APPENDICITIS) PROCEDURE: CT abdomen and pelvis with contrast, rule out appendicitis. TECHNIQUE: Multiple contiguous axial images were obtained through the abdomen and pelvis after the administration of intravenous contrast. INDICATION: 24 hours history of progressive severity of right lower quadrant pain accompanied by nausea. Exam compared with study 11/07/2017. The air-containing appendix is once again visualized and unremarkable. No findings of appendicitis. The liver, gallbladder, bile ducts, spleen, adrenals and pancreas were unremarkable. There is a right renal cortical cyst, simple and benign, the kidney is unobstructed and appeared otherwise normal and were nonacute. There is postsurgical changes to the rectosigmoid with mild rectosigmoidal colonic constipation but no kristina obstruction. Urinary bladder tariq are mildly thickened however it is not well distended and this may be on an artifactual basis. Cystitis could not be excluded however based upon its CT thickening. No perinephric or periureteric edema and there is no focal inflammatory infiltration of fat identified. There is no ascites, abscess, hematoma or other fluid collection. There is no diverticulitis. IMPRESSION: 1. Mild rectosigmoidal constipation postsurgical change without evidence for breakdown or obstruction. Benign renal cortical cyst. Normal appendix. No focal inflammatory process. We do acknowledge thickening of the urinary bladder tariq however is not well-distended and may be physiologic. Correlate clinically for potential cystitis however. No other potential acute findings were found. Dictated by: Dictated on workstation # [id number] Dict: 11/20/17 0947 Trans: 11/20/17 1703 Interpreted by: MEANS,JIL D Electronically signed by: JIL MEANS 11/20/171703 Departure Impression Primary Impression: Right lower quadrant pain Additional Impressions: Nausea and vomiting Qualified Codes: R11.2 - Nausea with vomiting, unspecified Constipation Qualified Codes: K59.00 - Constipation, unspecified Overflow diarrhea Disposition: HOME, SELF-CARE Condition: Improved Departure-Patient Inst. Decision time for Depature: 10:52 Referrals: CAMERON JUAREZ MD (PCP/Family) Primary Care Physician Patient Instructions: Constipation, Adult (DC) Add. Discharge Instructions: Drink plenty of clear liquids. Stick with a clear liquid diet today. Take 3 doses of MiraLAX today and then 3 times daily as needed after that for constipation. Tomorrow gradually advance your diet with small quantities of bland food as tolerated. Use Zofran (ondansetron) as prescribed for nausea and vomiting. Try to use Tylenol (acetaminophen) alone for pain. You may take up to 1000 mg every 6 hours as needed. You may use ibuprofen sparingly and temporarily up to 600 mg every 6 hours as needed for backup pain control. Avoid excessive use of ibuprofen because of your history of ulcers. Return to care if symptoms worsen. All discharge instructions reviewed with patient and/or family. Voiced understanding. Scripts Ondansetron (Zofran Odt) 4 Mg Tab.rapdis 4 MG SL Q4H PRN for NAUSEA/VOMITING-1ST LINE, #10 TAB Prov: WILLIAM ALVARES MD 11/20/17 Polyethylene Glycol 3350 (Miralax) 119 Gm Powder 17 GM PO TID PRN for CONSTIPATION-1ST LINE, #1 EA Fill cap to line. Disolve in 8-12 oz clear liquid. Take 3 doses today, then TID as needed Prov: WILLIAM ALVARES MD 11/20/17 Copy Copies To 1: NORMAN VEGA JOSHUA T MD November 20, 2017 10:56
[2017-11-20 11:10] VITALS: BP 132/82
[2017-12-16] MEDS ORDERED: SUCR1TAB36 PO (10:13)
[2017-12-16] MEDS ORDERED: HYDR-3820 PO (10:13)
== END 2017-11-20 11:10 | disposition home or self-care (01) ==
LOC: EDUNIT# 08:13 → ER 08:15
DX: K59.00 Constipation, unspecified (principal); R11.2 Nausea with vomiting, unspecified; J45.909 Unspecified asthma, uncomplicated; G47.30 Sleep apnea, unspecified; K21.9 Gastro-esophageal reflux disease without esophagitis; Z98.890 Other specified postprocedural states; Z87.19 Personal history of other diseases of the digestive system; Z79.52 Long term (current) use of systemic steroids; Z77.22 Contact with and (suspected) exposure to environmental tobacco smoke (acute) (chronic); Z90.49 Acquired absence of other specified parts of digestive tract
CPT/HCPCS: 36415; 74177; 80053; 81000; 85025; 96361; 96374; 96375

== ENCOUNTER 2017-11-22 18:49 | Emergency (ER) | payer MEDICAID ==
[~2017-11-22] VITALS: Ht 185.4 cm; Wt 131.5 kg
[~2017-11-22 18:49] MED LIST changes: +POLY119P5 PO
[2017-11-22] MEDS ORDERED: NS IV 1000 ML 1,000 ML IV ONE (19:48)
[2017-11-22] MEDS ORDERED: KETOROLAC 30 MG/ML VIAL IVP STA (19:48)
--- NOTE | 2017-11-22 20:11 | ED Abdominal Pain ---
General Chief Complaint: Abdominal/GI Problems Stated Complaint: UPPER ABD PAIN Nursing Triage Note: pt presents to er with complaint of right sided abd pain. states he was seen in this er last night and sent home. [facility] he went to [facility] ER today in [place] and was told he has "biliary colic". states he called dr vega and was instructed by him that he needed to come back to er the and tell them he needs an ultra sound. per patient "dr vega did not want him to be in pain". Sepsis Screen: No Definite Risk Source of Information: Patient Exam Limitations: No Limitations History of Present Illness Date Seen by Provider: Nov 22, 2017 Time Seen by Provider: 19:40 Initial Comments Here with complaint of right upper quadrant abdominal pain. He brings paperwork from [facility] with reported concerns of possible gallbladder stones or gallbladder disease from 11/20/17. Patient was also seen here on 11/20/[address] scan done which does not show gallbladder disease but did show constipation and patient was given instructions for that. Has not seen his doctor in the interim but states has appointment with Dr. Juarez next week. Patient does have multiple visits for abdominal pain. Does have history of Hirschsprung's disease. Also has history of H. pylori infection and treatment. Nursing triage information reviewed as well. Timing/Duration: 2-3 Days Severity/Quality: Moderate Location: RUQ Radiation: No Radiation Activities at Onset: None Modifying Factors: Worsens With Eating Associated Symptoms: No Back Pain, No Chest Pain, No Fever/Chills, No Nausea/ Vomiting, No Shortness of Air, No Weakness Allergies and Home Medications Allergies Coded Allergies: No Known Drug Allergies (Verified , 07/19/17) Home Medications Azithromycin 250 Mg Tablet, 250 MG PO UD TAKE 2 TABLETS ON DAY ONE THEN TAKE 1 TABLET DAILY FOR FOUR MORE DAYS Prescribed by: HUNTER COULTER on 10/18/17 1117 Cyclobenzaprine HCl 5 Mg Tablet, 5 MG PO TID Prescribed by: HUNTER COULTER on 11/07/17 1218 D-Methorphan Hb/P-Epd HCl/Bpm 118 Ml Syrup, 5 ML PO Q4H PRN for CONGESTION Prescribed by: HUNTER COULTER on 10/18/17 1117 Hydrocodone Bit/Acetaminophen 1 Ea Tablet, 1 EACH PO Q6H PRN for PAIN-MODERATE Prescribed by: TAINA SCHULER on 09/26/17 1204 Omeprazole 20 Mg Tablet.dr, 20 MG PO BID, (Reported) Ondansetron 8 Mg Tab.rapdis, 8 MG PO Q6H PRN for NAUSEA/VOMITING-1ST LINE Prescribed by: NEDA MCNALLY on 10/14/17 191 Ondansetron 4 Mg Tab.rapdis, 4 MG SL Q4H PRN for NAUSEA/VOMITING-1ST LINE Prescribed by: WILLIAM PRATT on 11/20/17 1057 Polyethylene Glycol 3350 119 Gm Powder, 17 GM PO TID PRN for CONSTIPATION-1ST LINE Fill cap to line. Disolve in 8-12 oz clear liquid. Take 3 doses today, then TID as needed Prescribed by: WILLIAM PRATT on 11/20/17 105 Prednisone 20 Mg Tab, 40 MG PO DAILY Prescribed by: HUNTER COULTER on 10/18/17 1117 Sucralfate 1 Gm Tablet, 1 GM PO QID Prescribed by: NORMAN VEGA on 09/30/17 1341 Tramadol HCl 50 Mg Tablet, 50 MG PO Q4H PRN for PAIN-MILD TO MODERATE, (Reported ) Patient Home Medication List Home Medication List Reviewed: Yes Review of Systems Constitutional: see HPI; No chills, No fever EENTM: No Symptoms Reported Respiratory: No Symptoms Reported Cardiovascular: No Symptoms Reported Gastrointestinal: Abdominal Pain; Denies Nausea, Denies Vomiting Genitourinary: No Symptoms Reported All Other Systems Reviewed Negative Unless Noted: Yes Past Sdsxgmg-Eqpjsp-Itlhci Hx Past Med/Social Hx: Reviewed Nursing Past Med/Soc Hx Patient Social History Alcohol Use: Denies Use Recreational Drug Use: No Type Used: Cigarettes, Smokeless Tobacco 2nd Hand Smoke Exposure: Yes Recent Foreign Travel: No Contact w/Someone Who Travel: No Recent Infectious Disease Expo: No Recent Hopitalizations: No Immunizations Up To Date Tetanus Booster (TDap): Unknown PED Vaccines UTD: No Date of Influenza Vaccine: May 24, 2017 Seasonal Allergies Seasonal Allergies: No Past Medical History Surgeries: Yes (colon resection, r inguinal nerve cut?) Abdominal Respiratory: Yes (asthma as kid) Asthma, Sleep Apnea Cardiac: No Neurological: No Genitourinary: No Gastrointestinal: Yes (HIRSCHSPRUNG'S, esophagitis) Gastroesophageal Reflux, Ulcer Musculoskeletal: Yes (right foot fx) Endocrine: No HEENT: No Cancer: No Psychosocial: No Integumentary: No Blood Disorders: No Adverse Reaction/Blood Tranf: No Family Medical History Reviewed Nursing Family Hx No Pertinent Family Hx Physical Exam Vital Signs Vital Signs - First Documented 11/22/17 19:11 Temp 98.7 Pulse 80 Resp 20 B/P (MAP) 174/105 (128) Pulse Ox 97 O2 Delivery Room Air Capillary Refill : Less Than 3 Seconds General Appearance: WD/WN, no apparent distress Neck: full range of motion, supple Respiratory: lungs clear, normal breath sounds Cardiovascular: regular rate, rhythm, no murmur Peripheral Pulses: 2+ Dorsalis Pedis (R), 2+ Left Dors-Pedis (L), 2+ Radial Pulses (R), 2+ Radial Pulses (L) Gastrointestinal: soft, tenderness (right upper quadrant) Extremities: normal range of motion, non-tender Back: normal inspection, no CVA tenderness, no vertebral tenderness Neurologic/Psychiatric: alert, oriented x 3 Skin: normal color, warm/dry Progress/Results/Core Measures Results/Orders Lab Results Laboratory Tests Test 11/22/17 20:15 Range/Units White Blood Count 8.7 4.3-11.0 10^3/uL Red Blood Count 4.63 4.35-5.85 10^6/uL Hemoglobin 14.5 13.3-17.7 G/DL Hematocrit 40 40-54 % Mean Corpuscular Volume 86 80-99 FL Mean Corpuscular Hemoglobin 31 25-34 PG Mean Corpuscular Hemoglobin Concent 36 32-36 G/DL Red Cell Distribution Width 12.6 10.0-14.5 % Platelet Count 199 130-400 10^3/uL Mean Platelet Volume 10.7 H 7.4-10.4 FL Neutrophils (%) (Auto) 62 42-75 % Lymphocytes (%) (Auto) 20 12-44 % Monocytes (%) (Auto) 16 H 0-12 % Eosinophils (%) (Auto) 2 0-10 % Basophils (%) (Auto) 0 0-10 % Neutrophils # (Auto) 5.4 1.8-7.8 X 10^3 Lymphocytes # (Auto) 1.7 1.0-4.0 X 10^3 Monocytes # (Auto) 1.4 H 0.0-1.0 X 10^3 Eosinophils # (Auto) 0.2 0.0-0.3 10^3/uL Basophils # (Auto) 0.0 0.0-0.1 10^3/uL Sodium Level 140 135-145 MMOL/L Potassium Level 3.8 3.6-5.0 MMOL/L Chloride Level 106 98-107 MMOL/L Carbon Dioxide Level 25 21-32 MMOL/L Anion Gap 9 5-14 MMOL/L Blood Urea Nitrogen 13 7-18 MG/DL Creatinine 0.91 0.60-1.30 MG/DL Estimat Glomerular Filtration Rate > 60 BUN/Creatinine Ratio 14 Glucose Level 100 70-105 MG/DL Calcium Level 9.3 8.5-10.1 MG/DL Total Bilirubin 0.3 0.1-1.0 MG/DL Aspartate Amino Transf (AST/SGOT) 18 5-34 U/L Alanine Aminotransferase (ALT/SGPT) 29 0-55 U/L Alkaline Phosphatase 68 40-136 U/L Total Protein 6.8 6.4-8.2 GM/DL Albumin 3.9 3.2-4.5 GM/DL Amylase Level 29 25-125 U/L Lipase 23 8-78 U/L My Orders Orders - TAINA SCHULER MD Amylase (11/22/17 19:48) Cbc With Automated Diff (11/22/17 19:48) Comprehensive Metabolic Panel (11/22/17 19:48) Lipase (11/22/17 19:48) Saline Lock/Iv-Start (11/22/17 19:48) Ns Iv 1000 Ml (Sodium Chloride 0.9%) (11/22/17 19:48) Ketorolac Injection (Toradol Injection) (11/22/17 19:48) Us Gallbladder [id number] (11/22/17 19:48) Fentanyl Injection (Sublimaze Injection (11/22/17 20:47) Medications Given in ED Current Medications Medications Dose Ordered Sig/Jose G Route Start Time Stop Time Status Last Admin Dose Admin Sodium Chloride 1,000 ml @ 0 mls/hr Q0M ONCE IV 11/22/17 19:48 11/22/17 19:49 DC 11/22/17 20:15 1,000 MLS/HR Vital Signs/I&O 11/22/17 19:11 Temp 98.7 Pulse 80 Resp 20 B/P (MAP) 174/105 (128) Pulse Ox 97 O2 Delivery Room Air Blood Pressure Mean: 128 Progress Progress Note : Progress Note Seen and evaluated. IV, labs and ultrasound gallbladder ordered. Toradol 30 mg IV ordered. I have reviewed the records as detailed in the history portion. Monitor patient. Patient has persistent pain. Fentanyl 75 g IV ordered. Monitor patient. 2154: Ultrasound complete results noted. No significant findings. Labs are also normal. These compare well with the other day. Patient will need HIDA scan or further evaluation from his surgeon. Does have history of significant reflux disease and I have asked him to add famotidine or ranitidine [id number] to his regimen as this may be a component of his reflux and gastritis/gastric ulcer disease. Discharged home with return precautions. Patient verbalize understanding instructions and agreement with plan. Diagnostic Imaging Diagonstic Imaging: Ultrasound Plain Films/CT/US/NM/MRI: abdomen Comments VIA [facility]. [place], [place] NAME: GENE GOLDMAN [facility] REC#: [id number] PT STATUS: REG ER : 1985 PHYSICIAN: TAINA SCHUELR MD ADMIT DATE: 11/22/17/ER Draft Date of Exam:11/22/17 US GALLBLADDER [id number] PROCEDURE: US Gallbladder. TECHNIQUE: Multiple real-time grayscale images were obtained over the right upper quadrant in various projections. INDICATION: Abdominal pain. FINDINGS: Liver appears normal. Gallbladder is not distended. Gallbladder wall is not dilated. There is no pericholecystic edema. No gallstones are demonstrated. Intrahepatic radicles are not dilated. Common duct is not well visualized due to bowel gas. Right kidney appears normal. There is no ascites. There is normal flow in the portal vein with Doppler sampling. IMPRESSION: Slightly limited right upper quadrant ultrasound due to considerable gas obscuring the pancreas and common duct. No abnormalities demonstrated. Dictated on workstation # [id number] Dict: 11/22/172143 Trans: 11/22/172146 [facility] [id number] Interpreted by: NORMAN SIMPSON MD Electronically signed by: Departure Impression Primary Impression: Right upper quadrant abdominal pain Disposition: HOME, SELF-CARE Condition: Stable Departure-Patient Inst. Decision time for Depature: 22:03 Referrals: CAMERON JUAREZ MD (PCP/Family) Primary Care Physician Patient Instructions: Acute Abdomen (Belly Pain), Adult (DC), Peptic Ulcers (DC ) Add. Discharge Instructions: All discharge instructions reviewed with patient and/or family. Voiced understanding. Take medications as directed. You may add Pepcid/famotidine or Zantac/ ranitidine daily to your stomach medicine regimen. Restart your sucralfate/ Carafate Call Dr. Vega's office on Saturday for recheck and further evaluation. Return for worse pain, fever, vomiting, weakness, breathing problems or other concerns as needed. You should continue with bland diet. Copy Copies To 1: NORMAN VEGA TIMOTHY D MD Nov 22, 2017 20:11
[2017-11-22 20:25] LABS: BASOPHILS % (AUTO) 0 % (0-10); EOSINOPHILS # (AUTO) 0.2 10^3/uL (0.0-0.3); EOSINOPHILS % (AUTO) 2 % (0-10); HEMATOCRIT 40 % (40-54); HEMOGLOBIN 14.5 G/DL (13.3-17.7); LYMPHOCYTES # (AUTO) 1.7 X 10^3 (1.0-4.0); LYMPHOCYTES % (AUTO) 20 % (12-44); MEAN CORPUSCULAR HEMOGLOBIN 31 PG (25-34); MEAN CORPUSCULAR HGB CONC 36 G/DL (32-36); MEAN CORPUSCULAR VOLUME 86 FL (80-99); MEAN PLATELET VOLUME 10.7 FL (7.4-10.4); MONOCYTES # (AUTO) 1.4 X 10^3 (0.0-1.0); MONOCYTES % (AUTO) 16 % (0-12); NEUTROPHILS # (AUTO) 5.4 X 10^3 (1.8-7.8); NEUTROPHILS % (AUTO) 62 % (42-75); PLATELET COUNT 199 10^3/uL (130-400); RED BLOOD COUNT 4.63 10^6/uL (4.35-5.85); RED CELL DISTRIBUTION WIDTH 12.6 % (10.0-14.5); WHITE BLOOD COUNT 8.7 10^3/uL (4.3-11.0)
[2017-11-22 20:41] LABS: ALANINE AMINOTRANSFERASE 29 U/L (0-55); ALBUMIN 3.9 GM/DL (3.2-4.5); ALKALINE PHOSPHATASE 68 U/L (40-136); AMYLASE 29 U/L (25-125); BILIRUBIN,TOTAL 0.3 MG/DL (0.1-1.0); BUN/CREATININE RATIO 14; CALCIUM 9.3 MG/DL (8.5-10.1); CARBON DIOXIDE 25 MMOL/L (21-32); CHLORIDE 106 MMOL/L (98-107); CREATININE SERUM 0.91 MG/DL (0.60-1.30); GFR ESTIMATED > 60; GLUCOSE 100 MG/DL (70-105); LIPASE 23 U/L (8-78); POTASSIUM 3.8 MMOL/L (3.6-5.0); SODIUM 140 MMOL/L (135-145); TOTAL PROTEIN 6.8 GM/DL (6.4-8.2)
[2017-11-22] MEDS ORDERED: fentaNYL INJECTION 100 MCG/2 ML AMP IVP STA (20:47)
--- NOTE | 2017-11-22 21:48 | Diagnostic Imaging Report ---
PROCEDURE: US Gallbladder. TECHNIQUE: Multiple real-time grayscale images were obtained over the right upper quadrant in various projections. INDICATION: Abdominal pain. FINDINGS: Liver appears normal. Gallbladder is not distended. Gallbladder wall is not dilated. There is no pericholecystic edema. No gallstones are demonstrated. Intrahepatic radicles are not dilated. Common duct is not well visualized due to bowel gas. Right kidney appears normal. There is no ascites. There is normal flow in the portal vein with Doppler sampling. IMPRESSION: Slightly limited right upper quadrant ultrasound due to considerable gas obscuring the pancreas and common duct. No abnormalities demonstrated. Dictated by: Dictated on workstation # [id number]
[2017-11-22 22:17] VITALS: BP 174/105
[2017-12-16] MEDS ORDERED: SUCR1TAB36 PO (10:13)
[2017-12-16] MEDS ORDERED: HYDR-3820 PO (10:13)
== END 2017-11-22 22:17 | disposition home or self-care (01) ==
LOC: EDUNIT# 18:49 → ER 18:51
DX: R10.11 Right upper quadrant pain (principal); Q43.1 Hirschsprung's disease; J45.909 Unspecified asthma, uncomplicated; G47.30 Sleep apnea, unspecified; K21.9 Gastro-esophageal reflux disease without esophagitis; Z87.19 Personal history of other diseases of the digestive system; Z79.52 Long term (current) use of systemic steroids; Z77.22 Contact with and (suspected) exposure to environmental tobacco smoke (acute) (chronic)
CPT/HCPCS: 36415; 76705; 80053; 82150; 83690; 85025; 96361; 96374; 96375

== ENCOUNTER → 2017-12-09 | Outpatient (CLI) | payer MEDICAID ==
[~2017-12-09] MED LIST changes: +CATHETER FLUSH 10 ML SYR IV PRN; +HYDR-3820 PO
--- NOTE | 2017-12-09 12:06 | Diagnostic Imaging Report ---
Indication: Abdominal pain. Technique: Acquisitions were acquired of the abdomen after the administration of 5.25 mCi of technetium 99m Choletec. Ejection fraction was calculated after the patient ingested Ensure. Findings: There is homogeneous uptake of isotope throughout the liver. Significant fluid accumulation within the gallbladder by 30 minutes. Free flow of activity seen in small bowel. Gallbladder ejection fractions is in the lower limits of normal at 32.5%. Impression: No evidence evidence of cystic duct obstruction with a lower limits of normal, ejection fraction 32.5% Dictated by: Dictated on workstation # [id number]
== END ==
LOC: CARD 09:13
PROVIDERS: ATTEND Surgery
DX: R93.2 Abnormal findings on diagnostic imaging of liver and biliary tract (principal)
CPT/HCPCS: 78227

== ENCOUNTER 2017-12-12 05:29 | Outpatient (CLI) | payer MEDICAID ==
[~2017-12-12] VITALS: Ht 185.4 cm; Wt 131.5 kg
[~2017-12-12 05:29] MED LIST changes: -CATHETER FLUSH 10 ML SYR IV PRN; -HYDR-3820 PO
[2017-12-12] MEDS ORDERED: DOCU-143 PO (09:35)
[2017-12-16] MEDS ORDERED: SUCR1TAB36 PO (10:13)
[2017-12-16] MEDS ORDERED: HYDR-3820 PO (10:13)
== END 2017-12-12 10:00 | disposition home or self-care (01) ==
LOC: PREOP 05:29
PROVIDERS: ATTEND Surgery
DX: Z29.8 Encounter for other specified prophylactic measures (principal)

== ENCOUNTER 2017-12-19 20:40 | Emergency (ER) | payer MEDICAID ==
[~2017-12-19] VITALS: Ht 185.4 cm; Wt 127.0 kg
[~2017-12-19 20:40] MED LIST changes: +HYDR-3820 PO; +OXYC-197 PO
[2017-12-19] MEDS ORDERED: LACTATED RINGERS 1,000 ML IV ONE (20:47)
--- NOTE | 2017-12-19 20:52 | ED Abdominal Pain ---
General Chief Complaint: Abdominal/GI Problems Stated Complaint: ABD PAIN Source of Information: Patient, EMS Exam Limitations: No Limitations History of Present Illness Date Seen by Provider: Dec 19, 2017 Time Seen by Provider: 20:43 Initial Comments Patient presents to the ER by EMS with chief complaint that he had a cholecystectomy on Saturday by Dr. Vega and since then has had some abdominal pain. Says today it got worse radiating up into his chest. Planned appointment at Dr. Vega's office but had to miss it because Dr. Vega had a emergency surgery. He says he went home but was not feeling any better so he called ambulance and came in because the pain started going into his chest. Feels tightness in his belly and nausea but no vomiting. He is been passing gas and had one stool earlier today. His last dose of Tylenol and Percocet was about 1: 00 this afternoon. He says he had a fever this afternoon around 101F. EMS reports no fever. Patient had an IV established and was given 4 mg Zofran. Patient says Zofran helped his nausea tremendously. He has no history of other abdominal surgeries, trauma or other significant medical problems. He does take omeprazole still as well as the hydrocodone, Percocet and Tylenol. Allergies and Home Medications Allergies Coded Allergies: ketoprofen (Verified Allergy, Unknown, RASH, 12/12/17) ketorolac (Verified Allergy, Unknown, RASH, 12/12/17) cephalexin (Verified Adverse Reaction, Mild, NAUSEA, 12/17/17) Home Medications Docusate Sodium 100 Mg Capsule, 100 MG PO DAILY, (Reported) Hydrocodone/Acetaminophen 1 Each Tablet, 1 TAB PO Q6H Prescribed by: NORMAN VEGA on 12/16/17 1013 Omeprazole 20 Mg Tablet.dr 20 MG PO BID, (Reported) Oxycodone HCl/Acetaminophen 1 Each Tablet, 1-2 EACH PO Q6H PRN for PAIN- MODERATE TO SEVERE Prescribed by: WILLIAM PRATT on 12/17/17 174 Sucralfate 1 Gm Tablet, 1 GM PO QIDACHS Prescribed by: NORMAN VEGA on 12/16/17 1013 Patient Home Medication List Home Medication List Reviewed: Yes Review of Systems Constitutional: No chills, No diaphoresis, No fever, No malaise EENTM: No Blurred Vision, No Double Vision Respiratory: Denies Cough, Denies Shortness of Air, Denies Wheezing Cardiovascular: See HPI, Chest Pain; Denies Edema Gastrointestinal: Abdomen Distended, Abdominal Pain; Denies Constipated, Denies Diarrhea; Nausea; Denies Poor Fluid Intake, Denies Vomiting; Other (had a bowel movement today. Passing gas.) Genitourinary: Denies Burning, Denies Discharge Musculoskeletal: No back pain, No joint pain Skin: No change in color, No change in hair/nails, No pruritus, No rash Psychiatric/Neurological: Denies Headache, Denies Numbness, Denies Paresthesia Past Woolgvw-Hfbfpc-Thtwgk Hx Patient Social History Alcohol Use: Denies Use Recreational Drug Use: No Smoking Status: Current Everyday Smoker Type Used: Cigarettes, Smokeless Tobacco 2nd Hand Smoke Exposure: Yes Recent Hopitalizations: No Immunizations Up To Date Tetanus Booster (TDap): Unknown PED Vaccines UTD: No Date of Influenza Vaccine: May 24, 2017 Seasonal Allergies Seasonal Allergies: No Past Medical History Surgeries: Yes (colon resection, r inguinal nerve cut?) Abdominal, Gallbladder Respiratory: Yes (asthma as kid) Asthma, Sleep Apnea Cardiac: No Neurological: No Genitourinary: No Gastrointestinal: Yes (HIRSCHSPRUNG'S, esophagitis) Gastroesophageal Reflux, Ulcer Musculoskeletal: Yes (right foot fx) Endocrine: No HEENT: No Cancer: No Psychosocial: No Integumentary: No Blood Disorders: No Adverse Reaction/Blood Tranf: No Family Medical History No Pertinent Family Hx Physical Exam Vital Signs Vital Signs - First Documented 12/19/17 20:40 Temp 96.1 Pulse 101 Resp 18 B/P (MAP) 147/103 (118) Pulse Ox 94 O2 Delivery Room Air Capillary Refill : General Appearance: WD/WN, mild distress HEENT: PERRL/EOMI, pharynx normal Neck: non-tender, normal inspection Respiratory: chest non-tender, lungs clear, normal breath sounds, no respiratory distress, no accessory muscle use Cardiovascular: normal peripheral pulses, regular rate, rhythm Peripheral Pulses: 2+ Dorsalis Pedis (R), 2+ Left Dors-Pedis (L), 2+ Radial Pulses (R), 2+ Radial Pulses (L) Gastrointestinal: normal bowel sounds, distended, tenderness (bilateral upper quadrants), other (no mesenteric signs or psoas sign) Extremities: normal inspection, no pedal edema, normal capillary refill Neurologic/Psychiatric: alert, normal mood/affect, oriented x 3 Skin: normal color, warm/dry, other (well approximated surgical wounds with mild ecchymosis around him. Mild tenderness to palpation. No discharge or drainage.) Focused Exam Lactate Level 12/19/17 20:58: Lactic Acid Level 1.49 Lactic Acid Level Laboratory Tests Test 12/19/17 20:58 Lactic Acid Level 1.49 MMOL/L (0.50-2.00) Progress/Results/Core Measures Results/Orders Lab Results Laboratory Tests Test 12/19/17 20:49 12/19/17 20:58 12/19/17 22:14 Range/Units White Blood Count 14.2 H 4.3-11.0 10^3/uL Red Blood Count 4.72 4.35-5.85 10^6/uL Hemoglobin 14.7 13.3-17.7 G/DL Hematocrit 41 40-54 % Mean Corpuscular Volume 87 80-99 FL Mean Corpuscular Hemoglobin 31 25-34 PG Mean Corpuscular Hemoglobin Concent 36 32-36 G/DL Red Cell Distribution Width 12.5 10.0-14.5 % Platelet Count 194 130-400 10^3/uL Mean Platelet Volume 10.8 H 7.4-10.4 FL Neutrophils (%) (Auto) 78 H 42-75 % Lymphocytes (%) (Auto) 8 L 12-44 % Monocytes (%) (Auto) 13 H 0-12 % Eosinophils (%) (Auto) 1 0-10 % Basophils (%) (Auto) 0 0-10 % Neutrophils # (Auto) 11.1 H 1.8-7.8 X 10^3 Lymphocytes # (Auto) 1.1 1.0-4.0 X 10^3 Monocytes # (Auto) 1.8 H 0.0-1.0 X 10^3 Eosinophils # (Auto) 0.2 0.0-0.3 10^3/uL Basophils # (Auto) 0.0 0.0-0.1 10^3/uL Prothrombin Time 17.2 H 12.2-14.7 SEC INR Comment 1.4 0.8-1.4 Activated Partial Thromboplast Time 27 24-35 SEC Sodium Level 135 135-145 MMOL/L Potassium Level 3.8 3.6-5.0 MMOL/L Chloride Level 99 98-107 MMOL/L Carbon Dioxide Level 22 21-32 MMOL/L Anion Gap 14 5-14 MMOL/L Blood Urea Nitrogen 16 7-18 MG/DL Creatinine 0.75 0.60-1.30 MG/DL Estimat Glomerular Filtration Rate > 60 BUN/Creatinine Ratio 21 Glucose Level 153 H 70-105 MG/DL Calcium Level 9.8 8.5-10.1 MG/DL Total Bilirubin 0.8 0.1-1.0 MG/DL Aspartate Amino Transf (AST/SGOT) 22 5-34 U/L Alanine Aminotransferase (ALT/SGPT) 47 0-55 U/L Alkaline Phosphatase 88 40-136 U/L Troponin I < 0.30 <0.30 NG/ML Total Protein 7.4 6.4-8.2 GM/DL Albumin 3.8 3.2-4.5 GM/DL Lactic Acid Level 1.49 0.50-2.00 MMOL/L Urine Color YELLOW Urine Clarity CLEAR Urine pH 6.5 5-9 Urine Specific [place] 1.010 L 1.016-1.022 Urine Protein 2+ H NEGATIVE Urine Glucose (UA) NEGATIVE NEGATIVE Urine Ketones NEGATIVE NEGATIVE Urine Nitrite NEGATIVE NEGATIVE Urine Bilirubin 1+ H NEGATIVE Urine Urobilinogen 4 H NORMAL MG/DL Urine Leukocyte Esterase 1+ H NEGATIVE Urine RBC (Auto) 1+ H NEGATIVE Urine RBC RARE /HPF Urine WBC 0-2 /HPF Urine Squamous Epithelial Cells 0-2 /HPF Urine Crystals NONE /LPF Urine Bacteria NEGATIVE /HPF Urine Casts NONE /LPF Urine Mucus SMALL H /LPF Urine Culture Indicated NO My Orders Orders - ISAIAS PARKER Cbc With Automated Diff (12/19/17 20:47) Comprehensive Metabolic Panel (12/19/17 20:47) Lactic Acid Analyzer (12/19/17 20:47) Blood Culture (12/19/17 20:47) Sputum Culture (12/19/17 20:47) Ua Culture If Indicated (12/19/17 20:47) Protime With Inr (12/19/17 20:47) Partial Thromboplastin Time (12/19/17 20:47) Chest 1 View, Ap/Pa Only (12/19/17 20:47) O2 (12/19/17 20:47) Saline Lock/Iv-Start (12/19/17 20:47) Troponin I (12/19/17 20:47) Piperacillin/Tazobactam (Zosyn Vial) (12/19/17 21:00) Vital Signs Adult Sepsis Patie Q15M (12/19/17 20:47) Remove Rings In Anticipation O (12/19/17 20:47) Lactated Ringers (Lr 1000 Ml Iv Solution (12/19/17 20:47) Ekg Tracing (12/19/17 20:47) Fentanyl Injection (Sublimaze Injection (12/19/17 21:00) Iohexol Injection (Omnipaque 350 Mg/Ml 1 (12/19/17 21:30) Ns (Ivpb) (Sodium Chloride 0.9%) (12/19/17 21:30) Ct Chest/Abdomen/Pelvis W (12/19/17 21:26) Hydrocodone/Apap 5/325 Tablet (Lortab 5 (12/19/17 22:30) Medications Given in ED Current Medications Medications Dose Ordered Sig/Jose G Route Start Time Stop Time Status Last Admin Dose Admin Acetaminophen/ Hydrocodone Bitart 1 tab ONCE ONCE PO 12/19/17 22:30 12/19/17 22:31 DC 12/19/17 22:36 1 TAB Fentanyl Citrate 50 mcg ONCE ONCE IVP 12/19/17 21:00 12/19/17 21:01 DC 12/19/17 21:02 50 MCG Iohexol 100 ml ONCE ONCE IV 12/19/17 21:30 12/19/17 21:31 DC 12/19/17 21:22 100 ML Lactated Ringer's 1,000 ml @ 0 mls/hr Q0M ONCE IV 12/19/17 20:47 12/19/17 20:51 DC 12/19/17 21:02 0 MLS/HR Piperacillin Sod/ Tazobactam Sod 3.375 gm/Sodium Chloride 100 ml @ 200 mls/hr ONCE ONCE IV 12/19/17 21:00 12/19/17 21:29 DC 12/19/17 21:13 200 MLS/HR Sodium Chloride 80 ml ONCE ONCE IV 12/19/17 21:30 12/19/17 21:31 DC 12/19/17 21:22 80 ML Vital Signs/I&O 6/12/19/17 12/19/17 20:40 20:40 21:02 Temp 96.1 96.1 Pulse 101 Resp 18 B/P (MAP) 147/103 (118) Pulse Ox 94 94 O2 Delivery Room Air Room Air Progress Progress Note : Time: 22:43 Progress Note Despite his minimally elevated leukocytosis she is not having a cough or fevers or adventitious vital signs. His tachycardia has improved with some IV fluids and pain meds. [place] that his tachycardia is probably more due to pain and discomfort. It does not appear to be a pneumonia and seems to be more atelectasis. He has an incentive spirometer with done some more teaching on how to use an why it is important to use it. Also taught him about moving around. We 've given him the option to stay overnight versus going home but he would probably get more mobility at home and he would sitting in a hospital bed. We have encouraged him to get up and walk around and do a couple inhalations through the incentive spirometer every time a commercial comes on it is watching TV or at least 10 an hour. His is present and they agree to do this. He has diclofenac at home to make sure he has some more of that in addition to Tylenol and Zofran. We will give him a couple of hydrocodone for breakthrough pain but we have encouraged him to avoid using these as they will further setback his incomplete postop ileus. We have given him strict return precautions. He has a planned appointment on Saturday, 4 days from now with the surgeon. Initial ECG Impression Date: Dec 19, 2017 Initial ECG Impression Time: 21:59 Initial ECG Rate: 91 Initial ECG Rhythm: Normal Sinus Initial ECG Intervals: Normal Initial ECG Impression: Normal Initial ECG Comparisson: No Previous ECG Available Comment No ST elevation or depression. Diagnostic Imaging Diagonstic Imaging: CT (c/c) Plain Films/CT/US/NM/MRI: chest, abdomen, pelvis Comments NAME: GENE GOLDMAN MED REC#: [id number] PHYSICIAN: ISAIAS PARKER MD CC: MARIIA PEDERSON MD; ISAIAS PARKER Page 2 of 2 RADIOLOGY REPORT VIA [place], [place] CC: MARIIA PEDERSON MD; KEITH,ISAIAS J Page 1 of 2 RADIOLOGY REPORT NAME: GENE [facility]OLDMAN [facility] REC#: [id number] PT STATUS: REG ER : 1985 PHYSICIAN: ISAIAS PARKER MD ADMIT DATE: 12/19/17/ER Signed Date of Exam: 12/19/17 CT CHEST/ABDOMEN/PELVIS W PROCEDURE: CT chest, abdomen, and pelvis with contrast. TECHNIQUE: Multiple contiguous axial images were obtained through the chest, abdomen, and pelvis after the administration of intravenous contrast. INDICATION: Chest, abdomen and pelvis pain. Recent history of gallbladder surgery and prior history of colon resection. Comparison is made to the previous CT examination from 11/20/2017. FINDINGS: There are wedge-shaped regions of consolidation demonstrated within both of the lower lobes posteriorly that are most likely reflective of regions of atelectasis though superimposed infiltrate cannot be completely excluded. There is no pleural effusion. There is no pneumothorax. Thoracic aorta is normal in caliber. Pulmonary arteries normal in size. There is no pericardial effusion. There are small foci of free air demonstrated below the right diaphragm that are likely related to the patient's laparoscopic cholecystectomy. There is a small degree of fluid along the inferior aspect of the right hepatic lobe and along the right colic gutter. There are surgical clips related to the cholecystectomy. There is no abnormal biliary dilatation. Pancreas appears normal. The spleen is unremarkable. There is no adrenal mass. The kidneys appear nonobstructed. There are prior surgical sutures demonstrated within the rectum. There is a moderate degree of stool demonstrated within the colon. There appears to be some liquid stool within the right colon. Small bowel loops are also mildly prominent and fluid filled. There is no well-defined transition point. The appendix appears normal. There is no free fluid in the pelvis. There is no encapsulated fluid collection to suggest abscess. There are no pathologically enlarged lymph nodes demonstrated. The urinary bladder is nondistended. There are fat-containing inguinal hernias. The aorta is normal in caliber. No acute or suspicious osseous abnormality demonstrated. IMPRESSION: 1. Small foci of free air demonstrated below the right diaphragm likely related to the patient's recent laparoscopic cholecystectomy. 2. There is a small degree of fluid tracking along the undersurface of the right liver and along the right colic gutter. This may also be postoperative in nature. The possibility of a bile leak cannot be completely excluded though there is no focal fluid evident within the gallbladder fossa. 3. Fluid-filled loops of mildly prominent small bowel without definitive transition point would be most suggestive of a postoperative ileus at this time. Continued followup to exclude the possibility of a developing obstruction should be considered. 4. Prior operative changes involving the rectum. Moderate stool demonstrated throughout the colon. There also appears to be some liquid stool within the right colon. The appendix appears normal. 5. Wedge-shaped regions of alveolar consolidation within the lungs are favored to be reflective of regions of dependent atelectasis that would not be possible to exclude superimposed infiltrates based on imaging alone. Dictated by: Dictated on workstation # [id number] Dict: 12/19/172141 Trans: 12/19/172205 Interpreted by: MARIIA PEDERSON MD Electronically signed by: MARIIA PEDERSON MD 12/19/172205 Reviewed: Reviewed by Me Diagonstic Imaging: Xray Plain Films/CT/US/NM/MRI: chest Comments NAME: GENE GOLDMAN MED REC#: [id number] PHYSICIAN: ISAIAS PARKER MD CC: MARIIA PEDERSON MD; ISAIAS PARKER Page 2 of 2 RADIOLOGY REPORT VIA [place], [place] CC: MARIIA PEDERSON MD; ISAIAS PARKER Page 1 of 2 RADIOLOGY REPORT NAME: GENE GOLDMAN MED REC#: [id number] PT STATUS: REG ER : 1985 PHYSICIAN: ISAIAS PARKER MD ADMIT DATE: 12/19/17/ER Signed Date of Exam: 12/19/17 CT CHEST/ABDOMEN/PELVIS W PROCEDURE: CT chest, abdomen, and pelvis with contrast. TECHNIQUE: Multiple contiguous axial images were obtained through the chest, abdomen, and pelvis after the administration of intravenous contrast. INDICATION: Chest, abdomen and pelvis pain. Recent history of gallbladder surgery and prior history of colon resection. Comparison is made to the previous CT examination from 11/20/2017. FINDINGS: There are wedge-shaped regions of consolidation demonstrated within both of the lower lobes posteriorly that are most likely reflective of regions of atelectasis though superimposed infiltrate cannot be completely excluded. There is no pleural effusion. There is no pneumothorax. Thoracic aorta is normal in caliber. Pulmonary arteries normal in size. There is no pericardial effusion. There are small foci of free air demonstrated below the right diaphragm that are likely related to the patient's laparoscopic cholecystectomy. There is a small degree of fluid along the inferior aspect of the right hepatic lobe and along the right colic gutter. There are surgical clips related to the cholecystectomy. There is no abnormal biliary dilatation. Pancreas appears normal. The spleen is unremarkable. There is no adrenal mass. The kidneys appear nonobstructed. There are prior surgical sutures demonstrated within the rectum. There is a moderate degree of stool demonstrated within the colon. There appears to be some liquid stool within the right colon. Small bowel loops are also mildly prominent and fluid filled. There is no well-defined transition point. The appendix appears normal. There is no free fluid in the pelvis. There is no encapsulated fluid collection to suggest abscess. There are no pathologically enlarged lymph nodes demonstrated. The urinary bladder is nondistended. There are fat-containing inguinal hernias. The aorta is normal in caliber. No acute or suspicious osseous abnormality demonstrated. IMPRESSION: 1. Small foci of free air demonstrated below the right diaphragm likely related to the patient's recent laparoscopic cholecystectomy. 2. There is a small degree of fluid tracking along the undersurface of the right liver and along the right colic gutter. This may also be postoperative in nature. The possibility of a bile leak cannot be completely excluded though there is no focal fluid evident within the gallbladder fossa. 3. Fluid-filled loops of mildly prominent small bowel without definitive transition point would be most suggestive of a postoperative ileus at this time. Continued followup to exclude the possibility of a developing obstruction should be considered. 4. Prior operative changes involving the rectum. Moderate stool demonstrated throughout the colon. There also appears to be some liquid stool within the right colon. The appendix appears normal. 5. Wedge-shaped regions of alveolar consolidation within the lungs are favored to be reflective of regions of dependent atelectasis that would not be possible to exclude superimposed infiltrates based on imaging alone. Dictated by: Dictated on workstation # [id number] Dict: 12/19/172141 Trans: 12/19/172205 Interpreted by: MARIIA PEDERSON MD Electronically signed by: MARIIA PEDERSON MD 12/19/17 1703 Reviewed: Reviewed by Me Consults : Consulting Physician: NORMAN VEGA DO Consults Notes Patient case discussed Dr. Vega did observe the patient and his imaging. We agreed it neurologically could be a little bit of ileus for the patient's giving a history that he is passing gas and having bowel movements today. The patient is having quite a bit of pain and could be related to the distention and areas that look like postoperative ileus on CT scan. The rest the changes seen on CT appear to be postoperative. With his mild white count but no cough it 's felt that most of this is probably atelectasis in his lung bases although it' s hard to rule out pneumonia. Patient has been encouraged several times take deep breaths and without it might be advantageous to have respiratory therapy work with him with an incentive's from her and chest physiotherapy as well as physical therapy to get him up and walk him around to help with his ileus if we were to keep him overnight. Surgery is also not against sending the patient home if the patient feels he can try these things home. Departure Impression Primary Impression: Postoperative ileus Additional Impression: Atelectasis, bilateral Disposition: 01 HOME, SELF-CARE Condition: Improved Departure-Patient Inst. Decision time for Depature: 22:51 Referrals: NORMAN VEGA GORDON L MD (PCP) Primary Care Physician Patient Instructions: Atelectasis, Postoperative Ileus (DC) Add. Discharge Instructions: When you're awake you should be moving around as much as possible. Stay out of the heat drink lots of fluids. MiraLAX once a day is okay. Use the Tylenol 1000 mg every 8 hours as well as the diclofenac as prescribed. If you're still having severe pain and you cannot walk through it you may use the hydrocodone one tablet every 6 hours. Every time you use the hydrocodone however it will set you back in terms of your ileus. Chew bubble gum as often as possible. Use the incentive spirometer at least 10 inhalations every hour. Keep your follow- up appointment on Saturday with Dr. Vega, General Surgery. Return to the ER if you are feeling fevers above 102.5, intractable nausea and vomiting that does not respond to the Zofran 1 tablet every 6 hours, or you're unable to pass a bowel movement for more than 2 days. All discharge instructions reviewed with patient and/or family. Voiced understanding. Scripts Ondansetron (Ondansetron Odt) 4 Mg Tab.rapdis 4 MG PO Q6H PRN for NAUSEA/VOMITING, #8 TAB 0 Refills Prov: ISAIAS PARKER 12/19/17 Hydrocodone Bit/Acetaminophen (Hydrocodone/Acetaminophen 5/325mg Tablet) 1 Tab Tab 1 EACH PO Q6H PRN for BREAKTHROUGH PAIN, #10 TAB 0 Refills Prov: ISAIAS PARKER 12/19/17 Diclofenac Sodium (Diclofenac Sodium) 50 Mg Tablet.dr 50 MG PO Q8H PRN for PAIN-MODERATE for 7 Days, #28 TAB 0 Refills Prov: ISAIAS PARKER 12/19/17 Copy Copies To 1: NORMAN VEGA DO ISAIAS PARKER Dec 19, 2017 20:52
[2017-12-19 20:55] LABS: BASOPHILS % (AUTO) 0 % (0-10); EOSINOPHILS # (AUTO) 0.2 10^3/uL (0.0-0.3); EOSINOPHILS % (AUTO) 1 % (0-10); HEMATOCRIT 41 % (40-54); HEMOGLOBIN 14.7 G/DL (13.3-17.7); LYMPHOCYTES # (AUTO) 1.1 X 10^3 (1.0-4.0); LYMPHOCYTES % (AUTO) 8 % (12-44); MEAN CORPUSCULAR HEMOGLOBIN 31 PG (25-34); MEAN CORPUSCULAR HGB CONC 36 G/DL (32-36); MEAN CORPUSCULAR VOLUME 87 FL (80-99); MEAN PLATELET VOLUME 10.8 FL (7.4-10.4); MONOCYTES # (AUTO) 1.8 X 10^3 (0.0-1.0); MONOCYTES % (AUTO) 13 % (0-12); NEUTROPHILS # (AUTO) 11.1 X 10^3 (1.8-7.8); NEUTROPHILS % (AUTO) 78 % (42-75); PLATELET COUNT 194 10^3/uL (130-400); RED BLOOD COUNT 4.72 10^6/uL (4.35-5.85); RED CELL DISTRIBUTION WIDTH 12.5 % (10.0-14.5); WHITE BLOOD COUNT 14.2 10^3/uL (4.3-11.0)
[2017-12-19] MEDS ORDERED: PIPERACILLIN/TAZOBACTAM 3.375 GM in NS (IVPB) 100 ML IV ONE (21:00)
[2017-12-19] MEDS ORDERED: fentaNYL INJECTION 100 MCG/2 ML AMP IVP ONE (21:00)
[2017-12-19 21:09] LABS: INR 1.4 (0.8-1.4); PROTHROMBIN TIME PATIENT 17.2 SEC (12.2-14.7)
[2017-12-19 21:13] LABS: ALANINE AMINOTRANSFERASE 47 U/L (0-55); ALBUMIN 3.8 GM/DL (3.2-4.5); ALKALINE PHOSPHATASE 88 U/L (40-136); BILIRUBIN,TOTAL 0.8 MG/DL (0.1-1.0); BUN/CREATININE RATIO 21; CALCIUM 9.8 MG/DL (8.5-10.1); CARBON DIOXIDE 22 MMOL/L (21-32); CHLORIDE 99 MMOL/L (98-107); CREATININE SERUM 0.75 MG/DL (0.60-1.30); GFR ESTIMATED > 60; GLUCOSE 153 MG/DL (70-105); POTASSIUM 3.8 MMOL/L (3.6-5.0); SODIUM 135 MMOL/L (135-145); TOTAL PROTEIN 7.4 GM/DL (6.4-8.2)
[2017-12-19] MEDS ORDERED: IOHEXOL 350 MG/ML 100 ML (OMNIPAQUE 350) VIAL IV ONE (21:30)
[2017-12-19] MEDS ORDERED: NS 250 ML (IVPB) BAG IV ONE (21:30)
--- NOTE | 2017-12-19 21:59 | Diagnostic Imaging Report ---
PROCEDURE: CT chest, abdomen, and pelvis with contrast. TECHNIQUE: Multiple contiguous axial images were obtained through the chest, abdomen, and pelvis after the administration of intravenous contrast. INDICATION: Chest, abdomen and pelvis pain. Recent history of gallbladder surgery and prior history of colon resection. Comparison is made to the previous CT examination from 11/20/2017. FINDINGS: There are wedge-shaped regions of consolidation demonstrated within both of the lower lobes posteriorly that are most likely reflective of regions of atelectasis though superimposed infiltrate cannot be completely excluded. There is no pleural effusion. There is no pneumothorax. Thoracic aorta is normal in caliber. Pulmonary arteries normal in size. There is no pericardial effusion. There are small foci of free air demonstrated below the right diaphragm that are likely related to the patient's laparoscopic cholecystectomy. There is a small degree of fluid along the inferior aspect of the right hepatic lobe and along the right colic gutter. There are surgical clips related to the cholecystectomy. There is no abnormal biliary dilatation. Pancreas appears normal. The spleen is unremarkable. There is no adrenal mass. The kidneys appear nonobstructed. There are prior surgical sutures demonstrated within the rectum. There is a moderate degree of stool demonstrated within the colon. There appears to be some liquid stool within the right colon. Small bowel loops are also mildly prominent and fluid filled. There is no well-defined transition point. The appendix appears normal. There is no free fluid in the pelvis. There is no encapsulated fluid collection to suggest abscess. There are no pathologically enlarged lymph nodes demonstrated. The urinary bladder is nondistended. There are fat-containing inguinal hernias. The aorta is normal in caliber. No acute or suspicious osseous abnormality demonstrated. IMPRESSION: 1. Small foci of free air demonstrated below the right diaphragm likely related to the patient's recent laparoscopic cholecystectomy. 2. There is a small degree of fluid tracking along the undersurface of the right liver and along the right colic gutter. This may also be postoperative in nature. The possibility of a bile leak cannot be completely excluded though there is no focal fluid evident within the gallbladder fossa. 3. Fluid-filled loops of mildly prominent small bowel without definitive transition point would be most suggestive of a postoperative ileus at this time. Continued followup to exclude the possibility of a developing obstruction should be considered. 4. Prior operative changes involving the rectum. Moderate stool demonstrated throughout the colon. There also appears to be some liquid stool within the right colon. The appendix appears normal. 5. Wedge-shaped regions of alveolar consolidation within the lungs are favored to be reflective of regions of dependent atelectasis that would not be possible to exclude superimposed infiltrates based on imaging alone. Dictated by: Dictated on workstation # [id number]
--- NOTE | 2017-12-19 22:03 | Diagnostic Imaging Report ---
EXAMINATION: Portable chest. INDICATION: Shortness of breath. COMPARISON: CT from earlier in the same day. FINDINGS: Patchy regions of alveolar opacification within both lungs are demonstrated with low lung volumes. This may reflect postoperative atelectasis but infiltrate could not be completely excluded. There is no effusion. There is no pneumothorax. Heart size and mediastinal contours are appropriate. On the upright view, there is an air-fluid level demonstrated within the left colon. IMPRESSION: 1. Low lung volumes with patchy alveolar opacities most likely reflective of postoperative atelectasis though it would not be possible to exclude inflammatory infiltrate. 2. Air fluid levels noted within the colon on the upright view. Findings in conjunction with the CT examination suggest a postoperative ileus. Continued followup to exclude developing obstruction could be considered. Dictated by: Dictated on workstation # [id number]
[2017-12-19 22:20] LABS: CLARITY,URINE CLEAR; COLOR,URINE YELLOW; GLUCOSE, URINE (UA) NEGATIVE (NEGATIVE); KETONES,URINE NEGATIVE (NEGATIVE); LEUKOCYTE ESTERASE ,URINE 1+ (NEGATIVE); NITRITE,URINE NEGATIVE (NEGATIVE); PH,URINE 6.5 (5-9); PROTEIN,URINE 2+ (NEGATIVE); UROBILINOGEN,URINE 4 MG/DL (NORMAL)
[2017-12-19 22:27] LABS: BILIRUBIN,URINE 1+ (NEGATIVE)
[2017-12-19 22:28] LABS: BACTERIA,URINE NEGATIVE /HPF; RBC,URINE RARE /HPF; SQUAMOUS EPITHELIAL CELL,UR 0-2 /HPF; WBC,URINE 0-2 /HPF
[2017-12-19] MEDS ORDERED: HYDROcodone/APAP 5 MG/325 MG (LORTAB) TAB PO ONE (22:30)
[2017-12-19] MEDS ORDERED: RX-HYDROCODONE/APAP 5/325 MG #4 TAB PK PO PRN (22:45)
[2017-12-19] MEDS ORDERED: RX-ONDANSETRON 4 MG ODT (ZOFRAN) PPK #4 PO STA (22:45)
[2017-12-19] MEDS ORDERED: DICL50TA6 PO (22:55)
[2017-12-19] MEDS ORDERED: ACHD5005 PO (22:55)
[2017-12-19] MEDS ORDERED: ONDA4TAB11 PO (22:55)
[2017-12-19 23:01] VITALS: BP 138/93
== END 2017-12-19 22:57 | disposition home or self-care (01) ==
LOC: EDUNIT# 20:40 → ER 20:41
DX: K56.7 Ileus, unspecified (principal); J98.11 Atelectasis; K21.9 Gastro-esophageal reflux disease without esophagitis; J45.909 Unspecified asthma, uncomplicated; G47.30 Sleep apnea, unspecified; F17.210 Nicotine dependence, cigarettes, uncomplicated; Z98.890 Other specified postprocedural states; Z87.81 Personal history of (healed) traumatic fracture; Z87.19 Personal history of other diseases of the digestive system; Z90.49 Acquired absence of other specified parts of digestive tract; Z88.5 Allergy status to narcotic agent; Z88.6 Allergy status to analgesic agent; Z88.1 Allergy status to other antibiotic agents
CPT/HCPCS: 36415; 71045; 71260; 74177; 80053; 81000; 83605; 84484; 85025; 85610; 85730; 87040; 93005; 96361; 96365; 96375

== ENCOUNTER → 2018-01-21 | Outpatient (CLI) | payer MEDICAID ==
[~2018-01-21] MED LIST changes: +ACHD5005 PO; +DICL50TA6 PO; +ONDA4TAB11 PO
[2018-01-21 08:50] LABS: BASOPHILS % (AUTO) 1 % (0-10); EOSINOPHILS # (AUTO) 0.2 10^3/uL (0.0-0.3); EOSINOPHILS % (AUTO) 5 % (0-10); HEMATOCRIT 42 % (40-54); HEMOGLOBIN 14.6 G/DL (13.3-17.7); LYMPHOCYTES # (AUTO) 1.4 X 10^3 (1.0-4.0); LYMPHOCYTES % (AUTO) 27 % (12-44); MEAN CORPUSCULAR HEMOGLOBIN 30 PG (25-34); MEAN CORPUSCULAR HGB CONC 34 G/DL (32-36); MEAN CORPUSCULAR VOLUME 86 FL (80-99); MEAN PLATELET VOLUME 10.1 FL (7.4-10.4); MONOCYTES # (AUTO) 0.7 X 10^3 (0.0-1.0); MONOCYTES % (AUTO) 13 % (0-12); NEUTROPHILS # (AUTO) 2.9 X 10^3 (1.8-7.8); NEUTROPHILS % (AUTO) 56 % (42-75); PLATELET COUNT 169 10^3/uL (130-400); RED BLOOD COUNT 4.91 10^6/uL (4.35-5.85); RED CELL DISTRIBUTION WIDTH 13.1 % (10.0-14.5); WHITE BLOOD COUNT 5.3 10^3/uL (4.3-11.0)
[2018-01-21 09:14] LABS: ALANINE AMINOTRANSFERASE 28 U/L (0-55); ALKALINE PHOSPHATASE 76 U/L (40-136); BILIRUBIN,TOTAL 0.4 MG/DL (0.1-1.0); BUN/CREATININE RATIO 15; CALCIUM 9.6 MG/DL (8.5-10.1); CARBON DIOXIDE 24 MMOL/L (21-32); CHLORIDE 106 MMOL/L (98-107); CHOLESTEROL 171 MG/DL (< 200); CREATININE SERUM 0.68 MG/DL (0.60-1.30); GFR ESTIMATED > 60; GLUCOSE 92 MG/DL (70-105); HDL CHOLESTEROL 40 MG/DL (40-60); POTASSIUM 4.2 MMOL/L (3.6-5.0); SODIUM 138 MMOL/L (135-145); TOTAL PROTEIN 6.9 GM/DL (6.4-8.2); TRIGLYCERIDES 77 MG/DL (<150); VLDL CHOLESTEROL 15 MG/DL (5-40)
== END ==
LOC: LAB 08:33
PROVIDERS: ATTEND Family Medicine
DX: Z13.1 Encounter for screening for diabetes mellitus (principal); Z13.220 Encounter for screening for lipoid disorders; Z83.3 Family history of diabetes mellitus
CPT/HCPCS: 36415; 80053; 80061; 83036; 85025

== ENCOUNTER 2018-02-13 13:55 | Outpatient (RCR) | payer MEDICAID ==
[~2018-02-13 13:55] MED LIST changes: -OXYC-197 PO; +OXYC1TAB87 PO
--- NOTE | 2018-02-14 23:41 | Physician Query-Final Dx ---
KAMILLA BOGGS 02/14/18 2341: Clinic Account Progress/Dx Physician Query: Please give diagnosis Please provide diagnosis, sign or symptom for the H-Pylori test. Date of Service Feb 13, 2018 at 13:55 NORMAN VEGA DO 02/15/18 1507: Clinic Account Progress/Dx DIAGNOSIS: Diagnosis Chronic Abd pain with nausea and vomiting. Severe abdominal pain KAMILLA BOGGS Feb 14, 2018 23:41 NORMAN VEGA DO Feb 15, 2018 15:07
== END 2018-02-21 | disposition home or self-care (01) ==
LOC: LAB 13:55
PROVIDERS: ATTEND Surgery
DX: R11.2 Nausea with vomiting, unspecified (principal); R10.9 Unspecified abdominal pain
CPT/HCPCS: 36415; 87338

== ENCOUNTER 2018-02-28 15:51 | Outpatient (CLI) | payer MEDICAID ==
[~2018-02-28] VITALS: Ht 185.4 cm; Wt 127.0 kg
== END 2018-02-28 16:04 | disposition home or self-care (01) ==
LOC: PREOP 15:51
PROVIDERS: ATTEND Surgery
DX: Z01.818 Encounter for other preprocedural examination (principal)

== ENCOUNTER 2018-03-05 09:31 | Day surgery (SDC) | payer MEDICAID ==
[~2018-03-05] VITALS: Ht 185.4 cm; Wt 127.0 kg
--- OUTSIDE RECORDS SUMMARY | 2018-03-05 09:35 | XMS REPORT ---
Author Author Grant Lara [facility] Address [address] [facility], [facility] [address] [place], [place] [id number] Care Team Providers Care Survey Engineer Name Role Phone Grant Lara PCP Allergies and Adverse Reactions Name Reaction Notes Keflex Plan of Treatment Not available. Medications Active Name Start Date Estimated Completion Date SIG Comments omeprazole 20 mg oral capsule,delayed release(DR/EC) take 1 capsule (20 mg) by oral route once daily before a meal hydrochlorothiazide 25 mg oral tablet 03/03/2018 02/26/2019 take 1 tablet (25 mg) by oral route once daily for 30 days Ambien 10 mg oral tablet 03/03/2018 06/01/2018 take 1 tablet (10 mg) by oral route once daily at bedtime for 30 days Problem List Not available. Vital Signs Date Time BP-Sys(mm[Hg] BP-Ermelinda(mm[Hg]) HR(bpm) RR(rpm) Temp WT HT HC BMI BSA BMI Percentile O2 Sat(%) 03/03/2018 10:12:00 AM 140 mmHg 96 mmHg 95 bpm 18 rpm 98.1 F 300.25 lbs 73 in 39.6128 kg/m 2.6485 m 97 % Social History Name Description Comments Tobacco Current every day smoker Tobacco chew use 03/03/2018 - Alcohol Light 03/03/2018 - History of Procedures Not available. Results Summary Not available. History Of Immunizations Not available. History of Past Illness Name Date of Onset Comments Hypertension Sleep apnea with use of continuous positive airway pressure (CPAP) 03/03/2018 Hypertension Mar 03 2018 10:14AM Insomnia, unspecified Mar 03 2018 10:14AM Sleep apnea with use of continuous positive airway pressure (CPAP) Mar 03 2018 10:14AM Payers Insurance Name Company Name Plan Name Plan Number Policy Number Policy Group Number Start Date [facility] [id number] N/A History of Encounters Visit Date Visit Type Provider 03/03/2018 Office visit Grant Lara MD 12/05/2017 [facility] Salvador Solorzano MD
--- OUTSIDE RECORDS SUMMARY | 2018-03-05 09:36 | XMS REPORT | Continuity of Care Document ---
Author Author [facility] Organization [facility] Address [facility] [address] [place] [address] Phone Unavailable Support Name Relationship Address Phone AZAEL ALVAREZ DO Caregiver Unknown Unavailable TOM MAGAÑA Next Of Kin [address] [place] [address] Insurance Providers Payer Name Policy Number Subscriber Name Relationship [place] [id number] Gene Magaña 20 Self / Same As Patient Advance Directives Directive Response Recorded Date/Time Advance Directives No 05/17/14 8:19pm Living Will No 05/17/14 8:19pm Health Care Proxy No 05/17/14 8:19pm Power of Trial Lawyer for Health Care No 05/17/14 8:19pm Organ, Tissue, or Eye Donor No 05/17/14 8:19pm Do you have a signed organ donor card? No 05/17/14 8:19pm Problems Medical Problems Problem Onset Date Status Abdominal pain Unknown Active Medications Medication Dose Route Sig Days/Qty Instructions Order Date Discontinued Date Status Promethazine HCl 25 Mg PO EVERY 8 HOURS NEEDED PRN NAUSEA 10 Qty Active Acetaminophen/Hydrocodone Bitart (Lortab 5-325*) 1 Ea PO EVERY 4-6 HRS NEEDED PAIN PRN PAIN 15 Qty 05/17/14 Active Social History No social history. Hospital Discharge Instructions No hospital discharge instructions. Plan of Care No plan of care. Functional Status Query Response Date Recorded Patient Behavior Cooperative Appropriate May 17, 2014 8:20pm Allergies, Adverse Reactions, Alerts No known allergies. Immunizations Name Given Type Hx Diphtheria, Pertussis, Tetanus Vaccination Up To Date Historical Hx Influenza Vaccination Yes Historical Hx Pneumococcal Vaccination No Historical Vital Signs Acute Vital Signs Vital Response Date/Time Temperature (Fahrenheit) 97.2 degrees F (97.6 - 99.5) Temperature Source Temporal Artery Pulse Rate (adult) 73 bpm (60 - 90) Respiratory Rate 20 bpm (12 - 24) Blood Pressure 130/71 mm Hg O2 Sat by Pulse Oximetry 93 % (95 - 100) Oxygen Delivery Method Pain Intensity 6 Pain Location Body Site Modifier Pain Description Pain Duration > 6 Hours Height 6 ft 1 in Weight 260 lb Body Mass Index 34.0 kg/m^2 Results Test Source Date Result Interp. Ref. Range Comments Urine Amorphous Sediment May 17, 2014 9:10pm 3+ H - Urine Bacteria May 17, 2014 9:10pm Negative - Urine Squamous Epithelial Cells May 17, 2014 9:10pm 3-5 /hpf - Urine WBC May 17, 2014 9:10pm Negative /hpf - Urine RBC May 17, 2014 9:10pm Negative /hpf - Urine Leukocyte Esterase May 17, 2014 9:10pm Negative - Urine Nitrate May 17, 2014 9:10pm Negative - Urine Urobilinogen May 17, 2014 9:10pm 0.2 E.U./dL - Urine Protein May 17, 2014 9:10pm Negative mg/dL - Urine pH May 17, 2014 9:10pm 7.0 - Urine Occult Blood May 17, 2014 9:10pm Negative - Urine Specific [place] May 17, 2014 9:10pm 1.020 N 1.010-1.025 Urine Ketones May 17, 2014 9:10pm Negative mg/dL - Urine Bilirubin May 17, 2014 9:10pm Negative - Urine Glucose (UA) May 17, 2014 9:10pm Negative mg/dL - Urine Appearance May 17, 2014 9:10pm Sl cloudy H - Urine Color May 17, 2014 9:10pm Lt. yellow - Glomerular Filtration Rate Calc May 17, 2014 8:55pm 143.8 mL/min H 60.0-128.0 Lipase May 17, 2014 8:55pm 146 U/L N 65-230 Amylase Level May 17, 2014 8:55pm 32 U/L N 25-115 Total Alkaline Phosphatase May 17, 2014 8:55pm 74 U/L N 50-136 Alanine Aminotransferase (ALT/SGPT) May 17, 2014 8:55pm 21 U/L N 12 -78 Aspartate Amino Transf (AST/SGOT) May 17, 2014 8:55pm 15 U/L N 15- 37 Total Bilirubin May 17, 2014 8:55pm 0.20 mg/dL N 0.00-1.00 Albumin May 17, 2014 8:55pm 3.6 gm/dL N 3.4-5.0 Total Protein May 17, 2014 8:55pm 6.9 gm/dL N 6.4-8.2 Calcium Level May 17, 2014 8:55pm 8.7 mg/dL L 8.8-10.5 Carbon Dioxide Level May 17, 2014 8:55pm 26.9 mEq/L N 21-32 Chloride Level May 17, 2014 8:55pm 102 mEq/L N 98-107 Potassium Level May 17, 2014 8:55pm 3.8 mEq/L N 3.5-5.0 Sodium Level May 17, 2014 8:55pm 138 mEq/L N 136-145 Creatinine May 17, 2014 8:55pm 0.7 mg/dL L 0.8-1.3 Blood Urea Nitrogen May 17, 2014 8:55pm 10 mg/dL N 7-18 Random Glucose May 17, 2014 8:55pm 96 mg/dL N 70-110 Basophils # (Auto) May 17, 2014 8:55pm 0.1 K/uL N 0.0-0.2 Eosinophils # (Auto) May 17, 2014 8:55pm 0.2 K/uL N 0.0-0.7 Monocytes # (Auto) May 17, 2014 8:55pm 1.3 K/uL H 0.1-0.6 Lymphocytes # (Auto) May 17, 2014 8:55pm 1.7 K/uL N 1.2-3.4 Neutrophils # (Auto) May 17, 2014 8:55pm 7.1 K/uL H 2.0-6.9 Basophils (%) (Auto) May 17, 2014 8:55pm 1.2 % H 0.0-1.0 Eosinophils (%) (Auto) May 17, 2014 8:55pm 1.8 % N 0.0-2.0 Monocytes (%) (Auto) May 17, 2014 8:55pm 12.3 % H 1.7-9.3 Lymphocytes (%) (Auto) May 17, 2014 8:55pm 16.6 % L 20.5-51.1 Neutrophils (%) (Auto) May 17, 2014 8:55pm 68.1 % N 42.2-75.2 Mean Platelet Volume May 17, 2014 8:55pm 10.6 fL H 7.4-10.4 Platelet Count May 17, 2014 8:55pm 221 K/uL N 130-400 Red Cell Distribution Width May 17, 2014 8:55pm 9.9 % L 11.5-14.5 Mean Corpuscular Hemoglobin Concent May 17, 2014 8:55pm 36.7 g/dL N 30.0-37.0 Mean Corpuscular Hemoglobin May 17, 2014 8:55pm 31.9 pg H 27.0- 31.0 Mean Corpuscular Volume May 17, 2014 8:55pm 87.0 fL N 80.0-96.1 Hematocrit May 17, 2014 8:55pm 42.6 % N 42.0-52.0 Hemoglobin May 17, 2014 8:55pm 15.6 gm/dL N 14.0-18.0 Red Blood Count May 17, 2014 8:55pm 4.89 M/uL N 4.70-6.10 White Blood Count May 17, 2014 8:55pm 10.4 K/uL N 4.8-10.8 Procedures Procedure Status Date Provider(s) Computed tomography of abdomen and pelvis with contrast completed 05/17/14 AZAEL ALVAREZ DO X-ray of chest, PA and lateral views completed 05/17/14 AZAEL ALVAREZ DO Encounters Encounter Location Date/Time Departed Emergency [facility] 05/17/14 8:17pm Recent Diagnosis
--- OUTSIDE RECORDS SUMMARY | 2018-03-05 09:39 | XMS REPORT | Continuity of Care Document ---
Demographics Preferred Language Unknown Marital Status Unknown Faith Affiliation Unknown Race Unknown Ethnic Group Unknown Author Author [facility] Organization [facility] Address Unknown Phone Unavailable Allergies Active Description Code Type Severity Reaction Onset Reported/Identified Relationship to Patient Clinical Status Yes No Known Drug Allergies [id number] Drug Allergy Unknown N/A 09/30/2017 Yes cephalexin [id number] Drug Allergy Unknown NAUSEA 12/12/2017 Yes ketoprofen [id number] Drug Allergy Unknown RASH 12/12/2017 Yes ketorolac [id number] Drug Allergy Unknown RASH 12/12/2017 Yes cephalexin [id number] Drug Allergy Mild NAUSEA 12/17/2017 Medications There is no data. Problems Date Dx Coded Attending Type Code Diagnosis Diagnosed By 07/16/2017 KELSIE CRUZ DO Ot K21.9 GASTRO-ESOPHAGEAL REFLUX DISEASE WITHOUT 07/16/2017 ANTHONY DO KELSIE K Ot R10.31 RIGHT LOWER QUADRANT PAIN 07/16/2017 VAIBHAV CRUZ DOA K Ot R11.2 NAUSEA WITH VOMITING, UNSPECIFIED 07/21/2017 ANTHONY DO KELSIE K Ot K21.9 GASTRO-ESOPHAGEAL REFLUX DISEASE WITHOUT 07/21/2017 ANTHONY DO KELSIE K Ot R10.31 RIGHT LOWER QUADRANT PAIN 07/21/2017 ANTHONY DO KELSIE K Ot R11.2 NAUSEA WITH VOMITING, UNSPECIFIED 07/22/2017 GARY COON NORMAN B Ot 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 PYLORI THE CAUSE OF DISE 07/22/2017 GARY COON NORMAN B Ot F17.210 NICOTINE DEPENDENCE, CIGARETTES, UNCOMPL 07/22/2017 GARY COON NORMAN B Ot K21.0 GASTRO-ESOPHAGEAL REFLUX DISEASE WITH ES 07/22/2017 GARY COON NORMAN B Ot K26.4 CHRONIC OR UNSPECIFIED DUODENAL ULCER [place] 07/22/2017 GARY COON NORMAN B Ot K29.50 UNSPECIFIED CHRONIC GASTRITIS WITHOUT BL 07/22/2017 GARY COON NORMAN B Ot K59.09 OTHER CONSTIPATION 07/22/2017 GARY COON NORMAN B Ot 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 PYLORI THE CAUSE OF DISE 07/22/2017 GARY COON NORMAN B Ot F17.210 NICOTINE DEPENDENCE, CIGARETTES, UNCOMPL 07/22/2017 GARY COONNORMAN B Ot K21.0 GASTRO-ESOPHAGEAL REFLUX DISEASE WITH ES 07/22/2017 EZEKIELLATANYA NORMAN COON Ot K26.4 CHRONIC OR UNSPECIFIED DUODENAL ULCER [place] 07/22/2017 GARY COONALESHIAIC B Ot K29.50 UNSPECIFIED CHRONIC GASTRITIS WITHOUT BL 07/22/2017 ALESHIA VEGA DOIC B Ot K59.09 OTHER CONSTIPATION 07/28/2017 WILLIAM ALVARES MD Ot 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 PYLORI THE CAUSE OF DISE 07/28/2017 WILLIAM ALVARES MD Ot F17.210 NICOTINE DEPENDENCE, CIGARETTES, UNCOMPL 07/28/2017 WILLIAM ALVARES MD Ot K21.9 GASTRO-ESOPHAGEAL REFLUX DISEASE WITHOUT 07/28/2017 WILLIAM ALVARES MD Ot K25.4 CHRONIC OR UNSPECIFIED GASTRIC ULCER WIT 07/29/2017 WILLIAM ALVARES MD Ot 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 PYLORI THE CAUSE OF DISE 07/29/2017 WILLIAM ALVARES MD Ot F17.210 NICOTINE DEPENDENCE, CIGARETTES, UNCOMPL 07/29/2017 WILLIAM ALVARES MD Ot K21.9 GASTRO-ESOPHAGEAL REFLUX DISEASE WITHOUT 07/29/2017 WILLIAM ALVARES MD Ot K25.4 CHRONIC OR UNSPECIFIED GASTRIC ULCER WIT 09/13/2017 PINO ROSASA ALTERATIONS TAILOR-C Ot S99.911A UNSPECIFIED INJURY OF RIGHT ANKLE, INITI 09/13/2017 ALISON ETHEL ALTERATIONS TAILOR-C Ot S99.921A UNSPECIFIED INJURY OF RIGHT FOOT, INITIA 09/13/2017 ALISON, ETHEL ALTERATIONS TAILOR-C Ot S99.911A UNSPECIFIED INJURY OF RIGHT ANKLE, INITI 09/13/2017 ALISON, ETHEL ALTERATIONS TAILOR-C Ot S99.921A UNSPECIFIED INJURY OF RIGHT FOOT, INITIA 09/13/2017 NEDA LOMAX Ot K21.9 GASTRO-ESOPHAGEAL REFLUX DISEASE WITHOUT 09/13/2017 NEDA LOMAX Ot K59.09 OTHER CONSTIPATION 09/13/2017 NEDA LOMAX Ot M79.671 PAIN IN RIGHT FOOT 09/13/2017 NEDA LOMAX Ot S92.251A DISP FX OF NAVICULAR OF RIGHT FOOT, INIT 09/13/2017 NEDA LOMAX Ot X50.1XXA OVEREXERTION FROM PROLONGED STATIC OR AW 09/13/2017 NEDA LOMAX Ot Z77.22 CNTCT W AND EXPSR TO ENVIRON TOBACCO SMO 09/13/2017 NEDA LOMAX Ot Z87.19 PERSONAL HISTORY OF OTHER DISEASES OF TH 09/16/2017 NEDA LOMAX Ot K21.9 GASTRO-ESOPHAGEAL REFLUX DISEASE WITHOUT 09/16/2017 NEDA LOMAX Ot K59.09 OTHER CONSTIPATION 09/16/2017 NEDA LOMAX Ot M79.671 PAIN IN RIGHT FOOT 09/16/2017 NEDA LOMAX Ot S92.251A DISP FX OF NAVICULAR OF RIGHT FOOT, INIT 09/16/2017 NEDA LOMAX Ot X50.1XXA OVEREXERTION FROM PROLONGED STATIC OR AW 09/16/2017 NEDA LOMAX Ot Z77.22 CNTCT W AND EXPSR TO ENVIRON TOBACCO SMO 09/16/2017 NEDA LOMAX Ot Z87.19 PERSONAL HISTORY OF OTHER DISEASES OF TH 09/25/2017 NORMAN VEGA DO Ot 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 PYLORI THE CAUSE OF DISE 09/25/2017 NORMAN VEGA DO Ot K25.9 GASTRIC ULCER, UNSP ACUTE OR CHRONIC, 09/25/2017 NORMAN VEGA DO Ot Z01.818 ENCOUNTER FOR OTHER PREPROCEDURAL EXAMIN 09/25/2017 ETHEL ROSAS-Catrachita Ot S99.911A UNSPECIFIED INJURY OF RIGHT ANKLE, INITI 09/25/2017 ETHEL ROSAS-Catrachita Ot S99.921A UNSPECIFIED INJURY OF RIGHT FOOT, INITIA 09/26/2017 TAINA SCHULER MD Ot F17.210 NICOTINE DEPENDENCE, CIGARETTES, UNCOMPL 09/26/2017 TAINA SCHULER MD Ot G47.30 SLEEP APNEA, UNSPECIFIED 09/26/2017 TAINA SCHULER MD Ot J45.909 UNSPECIFIED ASTHMA, UNCOMPLICATED 09/26/2017 TAINA SCHULER MD Ot K21.9 GASTRO-ESOPHAGEAL REFLUX DISEASE WITHOUT 09/26/2017 HARINI MD, TAINA D Ot K27.9 PEPTIC ULC, SITE UNSP, UNSP AC OR CHR 09/26/2017 TAINA SCHULER MD Ot R10.11 RIGHT UPPER QUADRANT PAIN 09/26/2017 TAINA SCHULER MD Ot Z86.19 PERSONAL HISTORY OF OTHER INFECTIOUS AND 09/26/2017 TAINA SCHULER MD Ot Z87.19 PERSONAL HISTORY OF OTHER DISEASES OF TH 09/26/2017 TAINA SCHULER MD Ot Z90.49 ACQUIRED ABSENCE OF OTHER SPECIFIED PART 09/30/2017 TAINA SCHULER MD Ot F17.210 NICOTINE DEPENDENCE, CIGARETTES, UNCOMPL 09/30/2017 TAINA SCHULER MD Ot G47.30 SLEEP APNEA, UNSPECIFIED 09/30/2017 TAINA SCHULER MD Ot J45.909 UNSPECIFIED ASTHMA, UNCOMPLICATED 09/30/2017 TAINA SCHULER MD Ot K21.9 GASTRO-ESOPHAGEAL REFLUX DISEASE WITHOUT 09/30/2017 TAINA SCHULER MD Ot K27.9 PEPTIC ULC, SITE UNSP, UNSP AC OR CHR 09/30/2017 TAINA SCHULER MD Ot R10.11 RIGHT UPPER QUADRANT PAIN 09/30/2017 TAINA SCHULER MD Ot Z86.19 PERSONAL HISTORY OF OTHER INFECTIOUS AND 09/30/2017 TAINA SCHULER MD Ot Z87.19 PERSONAL HISTORY OF OTHER DISEASES OF TH 09/30/2017 TAINA SCHULER MD Ot Z90.49 ACQUIRED ABSENCE OF OTHER SPECIFIED PART 09/30/2017 NORMAN VEGA DO Ot F17.210 NICOTINE DEPENDENCE, CIGARETTES, UNCOMPL 09/30/2017 ALESHIA VEGA DOIC B Ot K20.9 ESOPHAGITIS, UNSPECIFIED 09/30/2017 ALESHIA VEGA DOIC B Ot K25.9 GASTRIC ULCER, UNSP ACUTE OR CHRONIC, 09/30/2017 NORMAN VEGA DO B Ot K26.9 DUODENAL ULCER, UNSP ACUTE OR CHRONIC 09/30/2017 ALESHIA VEGA DOIC B Ot K29.70 GASTRITIS, UNSPECIFIED, WITHOUT BLEEDING 09/30/2017 NORMAN VEGA DO B Ot K92.0 HEMATEMESIS 10/02/2017 NORMAN VEGA DO B Ot 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 PYLORI THE CAUSE OF DISE 10/02/2017 ALESHIA VEGA DOIC B Ot K25.9 GASTRIC ULCER, UNSP ACUTE OR CHRONIC, 10/02/2017 GARY COON NORMAN B Ot Z01.818 ENCOUNTER FOR OTHER PREPROCEDURAL EXAMIN 10/02/2017 GARY COONALESHIAIC B Ot F17.210 NICOTINE DEPENDENCE, CIGARETTES, UNCOMPL 10/02/2017 GARY COONNORMAN B Ot K20.9 ESOPHAGITIS, UNSPECIFIED 10/02/2017 GARY COONALESHIAIC B Ot K25.9 GASTRIC ULCER, UNSP ACUTE OR CHRONIC, 10/02/2017 GARY COONALESHIAIC B Ot K26.9 DUODENAL ULCER, UNSP ACUTE OR CHRONIC 10/02/2017 GARY COONNORMAN B Ot K29.70 GASTRITIS, UNSPECIFIED, WITHOUT BLEEDING 10/02/2017 GARY COONNORMAN B Ot K92.0 HEMATEMESIS 10/14/2017 ETHEL ROSAS ALTERATIONS TAILOR-C Ot S99.911A UNSPECIFIED INJURY OF RIGHT ANKLE, INITI 10/14/2017 ETHEL ROSAS ALTERATIONS TAILOR-C Ot S99.921A UNSPECIFIED INJURY OF RIGHT FOOT, INITIA 10/14/2017 NEDA LOMAX Ot B97.89 OTH VIRAL AGENTS THE CAUSE OF DISEASE 10/14/2017 NEDA LOMAX Ot F17.210 NICOTINE DEPENDENCE, CIGARETTES, UNCOMPL 10/14/2017 NEDA LOMAX Ot G47.30 SLEEP APNEA, UNSPECIFIED 10/14/2017 NEDA LOMAX Ot J02.9 ACUTE PHARYNGITIS, UNSPECIFIED 10/14/2017 NEDA LOMAX Ot J45.909 UNSPECIFIED ASTHMA, UNCOMPLICATED 10/14/2017 NEDA LOMAX Ot J98.8 OTHER SPECIFIED RESPIRATORY DISORDERS 10/14/2017 NEDA LOMAX Ot K21.9 GASTRO-ESOPHAGEAL REFLUX DISEASE WITHOUT 10/14/2017 NEDA LOMAX Ot R11.2 NAUSEA WITH VOMITING, UNSPECIFIED 10/14/2017 NEDA LOMAX Ot R19.7 DIARRHEA, UNSPECIFIED 10/14/2017 NEDA LOMAX Ot Z87.19 PERSONAL HISTORY OF OTHER DISEASES OF TH 10/14/2017 NEDA LOMAX Ot Z87.39 PERSONAL HISTORY OF DISEASES OF THE MS S 10/16/2017 NEDA LOMAX Ot B97.89 OTH VIRAL AGENTS THE CAUSE OF DISEASE 10/16/2017 NEDA LOMAX Ot F17.210 NICOTINE DEPENDENCE, CIGARETTES, UNCOMPL 10/16/2017 NEDA LOMAX Ot G47.30 SLEEP APNEA, UNSPECIFIED 10/16/2017 NEDA LOMAX Ot J02.9 ACUTE PHARYNGITIS, UNSPECIFIED 10/16/2017 NEDA LOMAX Ot J45.909 UNSPECIFIED ASTHMA, UNCOMPLICATED 10/16/2017 NEDA LOMAX Ot J98.8 OTHER SPECIFIED RESPIRATORY DISORDERS 10/16/2017 NEDA LOMAX Ot K21.9 GASTRO-ESOPHAGEAL REFLUX DISEASE WITHOUT 10/16/2017 NEDA LOMAX Ot R11.2 NAUSEA WITH VOMITING, UNSPECIFIED 10/16/2017 NEDA LOMAX Ot R19.7 DIARRHEA, UNSPECIFIED 10/16/2017 NEDA LOMAX Ot Z87.19 PERSONAL HISTORY OF OTHER DISEASES OF TH 10/16/2017 NEDA LOMAX Ot Z87.39 PERSONAL HISTORY OF DISEASES OF THE MS S 10/18/2017 HUNTER COULTER APRN Ot F17.210 NICOTINE DEPENDENCE, CIGARETTES, UNCOMPL 10/18/2017 HUNTER COULTER APRN Ot G47.30 SLEEP APNEA, UNSPECIFIED 10/18/2017 HUNTER COULTER APRN Ot J40 BRONCHITIS, NOT SPECIFIED ACUTE OR CH 10/18/2017 HUNTER COULTER APRN Ot K21.9 GASTRO-ESOPHAGEAL REFLUX DISEASE WITHOUT 10/18/2017 HUNTER COULTER APRN Ot R05 COUGH 10/18/2017 HUNTER COULTER APRN Ot Z77.22 CNTCT W AND EXPSR TO ENVIRON TOBACCO SMO 10/18/2017 HUNTER COULTER APRN Ot Z87.19 PERSONAL HISTORY OF OTHER DISEASES OF TH 10/18/2017 HUNTER COULTER APRN Ot Z90.49 ACQUIRED ABSENCE OF OTHER SPECIFIED PART 10/20/2017 NEDA LOMAX Ot B97.89 OTH VIRAL AGENTS THE CAUSE OF DISEASE 10/20/2017 NEDA LOMAX Ot F17.210 NICOTINE DEPENDENCE, CIGARETTES, UNCOMPL 10/20/2017 NEDA LOMAX Ot G47.30 SLEEP APNEA, UNSPECIFIED 10/20/2017 NEDA LOMAX Ot J02.9 ACUTE PHARYNGITIS, UNSPECIFIED 10/20/2017 NEDA LOMAX Ot J45.909 UNSPECIFIED ASTHMA, UNCOMPLICATED 10/20/2017 NEDA LOMAX Ot J98.8 OTHER SPECIFIED RESPIRATORY DISORDERS 10/20/2017 NEDA LOMAX Ot K21.9 GASTRO-ESOPHAGEAL REFLUX DISEASE WITHOUT 10/20/2017 NEDA LOMAX Ot R11.2 NAUSEA WITH VOMITING, UNSPECIFIED 10/20/2017 NEDA LOMAX Ot R19.7 DIARRHEA, UNSPECIFIED 10/20/2017 NEDA LOMAX Ot Z87.19 PERSONAL HISTORY OF OTHER DISEASES OF 10/20/2017 NEDA LOMAX Ot Z87.39 PERSONAL HISTORY OF DISEASES OF THE MS S 10/21/2017 HUNTER COULTER APRN Ot F17.210 NICOTINE DEPENDENCE, CIGARETTES, UNCOMPL 10/21/2017 HUNTER COULTER APRN Ot G47.30 SLEEP APNEA, UNSPECIFIED 10/21/2017 HUNTER COULTER APRN Ot J40 BRONCHITIS, NOT SPECIFIED ACUTE OR CH 10/21/2017 HUNTER COULTER APRN Ot K21.9 GASTRO-ESOPHAGEAL REFLUX DISEASE WITHOUT 10/21/2017 HUNTER COULTER APRN Ot R05 COUGH 10/21/2017 HUNTER COULTER APRN Ot Z77.22 CNTCT W AND EXPSR TO ENVIRON TOBACCO SMO 10/21/2017 HUNTER COULTER APRN Ot Z87.19 PERSONAL HISTORY OF OTHER DISEASES OF 10/21/2017 HUNTER COULTER APRN Ot Z90.49 ACQUIRED ABSENCE OF OTHER SPECIFIED PART 10/23/2017 DELMAN DO, NORMAN B Ot A04.8 OTHER SPECIFIED BACTERIAL INTESTINAL INF 10/23/2017 DELLATANYA DO, NORMAN B Ot A04.8 OTHER SPECIFIED BACTERIAL INTESTINAL INF 11/07/2017 DELMAN DO, NORMAN B Ot A04.8 OTHER SPECIFIED BACTERIAL INTESTINAL INF 11/07/2017 DELLATANYA COON, NORMAN B Ot A04.8 OTHER SPECIFIED BACTERIAL INTESTINAL INF 11/07/2017 HUNTER COULTER APRN Ot G47.30 SLEEP APNEA, UNSPECIFIED 11/07/2017 HUNTER COULTER BODY SHOP MECHANIC Ot J45.909 UNSPECIFIED ASTHMA, UNCOMPLICATED 11/07/2017 HUNTER COULTER BODY SHOP MECHANIC Ot K21.9 GASTRO-ESOPHAGEAL REFLUX DISEASE WITHOUT 11/07/2017 HUNTER COULTER BODY SHOP MECHANIC Ot M54.5 LOW BACK PAIN 11/07/2017 HUNTER COULTER APRN Ot Z77.22 CNTCT W AND EXPSR TO ENVIRON TOBACCO SMO 11/07/2017 HUNTER COULTER APRN Ot Z79.52 AUDIT TECH (CURRENT) USE OF SYSTEMIC STER 11/07/2017 HUNTER COULETR APRN Ot Z87.19 PERSONAL HISTORY OF OTHER DISEASES OF TH 11/07/2017 HUNTER COULTER APRN Ot Z90.49 ACQUIRED ABSENCE OF OTHER SPECIFIED PART 11/11/2017 HUNTER COULTER APRN Ot G47.30 SLEEP APNEA, UNSPECIFIED 11/11/2017 HUNTER COULTER APRN Ot J45.909 UNSPECIFIED ASTHMA, UNCOMPLICATED 11/11/2017 HUNTER COULTER APRN Ot K21.9 GASTRO-ESOPHAGEAL REFLUX DISEASE WITHOUT 11/11/2017 HUNTER COULTER APRN Ot M54.5 LOW BACK PAIN 11/11/2017 HUNTER COULTER APRN Ot Z77.22 CNTCT W AND EXPSR TO ENVIRON TOBACCO SMO 11/11/2017 HUNTER COULTER APRN Ot Z79.52 SHELTER (CURRENT) USE OF SYSTEMIC STER 11/11/2017 HUNTER COULTER BODY SHOP MECHANIC Ot Z87.19 PERSONAL HISTORY OF OTHER DISEASES OF TH 11/11/2017 HUNTER COULTER APRN Ot Z90.49 ACQUIRED ABSENCE OF OTHER SPECIFIED PART 11/20/2017 GIORGIO ANDERSEN, WILLIAM T Ot G47.30 SLEEP APNEA, UNSPECIFIED 11/20/2017 GIORGIO ANDERSEN, WILLIAM T Ot J45.909 UNSPECIFIED ASTHMA, UNCOMPLICATED 11/20/2017 WILLIAM ALVARES MD T Ot K21.9 GASTRO-ESOPHAGEAL REFLUX DISEASE WITHOUT 11/20/2017 WILLIAM ALVARES MD Ot K59.00 CONSTIPATION, UNSPECIFIED 11/20/2017 WILLIAM ALVARES MD Ot R10.31 RIGHT LOWER QUADRANT PAIN 11/20/2017 WILLIAM ALVARES MD Ot R11.2 NAUSEA WITH VOMITING, UNSPECIFIED 11/20/2017 WILLIAM ALVARES MD Ot Z77.22 CNTCT W AND EXPSR TO ENVIRON TOBACCO SMO 11/20/2017 WILLIAM ALVARES MD Ot Z79.52 SHELTER (CURRENT) USE OF SYSTEMIC STER 11/20/2017 WILLIAM ALVARES MD Ot Z87.19 PERSONAL HISTORY OF OTHER DISEASES OF 11/20/2017 WILLIAM ALVARES MD Ot Z90.49 ACQUIRED ABSENCE OF OTHER SPECIFIED PART 11/20/2017 WILLIAM ALVARES MD Ot Z98.890 OTHER SPECIFIED POSTPROCEDURAL STATES 11/22/2017 WILLIAM ALVARES MD Ot G47.30 SLEEP APNEA, UNSPECIFIED 11/22/2017 WILLIAM ALVARES MD Ot J45.909 UNSPECIFIED ASTHMA, UNCOMPLICATED 11/22/2017 WILLIAM ALVARES MD Ot K21.9 GASTRO-ESOPHAGEAL REFLUX DISEASE WITHOUT 11/22/2017 WILLIAM ALVARES MD Ot K59.00 CONSTIPATION, UNSPECIFIED 11/22/2017 WILLIAM ALVARES MD Ot R10.31 RIGHT LOWER QUADRANT PAIN 11/22/2017 WILLIAM ALVARES MD Ot R11.2 NAUSEA WITH VOMITING, UNSPECIFIED 11/22/2017 WILLIAM ALVARES MD Ot Z77.22 CNTCT W AND EXPSR TO ENVIRON TOBACCO SMO 11/22/2017 WILLIAM ALVARES MD Ot Z79.52 AUDIT TECH (CURRENT) USE OF SYSTEMIC STER 11/22/2017 WILLIAM ALVARES MD Ot Z87.19 PERSONAL HISTORY OF OTHER DISEASES OF TH 11/22/2017 WILLIAM ALVARES MD Ot Z90.49 ACQUIRED ABSENCE OF OTHER SPECIFIED PART 11/22/2017 WILLIAM ALVARES MD Ot Z98.890 OTHER SPECIFIED POSTPROCEDURAL STATES 11/22/2017 TAINA SCHULER MD Ot G47.30 SLEEP APNEA, UNSPECIFIED 11/22/2017 TAINA SCHULER MD Ot J45.909 UNSPECIFIED ASTHMA, UNCOMPLICATED 11/22/2017 TAINA SCHULER MD Ot K21.9 GASTRO-ESOPHAGEAL REFLUX DISEASE WITHOUT 11/22/2017 TAINA SCHULER MD Ot 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 11/22/2017 TAINA SCHULER MD Ot R10.11 RIGHT UPPER QUADRANT PAIN 11/22/2017 TAINA SCHULER MD Ot Z77.22 CNTCT W AND EXPSR TO ENVIRON TOBACCO SMO 11/22/2017 TAINA SCHULER MD Ot Z79.52 SHELTER (CURRENT) USE OF SYSTEMIC STER 11/22/2017 TAINA SCHULER MD Ot Z87.19 PERSONAL HISTORY OF OTHER DISEASES OF TH 11/25/2017 TAINA SCHULER MD Ot G47.30 SLEEP APNEA, UNSPECIFIED 11/25/2017 ATINA SCHULER MD Ot J45.909 UNSPECIFIED ASTHMA, UNCOMPLICATED 11/25/2017 TAINA SCHULER MD Ot K21.9 GASTRO-ESOPHAGEAL REFLUX DISEASE WITHOUT 11/25/2017 ATINA SCHULER MD Ot 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 11/25/2017 TAINA SCHULER MD Ot R10.11 RIGHT UPPER QUADRANT PAIN 11/25/2017 TAINA SCHULER MD Ot Z77.22 CNTCT W AND EXPSR TO ENVIRON TOBACCO SMO 11/25/2017 TAINA SCHULER MD Ot Z79.52 SHELTER (CURRENT) USE OF SYSTEMIC STER 11/25/2017 TAINA SCHULER MD Ot Z87.19 PERSONAL HISTORY OF OTHER DISEASES OF TH 12/12/2017 NORMAN VEGA DO Ot Z29.8 ENCOUNTER FOR OTHER SPECIFIED PROPHYLACT 12/12/2017 NORMAN VEGA DO Ot R93.2 ABNORMAL FINDINGS ON DX IMAGING OF LIVER 12/16/2017 NORMAN VEGA DO Ot A04.8 OTHER SPECIFIED BACTERIAL INTESTINAL INF 12/16/2017 NORMAN VEGA DO Ot R93.2 ABNORMAL FINDINGS ON DX IMAGING OF LIVER 12/16/2017 NORMAN VEGA DO Ot F17.210 NICOTINE DEPENDENCE, CIGARETTES, UNCOMPL 12/16/2017 NORMAN VEGA DO Ot G47.33 OBSTRUCTIVE SLEEP APNEA (ADULT) (PEDIATR 12/16/2017 NORMAN VEGA DO Ot J45.909 UNSPECIFIED ASTHMA, UNCOMPLICATED 12/16/2017 NORMAN VEGA DO Ot K21.0 GASTRO-ESOPHAGEAL REFLUX DISEASE WITH ES 12/16/2017 NORMAN VEGA DO Ot K25.7 CHRONIC GASTRIC ULCER WITHOUT HEMORRHAGE 12/16/2017 NORMAN VEGA DO Ot K26.9 DUODENAL ULCER, UNSP ACUTE OR CHRONIC 12/16/2017 NORMAN VEGA DO Ot K29.50 UNSPECIFIED CHRONIC GASTRITIS WITHOUT BL 12/16/2017 NORMAN VEGA DO Ot K29.80 DUODENITIS WITHOUT BLEEDING 12/16/2017 NORMAN VEGA DO Ot K81.1 CHRONIC CHOLECYSTITIS 12/16/2017 NORMAN VEGA DO Ot K82.8 OTHER SPECIFIED DISEASES OF GALLBLADDER 12/16/2017 NORMAN VEGA DO Ot 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 12/16/2017 NORMAN VEGA DO Ot Z11.2 ENCOUNTER FOR SCREENING FOR OTHER BACTER 12/17/2017 WILLIAM ALVARES MD Ot G47.30 SLEEP APNEA, UNSPECIFIED 12/17/2017 WILLIAM ALVARES MD Ot G89.18 OTHER ACUTE POSTPROCEDURAL PAIN 12/17/2017 WILLIAM ALVARES MD Ot J45.909 UNSPECIFIED ASTHMA, UNCOMPLICATED 12/17/2017 WILLIAM ALVARES MD Ot K21.9 GASTRO-ESOPHAGEAL REFLUX DISEASE WITHOUT 12/17/2017 WILLIAM ALVARES MD Ot R06.00 DYSPNEA, UNSPECIFIED 12/17/2017 WILLIAM ALVARES MD Ot R10.10 UPPER ABDOMINAL PAIN, UNSPECIFIED 12/17/2017 WILLIAM ALVARES MD Ot Z77.22 CNTCT W AND EXPSR TO ENVIRON TOBACCO SMO 12/17/2017 WILLIAM ALVARES MD Ot Z87.2 PERSONAL HISTORY OF DISEASES OF THE SKIN 12/17/2017 WILLIAM ALVARES MD Ot Z90.49 ACQUIRED ABSENCE OF OTHER SPECIFIED PART 12/18/2017 NORMAN VEGA DO Ot F17.210 NICOTINE DEPENDENCE, CIGARETTES, UNCOMPL 12/18/2017 NORMAN VEGA DO Ot G47.33 OBSTRUCTIVE SLEEP APNEA (ADULT) (PEDIATR 12/18/2017 ALESHIA VEGA DOIC Santosh Ot J45.909 UNSPECIFIED ASTHMA, UNCOMPLICATED 12/18/2017 ALESHIA VEGA DOIC B Ot K21.0 GASTRO-ESOPHAGEAL REFLUX DISEASE WITH ES 12/18/2017 ALESHIA VEGA DOIC B Ot K25.7 CHRONIC GASTRIC ULCER WITHOUT HEMORRHAGE 12/18/2017 ALESHIA VEGA DOIC B Ot K26.9 DUODENAL ULCER, UNSP ACUTE OR CHRONIC 12/18/2017 ALESHIA VEGA DOIC B Ot K29.50 UNSPECIFIED CHRONIC GASTRITIS WITHOUT BL 12/18/2017 ALESHIA VEGA DOIC B Ot K29.80 DUODENITIS WITHOUT BLEEDING 12/18/2017 ALESHIA VEGA DOIC B Ot K81.1 CHRONIC CHOLECYSTITIS 12/18/2017 NORMAN VEGA DO B Ot K82.8 OTHER SPECIFIED DISEASES OF GALLBLADDER 12/18/2017 NORMAN VEGA DO Ot 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 12/18/2017 NORMAN VEGA DO Ot Z11.2 ENCOUNTER FOR SCREENING FOR OTHER BACTER 12/18/2017 WILLIAM ALVARES MD, Ot G47.30 SLEEP APNEA, UNSPECIFIED 12/18/2017 WILLIAM ALVARES MD Ot G89.18 OTHER ACUTE POSTPROCEDURAL PAIN 12/18/2017 WILLIAM ALVARES MD, Ot J45.909 UNSPECIFIED ASTHMA, UNCOMPLICATED 12/18/2017 WILLIAM ALVARES MD Ot K21.9 GASTRO-ESOPHAGEAL REFLUX DISEASE WITHOUT 12/18/2017 WILLIAM ALVARES MD Ot R06.00 DYSPNEA, UNSPECIFIED 12/18/2017 WILLIAM ALVARES MD Ot R10.10 UPPER ABDOMINAL PAIN, UNSPECIFIED 12/18/2017 WILLIAM ALVARES MD, Ot Z77.22 CNTCT W AND EXPSR TO ENVIRON TOBACCO SMO 12/18/2017 WILLIAM ALVARES MD, Ot Z87.2 PERSONAL HISTORY OF DISEASES OF THE SKIN 12/18/2017 WILLIAM ALVARES MD Ot Z90.49 ACQUIRED ABSENCE OF OTHER SPECIFIED PART 12/19/2017 ISAIAS PARKER MD Ot F17.210 NICOTINE DEPENDENCE, CIGARETTES, UNCOMPL 12/19/2017 ISAIAS PARKER MD Ot G47.30 SLEEP APNEA, UNSPECIFIED 12/19/2017 ISAIAS PARKER MD Ot J45.909 UNSPECIFIED ASTHMA, UNCOMPLICATED 12/19/2017 ISAIAS PARKER MD Ot J98.11 ATELECTASIS 12/19/2017 ISAIAS PARKER MD Ot K21.9 GASTRO-ESOPHAGEAL REFLUX DISEASE WITHOUT 12/19/2017 ISAIAS PARKER MD Ot K56.7 ILEUS, UNSPECIFIED 12/19/2017 ISAIAS PARKER MD Ot R10.9 UNSPECIFIED ABDOMINAL PAIN 12/19/2017 ISAIAS PARKER MD Ot Z87.19 PERSONAL HISTORY OF OTHER DISEASES OF 12/19/2017 ISAIAS PARKER MD Ot Z87.81 PERSONAL HISTORY OF (HEALED) TRAUMATIC F 12/19/2017 ISAIAS PARKER MD Ot Z88.1 ALLERGY STATUS TO OTHER ANTIBIOTIC AGENT 12/19/2017 ISAIAS PARKER MD Ot Z88.5 ALLERGY STATUS TO NARCOTIC AGENT STATUS 12/19/2017 ISAIAS PARKER MD Ot Z88.6 ALLERGY STATUS TO ANALGESIC AGENT STATUS 12/19/2017 ISAIAS PARKER MD Ot Z90.49 ACQUIRED ABSENCE OF OTHER SPECIFIED PART 12/19/2017 ISAIAS PARKER MD Ot Z98.890 OTHER SPECIFIED POSTPROCEDURAL STATES 12/23/2017 ISAIAS PARKER MD Ot F17.210 NICOTINE DEPENDENCE, CIGARETTES, UNCOMPL 12/23/2017 ISAIAS PARKER MD Ot G47.30 SLEEP APNEA, UNSPECIFIED 12/23/2017 ISAIAS PARKER MD Ot J45.909 UNSPECIFIED ASTHMA, UNCOMPLICATED 12/23/2017 ISAIAS PARKER MD Ot J98.11 ATELECTASIS 12/23/2017 ISAIAS PARKER MD Ot K21.9 GASTRO-ESOPHAGEAL REFLUX DISEASE WITHOUT 12/23/2017 ISAIAS PARKER MD Ot K56.7 ILEUS, UNSPECIFIED 12/23/2017 ISAIAS PARKER MD Ot R10.9 UNSPECIFIED ABDOMINAL PAIN 12/23/2017 ISAIAS PARKER MD Ot Z87.19 PERSONAL HISTORY OF OTHER DISEASES OF 12/23/2017 ISAIAS PARKER MD Ot Z87.81 PERSONAL HISTORY OF (HEALED) TRAUMATIC F 12/23/2017 ISAIAS PARKER MD Ot Z88.1 ALLERGY STATUS TO OTHER ANTIBIOTIC AGENT 12/23/2017 ISAIAS PARKER MD Ot Z88.5 ALLERGY STATUS TO NARCOTIC AGENT STATUS 12/23/2017 ISAIAS PARKER MD Ot Z88.6 ALLERGY STATUS TO ANALGESIC AGENT STATUS 12/23/2017 ISAIAS PARKER MD Ot Z90.49 ACQUIRED ABSENCE OF OTHER SPECIFIED PART 12/23/2017 ISAIAS PARKER MD Ot Z98.890 OTHER SPECIFIED POSTPROCEDURAL STATES 12/27/2017 NORMAN VEGA DO B Ot 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 PYLORI THE CAUSE OF DISE 12/27/2017 NORMAN VEGA DO B Ot F17.210 NICOTINE DEPENDENCE, CIGARETTES, UNCOMPL 12/27/2017 NORMAN VEGA DO B Ot K21.0 GASTRO-ESOPHAGEAL REFLUX DISEASE WITH ES 12/27/2017 ALESHIA VEGA DOIC B Ot K26.4 CHRONIC OR UNSPECIFIED DUODENAL ULCER [place] 12/27/2017 NORMAN VEGA DO B Ot K29.50 UNSPECIFIED CHRONIC GASTRITIS WITHOUT BL 12/27/2017 ALESHIA VEGA DOIC B Ot K59.09 OTHER CONSTIPATION 12/30/2017 ALESHIA VEGA DOIC B Ot R93.2 ABNORMAL FINDINGS ON DX IMAGING OF LIVER 01/15/2018 NORMAN VEGA DO B Ot F17.210 NICOTINE DEPENDENCE, CIGARETTES, UNCOMPL 01/15/2018 ALESHIA VEGA DOIC B Ot G47.33 OBSTRUCTIVE SLEEP APNEA (ADULT) (PEDIATR 01/15/2018 ALESHIA VEGA DOIC B Ot J45.909 UNSPECIFIED ASTHMA, UNCOMPLICATED 01/15/2018 ALESHIA VEGA DOIC B Ot K21.0 GASTRO-ESOPHAGEAL REFLUX DISEASE WITH ES 01/15/2018 ALESHIA VEGA DOIC B Ot K25.7 CHRONIC GASTRIC ULCER WITHOUT HEMORRHAGE 01/15/2018 ALESHIA VEGA DOIC B Ot K26.9 DUODENAL ULCER, UNSP ACUTE OR CHRONIC 01/15/2018 NORMAN VEGA DO B Ot K29.50 UNSPECIFIED CHRONIC GASTRITIS WITHOUT BL 01/15/2018 ALESHIA VEGA DOIC B Ot K29.80 DUODENITIS WITHOUT BLEEDING 01/15/2018 NORMAN VEGA DO B Ot K81.1 CHRONIC CHOLECYSTITIS 01/15/2018 NORMAN VEGA DO Ot K82.8 OTHER SPECIFIED DISEASES OF GALLBLADDER 01/15/2018 NORMAN VEGA DO Ot 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 01/15/2018 NORMAN VEGA DO Ot Z11.2 ENCOUNTER FOR SCREENING FOR OTHER BACTER 01/21/2018 ALESHIA VEGA DOIC Santosh Ot A04.8 OTHER SPECIFIED BACTERIAL INTESTINAL INF 01/21/2018 ALESHIA VEGA DOIC B Ot R93.2 ABNORMAL FINDINGS ON DX IMAGING OF LIVER 02/10/2018 CAMERON JUAREZ MD Ot Z13.1 ENCOUNTER FOR SCREENING FOR DIABETES KEESHA 02/10/2018 CAMERON JUAREZ MD Ot Z13.220 ENCOUNTER FOR SCREENING FOR LIPOID DISOR 02/10/2018 CAMERON JUAREZ MD Ot Z83.3 FAMILY HISTORY OF DIABETES MELLITUS 02/13/2018 Ot G47.10 HYPERSOMNIA , UNSPECIFIED 02/13/2018 Ot G47.33 OBSTRUCTIVE SLEEP APNEA (ADULT) (PEDIATR 02/13/2018 Ot I10 ESSENTIAL ( PRIMARY) HYPERTENSION 02/13/2018 Ot R06.83 SNORING 02/13/2018 CAMERON JUAREZ MD Ot Z13.1 ENCOUNTER FOR SCREENING FOR DIABETES KEESHA 02/13/2018 CAMERON JUAREZ MD Ot Z13.220 ENCOUNTER FOR SCREENING FOR LIPOID DISOR 02/13/2018 CAMERON JUAREZ MD Ot Z83.3 FAMILY HISTORY OF DIABETES MELLITUS 02/17/2018 Ot G47.10 HYPERSOMNIA , UNSPECIFIED 02/17/2018 Ot G47.33 OBSTRUCTIVE SLEEP APNEA (ADULT) (PEDIATR 02/17/2018 Ot I10 ESSENTIAL ( PRIMARY) HYPERTENSION 02/17/2018 Ot R06.83 SNORING 02/28/2018 Ot Z01.818 ENCOUNTER FOR OTHER PREPROCEDURAL EXAMIN 03/05/2018 NORMAN VEGA DO Ot A04.8 OTHER SPECIFIED BACTERIAL INTESTINAL INF 03/05/2018 NORMAN VEGA DO Ot R93.2 ABNORMAL FINDINGS ON DX IMAGING OF LIVER 03/05/2018 CAMERON JUAREZ MD Ot Z13.1 ENCOUNTER FOR SCREENING FOR DIABETES KEESHA 03/05/2018 CAMERON JUAREZ MD Ot Z13.220 ENCOUNTER FOR SCREENING FOR LIPOID DISOR 03/05/2018 CAMERON JUAREZ MD Ot Z83.3 FAMILY HISTORY OF DIABETES MELLITUS 03/05/2018 NORMAN VEGA DO Ot R10.9 UNSPECIFIED ABDOMINAL PAIN 03/05/2018 NORMAN VEGA DO Ot R11.2 NAUSEA WITH VOMITING, UNSPECIFIED Procedures Code Description Performed By Performed On [id number] EXCISION OF ESOPHAGOGASTRIC JUNCTION, EN 07/19/2017 [id number] EXCISION OF STOMACH, PYLORUS, ENDO, DIAG 07/19/2017 [id number] EXCISION OF DUODENUM, ENDO , DIAGN 07/19/2017 Results Test Result Range Complete blood count (CBC) with automated white blood cell (WBC) differential - 07/16/17 09:35 Blood leukocytes automated count (number/volume) 8.8 10*3/uL 4.3-11.0 Blood erythrocytes automated count (number/volume) 5.19 10*6/uL 4.35-5.85 Venous blood hemoglobin measurement (mass/volume) 16.0 g/dL 13.3-17.7 Blood hematocrit (volume fraction) 45 % 40-54 Automated erythrocyte mean corpuscular volume 87 [foz_us] 80-99 Automated erythrocyte mean corpuscular hemoglobin (mass per erythrocyte) 31 pg 25-34 Automated erythrocyte mean corpuscular hemoglobin concentration measurement ( mass/volume) 36 g/dL 32-36 Automated erythrocyte distribution width ratio 12.1 % 10.0-14.5 Automated blood platelet count (count/volume) 233 10*3/uL 130-400 Automated blood platelet mean volume measurement 11.4 [foz_us] 7.4-10.4 Automated blood neutrophils/100 leukocytes 64 % 42-75 Automated blood lymphocytes/100 leukocytes 21 % 12-44 Blood monocytes/100 leukocytes 13 % 0-12 Automated blood eosinophils/100 leukocytes 2 % 0-10 Automated blood basophils/100 leukocytes 0 % 0-10 Blood neutrophils automated count (number/volume) 5.6 10*3 1.8-7.8 Blood lymphocytes automated count (number/volume) 1.9 10*3 1.0-4.0 Blood monocytes automated count (number/volume) 1.1 10*3 0.0-1.0 Automated eosinophil count 0.2 10*3/uL 0.0-0.3 Automated blood basophil count (count/volume) 0.0 10*3/uL 0.0-0.1 Comprehensive metabolic panel - 07/16/17 09:35 Serum or plasma sodium measurement (moles/volume) 137 mmol/L 135-145 Serum or plasma potassium measurement (moles/volume) 4.2 mmol/L 3.6-5.0 Serum or plasma chloride measurement (moles/volume) 103 mmol/L 98-107 Carbon dioxide 24 mmol/L 21-32 Serum or plasma anion gap determination (moles/volume) 10 mmol/L 5-14 Serum or plasma urea nitrogen measurement (mass/volume) 7 mg/dL 7-18 Serum or plasma creatinine measurement (mass/volume) 0.74 mg/dL 0.60-1.30 Serum or plasma urea nitrogen/creatinine mass ratio 9 NRG Serum or plasma creatinine measurement with calculation of estimated glomerular filtration rate > NRG Serum or plasma glucose measurement (mass/volume) 87 mg/dL 70-105 Serum or plasma calcium measurement (mass/volume) 9.7 mg/dL 8.5-10.1 Serum or plasma total bilirubin measurement (mass/volume) 0.4 mg/dL 0.1-1.0 Serum or plasma alkaline phosphatase measurement (enzymatic activity/volume) 69 U/L 40-136 Serum or plasma aspartate aminotransferase measurement (enzymatic activity/ volume) 18 U/L 5-34 Serum or plasma alanine aminotransferase measurement (enzymatic activity/volume ) 26 U/L 0-55 Serum or plasma protein measurement (mass/volume) 7.4 g/dL 6.4-8.2 Serum or plasma albumin measurement (mass/volume) 4.1 g/dL 3.2-4.5 Serum or plasma amylase measurement (enzymatic activity/volume) - 07/16/17 09: 35 Serum or plasma amylase measurement (enzymatic activity/volume) 32 U /L 25-125 Lipase - 07/16/17 09:35 Lipase 21 U/L 8-78 Serum or plasma ethanol measurement (mass/volume) - 07/16/17 09:35 Serum or plasma ethanol measurement (mass/volume) < mg/dL <10 Complete urinalysis with reflex to culture - 07/16/17 10:16 Urine color determination YELLOW NRG Urine clarity determination CLEAR NRG Urine pH measurement by test strip 7 5-9 Specific gravity of urine by test strip 1.015 1.016- 1.022 Urine protein assay by test strip, semi-quantitative NEGATIVE NEGATIVE Urine glucose detection by automated test strip NEGATIVE NEGATIVE Erythrocytes detection in urine sediment by light microscopy NEGATIVE NEGATIVE Urine ketones detection by automated test strip NEGATIVE NEGATIVE Urine nitrite detection by test strip NEGATIVE NEGATIVE Urine total bilirubin detection by test strip NEGATIVE NEGATIVE Urine urobilinogen measurement by automated test strip (mass/volume) NORMAL NORMAL Urine leukocyte esterase detection by dipstick NEGATIVE NEGATIVE Automated urine sediment erythrocyte count by microscopy (number/high power field) NONE NRG Automated urine sediment leukocyte count by microscopy (number/high power field ) RARE NRG Bacteria detection in urine sediment by light microscopy NEGATIVE NRG Squamous epithelial cells detection in urine sediment by light microscopy 0-2 NRG Crystals detection in urine sediment by light microscopy NONE NRG Casts detection in urine sediment by light microscopy NONE NRG Mucus detection in urine sediment by light microscopy NEGATIVE NRG Complete urinalysis with reflex to culture NO NRG Urine drug screening test - 07/16/17 10:16 Urine phencyclidine detection by screening method NEGATIVE NEGATIVE Urine benzodiazepines detection by screening method NEGATIVE NEGATIVE Urine cocaine detection NEGATIVE NEGATIVE Urine amphetamines detection by screening method NEGATIVE NEGATIVE Urine methamphetamine detection by screening method NEGATIVE NEGATIVE Urine cannabinoids detection by screening method NEGATIVE NEGATIVE Urine opiates detection by screening method NEGATIVE NEGATIVE Urine barbiturates detection NEGATIVE NEGATIVE Screening urine tricyclic antidepressants detection NEGATIVE NEGATIVE Urine methadone detection by screening method NEGATIVE NEGATIVE Urine oxycodone detection NEGATIVE NEGATIVE Urine propoxyphene detection NEGATIVE NEGATIVE Complete blood count (CBC) with automated white blood cell (WBC) differential - 07/19/17 03:06 Blood leukocytes automated count (number/volume) 11.7 10*3/uL 4.3-11.0 Blood erythrocytes automated count (number/volume) 5.30 10*6/uL 4.35-5.85 Venous blood hemoglobin measurement (mass/volume) 16.5 g/dL 13.3-17.7 Blood hematocrit (volume fraction) 45 % 40-54 Automated erythrocyte mean corpuscular volume 85 [foz_us] 80-99 Automated erythrocyte mean corpuscular hemoglobin (mass per erythrocyte) 31 pg 25-34 Automated erythrocyte mean corpuscular hemoglobin concentration measurement ( mass/volume) 37 g/dL 32-36 Automated erythrocyte distribution width ratio 11.7 % 10.0-14.5 Automated blood platelet count (count/volume) 235 10*3/uL 130-400 Automated blood platelet mean volume measurement 10.7 [foz_us] 7.4-10.4 Automated blood neutrophils/100 leukocytes 74 % 42-75 Automated blood lymphocytes/100 leukocytes 14 % 12-44 Blood monocytes/100 leukocytes 12 % 0-12 Automated blood eosinophils/100 leukocytes 1 % 0-10 Automated blood basophils/100 leukocytes 0 % 0-10 Blood neutrophils automated count (number/volume) 8.6 10*3 1.8-7.8 Blood lymphocytes automated count (number/volume) 1.6 10*3 1.0-4.0 Blood monocytes automated count (number/volume) 1.4 10*3 0.0-1.0 Automated eosinophil count 0.1 10*3/uL 0.0-0.3 Automated blood basophil count (count/volume) 0.0 10*3/uL 0.0-0.1 Comprehensive metabolic panel - 07/19/17 03:06 Serum or plasma sodium measurement (moles/volume) 137 mmol/L 135-145 Serum or plasma potassium measurement (moles/volume) 4.0 mmol/L 3.6-5.0 Serum or plasma chloride measurement (moles/volume) 101 mmol/L 98-107 Carbon dioxide 24 mmol/L 21-32 Serum or plasma anion gap determination (moles/volume) 12 mmol/L 5-14 Serum or plasma urea nitrogen measurement (mass/volume) 13 mg/dL 7-18 Serum or plasma creatinine measurement (mass/volume) 0.84 mg/dL 0.60-1.30 Serum or plasma urea nitrogen/creatinine mass ratio 15 NRG Serum or plasma creatinine measurement with calculation of estimated glomerular filtration rate > NRG Serum or plasma glucose measurement (mass/volume) 109 mg/dL 70-105 Serum or plasma calcium measurement (mass/volume) 9.6 mg/dL 8.5-10.1 Serum or plasma total bilirubin measurement (mass/volume) 0.4 mg/dL 0.1-1.0 Serum or plasma alkaline phosphatase measurement (enzymatic activity/volume) 77 U/L 40-136 Serum or plasma aspartate aminotransferase measurement (enzymatic activity/ volume) 15 U/L 5-34 Serum or plasma alanine aminotransferase measurement (enzymatic activity/volume ) 19 U/L 0-55 Serum or plasma protein measurement (mass/volume) 7.9 g/dL 6.4-8.2 Serum or plasma albumin measurement (mass/volume) 4.3 g/dL 3.2-4.5 Magnesium - 07/19/17 03:06 Magnesium 2.1 mg/dL 1.8-2.4 Serum or plasma C reactive protein measurement (mass/volume) - 07/19/17 03:06 Serum or plasma C reactive protein measurement (mass/volume) 0.93 mg /dL 0.00-0.50 Lipase - 07/19/17 03:06 Lipase 19 U/L 8-78 Urine drug screening test - 07/19/17 04:23 Urine phencyclidine detection by screening method NEGATIVE NEGATIVE Urine benzodiazepines detection by screening method NEGATIVE NEGATIVE Urine cocaine detection NEGATIVE NEGATIVE Urine amphetamines detection by screening method NEGATIVE NEGATIVE Urine methamphetamine detection by screening method NEGATIVE NEGATIVE Urine cannabinoids detection by screening method NEGATIVE NEGATIVE Urine opiates detection by screening method NEGATIVE NEGATIVE Urine barbiturates detection NEGATIVE NEGATIVE Screening urine tricyclic antidepressants detection NEGATIVE NEGATIVE Urine methadone detection by screening method NEGATIVE NEGATIVE Urine oxycodone detection NEGATIVE NEGATIVE Urine propoxyphene detection NEGATIVE NEGATIVE Complete urinalysis with reflex to culture - 07/19/17 04:23 Urine color determination YELLOW NRG Urine clarity determination CLEAR NRG Urine pH measurement by test strip 7 5-9 Specific gravity of urine by test strip 1.015 1.016- 1.022 Urine protein assay by test strip, semi-quantitative 1+ NEGATIVE Urine glucose detection by automated test strip NEGATIVE NEGATIVE Erythrocytes detection in urine sediment by light microscopy NEGATIVE NEGATIVE Urine ketones detection by automated test strip 1+ NEGATIVE Urine nitrite detection by test strip NEGATIVE NEGATIVE Urine total bilirubin detection by test strip NEGATIVE NEGATIVE Urine urobilinogen measurement by automated test strip (mass/volume) 1 mg/dL NORMAL Urine leukocyte esterase detection by dipstick 1+ NEGATIVE Automated urine sediment erythrocyte count by microscopy (number/high power field) NONE NRG Automated urine sediment leukocyte count by microscopy (number/high power field ) RARE NRG Bacteria detection in urine sediment by light microscopy NEGATIVE NRG Squamous epithelial cells detection in urine sediment by light microscopy 2-5 NRG Crystals detection in urine sediment by light microscopy NONE NRG Casts detection in urine sediment by light microscopy NONE NRG Mucus detection in urine sediment by light microscopy MODERATE NRG Complete urinalysis with reflex to culture NO NRG Complete blood count (CBC) with automated white blood cell (WBC) differential - 07/19/17 15:07 Blood leukocytes automated count (number/volume) 7.6 10*3/uL 4.3-11.0 Blood erythrocytes automated count (number/volume) 4.44 10*6/uL 4.35-5.85 Venous blood hemoglobin measurement (mass/volume) 13.8 g/dL 13.3-17.7 Blood hematocrit (volume fraction) 39 % 40-54 Automated erythrocyte mean corpuscular volume 87 [foz_us] 80-99 Automated erythrocyte mean corpuscular hemoglobin (mass per erythrocyte) 31 pg 25-34 Automated erythrocyte mean corpuscular hemoglobin concentration measurement ( mass/volume) 36 g/dL 32-36 Automated erythrocyte distribution width ratio 11.7 % 10.0-14.5 Automated blood platelet count (count/volume) 173 10*3/uL 130-400 Automated blood platelet mean volume measurement 10.6 [foz_us] 7.4-10.4 Automated blood neutrophils/100 leukocytes 60 % 42-75 Automated blood lymphocytes/100 leukocytes 24 % 12-44 Blood monocytes/100 leukocytes 15 % 0-12 Automated blood eosinophils/100 leukocytes 1 % 0-10 Automated blood basophils/100 leukocytes 0 % 0-10 Blood neutrophils automated count (number/volume) 4.6 10*3 1.8-7.8 Blood lymphocytes automated count (number/volume) 1.8 10*3 1.0-4.0 Blood monocytes automated count (number/volume) 1.1 10*3 0.0-1.0 Automated eosinophil count 0.1 10*3/uL 0.0-0.3 Automated blood basophil count (count/volume) 0.0 10*3/uL 0.0-0.1 Whole blood hemoglobin and hematocrit panel - 07/20/17 08:50 Venous blood hemoglobin measurement (mass/volume) 14.3 g/dL 13.3-17.7 Blood hematocrit (volume fraction) 40 % 40-54 Complete blood count (CBC) with automated white blood cell (WBC) differential - 07/21/17 06:07 Blood leukocytes automated count (number/volume) 6.0 10*3/uL 4.3-11.0 Blood erythrocytes automated count (number/volume) 4.24 10*6/uL 4.35-5.85 Venous blood hemoglobin measurement (mass/volume) 13.4 g/dL 13.3-17.7 Blood hematocrit (volume fraction) 37 % 40-54 Automated erythrocyte mean corpuscular volume 87 [foz_us] 80-99 Automated erythrocyte mean corpuscular hemoglobin (mass per erythrocyte) 32 pg 25-34 Automated erythrocyte mean corpuscular hemoglobin concentration measurement ( mass/volume) 37 g/dL 32-36 Automated erythrocyte distribution width ratio 11.6 % 10.0-14.5 Automated blood platelet count (count/volume) 165 10*3/uL 130-400 Automated blood platelet mean volume measurement 11.5 [foz_us] 7.4-10.4 Automated blood neutrophils/100 leukocytes 61 % 42-75 Automated blood lymphocytes/100 leukocytes 23 % 12-44 Blood monocytes/100 leukocytes 14 % 0-12 Automated blood eosinophils/100 leukocytes 2 % 0-10 Automated blood basophils/100 leukocytes 1 % 0-10 Blood neutrophils automated count (number/volume) 3.6 10*3 1.8-7.8 Blood lymphocytes automated count (number/volume) 1.4 10*3 1.0-4.0 Blood monocytes automated count (number/volume) 0.8 10*3 0.0-1.0 Automated eosinophil count 0.1 10*3/uL 0.0-0.3 Automated blood basophil count (count/volume) 0.0 10*3/uL 0.0-0.1 Automated blood complete blood count (hemogram) panel - 07/22/17 06:12 Blood leukocytes automated count (number/volume) 5.4 10*3/uL 4.3-11.0 Blood erythrocytes automated count (number/volume) 4.30 10*6/uL 4.35-5.85 Venous blood hemoglobin measurement (mass/volume) 13.5 g/dL 13.3-17.7 Blood hematocrit (volume fraction) 37 % 40-54 Automated erythrocyte mean corpuscular volume 86 [foz_us] 80-99 Automated erythrocyte mean corpuscular hemoglobin (mass per erythrocyte) 31 pg 25-34 Automated erythrocyte mean corpuscular hemoglobin concentration measurement ( mass/volume) 36 g/dL 32-36 Automated erythrocyte distribution width ratio 11.6 % 10.0-14.5 Automated blood platelet count (count/volume) 176 10*3/uL 130-400 Automated blood platelet mean volume measurement 10.9 [foz_us] 7.4-10.4 Whole blood basic metabolic panel - 07/22/17 06:12 Serum or plasma sodium measurement (moles/volume) 139 mmol/L 135-145 Serum or plasma potassium measurement (moles/volume) 3.6 mmol/L 3.6-5.0 Serum or plasma chloride measurement (moles/volume) 104 mmol/L 98-107 Carbon dioxide 26 mmol/L 21-32 Serum or plasma anion gap determination (moles/volume) 9 mmol/L 5-14 Serum or plasma urea nitrogen measurement (mass/volume) 6 mg/dL 7-18 Serum or plasma creatinine measurement (mass/volume) 0.81 mg/dL 0.60-1.30 Serum or plasma urea nitrogen/creatinine mass ratio 7 NRG Serum or plasma creatinine measurement with calculation of estimated glomerular filtration rate > NRG Serum or plasma glucose measurement (mass/volume) 117 mg/dL 70-105 Serum or plasma calcium measurement (mass/volume) 8.8 mg/dL 8.5-10.1 Complete blood count (CBC) with automated white blood cell (WBC) differential - 07/28/17 14:43 Blood leukocytes automated count (number/volume) 7.6 10*3/uL 4.3-11.0 Blood erythrocytes automated count (number/volume) 4.94 10*6/uL 4.35-5.85 Venous blood hemoglobin measurement (mass/volume) 15.5 g/dL 13.3-17.7 Blood hematocrit (volume fraction) 43 % 40-54 Automated erythrocyte mean corpuscular volume 87 [foz_us] 80-99 Automated erythrocyte mean corpuscular hemoglobin (mass per erythrocyte) 31 pg 25-34 Automated erythrocyte mean corpuscular hemoglobin concentration measurement ( mass/volume) 36 g/dL 32-36 Automated erythrocyte distribution width ratio 12.1 % 10.0-14.5 Automated blood platelet count (count/volume) 220 10*3/uL 130-400 Automated blood platelet mean volume measurement 10.8 [foz_us] 7.4-10.4 Automated blood neutrophils/100 leukocytes 64 % 42-75 Automated blood lymphocytes/100 leukocytes 20 % 12-44 Blood monocytes/100 leukocytes 12 % 0-12 Automated blood eosinophils/100 leukocytes 3 % 0-10 Automated blood basophils/100 leukocytes 1 % 0-10 Blood neutrophils automated count (number/volume) 4.9 10*3 1.8-7.8 Blood lymphocytes automated count (number/volume) 1.5 10*3 1.0-4.0 Blood monocytes automated count (number/volume) 0.9 10*3 0.0-1.0 Automated eosinophil count 0.2 10*3/uL 0.0-0.3 Automated blood basophil count (count/volume) 0.1 10*3/uL 0.0-0.1 Comprehensive metabolic panel - 07/28/17 14:43 Serum or plasma sodium measurement (moles/volume) 137 mmol/L 135-145 Serum or plasma potassium measurement (moles/volume) 4.1 mmol/L 3.6-5.0 Serum or plasma chloride measurement (moles/volume) 106 mmol/L 98-107 Carbon dioxide 21 mmol/L 21-32 Serum or plasma anion gap determination (moles/volume) 10 mmol/L 5-14 Serum or plasma urea nitrogen measurement (mass/volume) 11 mg/dL 7-18 Serum or plasma creatinine measurement (mass/volume) 0.84 mg/dL 0.60-1.30 Serum or plasma urea nitrogen/creatinine mass ratio 13 NRG Serum or plasma creatinine measurement with calculation of estimated glomerular filtration rate > NRG Serum or plasma glucose measurement (mass/volume) 94 mg/dL 70-105 Serum or plasma calcium measurement (mass/volume) 9.5 mg/dL 8.5-10.1 Serum or plasma total bilirubin measurement (mass/volume) 0.2 mg/dL 0.1-1.0 Serum or plasma alkaline phosphatase measurement (enzymatic activity/volume) 54 U/L 40-136 Serum or plasma aspartate aminotransferase measurement (enzymatic activity/ volume) 23 U/L 5-34 Serum or plasma alanine aminotransferase measurement (enzymatic activity/volume ) 57 U/L 0-55 Serum or plasma protein measurement (mass/volume) 7.1 g/dL 6.4-8.2 Serum or plasma albumin measurement (mass/volume) 4.0 g/dL 3.2-4.5 Lipase - 07/28/17 14:43 Lipase 37 U/L 8-78 Complete urinalysis with reflex to culture - 09/26/17 09:42 Urine color determination YELLOW NRG Urine clarity determination CLEAR NRG Urine pH measurement by test strip 6 5-9 Specific gravity of urine by test strip 1.025 1.016- 1.022 Urine protein assay by test strip, semi-quantitative NEGATIVE NEGATIVE Urine glucose detection by automated test strip NEGATIVE NEGATIVE Erythrocytes detection in urine sediment by light microscopy NEGATIVE NEGATIVE Urine ketones detection by automated test strip NEGATIVE NEGATIVE Urine nitrite detection by test strip NEGATIVE NEGATIVE Urine total bilirubin detection by test strip NEGATIVE NEGATIVE Urine urobilinogen measurement by automated test strip (mass/volume) 4 mg/dL NORMAL Urine leukocyte esterase detection by dipstick 1+ NEGATIVE Automated urine sediment erythrocyte count by microscopy (number/high power field) NONE NRG Automated urine sediment leukocyte count by microscopy (number/high power field ) NONE NRG Bacteria detection in urine sediment by light microscopy NEGATIVE NRG Squamous epithelial cells detection in urine sediment by light microscopy 0-2 NRG Crystals detection in urine sediment by light microscopy PRESENT NRG Casts detection in urine sediment by light microscopy NONE NRG Mucus detection in urine sediment by light microscopy MODERATE NRG Complete urinalysis with reflex to culture NO NRG Amorphous sediment detection in urine sediment by light microscopy RARE RAMIRO URATES NRG Complete blood count (CBC) with automated white blood cell (WBC) differential - 09/26/17 09:55 Blood leukocytes automated count (number/volume) 8.1 10*3/uL 4.3-11.0 Blood erythrocytes automated count (number/volume) 4.86 10*6/uL 4.35-5.85 Venous blood hemoglobin measurement (mass/volume) 15.1 g/dL 13.3-17.7 Blood hematocrit (volume fraction) 42 % 40-54 Automated erythrocyte mean corpuscular volume 87 [foz_us] 80-99 Automated erythrocyte mean corpuscular hemoglobin (mass per erythrocyte) 31 pg 25-34 Automated erythrocyte mean corpuscular hemoglobin concentration measurement ( mass/volume) 36 g/dL 32-36 Automated erythrocyte distribution width ratio 12.5 % 10.0-14.5 Automated blood platelet count (count/volume) 233 10*3/uL 130-400 Automated blood platelet mean volume measurement 10.5 [foz_us] 7.4-10.4 Automated blood neutrophils/100 leukocytes 60 % 42-75 Automated blood lymphocytes/100 leukocytes 21 % 12-44 Blood monocytes/100 leukocytes 15 % 0-12 Automated blood eosinophils/100 leukocytes 3 % 0-10 Automated blood basophils/100 leukocytes 1 % 0-10 Blood neutrophils automated count (number/volume) 4.9 10*3 1.8-7.8 Blood lymphocytes automated count (number/volume) 1.7 10*3 1.0-4.0 Blood monocytes automated count (number/volume) 1.2 10*3 0.0-1.0 Automated eosinophil count 0.2 10*3/uL 0.0-0.3 Automated blood basophil count (count/volume) 0.1 10*3/uL 0.0-0.1 Comprehensive metabolic panel - 09/26/17 09:55 Serum or plasma sodium measurement (moles/volume) 137 mmol/L 135-145 Serum or plasma potassium measurement (moles/volume) 4.1 mmol/L 3.6-5.0 Serum or plasma chloride measurement (moles/volume) 103 mmol/L 98-107 Carbon dioxide 24 mmol/L 21-32 Serum or plasma anion gap determination (moles/volume) 10 mmol/L 5-14 Serum or plasma urea nitrogen measurement (mass/volume) 10 mg/dL 7-18 Serum or plasma creatinine measurement (mass/volume) 0.82 mg/dL 0.60-1.30 Serum or plasma urea nitrogen/creatinine mass ratio 12 NRG Serum or plasma creatinine measurement with calculation of estimated glomerular filtration rate > NRG Serum or plasma glucose measurement (mass/volume) 70 mg/dL 70-105 Serum or plasma calcium measurement (mass/volume) 9.4 mg/dL 8.5-10.1 Serum or plasma total bilirubin measurement (mass/volume) 0.4 mg/dL 0.1-1.0 Serum or plasma alkaline phosphatase measurement (enzymatic activity/volume) 68 U/L 40-136 Serum or plasma aspartate aminotransferase measurement (enzymatic activity/ volume) 23 U/L 5-34 Serum or plasma alanine aminotransferase measurement (enzymatic activity/volume ) 29 U/L 0-55 Serum or plasma protein measurement (mass/volume) 7.4 g/dL 6.4-8.2 Serum or plasma albumin measurement (mass/volume) 4.2 g/dL 3.2-4.5 Magnesium - 09/26/17 09:55 Magnesium 2.3 mg/dL 1.8-2.4 Serum or plasma amylase measurement (enzymatic activity/volume) - 09/26/17 09: 55 Serum or plasma amylase measurement (enzymatic activity/volume) 31 U /L 25-125 Lipase - 09/26/17 09:55 Lipase 28 U/L 8-78 Complete blood count (CBC) with automated white blood cell (WBC) differential - 09/30/17 07:15 Blood leukocytes automated count (number/volume) 8.0 10*3/uL 4.3-11.0 Blood erythrocytes automated count (number/volume) 5.07 10*6/uL 4.35-5.85 Venous blood hemoglobin measurement (mass/volume) 15.6 g/dL 13.3-17.7 Blood hematocrit (volume fraction) 44 % 40-54 Automated erythrocyte mean corpuscular volume 87 [foz_us] 80-99 Automated erythrocyte mean corpuscular hemoglobin (mass per erythrocyte) 31 pg 25-34 Automated erythrocyte mean corpuscular hemoglobin concentration measurement ( mass/volume) 36 g/dL 32-36 Automated erythrocyte distribution width ratio 12.5 % 10.0-14.5 Automated blood platelet count (count/volume) 235 10*3/uL 130-400 Automated blood platelet mean volume measurement 10.4 [foz_us] 7.4-10.4 Automated blood neutrophils/100 leukocytes 59 % 42-75 Automated blood lymphocytes/100 leukocytes 24 % 12-44 Blood monocytes/100 leukocytes 14 % 0-12 Automated blood eosinophils/100 leukocytes 2 % 0-10 Automated blood basophils/100 leukocytes 1 % 0-10 Blood neutrophils automated count (number/volume) 4.7 10*3 1.8-7.8 Blood lymphocytes automated count (number/volume) 2.0 10*3 1.0-4.0 Blood monocytes automated count (number/volume) 1.1 10*3 0.0-1.0 Automated eosinophil count 0.2 10*3/uL 0.0-0.3 Automated blood basophil count (count/volume) 0.0 10*3/uL 0.0-0.1 Comprehensive metabolic panel - 09/30/17 07:15 Serum or plasma sodium measurement (moles/volume) 139 mmol/L 135-145 Serum or plasma potassium measurement (moles/volume) 4.3 mmol/L 3.6-5.0 Serum or plasma chloride measurement (moles/volume) 105 mmol/L 98-107 Carbon dioxide 26 mmol/L 21-32 Serum or plasma anion gap determination (moles/volume) 8 mmol/L 5-14 Serum or plasma urea nitrogen measurement (mass/volume) 11 mg/dL 7-18 Serum or plasma creatinine measurement (mass/volume) 0.87 mg/dL 0.60-1.30 Serum or plasma urea nitrogen/creatinine mass ratio 13 NRG Serum or plasma creatinine measurement with calculation of estimated glomerular filtration rate > NRG Serum or plasma glucose measurement (mass/volume) 95 mg/dL 70-105 Serum or plasma calcium measurement (mass/volume) 9.5 mg/dL 8.5-10.1 Serum or plasma total bilirubin measurement (mass/volume) 0.4 mg/dL 0.1-1.0 Serum or plasma alkaline phosphatase measurement (enzymatic activity/volume) 71 U/L 40-136 Serum or plasma aspartate aminotransferase measurement (enzymatic activity/ volume) 19 U/L 5-34 Serum or plasma alanine aminotransferase measurement (enzymatic activity/volume ) 25 U/L 0-55 Serum or plasma protein measurement (mass/volume) 7.1 g/dL 6.4-8.2 Serum or plasma albumin measurement (mass/volume) 4.3 g/dL 3.2-4.5 Lipase - 09/30/17 07:15 Lipase 29 U/L 8-78 Complete blood count (CBC) with automated white blood cell (WBC) differential - 10/14/17 17:43 Blood leukocytes automated count (number/volume) 5.8 10*3/uL 4.3-11.0 Blood erythrocytes automated count (number/volume) 4.82 10*6/uL 4.35-5.85 Venous blood hemoglobin measurement (mass/volume) 14.8 g/dL 13.3-17.7 Blood hematocrit (volume fraction) 41 % 40-54 Automated erythrocyte mean corpuscular volume 86 [foz_us] 80-99 Automated erythrocyte mean corpuscular hemoglobin (mass per erythrocyte) 31 pg 25-34 Automated erythrocyte mean corpuscular hemoglobin concentration measurement ( mass/volume) 36 g/dL 32-36 Automated erythrocyte distribution width ratio 12.8 % 10.0-14.5 Automated blood platelet count (count/volume) 185 10*3/uL 130-400 Automated blood platelet mean volume measurement 10.3 [foz_us] 7.4-10.4 Automated blood neutrophils/100 leukocytes 66 % 42-75 Automated blood lymphocytes/100 leukocytes 15 % 12-44 Blood monocytes/100 leukocytes 13 % 0-12 Automated blood eosinophils/100 leukocytes 5 % 0-10 Automated blood basophils/100 leukocytes 1 % 0-10 Blood neutrophils automated count (number/volume) 3.9 10*3 1.8-7.8 Blood lymphocytes automated count (number/volume) 0.9 10*3 1.0-4.0 Blood monocytes automated count (number/volume) 0.8 10*3 0.0-1.0 Automated eosinophil count 0.3 10*3/uL 0.0-0.3 Automated blood basophil count (count/volume) 0.0 10*3/uL 0.0-0.1 Complete urinalysis with reflex to culture - 10/14/17 18:05 Urine color determination YELLOW NRG Urine clarity determination CLEAR NRG Urine pH measurement by test strip 6.5 5-9 Specific gravity of urine by test strip 1.020 1.016- 1.022 Urine protein assay by test strip, semi-quantitative NEGATIVE NEGATIVE Urine glucose detection by automated test strip NEGATIVE NEGATIVE Erythrocytes detection in urine sediment by light microscopy NEGATIVE NEGATIVE Urine ketones detection by automated test strip NEGATIVE NEGATIVE Urine nitrite detection by test strip NEGATIVE NEGATIVE Urine total bilirubin detection by test strip NEGATIVE NEGATIVE Urine urobilinogen measurement by automated test strip (mass/volume) NORMAL NORMAL Urine leukocyte esterase detection by dipstick NEGATIVE NEGATIVE Automated urine sediment erythrocyte count by microscopy (number/high power field) NONE NRG Automated urine sediment leukocyte count by microscopy (number/high power field ) NONE NRG Bacteria detection in urine sediment by light microscopy NEGATIVE NRG Squamous epithelial cells detection in urine sediment by light microscopy 0-2 NRG Crystals detection in urine sediment by light microscopy NONE NRG Casts detection in urine sediment by light microscopy NONE NRG Mucus detection in urine sediment by light microscopy NEGATIVE NRG Complete urinalysis with reflex to culture NO NRG Urine drug screening test - 10/14/17 18:05 Urine phencyclidine detection by screening method NEGATIVE NEGATIVE Urine benzodiazepines detection by screening method NEGATIVE NEGATIVE Urine cocaine detection NEGATIVE NEGATIVE Urine amphetamines detection by screening method NEGATIVE NEGATIVE Urine methamphetamine detection by screening method NEGATIVE NEGATIVE Urine cannabinoids detection by screening method NEGATIVE NEGATIVE Urine opiates detection by screening method NEGATIVE NEGATIVE Urine barbiturates detection NEGATIVE NEGATIVE Screening urine tricyclic antidepressants detection NEGATIVE NEGATIVE Urine methadone detection by screening method NEGATIVE NEGATIVE Urine oxycodone detection NEGATIVE NEGATIVE Urine propoxyphene detection NEGATIVE NEGATIVE Comprehensive metabolic panel - 10/14/17 18:17 Serum or plasma sodium measurement (moles/volume) 138 mmol/L 135-145 Serum or plasma potassium measurement (moles/volume) 4.1 mmol/L 3.6-5.0 Serum or plasma chloride measurement (moles/volume) 106 mmol/L 98-107 Carbon dioxide 26 mmol/L 21-32 Serum or plasma anion gap determination (moles/volume) 6 mmol/L 5-14 Serum or plasma urea nitrogen measurement (mass/volume) 11 mg/dL 7-18 Serum or plasma creatinine measurement (mass/volume) 0.75 mg/dL 0.60-1.30 Serum or plasma urea nitrogen/creatinine mass ratio 15 NRG Serum or plasma creatinine measurement with calculation of estimated glomerular filtration rate > NRG Serum or plasma glucose measurement (mass/volume) 86 mg/dL 70-105 Serum or plasma calcium measurement (mass/volume) 8.9 mg/dL 8.5-10.1 Serum or plasma total bilirubin measurement (mass/volume) 0.5 mg/dL 0.1-1.0 Serum or plasma alkaline phosphatase measurement (enzymatic activity/volume) 69 U/L 40-136 Serum or plasma aspartate aminotransferase measurement (enzymatic activity/ volume) 28 U/L 5-34 Serum or plasma alanine aminotransferase measurement (enzymatic activity/volume ) 39 U/L 0-55 Serum or plasma protein measurement (mass/volume) 6.6 g/dL 6.4-8.2 Serum or plasma albumin measurement (mass/volume) 4.0 g/dL 3.2-4.5 Lipase - 10/14/17 18:17 Lipase 23 U/L 8-78 Serum or plasma C reactive protein measurement (mass/volume) - 10/14/17 18:17 Serum or plasma C reactive protein measurement (mass/volume) 0.57 mg /dL 0.00-0.50 Serum Helicobacter pylori antibody assay (units/volume) - 10/22/17 10:36 Helicobacter pylori ab [units/volume] in serum 5.17 u[iU]/mL 0.00-0.79 Interpretation of Helicobacter pylori IgG antibody assay Positive Negative Complete urinalysis with reflex to culture - 11/07/17 10:30 Urine color determination YELLOW NRG Urine clarity determination CLEAR NRG Urine pH measurement by test strip 7 5-9 Specific gravity of urine by test strip 1.015 1.016- 1.022 Urine protein assay by test strip, semi-quantitative NEGATIVE NEGATIVE Urine glucose detection by automated test strip NEGATIVE NEGATIVE Erythrocytes detection in urine sediment by light microscopy NEGATIVE NEGATIVE Urine ketones detection by automated test strip NEGATIVE NEGATIVE Urine nitrite detection by test strip NEGATIVE NEGATIVE Urine total bilirubin detection by test strip NEGATIVE NEGATIVE Urine urobilinogen measurement by automated test strip (mass/volume) NORMAL NORMAL Urine leukocyte esterase detection by dipstick NEGATIVE NEGATIVE Automated urine sediment erythrocyte count by microscopy (number/high power field) NONE NRG Automated urine sediment leukocyte count by microscopy (number/high power field ) [HPF] NRG Bacteria detection in urine sediment by light microscopy NEGATIVE NRG Squamous epithelial cells detection in urine sediment by light microscopy 0-2 NRG Crystals detection in urine sediment by light microscopy PRESENT NRG Casts detection in urine sediment by light microscopy NONE NRG Mucus detection in urine sediment by light microscopy NEGATIVE NRG Complete urinalysis with reflex to culture NO NRG Amorphous sediment detection in urine sediment by light microscopy MOD RAMIRO URATES NRG Renal epithelial cells detection in urine sediment by light microscopy NONE NRG Chlamydia DNA amp probe, urine - 11/07/17 10:30 Chlamydia DNA amp probe, urine Not Detected Not Detected Urine Neisseria gonorrhoeae DNA assay - 11/07/17 10:30 Gonorrhea amp DNA-urine Not Detected Not Detected Complete blood count (CBC) with automated white blood cell (WBC) differential - 11/20/17 08:50 Blood leukocytes automated count (number/volume) 6.9 10*3/uL 4.3-11.0 Blood erythrocytes automated count (number/volume) 5.23 10*6/uL 4.35-5.85 Venous blood hemoglobin measurement (mass/volume) 15.9 g/dL 13.3-17.7 Blood hematocrit (volume fraction) 45 % 40-54 Automated erythrocyte mean corpuscular volume 86 [foz_us] 80-99 Automated erythrocyte mean corpuscular hemoglobin (mass per erythrocyte) 30 pg 25-34 Automated erythrocyte mean corpuscular hemoglobin concentration measurement ( mass/volume) 35 g/dL 32-36 Automated erythrocyte distribution width ratio 12.8 % 10.0-14.5 Automated blood platelet count (count/volume) 234 10*3/uL 130-400 Automated blood platelet mean volume measurement 10.7 [foz_us] 7.4-10.4 Automated blood neutrophils/100 leukocytes 59 % 42-75 Automated blood lymphocytes/100 leukocytes 25 % 12-44 Blood monocytes/100 leukocytes 12 % 0-12 Automated blood eosinophils/100 leukocytes 5 % 0-10 Automated blood basophils/100 leukocytes 0 % 0-10 Blood neutrophils automated count (number/volume) 4.1 10*3 1.8-7.8 Blood lymphocytes automated count (number/volume) 1.7 10*3 1.0-4.0 Blood monocytes automated count (number/volume) 0.8 10*3 0.0-1.0 Automated eosinophil count 0.3 10*3/uL 0.0-0.3 Automated blood basophil count (count/volume) 0.0 10*3/uL 0.0-0.1 Complete urinalysis with reflex to culture - 11/20/17 08:50 Urine color determination YELLOW NRG Urine clarity determination CLEAR NRG Urine pH measurement by test strip 7 5-9 Specific gravity of urine by test strip 1.010 1.016- 1.022 Urine protein assay by test strip, semi-quantitative NEGATIVE NEGATIVE Urine glucose detection by automated test strip NEGATIVE NEGATIVE Erythrocytes detection in urine sediment by light microscopy NEGATIVE NEGATIVE Urine ketones detection by automated test strip NEGATIVE NEGATIVE Urine nitrite detection by test strip NEGATIVE NEGATIVE Urine total bilirubin detection by test strip NEGATIVE NEGATIVE Urine urobilinogen measurement by automated test strip (mass/volume) NORMAL NORMAL Urine leukocyte esterase detection by dipstick NEGATIVE NEGATIVE Automated urine sediment erythrocyte count by microscopy (number/high power field) NONE NRG Automated urine sediment leukocyte count by microscopy (number/high power field ) NONE NRG Bacteria detection in urine sediment by light microscopy NEGATIVE NRG Squamous epithelial cells detection in urine sediment by light microscopy 2-5 NRG Crystals detection in urine sediment by light microscopy NONE NRG Casts detection in urine sediment by light microscopy NONE NRG Mucus detection in urine sediment by light microscopy NEGATIVE NRG Complete urinalysis with reflex to culture NO NRG Comprehensive metabolic panel - 11/20/17 08:50 Serum or plasma sodium measurement (moles/volume) 139 mmol/L 135-145 Serum or plasma potassium measurement (moles/volume) 4.3 mmol/L 3.6-5.0 Serum or plasma chloride measurement (moles/volume) 106 mmol/L 98-107 Carbon dioxide 24 mmol/L 21-32 Serum or plasma anion gap determination (moles/volume) 9 mmol/L 5-14 Serum or plasma urea nitrogen measurement (mass/volume) 8 mg/dL 7-18 Serum or plasma creatinine measurement (mass/volume) 0.75 mg/dL 0.60-1.30 Serum or plasma urea nitrogen/creatinine mass ratio 11 NRG Serum or plasma creatinine measurement with calculation of estimated glomerular filtration rate > NRG Serum or plasma glucose measurement (mass/volume) 113 mg/dL 70-105 Serum or plasma calcium measurement (mass/volume) 9.3 mg/dL 8.5-10.1 Serum or plasma total bilirubin measurement (mass/volume) 0.3 mg/dL 0.1-1.0 Serum or plasma alkaline phosphatase measurement (enzymatic activity/volume) 67 U/L 40-136 Serum or plasma aspartate aminotransferase measurement (enzymatic activity/ volume) 21 U/L 5-34 Serum or plasma alanine aminotransferase measurement (enzymatic activity/volume ) 25 U/L 0-55 Serum or plasma protein measurement (mass/volume) 7.0 g/dL 6.4-8.2 Serum or plasma albumin measurement (mass/volume) 4.1 g/dL 3.2-4.5 Complete blood count (CBC) with automated white blood cell (WBC) differential - 11/22/17 20:15 Blood leukocytes automated count (number/volume) 8.7 10*3/uL 4.3-11.0 Blood erythrocytes automated count (number/volume) 4.63 10*6/uL 4.35-5.85 Venous blood hemoglobin measurement (mass/volume) 14.5 g/dL 13.3-17.7 Blood hematocrit (volume fraction) 40 % 40-54 Automated erythrocyte mean corpuscular volume 86 [foz_us] 80-99 Automated erythrocyte mean corpuscular hemoglobin (mass per erythrocyte) 31 pg 25-34 Automated erythrocyte mean corpuscular hemoglobin concentration measurement ( mass/volume) 36 g/dL 32-36 Automated erythrocyte distribution width ratio 12.6 % 10.0-14.5 Automated blood platelet count (count/volume) 199 10*3/uL 130-400 Automated blood platelet mean volume measurement 10.7 [foz_us] 7.4-10.4 Automated blood neutrophils/100 leukocytes 62 % 42-75 Automated blood lymphocytes/100 leukocytes 20 % 12-44 Blood monocytes/100 leukocytes 16 % 0-12 Automated blood eosinophils/100 leukocytes 2 % 0-10 Automated blood basophils/100 leukocytes 0 % 0-10 Blood neutrophils automated count (number/volume) 5.4 10*3 1.8-7.8 Blood lymphocytes automated count (number/volume) 1.7 10*3 1.0-4.0 Blood monocytes automated count (number/volume) 1.4 10*3 0.0-1.0 Automated eosinophil count 0.2 10*3/uL 0.0-0.3 Automated blood basophil count (count/volume) 0.0 10*3/uL 0.0-0.1 Comprehensive metabolic panel - 11/22/17 20:15 Serum or plasma sodium measurement (moles/volume) 140 mmol/L 135-145 Serum or plasma potassium measurement (moles/volume) 3.8 mmol/L 3.6-5.0 Serum or plasma chloride measurement (moles/volume) 106 mmol/L 98-107 Carbon dioxide 25 mmol/L 21-32 Serum or plasma anion gap determination (moles/volume) 9 mmol/L 5-14 Serum or plasma urea nitrogen measurement (mass/volume) 13 mg/dL 7-18 Serum or plasma creatinine measurement (mass/volume) 0.91 mg/dL 0.60-1.30 Serum or plasma urea nitrogen/creatinine mass ratio 14 NRG Serum or plasma creatinine measurement with calculation of estimated glomerular filtration rate > NRG Serum or plasma glucose measurement (mass/volume) 100 mg/dL 70-105 Serum or plasma calcium measurement (mass/volume) 9.3 mg/dL 8.5-10.1 Serum or plasma total bilirubin measurement (mass/volume) 0.3 mg/dL 0.1-1.0 Serum or plasma alkaline phosphatase measurement (enzymatic activity/volume) 68 U/L 40-136 Serum or plasma aspartate aminotransferase measurement (enzymatic activity/ volume) 18 U/L 5-34 Serum or plasma alanine aminotransferase measurement (enzymatic activity/volume ) 29 U/L 0-55 Serum or plasma protein measurement (mass/volume) 6.8 g/dL 6.4-8.2 Serum or plasma albumin measurement (mass/volume) 3.9 g/dL 3.2-4.5 Serum or plasma amylase measurement (enzymatic activity/volume) - 11/22/17 20: 15 Serum or plasma amylase measurement (enzymatic activity/volume) 29 U /L 25-125 Lipase - 11/22/17 20:15 Lipase 23 U/L 8-78 Methicillin resistant Staphylococcus aureus (MRSA) screening culture - 07:42 Methicillin resistant Staphylococcus aureus (MRSA) screening culture NEG NRG Complete blood count (CBC) with automated white blood cell (WBC) differential - 12/17/17 15:31 Blood leukocytes automated count (number/volume) 15.3 10*3/uL 4.3-11.0 Blood erythrocytes automated count (number/volume) 4.59 10*6/uL 4.35-5.85 Venous blood hemoglobin measurement (mass/volume) 14.4 g/dL 13.3-17.7 Blood hematocrit (volume fraction) 40 % 40-54 Automated erythrocyte mean corpuscular volume 87 [foz_us] 80-99 Automated erythrocyte mean corpuscular hemoglobin (mass per erythrocyte) 31 pg 25-34 Automated erythrocyte mean corpuscular hemoglobin concentration measurement ( mass/volume) 36 g/dL 32-36 Automated erythrocyte distribution width ratio 12.8 % 10.0-14.5 Automated blood platelet count (count/volume) 207 10*3/uL 130-400 Automated blood platelet mean volume measurement 11.0 [foz_us] 7.4-10.4 Automated blood neutrophils/100 leukocytes 78 % 42-75 Automated blood lymphocytes/100 leukocytes 11 % 12-44 Blood monocytes/100 leukocytes 11 % 0-12 Automated blood eosinophils/100 leukocytes 0 % 0-10 Automated blood basophils/100 leukocytes 0 % 0-10 Blood neutrophils automated count (number/volume) 11.9 10*3 1.8-7.8 Blood lymphocytes automated count (number/volume) 1.7 10*3 1.0-4.0 Blood monocytes automated count (number/volume) 1.7 10*3 0.0-1.0 Automated eosinophil count 0.1 10*3/uL 0.0-0.3 Automated blood basophil count (count/volume) 0.0 10*3/uL 0.0-0.1 Blood manual differential performed detection - 12/17/17 15:31 Blood monocytes/100 leukocytes 4 % NR Manual blood segmented neutrophils/100 leukocytes 84 % NRG Blood band neutrophils/100 leukocytes 0 % NRG Manual blood lymphocytes/100 leukocytes 12 % NRG Manual eosinophils/100 leukocytes in nose 0 % NRG Manual blood basophils/100 leukocytes 0 % NRG Blood erythrocyte morphology finding identification [facility] Comprehensive metabolic panel - 12/17/17 15:31 Serum or plasma sodium measurement (moles/volume) 137 mmol/L 135-145 Serum or plasma potassium measurement (moles/volume) 4.4 mmol/L 3.6-5.0 Serum or plasma chloride measurement (moles/volume) 101 mmol/L 98-107 Carbon dioxide 22 mmol/L 21-32 Serum or plasma anion gap determination (moles/volume) 14 mmol/L 5-14 Serum or plasma urea nitrogen measurement (mass/volume) 15 mg/dL 7-18 Serum or plasma creatinine measurement (mass/volume) 0.77 mg/dL 0.60-1.30 Serum or plasma urea nitrogen/creatinine mass ratio 19 NRG Serum or plasma creatinine measurement with calculation of estimated glomerular filtration rate > NRG Serum or plasma glucose measurement (mass/volume) 112 mg/dL 70-105 Serum or plasma calcium measurement (mass/volume) 9.7 mg/dL 8.5-10.1 Serum or plasma total bilirubin measurement (mass/volume) 0.5 mg/dL 0.1-1.0 Serum or plasma alkaline phosphatase measurement (enzymatic activity/volume) 61 U/L 40-136 Serum or plasma aspartate aminotransferase measurement (enzymatic activity/ volume) 48 U/L 5-34 Serum or plasma alanine aminotransferase measurement (enzymatic activity/volume ) 57 U/L 0-55 Serum or plasma protein measurement (mass/volume) 7.5 g/dL 6.4-8.2 Serum or plasma albumin measurement (mass/volume) 4.2 g/dL 3.2-4.5 Lipase - 12/17/17 15:31 Lipase 13 U/L 8-78 Complete blood count (CBC) with automated white blood cell (WBC) differential - 12/19/17 20:49 Blood leukocytes automated count (number/volume) 14.2 10*3/uL 4.3-11.0 Blood erythrocytes automated count (number/volume) 4.72 10*6/uL 4.35-5.85 Venous blood hemoglobin measurement (mass/volume) 14.7 g/dL 13.3-17.7 Blood hematocrit (volume fraction) 41 % 40-54 Automated erythrocyte mean corpuscular volume 87 [foz_us] 80-99 Automated erythrocyte mean corpuscular hemoglobin (mass per erythrocyte) 31 pg 25-34 Automated erythrocyte mean corpuscular hemoglobin concentration measurement ( mass/volume) 36 g/dL 32-36 Automated erythrocyte distribution width ratio 12.5 % 10.0-14.5 Automated blood platelet count (count/volume) 194 10*3/uL 130-400 Automated blood platelet mean volume measurement 10.8 [foz_us] 7.4-10.4 Automated blood neutrophils/100 leukocytes 78 % 42-75 Automated blood lymphocytes/100 leukocytes 8 % 12-44 Blood monocytes/100 leukocytes 13 % 0-12 Automated blood eosinophils/100 leukocytes 1 % 0-10 Automated blood basophils/100 leukocytes 0 % 0-10 Blood neutrophils automated count (number/volume) 11.1 10*3 1.8-7.8 Blood lymphocytes automated count (number/volume) 1.1 10*3 1.0-4.0 Blood monocytes automated count (number/volume) 1.8 10*3 0.0-1.0 Automated eosinophil count 0.2 10*3/uL 0.0-0.3 Automated blood basophil count (count/volume) 0.0 10*3/uL 0.0-0.1 PT panel in platelet poor plasma by coagulation assay - 12/19/17 20:49 Prothrombin time (PT) in platelet poor plasma by coagulation assay 17.2 s 12.2-14.7 INR in platelet poor plasma or blood by coagulation assay 1.4 0.8-1.4 Activated partial thromboplastin time (aPTT) in platelet poor plasma bycoagulation assay - 12/19/17 20:49 Activated partial thromboplastin time (aPTT) in platelet poor plasma bycoagulation assay 27 s 24-35 Comprehensive metabolic panel - 12/19/17 20:49 Serum or plasma sodium measurement (moles/volume) 135 mmol/L 135-145 Serum or plasma potassium measurement (moles/volume) 3.8 mmol/L 3.6-5.0 Serum or plasma chloride measurement (moles/volume) 99 mmol/L 98-107 Carbon dioxide 22 mmol/L 21-32 Serum or plasma anion gap determination (moles/volume) 14 mmol/L 5-14 Serum or plasma urea nitrogen measurement (mass/volume) 16 mg/dL 7-18 Serum or plasma creatinine measurement (mass/volume) 0.75 mg/dL 0.60-1.30 Serum or plasma urea nitrogen/creatinine mass ratio 21 NRG Serum or plasma creatinine measurement with calculation of estimated glomerular filtration rate > NRG Serum or plasma glucose measurement (mass/volume) 153 mg/dL 70-105 Serum or plasma calcium measurement (mass/volume) 9.8 mg/dL 8.5-10.1 Serum or plasma total bilirubin measurement (mass/volume) 0.8 mg/dL 0.1-1.0 Serum or plasma alkaline phosphatase measurement (enzymatic activity/volume) 88 U/L 40-136 Serum or plasma aspartate aminotransferase measurement (enzymatic activity/ volume) 22 U/L 5-34 Serum or plasma alanine aminotransferase measurement (enzymatic activity/volume ) 47 U/L 0-55 Serum or plasma protein measurement (mass/volume) 7.4 g/dL 6.4-8.2 Serum or plasma albumin measurement (mass/volume) 3.8 g/dL 3.2-4.5 Serum or plasma troponin i.cardiac measurement (mass/volume) - 12/19/17 20:49 Serum or plasma troponin i.cardiac measurement (mass/volume) < ng/ mL <0.30 Blood lactic acid measurement (moles/volume) - 12/19/17 20:58 Blood lactic acid measurement (moles/volume) 1.49 mmol/L 0.50-2.00 Bacterial blood culture - 12/19/17 20:58 Bacterial blood culture NG NRG Bacterial blood culture - 12/19/17 21:11 Bacterial blood culture NG NRG Complete urinalysis with reflex to culture - 12/19/17 22:14 Urine color determination YELLOW NRG Urine clarity determination CLEAR NRG Urine pH measurement by test strip 6.5 5-9 Specific gravity of urine by test strip 1.010 1.016- 1.022 Urine protein assay by test strip, semi-quantitative 2+ NEGATIVE Urine glucose detection by automated test strip NEGATIVE NEGATIVE Erythrocytes detection in urine sediment by light microscopy 1+ NEGATIVE Urine ketones detection by automated test strip NEGATIVE NEGATIVE Urine nitrite detection by test strip NEGATIVE NEGATIVE Urine total bilirubin detection by test strip 1+ NEGATIVE Urine urobilinogen measurement by automated test strip (mass/volume) 4 mg/dL NORMAL Urine leukocyte esterase detection by dipstick 1+ NEGATIVE Automated urine sediment erythrocyte count by microscopy (number/high power field) RARE NRG Automated urine sediment leukocyte count by microscopy (number/high power field ) [HPF] NRG Bacteria detection in urine sediment by light microscopy NEGATIVE NRG Squamous epithelial cells detection in urine sediment by light microscopy 0-2 NRG Crystals detection in urine sediment by light microscopy NONE NRG Casts detection in urine sediment by light microscopy NONE NRG Mucus detection in urine sediment by light microscopy SMALL NRG Complete urinalysis with reflex to culture NO NRG Complete blood count (CBC) with automated white blood cell (WBC) differential - 01/21/18 08:44 Blood leukocytes automated count (number/volume) 5.3 10*3/uL 4.3-11.0 Blood erythrocytes automated count (number/volume) 4.91 10*6/uL 4.35-5.85 Venous blood hemoglobin measurement (mass/volume) 14.6 g/dL 13.3-17.7 Blood hematocrit (volume fraction) 42 % 40-54 Automated erythrocyte mean corpuscular volume 86 [foz_us] 80-99 Automated erythrocyte mean corpuscular hemoglobin (mass per erythrocyte) 30 pg 25-34 Automated erythrocyte mean corpuscular hemoglobin concentration measurement ( mass/volume) 34 g/dL 32-36 Automated erythrocyte distribution width ratio 13.1 % 10.0-14.5 Automated blood platelet count (count/volume) 169 10*3/uL 130-400 Automated blood platelet mean volume measurement 10.1 [foz_us] 7.4-10.4 Automated blood neutrophils/100 leukocytes 56 % 42-75 Automated blood lymphocytes/100 leukocytes 27 % 12-44 Blood monocytes/100 leukocytes 13 % 0-12 Automated blood eosinophils/100 leukocytes 5 % 0-10 Automated blood basophils/100 leukocytes 1 % 0-10 Blood neutrophils automated count (number/volume) 2.9 10*3 1.8-7.8 Blood lymphocytes automated count (number/volume) 1.4 10*3 1.0-4.0 Blood monocytes automated count (number/volume) 0.7 10*3 0.0-1.0 Automated eosinophil count 0.2 10*3/uL 0.0-0.3 Automated blood basophil count (count/volume) 0.0 10*3/uL 0.0-0.1 Comprehensive metabolic panel - 01/21/18 08:44 Serum or plasma sodium measurement (moles/volume) 138 mmol/L 135-145 Serum or plasma potassium measurement (moles/volume) 4.2 mmol/L 3.6-5.0 Serum or plasma chloride measurement (moles/volume) 106 mmol/L 98-107 Carbon dioxide 24 mmol/L 21-32 Serum or plasma anion gap determination (moles/volume) 8 mmol/L 5-14 Serum or plasma urea nitrogen measurement (mass/volume) 10 mg/dL 7-18 Serum or plasma creatinine measurement (mass/volume) 0.68 mg/dL 0.60-1.30 Serum or plasma urea nitrogen/creatinine mass ratio 15 NRG Serum or plasma creatinine measurement with calculation of estimated glomerular filtration rate > NRG Serum or plasma glucose measurement (mass/volume) 92 mg/dL 70-105 Serum or plasma calcium measurement (mass/volume) 9.6 mg/dL 8.5-10.1 Serum or plasma total bilirubin measurement (mass/volume) 0.4 mg/dL 0.1-1.0 Serum or plasma alkaline phosphatase measurement (enzymatic activity/volume) 76 U/L 40-136 Serum or plasma aspartate aminotransferase measurement (enzymatic activity/ volume) 19 U/L 5-34 Serum or plasma alanine aminotransferase measurement (enzymatic activity/volume ) 28 U/L 0-55 Serum or plasma protein measurement (mass/volume) 6.9 g/dL 6.4-8.2 Serum or plasma albumin measurement (mass/volume) 4.0 g/dL 3.2-4.5 Lipid 1996 panel - 01/21/18 08:44 Serum or plasma triglyceride measurement (mass/volume) 77 mg/dL <150 Serum or plasma cholesterol measurement (mass/volume) 171 mg/dL < 200 Serum or plasma cholesterol in HDL measurement (mass/volume) 40 mg/ dL 40-60 Cholesterol in LDL [mass/volume] in serum or plasma by direct assay 123 mg/dL 1-129 Serum or plasma cholesterol in VLDL measurement (mass/volume) 15 mg/ dL 5-40 Hemoglobin A1c - 01/21/18 08:44 Blood hemoglobin A1C measurement (mass/volume) 5.6 % 4.0- 5.6 MEAN BLOOD GLUCOSE 114 % <=126 Encounters ACCT No. Visit Date/Time Discharge Status Pt. Type Provider Facility Loc./Unit Complaint [id number] 01/09/2018 11:23:23 01/09/2018 23:59:59 CLS Outpatient Salvador Solorzano [id number] 02/13/2018 13:55:00 02/13/2018 23:59:59 CLS Outpatient NORMAN VEGA DO [facility] LAB H-PYLORI [id number] 01/21/2018 08:33:00 01/21/2018 23:59:59 CLS Outpatient CAMERON JUAREZ MD [facility] LAB SCREENING,FAMILY HX [id number] 12/19/2017 20:41:00 12/19/2017 22:57:00 DIS Emergency KEITH ANDERSEN, ISAIAS Mann [facility] ER ABD PAIN [id number] 12/17/2017 15:02:00 12/17/2017 17:44:00 DIS Emergency GIORGIO ANDERSEN, WILLIAM Mejia [facility] ER CHEST PAIN;ABD PAIN; TROUBLE WALKING [id number] 12/16/2017 07:34:00 12/16/2017 12:40:00 DIS Outpatient NORMAN VEGA DO [facility] SDC GALLBLADDER DISEASE, CHRONIC GASTRIC ULCER [id number] 12/12/2017 05:29:00 12/12/2017 10:00:00 DIS Outpatient NORMAN VEGA DO [facility] PREOP GALLBLADDER DISEASE, CHRONIC GASTRIC ULCER [id number] 11/29/2017 12:00:00 11/29/2017 23:59:59 CLS Outpatient NOMRAN VEGA DO [facility] CARD ABD PAIN [id number] 11/22/2017 18:51:00 11/22/2017 22:17:00 DIS Emergency HARINI ANDERSEN, TAINA Romano [facility] ER UPPER ABD PAIN [id number] 11/20/2017 08:15:00 11/20/2017 11:10:00 DIS Emergency GIORGIO ANDERSEN, WILLIAM Mejia [facility] ER RT SIDE PAIN/NAUSEA, LIGHT-HEADED [id number] 11/07/2017 10:23:00 11/07/2017 12:23:00 DIS Emergency HUNTER COULTER APRN [facility] ER LOWER BACK PAIN,HURTS TO URINATE [id number] 10/22/2017 10:28:00 10/22/2017 23:59:59 CLS Outpatient NORMAN VEGA DO [facility] LAB H-PYLORI [id number] 10/18/2017 10:06:00 10/18/2017 11:26:00 DIS Emergency HUNTER COULTER APRN [facility] ER CHEST DISCOMFORT,BACKPAIN, THROAT PAIN [id number] 10/14/2017 17:13:00 10/14/2017 19:19:00 DIS Emergency NEDA LOMAX [facility] ER WEAK;ABD PAIN;N/V [id number] 09/30/2017 14:00:00 09/30/2017 23:59:59 CLS Preadmit NORMAN VEGA DO [facility] ENDO HX OF H-PYLORI [id number] 09/30/2017 08:39:00 09/30/2017 14:05:00 DIS Outpatient NORMAN VEGA DO [facility] SDC ENDO [id number] 09/26/2017 09:12:00 09/26/2017 12:30:00 DIS Emergency TAINA SCHULER MD [facility] ER RIGHT SIDE PAIN,N/ DIZZINESS [id number] 09/25/2017 05:39:00 09/25/2017 13:30:00 DIS Outpatient NORMAN VEGA DO [facility] PREOP EGD [id number] 09/13/2017 13:15:00 09/13/2017 15:31:00 DIS Emergency NEDA LOMAX [facility] ER RT FOOT PAIN [id number] 09/12/2017 13:23:00 09/12/2017 23:59:59 CLS Outpatient REIDANJALIETHEL ALTERATIONS TAILOR-C [facility] RAD [id number] 07/28/2017 13:52:00 07/28/2017 16:14:00 DIS Emergency WILLIAM ALVARES MD [facility] ER ULCER/ABD PAIN/ VOMITING [id number] 07/19/2017 10:16:00 07/22/2017 14:49:00 DIS Inpatient NORMAN VEGA DO [facility] 4TH PUD-POSS PERFORATION [id number] 07/16/2017 09:12:00 07/16/2017 12:08:00 DIS Emergency KELSIE CRUZ DO [facility] ER RIGHT SIDE PAIN [id number] 03/05/2018 09:31:00 ACT Outpatient NORMAN VEGA DO [facility] ENDO RECTAL BLEEDING/HX H PYLORI [id number] 02/28/2018 15:51:00 Document Registration [id number] 02/10/2018 16:19:00 Document Registration
[2018-03-05] MEDS ORDERED: LACTATED RINGERS 1,000 ML IV STA (09:46)
[2018-03-05] MEDS ORDERED: HURRICAINE EXT TUBE (BENZOCAINE) XX PRN (10:00)
[2018-03-05 10:02] VITALS: BP 129/94
[2018-03-05] MEDS ORDERED: HYDR25TA4 PO (10:06)
[2018-03-05] MEDS ORDERED: ZOLP10TA5 PO (10:06)
[2018-03-05] MEDS ORDERED: MIDAZOLAM 2 MG/2 ML (VERSED) VIAL ONE ×2 (11:08→11:26)
[2018-03-05] MEDS ORDERED: PROPOFOL INJECTION 50 ML IV ONE (11:08)
[2018-03-05] MEDS ORDERED: HURRICAINE EXT TUBE (BENZOCAINE) ONE (11:13)
--- NOTE | 2018-03-05 11:13 | Progress Note-Pre Operative ---
Pre-Operative Progress Note H&P Reviewed The H&P was reviewed, patient examined and no changes noted. Time Seen by Provider: 11:10 Date H&P Reviewed: Mar 05, 2018 Time H&P Reviewed: 10:12 Pre-Operative Diagnosis: Gastric/Duodenal ulcer, Hx H. Pylori, Rectal bleed NORMAN VEGA DO Mar 05, 2018 11:13
--- NOTE | 2018-03-05 12:10 | Progress Note-Post Operative ---
Post-Operative Progess Note Surgeon (s)/Nurse Practitioner Hospitalist (s) Surgeon NORMAN VEGA DO Nurse Practitioner Hospitalist: Chidi Antonio, MSIII Pre-Operative Diagnosis Gastric/Duodenal ulcer, Hx H. Pylori, Rectal bleed Post-Operative Diagnosis Duodenal Ulcer -resolved Gastritis Sigmoid colon polyp Internal hemorrhoids Poor prep Procedure & Operative Findings Date of Procedure 03/05/18 Procedure Performed/Findings EGD with bx Colon with snare Anesthesia Type IV sedation by ASSISTANT Estimated Blood Loss Estimated blood loss (mL): scant Specimens/Packing Specimens Removed Antral bx Body of stomach bx Sigmoid colon polyp NORMAN VEGA DO Mar 05, 2018 12:10
--- NOTE | 2018-03-05 12:11 | Endoscopy Discharge Instruct ---
Endo Procedure/Findings Findings 1.: Gastritis 2.: Polyp 3.: Internal Hemorrhoids Discharge Instructions - Activity: You might feel a little sleepy until tomorrow. This is due to the medicine you received to relax you. Until tomorrow, you should: NOT drive a car, operate machinery or power tools. NOT drink any alcoholic beverages. NOT make any important decisions or sign importortant papers. Do not return to work until tomorrow, unless otherwise instructed. Resume previous activities tomorrow. Diet: Start by taking liquids. If you tolerate liquids, advance to solid food. Make an appointment for one week. Notify Physician - If you experience excessive bleeding, unusual abdominal pain, fever, or chest pain, contact your doctor immediately. Follow-Up: - I have received and understand the above instructions and will call my doctor if I have any further questions. Patient Signature Date Nurse Signature Other (Relationship) NORMAN VEGA DO Mar 05, 2018 12:11
[2018-03-05 12:20] VITALS: BP 114/66
[2018-03-05 12:45] VITALS: BP 110/60
[2018-03-05 12:50] VITALS: BP 110/60
--- NOTE | 2018-03-05 15:22 | OPERATIVE REPORT ---
DATE OF SERVICE: 03/05/2018 PREOPERATIVE DIAGNOSES: 1. Gastric/duodenal ulcer. 2. H. pylori. 3. Chronic gastritis. 4. Rectal bleed. POSTOPERATIVE DIAGNOSES: 1. Healed gastroduodenal ulcer. 2. Gastritis. 3. Polyp. 4. Internal hemorrhoids. PROCEDURES: 1. EGD with biopsy. 2. Colonoscopy with snare polypectomy. SURGEON: Cabrera Dennis DO. PULL OVER: Medical student, Chidi Antonio, level III. SPECIMEN: 1. Biopsy from the antrum and biopsy from the body of stomach. 2. A polyp from the sigmoid colon. BLOOD LOSS: Scant. FLUIDS: Per anesthesia. POSTOPERATIVE CONDITION: Stable. INDICATION FOR PROCEDURE: The patient is a 33-year-old male who has had resistant H. pylori and had a gastroduodenal ulcer, unable to really get into the duodenum last time I attempted the EGD. I also recently noted some rectal bleeding and needed a colonoscopy. FINDINGS: The patient had some, definitely, erythema in the antrum and the body of the stomach; however, denies any ulcers in the stomach and actually did not see an ulcer at the spot right past the pylorus and the duodenum, unable to get into the duodenum and pushed down, it looked good. He also had a polyp in the sigmoid colon, some internal hemorrhoids, but unfortunately had a very poor prep, stool covering all tariq and not able to do a complete colonoscopy. PROCEDURE NOTE: After informed consent was obtained, the patient was brought to the endoscopy suite and placed on the bed in left lateral position. He was administered IV sedation by the PHARMACY TECHNICIAN who then monitored his vitals the entire time, heart rate, blood pressure and pulse ox. A scope was inserted down the mouth through the esophagus into the stomach. Upon entry, I noted some erythema around the antrum and did a biopsy here, able then to push into the first portion of the duodenum and actually got all the way in possibly even into the second portion, took a picture, it looked very good, could see the papilla, took a picture of this and then looking right just past the pylorus. I did not see any ulceration. Then, I was able to get into the duodenum this time, whereas last time I could not. I looked up at the body of stomach. It was also pretty erythematous and thickened, so did another biopsy here. I then looked up and retroflexed, did not really see a hiatal hernia and no ulcers in the upper portion of the stomach, pulled back into the esophagus at the GE junction, looked good and pulled up the rest of the esophagus, looked good and pulled the scope out of the mouth. Switched gloves and switched cameras and went down below, put in the colonoscopy, little bit of stool covering the rectal vaults. Pushed past this into the sigmoid, up past the splenic flexure into the transverse colon. Unfortunately, at the transverse colon, probably at the hepatic flexure, just too much liquid fecal material, started to get in some retained vegetable parts, so at this point then stopped the procedure, pulled back slowly, tried to wash off the tariq, but could not get them all washed off. Looked at the transverse colon to the hepatic flexure and took down the descending colon and sigmoid colon. Again, all the tariq were covered in stool. Did not see any large masses, but into the sigmoid, the tariq were somewhat cleaned off and saw a polyp, took a picture of this and then did a snare polypectomy and then continued down in the rectum, retroflexed the rectal vault, saw some minimal internal hemorrhoids, took a picture of this and then removed the scope. The patient tolerated procedure well, recovered in endoscopy. He will need a repeat colonoscopy with a better bowel prep. Job ID: [id number] DocumentID: [id number] Dictated Date: 03/05/2018 12:07:37 Glucose And Syrup Weigher Date: 03/05/2018 15:21:41 Dictated By: CABRERA DENNIS DO MTDRosalina
== END 2018-03-05 12:50 | disposition home or self-care (01) ==
LOC: ENDO 09:31
PROVIDERS: ATTEND Surgery
DX: D12.5 Benign neoplasm of sigmoid colon (principal); Z09 Encounter for follow-up examination after completed treatment for conditions other than malignant neoplasm; K29.50 Unspecified chronic gastritis without bleeding; K64.8 Other hemorrhoids; Z87.19 Personal history of other diseases of the digestive system; Q43.1 Hirschsprung's disease; F17.210 Nicotine dependence, cigarettes, uncomplicated; I10 Essential (primary) hypertension; J45.909 Unspecified asthma, uncomplicated; G73.3 Myasthenic syndromes in other diseases classified elsewhere; K21.9 Gastro-esophageal reflux disease without esophagitis; Z79.899 Other long term (current) drug therapy
CPT/HCPCS: 88305

== ENCOUNTER 2018-07-06 09:40 | Emergency (ER) | payer MEDICAID ==
[~2018-07-06] VITALS: Ht 185.4 cm; Wt 131.5 kg
[~2018-07-06 09:40] MED LIST changes: +HYDR25TA4 PO; +ZOLP10TA5 PO
--- OUTSIDE RECORDS SUMMARY | 2018-07-06 09:45 | XMS REPORT ---
Author Author Latoya Joseph [facility] Address [address] [place], [place] [id number] Care Team Providers Care Web Sizer Name Role Phone Latoya Joseph PCP Grant Lara PreferredProvider Allergies and Adverse Reactions Name Reaction Notes Keflex Plan of Treatment Planned Activity Comments Planned Date Planned Time Plan/Goal MRI LOWER EXT ANY JOINT W/O CONTRAST 04/03/2018 12:00 AM Medications Active Name Start Date Estimated Completion [...] once daily at bedtime for 30 days diclofenac sodium 75 mg oral tablet,delayed release (DR/EC) 04/01/20182017 take 1 tablet (75 mg) by oral route 2 times per day for 30 days Name Start Date Expiration Date SIG Comments Augmentin 875-125 mg oral tablet 03/12/2018 03/19/2018 take 1 tablet by oral route every 12 hours for 7 days Problem List Not available. Vital Signs Date Time BP-Sys(mm[Hg] BP-Ermelinda(mm[Hg]) HR(bpm) RR(rpm) Temp WT HT HC BMI BSA BMI Percentile O2 Sat(%) 04/01/2018 8:54:00 AM 136 mmHg 82 mmHg 80 bpm 18 rpm 97.9 F 316.6 lbs 73 in 41.7699 kg/m 2.7197 m 96 % 03/12/2018 8:50:00 AM 140 mmHg 90 mmHg 83 bpm 16 rpm 97.7 F 303 lbs 73 in 39.98 kg/m2 2.66 m2 98 % 03/03/2018 10:12:00 AM 140 mmHg 96 mmHg 95 bpm 18 rpm 98.1 F 300.25 lbs 73 in 39.6128 kg/m 2.6485 m 97 % Social History Name Description Comments Tobacco Current every day smoker Tobacco chew use 03/03/2018 - Alcohol Light 03/03/2018 - History of Procedures Date Ordered Description Order Status 04/01/2018 12:00 AM IMMUNIZATION ADMIN Reviewed 04/01/2018 12:00 AM FLU VAC NO PRSV 4 OSMANI 3 YRS+ Reviewed Results Summary Not available. History Of Immunizations Name Date Admin Mfg Name Mfg Code Trade Name Lot# Route Inj Vis Given Vis Pub CVX Influenza 04/01/2018 ID [employer] Velia or [place] BCQ Flulaval quadrivalent [id number] Intramuscular Left Arm 04/01/2018 06/24/2018 158 History of Past Illness Name Date of Onset Comments Hypertension Sleep apnea with use of continuous positive airway pressure (CPAP) 03/03/2018 Hypertension Mar 03 2018 10:14AM Insomnia, unspecified Mar 03 2018 10:14AM Sleep apnea with use of continuous positive airway pressure (CPAP) Mar 03 2018 10:14AM Sinusitis Mar 12 2018 8:56AM Paronychia of finger, right Mar 12 2018 8:56AM Acute pain of left knee Apr 01 2018 8:56AM Flu Vaccine Apr 02 2018 4:20PM Left knee pain Apr 03 2018 3:56PM Left Knee swelling Apr 03 2018 3:56PM Payers Insurance Name Company Name Plan Name Plan Number Policy Number Policy Group Number Start Date [facility] - RHC - Community Plan of [facility] Comm [id number] N/A [facility] [id number] [facility] Allies [id number] N/A History of Encounters Visit Date Visit Type Provider 04/01/2018 Office visit Latoya Joseph APRN 03/12/2018 Office visit Grant Lara MD 03/03/2018 Office visit Grant Lara MD 12/05/2017 [facility] Salvador Solorzano MD
--- OUTSIDE RECORDS SUMMARY | 2018-07-06 09:45 | XMS REPORT ---
Author Author Latoya Joseph [facility] Address [address] [place], [place] [id number] Care Team Providers Care Door Operator Name Role Phone Latoya Joseph PCP Grant [...] Given Vis Pub CVX Influenza 04/01/2018 ID [employer] Velia or [place] BCQ Flulaval quadrivalent [id number] Intramuscular Left Arm [...] 8:56AM Flu Vaccine Apr 02 2018 4:20PM Payers Insurance Name Company Name Plan Name Plan Number Policy Number Policy Group Number Start Date [facility] - Community Plan of [facility] Comm [id number] N/A [facility] [id number] [facility] Allies [id number] N/A History of Encounters Visit Date Visit Type Provider 04/01/2018 Office visit Latoya Joseph APRN 03/12/2018 Office visit Grant Lara MD 03/03/2018 Office visit Grant Lara MD 12/05/2017 [facility] Salvador Solorzano MD
--- OUTSIDE RECORDS SUMMARY | 2018-07-06 09:45 | XMS REPORT ---
Author Author Latoya Joseph [facility] Address [address] [place], [place] [id number] Care Team Providers Care Felt Puller Name Role Phone Latoya Joseph PCP Gratn Lara PreferredProvider Allergies and Adverse Reactions Name Reaction Notes Keflex Plan of Treatment Planned Activity Comments Planned Date Planned Time Plan/Goal Flu vaccine 3 yrs & older, Quadrivalent, Preservative-free (single-dose syringe ) 04/01/2018 12:00 AM Medications Active Name Start Date [...] Status 04/01/2018 12:00 AM IMMUNIZATION ADMIN Reviewed Results Summary Not available. History Of [...] Policy Number Policy Group Number Start Date [facility] - RHC - Community Plan of [facility] Comm [id number] N/A [facility] [address] [facility] Allies [id number] N/A History of Encounters Visit Date Visit Type Provider 04/01/2018 Office visit Latoya Joseph APRN 03/12/2018 Office visit Grant Lara MD 03/03/2018 Office visit Grant Lara MD 12/05/2017 [facility] Salvador Solorzano MD
--- OUTSIDE RECORDS SUMMARY | 2018-07-06 09:45 | XMS REPORT ---
Author Author Grant Lara [facility] Address [address] [place], [place] [id number] Care Team Providers Care Crystal Lapper Name Role Phone Grant Lara PCP Grant Lara PreferredProvider Allergies and Adverse [...] once daily at bedtime for 30 days Augmentin 875-125 mg oral tablet 03/12/2018 03/19/2018 take 1 tablet by oral route every 12 hours for 7 days Problem List Not available. Vital Signs Date Time BP-Sys(mm[Hg] BP-Ermelinda(mm[Hg]) HR(bpm) RR(rpm) Temp WT HT HC BMI BSA BMI Percentile O2 Sat(%) 03/12/2018 8:50:00 AM 140 mmHg 90 mmHg 83 bpm 16 rpm 97.7 F 303 lbs 73 in 39.9756 kg/m 2.6606 m 98 % 03/03/2018 10:12:00 AM 140 mmHg 96 mmHg 95 bpm 18 rpm 98.1 F 300.25 lbs 73 in 39.61 kg/m2 2.65 m2 97 % Social History Name Description Comments [...] of finger, right Mar 12 2018 8:56AM Payers Insurance Name Company Name Plan Name Plan Number Policy Number Policy Group Number Start Date [facility] [id number] [facility] [id number] N/A History of Encounters Visit Date Visit Type Provider 03/12/2018 Office visit Grant Lara MD 03/03/2018 Office visit Grant Lara MD 12/05/2017 [facility] Salvador Solorzano MD
--- OUTSIDE RECORDS SUMMARY | 2018-07-06 09:45 | XMS REPORT ---
Author Author Latoya Joseph [facility] Address [address] [place], [place] [phone] Care Team Providers Care Director Of Accounting Name Role Phone Latoya Joseph PCP Grant [...] of left knee Apr 01 2018 8:56AM Payers Insurance Name Company Name Plan Name Plan Number Policy Number Policy Group Number Start Date [facility] - RHC - Community Plan of [facility] Comm [id number] N/A [facility] [id number] [facility] Allies [id number] N/A History of Encounters Visit Date Visit Type Provider 04/01/2018 Office visit Latoya Joseph APRN 03/12/2018 Office visit Grant Lara MD 03/03/2018 Office visit Grant Lara MD 12/05/2017 [facility] Salvador Solorzano MD
--- OUTSIDE RECORDS SUMMARY | 2018-07-06 09:45 | XMS REPORT ---
Author Author Grant Lara [facility] Address [address] [place], [place] [phone] Care Team Providers Care Automotive Hardware Engineer Name Role Phone Grant Lara PCP Grant [...] oral route once daily for 30 days trazodone 50 mg oral tablet take 1 tablet (50 mg) by oral route once daily at bedtime Name Start Date Expiration Date SIG Comments Augmentin 875-125 mg oral tablet 03/12/2018 03/19/2018 take 1 tablet by oral route every 12 hours for 7 days diclofenac sodium 75 mg oral tablet,delayed release (DR/EC) 04/01/20182017 take 1 tablet (75 mg) by oral route 2 times per day for 30 days Augmentin 875-125 mg oral tablet 04/22/2018 04/29/2018 take 1 tablet by oral route every 12 hours for 7 days Discontinued Name Start Date Discontinued Date SIG Comments Ambien 10 mg oral tablet 03/03/2018 04/21/2018 take 1 tablet (10 mg) by oral route once daily at bedtime for 30 days Problem List Not available. Vital Signs Date Time BP-Sys(mm[Hg] BP-Ermelinda(mm[Hg]) HR(bpm) RR(rpm) Temp WT HT HC BMI BSA BMI Percentile O2 Sat(%) 04/22/2018 1:18:00 PM 134 mmHg 88 mmHg 85 bpm 18 rpm 98.1 F 311.375 lbs 73 in 41.0806 kg/m 2.6971 m 95 % 04/01/2018 8:54:00 AM 136 mmHg 82 mmHg 80 bpm 18 rpm 97.9 F 316.6 lbs 73 in 41.77 kg/m2 2.72 m2 96 % 03/12/2018 8:50:00 AM 140 mmHg 90 mmHg 83 bpm 16 rpm 97.7 F 303 lbs 73 in 39.9756 kg/m 2.6606 m 98 % 03/03/2018 10:12:00 AM 140 mmHg 96 mmHg 95 bpm 18 rpm 98.1 F 300.25 lbs 73 in 39.6128 kg/m 2.65 m2 97 % Social History Name Description Comments Tobacco Current every day smoker Tobacco chew use 03/03/2018 - Alcohol Light 03/03/2018 - History of Procedures Date Ordered Description Order Status 04/01/2018 12:00 AM IMMUNIZATION ADMIN Reviewed 04/01/2018 12:00 AM FLU VAC NO PRSV 4 OSMANI 3 YRS+ Reviewed 04/03/2018 12:00 AM MRI JNT OF LWR EXTRE W/O DYE Returned Results Summary Not available. History Of Immunizations Name Date Admin Mfg Name Mfg Code Trade Name Lot# Route Inj Vis Given Vis Pub CVX Influenza 04/01/2018 ID [employer] Velia or [place] BCQ Flulaval quadrivalent [id number] Intramuscular Left Arm [...] Left Knee swelling Apr 03 2018 3:56PM Sinusitis Apr 22 2018 1:21PM EL (obstructive sleep apnea) Apr 22 2018 1:21PM Payers Insurance Name Company Name Plan Name Plan Number Policy Number Policy Group Number Start Date [facility] - RHC - Community Plan of [facility] Comm [id number] N/A [facility] [address] [facility] Allies [id number] N/A History of Encounters Visit Date Visit Type Provider 04/22/2018 Office visit Grant Lara MD 04/01/2018 Office visit Latoya Joseph APRN 03/12/2018 Office visit Grant Lara MD 03/03/2018 Office visit Grant Lara MD 12/05/2017 [facility] Salvador Solorzano MD
--- OUTSIDE RECORDS SUMMARY | 2018-07-06 09:48 | XMS REPORT | Continuity of Care Document ---
Author Author [facility] Organization [facility] Address Unknown Phone Unavailable Allergies Active Description Code Type Severity Reaction Onset Reported/Identified Relationship to Patient Clinical Status Yes KEFLEX [id number] BRANDNAME N/A RASH Yes KETOPROFEN [id number] DRUG N/A LETHARGY; RASH; RASH Yes No Known Drug Allergies [id number] Drug Allergy Unknown N/A 09/30/2017 Yes cephalexin [id number] Drug Allergy Unknown NAUSEA 12/12/2017 Yes ketoprofen [id number] Drug Allergy Unknown RASH 12/12/2017 Yes ketorolac [id number] Drug Allergy Unknown RASH 12/12/2017 Yes cephalexin [id number] Drug Allergy Mild NAUSEA 12/17/2017 Medications There is no data. Problems Date Dx Coded Attending Type Code Diagnosis Diagnosed By 07/16/2017 KELSIE CRUZ DO Ot K21.9 GASTRO-ESOPHAGEAL REFLUX DISEASE WITHOUT 07/16/2017 VAIBHAV CRUZ DOA K Ot R10.31 RIGHT LOWER QUADRANT PAIN 07/16/2017 VAIBHAV CRUZ DOA K Ot R11.2 NAUSEA WITH VOMITING, UNSPECIFIED 07/21/2017 VAIBHAV CRUZ DOA K Ot K21.9 GASTRO-ESOPHAGEAL REFLUX DISEASE WITHOUT 07/21/2017 ANTHONY VAIBHAV COONA K Ot R10.31 RIGHT LOWER QUADRANT PAIN 07/21/2017 VAIBHAV CRUZ DOA K Ot R11.2 NAUSEA WITH VOMITING, UNSPECIFIED 07/22/2017 ALESHIA VEGA DOIC B Ot 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 PYLORI THE CAUSE OF DISE 07/22/2017 ALESHIA VEGA DOIC B Ot F17.210 NICOTINE DEPENDENCE, CIGARETTES, UNCOMPL 07/22/2017 NORMAN VEGA DO B Ot K21.0 GASTRO-ESOPHAGEAL REFLUX DISEASE WITH ES 07/22/2017 ALESHIA VEGA DOIC B Ot K26.4 CHRONIC OR UNSPECIFIED DUODENAL ULCER [place] 07/22/2017 NORMAN VEGA DO B Ot K29.50 UNSPECIFIED CHRONIC GASTRITIS WITHOUT BL 07/22/2017 DELMAN DO, NORMAN B Ot K59.09 OTHER CONSTIPATION 07/22/2017 GARY COON NORMAN B Ot 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 PYLORI THE CAUSE OF DISE 07/22/2017 ALESHIA VEGA DOIC B Ot F17.210 NICOTINE DEPENDENCE, CIGARETTES, UNCOMPL 07/22/2017 ALESHIA VEGA DOIC B Ot K21.0 GASTRO-ESOPHAGEAL REFLUX DISEASE WITH ES 07/22/2017 ALESHIA VEGA DOIC B Ot K26.4 CHRONIC OR UNSPECIFIED DUODENAL ULCER [place] 07/22/2017 ALESHIA VEGA DOIC B Ot K29.50 UNSPECIFIED CHRONIC GASTRITIS WITHOUT BL 07/22/2017 GARY OCON NORMAN B Ot K59.09 OTHER CONSTIPATION 07/28/2017 WILLIAM [...] Ot K21.9 GASTRO-ESOPHAGEAL REFLUX DISEASE WITHOUT 07/29/2017 WILLAIM ALVARES MD Ot K25.4 CHRONIC OR UNSPECIFIED GASTRIC ULCER WIT 09/13/2017 ALISON, ETHEL CIGAR HEAD PUNCHER-C Ot S99.911A UNSPECIFIED INJURY OF RIGHT ANKLE, INITI 09/13/2017 LARERY, ETHEL CIGAR HEAD PUNCHER-C Ot S99.921A UNSPECIFIED INJURY OF RIGHT FOOT, INITIA 09/13/2017 LARERY, ETHEL CIGAR HEAD PUNCHER-C Ot S99.911A UNSPECIFIED INJURY OF RIGHT ANKLE, INITI 09/13/2017 LARERY, ETHEL CIGAR HEAD PUNCHER-C Ot S99.921A UNSPECIFIED INJURY OF RIGHT FOOT, INITIA 09/13/2017 NEDA LOMAX Ot K21.9 GASTRO-ESOPHAGEAL REFLUX DISEASE WITHOUT 09/13/2017 ANNIA LOMAXSONU Acuña Ot K59.09 OTHER CONSTIPATION 09/13/2017 DALI JACINTALEROYSOLE Acuña Ot M79.671 PAIN IN RIGHT FOOT 09/13/2017 DALI WORKMAN NEDA L Ot S92.251A DISP FX OF NAVICULAR OF RIGHT FOOT, INIT 09/13/2017 DALI JACINTA NEDA L Ot X50.1XXA OVEREXERTION FROM PROLONGED STATIC OR AW 09/13/2017 DALI WORKMAN NEDA L Ot Z77.22 CNTCT W AND EXPSR TO ENVIRON TOBACCO SMO 09/13/2017 DALI WORKMAN NEDA L Ot Z87.19 PERSONAL HISTORY OF OTHER DISEASES OF TH 09/16/2017 NEDA LOMAX Ot K21.9 GASTRO-ESOPHAGEAL REFLUX DISEASE WITHOUT 09/16/2017 DALI WORKMAN NEDA L Ot K59.09 OTHER CONSTIPATION 09/16/2017 DALI WORKMAN NEDA L Ot M79.671 PAIN IN RIGHT FOOT 09/16/2017 NEDA LOMAX Ot S92.251A DISP FX OF NAVICULAR OF RIGHT FOOT, INIT 09/16/2017 DALI WORKMAN NEDA L Ot X50.1XXA OVEREXERTION FROM PROLONGED STATIC OR [...] ENCOUNTER FOR OTHER PREPROCEDURAL EXAMIN 09/25/2017 ETHEL ROSAS Ot S99.911A UNSPECIFIED INJURY OF RIGHT ANKLE, INITI 09/25/2017 ETHEL ROSAS Ot S99.921A UNSPECIFIED INJURY OF RIGHT FOOT, INITIA 09/26/2017 HARINI ANDERSEN, TAINA Romano Ot F17.210 NICOTINE DEPENDENCE, CIGARETTES, UNCOMPL 09/26/2017 HARINI ANDERSEN, TAINA Romano Ot G47.30 SLEEP APNEA, UNSPECIFIED 09/26/2017 TAINA SCHULER MD Ot J45.909 UNSPECIFIED ASTHMA, UNCOMPLICATED 09/26/2017 TAINA SCHULER MD Ot K21.9 GASTRO-ESOPHAGEAL REFLUX DISEASE WITHOUT 09/26/2017 TAINA SCHULER MD Ot K27.9 PEPTIC ULC, [...] ACQUIRED ABSENCE OF OTHER SPECIFIED PART 09/30/2017 ALESHIA VEGA DOIC B Ot F17.210 NICOTINE DEPENDENCE, CIGARETTES, UNCOMPL 09/30/2017 NORMAN VEGA DO B Ot K20.9 ESOPHAGITIS, UNSPECIFIED 09/30/2017 NORMAN VEGA DO B Ot K25.9 GASTRIC ULCER, UNSP ACUTE OR CHRONIC, 09/30/2017 NORMAN VEGA DO B Ot K26.9 DUODENAL ULCER, UNSP ACUTE OR CHRONIC 09/30/2017 DELMAN DO, NORMAN B Ot K29.70 GASTRITIS, UNSPECIFIED, WITHOUT BLEEDING 09/30/2017 NORMAN VEGA DO B Ot K92.0 HEMATEMESIS 10/02/2017 NORMAN VEGA DO Ot 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 PYLORI THE CAUSE OF DISE 10/02/2017 NORMAN VEGA DO Ot K25.9 GASTRIC ULCER, UNSP ACUTE OR CHRONIC, 10/02/2017 NORMAN VEGA DO Ot Z01.818 ENCOUNTER FOR OTHER PREPROCEDURAL EXAMIN 10/02/2017 ALESHIA VEGA DOIC B Ot F17.210 NICOTINE DEPENDENCE, CIGARETTES, UNCOMPL 10/02/2017 NORMAN VEGA DO B Ot K20.9 ESOPHAGITIS, UNSPECIFIED 10/02/2017 NORMAN VEGA DO Ot K25.9 GASTRIC ULCER, UNSP ACUTE OR CHRONIC, 10/02/2017 NORMAN VEGA DO Ot K26.9 DUODENAL ULCER, UNSP ACUTE OR CHRONIC 10/02/2017 NORMAN VEGA DO B Ot K29.70 GASTRITIS, UNSPECIFIED, WITHOUT BLEEDING 10/02/2017 NORMAN VEGA DO B Ot K92.0 HEMATEMESIS 10/14/2017 ETHEL ROSAS CIGAR HEAD PUNCHER-C Ot S99.911A UNSPECIFIED INJURY OF RIGHT ANKLE, INITI 10/14/2017 ETHEL ROSAS CIGAR HEAD PUNCHER-C Ot S99.921A UNSPECIFIED INJURY OF RIGHT FOOT, [...] PERSONAL HISTORY OF OTHER DISEASES OF TH 10/20/2017 NEDA LOMAX Ot Z87.39 PERSONAL HISTORY [...] ACQUIRED ABSENCE OF OTHER SPECIFIED PART 10/23/2017 ALESHIA VEGA DOIC B Ot A04.8 OTHER SPECIFIED BACTERIAL INTESTINAL INF 10/23/2017 ALESHIA VEGA DOIC B Ot A04.8 OTHER SPECIFIED BACTERIAL INTESTINAL INF 11/07/2017 DELMAN DO, NORMAN B Ot A04.8 OTHER SPECIFIED BACTERIAL INTESTINAL INF 11/07/2017 DELLATANYA DO, NORMAN B Ot A04.8 OTHER SPECIFIED BACTERIAL INTESTINAL INF 11/07/2017 HUNTER COULTER APRN Ot G47.30 SLEEP APNEA, UNSPECIFIED 11/07/2017 HUNTER COULTER APRN Ot J45.909 UNSPECIFIED ASTHMA, UNCOMPLICATED 11/07/2017 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 Ot K21.9 GASTRO-ESOPHAGEAL REFLUX DISEASE WITHOUT 11/07/2017 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 Ot M54.5 LOW BACK PAIN 11/07/2017 HUNTER COULTER APRN Ot Z77.22 CNTCT W AND EXPSR TO ENVIRON TOBACCO SMO 11/07/2017 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 Ot Z79.52 MCC (CURRENT) USE OF SYSTEMIC STER 11/07/2017 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 Ot Z87.19 PERSONAL HISTORY OF OTHER DISEASES [...] TO ENVIRON TOBACCO SMO 11/11/2017 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 Ot Z79.52 MCC (CURRENT) USE OF SYSTEMIC STER 11/11/2017 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 Ot Z87.19 PERSONAL HISTORY OF OTHER DISEASES OF TH 11/11/2017 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 Ot Z90.49 ACQUIRED ABSENCE OF OTHER SPECIFIED PART 11/20/2017 GIORGIO ANDERSEN, WILLIAM Mejia Ot G47.30 SLEEP APNEA, UNSPECIFIED 11/20/2017 WILLIAM ALVARES MD Ot J45.909 UNSPECIFIED ASTHMA, UNCOMPLICATED 11/20/2017 WILLIAM ALVARES MD Ot K21.9 GASTRO-ESOPHAGEAL REFLUX DISEASE WITHOUT 11/20/2017 WILLIAM ALVARES MD Ot K59.00 CONSTIPATION, UNSPECIFIED 11/20/2017 WILLIAM ALVARES MD Ot R10.31 RIGHT LOWER QUADRANT PAIN 11/20/2017 WILLIAM ALVARES MD Ot R11.2 NAUSEA WITH VOMITING, UNSPECIFIED 11/20/2017 WILLIAM ALVARES MD Ot Z77.22 CNTCT W AND EXPSR TO ENVIRON TOBACCO SMO 11/20/2017 WILLIAM ALVARES MD Ot 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 11/20/2017 WILLIAM [...] SMO 11/22/2017 WILLIAM ALVARES MD Ot 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 11/22/2017 WILLIAM ALVARES MD Ot Z87.19 PERSONAL HISTORY OF OTHER DISEASES OF 11/22/2017 WILLIAM ALVARES MD Ot Z90.49 ACQUIRED [...] SMO 11/22/2017 TAINA SCHULER MD Ot Z79.52 MCC (CURRENT) USE OF SYSTEMIC STER 11/22/2017 TAINA SCHULER MD Ot Z87.19 PERSONAL HISTORY OF OTHER DISEASES OF 11/25/2017 TAINA SCHULER MD Ot G47.30 SLEEP APNEA, UNSPECIFIED 11/25/2017 TAINA SCHULER MD Ot J45.909 UNSPECIFIED ASTHMA, UNCOMPLICATED 11/25/2017 TAINA SCHULER MD Ot K21.9 GASTRO-ESOPHAGEAL REFLUX DISEASE WITHOUT 11/25/2017 TAINA SCHULER MD Ot 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 11/25/2017 TAINA SCHULER MD Ot R10.11 RIGHT UPPER QUADRANT PAIN 11/25/2017 TAINA SCHULER MD Ot Z77.22 CNTCT W AND EXPSR TO ENVIRON TOBACCO SMO 11/25/2017 TAINA SCHULER MD Ot 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 11/25/2017 TAINA [...] FINDINGS ON DX IMAGING OF LIVER 12/16/2017 DELMAN DO, NORMAN B Ot F17.210 NICOTINE DEPENDENCE, CIGARETTES, UNCOMPL 12/16/2017 ALESHIA VEGA DOIC B Ot G47.33 OBSTRUCTIVE SLEEP APNEA (ADULT) (PEDIATR 12/16/2017 NORMAN VEGA DO Ot J45.909 UNSPECIFIED ASTHMA, UNCOMPLICATED 12/16/2017 ALESHIA VEGA DOIC B Ot K21.0 GASTRO-ESOPHAGEAL REFLUX DISEASE WITH ES 12/16/2017 NORMAN VEGA DO Ot K25.7 CHRONIC GASTRIC ULCER WITHOUT HEMORRHAGE 12/16/2017 ALESHIA VEGA DOIC B Ot K26.9 DUODENAL ULCER, UNSP ACUTE OR CHRONIC 12/16/2017 ALESHIA VEGA DOIC B Ot K29.50 UNSPECIFIED CHRONIC GASTRITIS WITHOUT BL 12/16/2017 NORMAN VEGA DO B Ot K29.80 DUODENITIS WITHOUT BLEEDING 12/16/2017 NORMAN VEGA DO Ot K81.1 CHRONIC CHOLECYSTITIS 12/16/2017 NORMAN VEGA DO B Ot K82.8 OTHER [...] UPPER ABDOMINAL PAIN, UNSPECIFIED 12/17/2017 WILLIAM ALVARES MD, Ot Z77.22 CNTCT W AND EXPSR TO ENVIRON TOBACCO SMO 12/17/2017 WILLIAM ALVARES MD, Ot Z87.2 PERSONAL HISTORY OF DISEASES OF THE SKIN 12/17/2017 WILLIAM ALVARES MD Ot Z90.49 ACQUIRED ABSENCE OF OTHER SPECIFIED PART 12/18/2017 ALESHIA VEGA DOIC B Ot F17.210 NICOTINE DEPENDENCE, CIGARETTES, UNCOMPL 12/18/2017 NORMAN VEGA DO B Ot G47.33 OBSTRUCTIVE SLEEP APNEA (ADULT) (PEDIATR 12/18/2017 ALESHIA VEGA DOIC B Ot J45.909 UNSPECIFIED ASTHMA, UNCOMPLICATED 12/18/2017 ALESHIA VEGA DOIC B Ot K21.0 GASTRO-ESOPHAGEAL REFLUX DISEASE WITH ES 12/18/2017 ALESHIA VEGA DOIC B Ot K25.7 CHRONIC GASTRIC ULCER WITHOUT HEMORRHAGE 12/18/2017 ALESHIA VEGA DOIC B Ot K26.9 DUODENAL ULCER, UNSP ACUTE OR CHRONIC 12/18/2017 NORMAN VEGA DO B Ot K29.50 UNSPECIFIED CHRONIC GASTRITIS WITHOUT BL 12/18/2017 ALESHIA VEGA DOIC B Ot K29.80 DUODENITIS WITHOUT BLEEDING 12/18/2017 ALESHIA VEGA DOIC B Ot K81.1 CHRONIC CHOLECYSTITIS 12/18/2017 NORMAN VEGA DO B Ot K82.8 OTHER SPECIFIED DISEASES OF GALLBLADDER 12/18/2017 NORMAN VEGA DO B Ot 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 12/18/2017 NORMAN VEGA DO B Ot Z11.2 ENCOUNTER FOR SCREENING FOR OTHER BACTER 12/18/2017 WILLIAM ALVARES MD Ot G47.30 SLEEP APNEA, UNSPECIFIED 12/18/2017 WILLIAM ALVARES MD Ot G89.18 OTHER ACUTE POSTPROCEDURAL PAIN 12/18/2017 WILLIAM ALVARES MD Ot J45.909 UNSPECIFIED ASTHMA, UNCOMPLICATED 12/18/2017 WILLIAM ALVARES MD Ot K21.9 GASTRO-ESOPHAGEAL REFLUX DISEASE WITHOUT 12/18/2017 WILLIAM ALVARES MD Ot R06.00 DYSPNEA, UNSPECIFIED 12/18/2017 WILLIAM ALVARES MD Ot R10.10 UPPER ABDOMINAL PAIN, UNSPECIFIED 12/18/2017 WILLIAM ALVARES MD, Ot Z77.22 CNTCT W AND EXPSR TO ENVIRON TOBACCO SMO 12/18/2017 WILLIAM ALVARES MD, Ot Z87.2 PERSONAL HISTORY OF DISEASES OF THE SKIN 12/18/2017 HARRIET ALVARES MDSHUA T Ot Z90.49 ACQUIRED ABSENCE OF OTHER SPECIFIED [...] PERSONAL HISTORY OF OTHER DISEASES OF TH 12/19/2017 ISAIAS PARKER MD Ot Z87.81 PERSONAL [...] K56.7 ILEUS, UNSPECIFIED 12/23/2017 ISAIAS PARKER MD J Ot R10.9 UNSPECIFIED ABDOMINAL PAIN 12/23/2017 ISAIAS PARKER MD Ot Z87.19 PERSONAL HISTORY OF OTHER DISEASES OF TH 12/23/2017 ISAIAS PARKER MD Ot Z87.81 PERSONAL [...] SPECIFIED POSTPROCEDURAL STATES 12/27/2017 NORMAN VEGA DO Ot 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 PYLORI THE CAUSE OF DISE 12/27/2017 NORMAN VEGA DO Ot F17.210 NICOTINE DEPENDENCE, CIGARETTES, UNCOMPL 12/27/2017 NORMAN VEGA DO Ot K21.0 GASTRO-ESOPHAGEAL REFLUX DISEASE WITH ES 12/27/2017 NORMAN VEGA DO Ot K26.4 CHRONIC OR UNSPECIFIED DUODENAL ULCER WI 12/27/2017 NORMAN VEGA DO Ot K29.50 UNSPECIFIED CHRONIC GASTRITIS WITHOUT BL 12/27/2017 NORMAN VEGA DO Ot K59.09 OTHER CONSTIPATION 12/30/2017 NORMAN VEGA DO Ot R93.2 ABNORMAL FINDINGS ON DX IMAGING OF LIVER 01/15/2018 NORMAN VEGA DO Ot F17.210 NICOTINE DEPENDENCE, CIGARETTES, UNCOMPL 01/15/2018 NORMAN VEGA DO Ot G47.33 OBSTRUCTIVE SLEEP APNEA (ADULT) (PEDIATR 01/15/2018 NORMAN VEGA DO Ot J45.909 UNSPECIFIED ASTHMA, UNCOMPLICATED 01/15/2018 NORMAN VEGA DO Ot K21.0 GASTRO-ESOPHAGEAL REFLUX DISEASE WITH ES 01/15/2018 NORMAN VEGA DO B Ot K25.7 CHRONIC GASTRIC ULCER WITHOUT HEMORRHAGE 01/15/2018 NORMAN VEGA DO Ot K26.9 DUODENAL ULCER, UNSP ACUTE OR CHRONIC 01/15/2018 NORMAN VEGA DO B Ot K29.50 UNSPECIFIED CHRONIC GASTRITIS WITHOUT BL 01/15/2018 DELMAN DO, NORMAN B Ot K29.80 DUODENITIS WITHOUT BLEEDING 01/15/2018 GARY DO, NORMAN B Ot K81.1 CHRONIC CHOLECYSTITIS 01/15/2018 GARY DO, NORMAN B Ot K82.8 OTHER SPECIFIED DISEASES OF GALLBLADDER 01/15/2018 GARY DO, NORMAN B Ot 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 01/15/2018 GARY COON NORMAN B Ot Z11.2 ENCOUNTER FOR SCREENING FOR OTHER BACTER 01/21/2018 GARY DO, NORMAN B Ot A04.8 OTHER SPECIFIED BACTERIAL INTESTINAL INF 01/21/2018 GARY DO, NORMAN B Ot R93.2 ABNORMAL FINDINGS ON DX [...] ( PRIMARY) HYPERTENSION 02/17/2018 Ot R06.83 SNORING 02/21/2018 GARY COON, NORMAN B Ot R10.9 UNSPECIFIED ABDOMINAL PAIN 02/21/2018 GARY COON, NORMAN B Ot R11.2 NAUSEA WITH VOMITING, UNSPECIFIED 02/26/2018 GARY DO, NORMAN B Ot A04.8 OTHER SPECIFIED BACTERIAL INTESTINAL INF 02/26/2018 GARY COON NORMAN B Ot R93.2 ABNORMAL FINDINGS ON DX IMAGING OF LIVER 02/26/2018 CAMERON JUAREZ MD Ot Z13.1 ENCOUNTER FOR SCREENING FOR DIABETES KEESHA 02/26/2018 CAMERON JUAREZ MD Ot Z13.220 ENCOUNTER FOR SCREENING FOR LIPOID DISOR 02/26/2018 CAMERON JUAREZ MD Ot Z83.3 FAMILY HISTORY OF DIABETES MELLITUS 02/26/2018 ALESHIA VEGA DOIC B Ot R10.9 UNSPECIFIED ABDOMINAL PAIN 02/26/2018 ALESHIA VEGA DOIC B Ot R11.2 NAUSEA WITH VOMITING, UNSPECIFIED 02/28/2018 ALESHIA VEGA DOIC B Ot Z01.818 ENCOUNTER FOR OTHER PREPROCEDURAL EXAMIN 02/28/2018 GARY COON NORMAN B Ot Z01.818 ENCOUNTER FOR OTHER PREPROCEDURAL EXAMIN 02/28/2018 ALESHIA VEGA DOIC B Ot Z01.818 ENCOUNTER FOR OTHER PREPROCEDURAL EXAMIN 03/05/2018 ALESHIA VEGA DOIC B Ot A04.8 OTHER SPECIFIED BACTERIAL INTESTINAL INF 03/05/2018 ALESHIA VEGA DOIC B Ot R93.2 ABNORMAL FINDINGS ON DX IMAGING OF LIVER 03/05/2018 CAMERON JUAREZ MD Ot Z13.1 ENCOUNTER FOR SCREENING FOR DIABETES KEESHA 03/05/2018 CAMERON JUAREZ MD Ot Z13.220 ENCOUNTER FOR SCREENING FOR LIPOID DISOR 03/05/2018 CAMERON JUAREZ MD Ot Z83.3 FAMILY HISTORY OF DIABETES MELLITUS 03/05/2018 ALESHIA VEGA DOIC B Ot R10.9 UNSPECIFIED ABDOMINAL PAIN 03/05/2018 ALESHIA VEGA DOIC B Ot R11.2 NAUSEA WITH VOMITING, UNSPECIFIED 03/05/2018 ALESHIA VEGA DOIC B Ot D12.5 BENIGN NEOPLASM OF SIGMOID COLON 03/05/2018 ALESHIA VEGA DOIC B Ot F17.210 NICOTINE DEPENDENCE, CIGARETTES, UNCOMPL 03/05/2018 ALESHIA VEGA DOIC B Ot G73.3 MYASTHENIC SYNDROMES IN OTHER DISEASES C 03/05/2018 ALESHIA VEGA DOIC B Ot I10 ESSENTIAL (PRIMARY) HYPERTENSION 03/05/2018 ALESHIA VEGA DOIC B Ot J45.909 UNSPECIFIED ASTHMA, UNCOMPLICATED 03/05/2018 ALESHIA VEGA DOIC B Ot K21.9 GASTRO-ESOPHAGEAL REFLUX DISEASE WITHOUT 03/05/2018 ALESHIA VEGA DOIC B Ot K29.50 UNSPECIFIED CHRONIC GASTRITIS WITHOUT BL 03/05/2018 EZEKIELLATANYA ALESHIA COONIC B Ot K64.8 OTHER HEMORRHOIDS 03/05/2018 EZEKIELLATANYA NORMAN COON Ot 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 03/05/2018 ALESHIA VEGA DOIC B Ot Z09 ENCNTR FOR F/U EXAM AFT TRTMT FOR COND O 03/05/2018 GARY COONALESHIAIC B Ot Z79.899 OTHER [facility] (CURRENT) DRUG THERAPY 03/05/2018 EZEKIELLATANYA ALESHIA COONIC B Ot Z87.19 PERSONAL HISTORY OF OTHER DISEASES OF TH 03/07/2018 EZEKIELLATANYA ALESHIA COONIC B Ot R10.9 UNSPECIFIED ABDOMINAL PAIN 03/07/2018 NORMAN VEGA DO B Ot R11.2 NAUSEA WITH VOMITING, UNSPECIFIED 03/10/2018 ALESHIA VEGA DOIC B Ot D12.5 BENIGN NEOPLASM OF SIGMOID COLON 03/10/2018 ALESHIA VEGA DOIC B Ot F17.210 NICOTINE DEPENDENCE, CIGARETTES, UNCOMPL 03/10/2018 NORMAN VEGA DO B Ot G73.3 MYASTHENIC SYNDROMES IN OTHER DISEASES C 03/10/2018 EZEKIELLATANYA NORMAN COON B Ot I10 ESSENTIAL (PRIMARY) HYPERTENSION 03/10/2018 ALESHIA VEGA DOIC B Ot J45.909 UNSPECIFIED ASTHMA, UNCOMPLICATED 03/10/2018 NORMAN VEGA DO B Ot K21.9 GASTRO-ESOPHAGEAL REFLUX DISEASE WITHOUT 03/10/2018 ALESHIA VEGA DOIC B Ot K29.50 UNSPECIFIED CHRONIC GASTRITIS WITHOUT BL 03/10/2018 NORMAN VEGA DO B Ot K64.8 OTHER HEMORRHOIDS 03/10/2018 NORMAN VEGA DO Ot 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 03/10/2018 NORMAN VEGA DO B Ot Z09 ENCNTR FOR F/U EXAM AFT TRTMT FOR COND O 03/10/2018 NORMAN VEGA DO B Ot 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 03/10/2018 ALESHIA VEAG DOIC B Ot Z87.19 PERSONAL HISTORY OF OTHER DISEASES OF 03/14/2018 ALESHIA VEGA DOIC B Ot D12.5 BENIGN NEOPLASM OF SIGMOID COLON 03/14/2018 ALESHIA VEGA DOIC B Ot F17.210 NICOTINE DEPENDENCE, CIGARETTES, UNCOMPL 03/14/2018 NORMAN VEGA DO Ot G73.3 MYASTHENIC SYNDROMES IN OTHER DISEASES C 03/14/2018 NORMAN VEGA DO Ot I10 ESSENTIAL (PRIMARY) HYPERTENSION 03/14/2018 NORMAN VEGA DO Ot J45.909 UNSPECIFIED ASTHMA, UNCOMPLICATED 03/14/2018 NORMAN VEGA DO Ot K21.9 GASTRO-ESOPHAGEAL REFLUX DISEASE WITHOUT 03/14/2018 NORMAN VEGA DO Ot K29.50 UNSPECIFIED CHRONIC GASTRITIS WITHOUT BL 03/14/2018 NORMAN VEGA DO Ot K64.8 OTHER HEMORRHOIDS 03/14/2018 NORMAN VEGA DO Ot 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 03/14/2018 NORMAN VEGA DO, Ot Z09 ENCNTR FOR F/U EXAM AFT TRTMT FOR COND O 03/14/2018 NORMAN VEGA DO Ot 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 03/14/2018 NORMAN VEGA DO, Ot Z87.19 PERSONAL HISTORY OF OTHER DISEASES OF TH 03/24/2018 NORMAN VEGA DO Ot R10.9 UNSPECIFIED ABDOMINAL PAIN 03/24/2018 NORMAN VEGA DO Ot R11.2 NAUSEA WITH VOMITING, UNSPECIFIED 06/03/2018 ANN ANDERSEN, CAMERON Acuña Ot Z13.1 ENCOUNTER FOR SCREENING FOR DIABETES KEESHA 06/03/2018 CAMERON JUAREZ MD Ot Z13.220 ENCOUNTER FOR SCREENING FOR LIPOID DISOR 06/03/2018 ANN ANDERSEN, CAMERON Acuña Ot Z83.3 FAMILY HISTORY OF DIABETES MELLITUS Procedures Code Description Performed By Performed On [id number] EXCISION OF ESOPHAGOGASTRIC JUNCTION, EN 07/19/2017 [id number] EXCISION OF STOMACH, PYLORUS, ENDO, DIAG 07/19/2017 [id number] EXCISION OF DUODENUM, ENDO , DIAGN 07/19/2017 [...] resistant Staphylococcus aureus (MRSA) screening culture NEG NR Complete blood count (CBC) with automated white [...] 12/17/17 15:31 Blood monocytes/100 leukocytes 4 % NRG Manual blood segmented neutrophils/100 leukocytes 84 % NRG Blood band neutrophils/100 leukocytes 0 % NRG Manual blood lymphocytes/100 leukocytes 12 % NRG Manual eosinophils/100 leukocytes in nose 0 % NRG Manual blood basophils/100 leukocytes 0 % NRG Blood erythrocyte morphology finding identification NORMAL NR Comprehensive metabolic panel - 12/17/17 15:31 Serum [...] Status Pt. Type Provider Facility Loc./Unit Complaint [id number] 04/22/2018 13:59:55 04/22/2018 23:59:59 CLS Outpatient Grant Lara [id number] 04/01/2018 17:34:17 04/01/2018 23:59:59 CLS Outpatient Latoya Joseph [id number] 03/12/2018 09:44:59 03/12/2018 23:59:59 CLS Outpatient Grant Lara [id number] 03/03/2018 10:34:33 03/03/2018 23:59:59 CLS Outpatient Grant Lara [id number] 01/09/2018 11:23:23 01/09/2018 23:59:59 CLS Outpatient Salvador Solorzano [id number] 05/20/2018 20:35:35 Document Registration [id number] 05/20/2018 20:26:23 Document Registration [id number] 05/04/2018 16:48:09 Document Registration [id number] 05/04/2018 16:35:16 Document Registration [id number] 05/01/2018 15:34:35 Document Registration [id number] 03/24/2018 00:50:00 03/24/2018 23:59:59 CLS Preadmit NORMAN VEGA DO [facility] LAB H-PYLORI [id number] 03/05/2018 13:40:00 03/05/2018 23:59:59 CLS Outpatient NORAMN VEGA DO [facility] ENDO RECTAL BLEEDING/HX H PYLORI [id number] 02/28/2018 15:51:00 02/28/2018 16:04:00 DIS Outpatient ONRMAN VEGA DO [facility] PREOP COLONOSCOPY/EGD [id number] 02/13/2018 13:55:00 02/21/2018 00:01:00 DIS Outpatient NORMAN VEGA DO [facility] LAB H-PYLORI [id number] 01/21/2018 08:33:00 01/21/2018 23:59:59 CLS Outpatient ANN ANDERSEN, CAMERON Acuña [facility] LAB SCREENING,FAMILY HX [id number] 12/19/2017 20:41:00 12/19/2017 22:57:00 DIS Emergency KEITH ANDERSEN, ISAIAS Mann [facility] ER ABD PAIN [id number] 12/17/2017 15:02:00 12/17/2017 17:44:00 DIS Emergency GIORGIO ANDERSEN, WILLIAM Mejia [facility] ER CHEST PAIN;ABD PAIN; TROUBLE WALKING [id number] 12/16/2017 07:34:00 12/16/2017 12:40:00 DIS Outpatient NORMAN VEGA DO [facility] SDC GALLBLADDER DISEASE, CHRONIC GASTRIC ULCER [id number] 12/12/2017 05:29:00 12/12/2017 10:00:00 DIS Outpatient NORMAN VEGA DO [facility] PREOP GALLBLADDER DISEASE, CHRONIC GASTRIC ULCER [id number] 11/29/2017 12:00:00 11/29/2017 23:59:59 CLS Outpatient NORMAN VEGA DO [facility] CARD ABD PAIN [id number] 11/22/2017 18:51:00 11/22/2017 22:17:00 DIS Emergency TAINA SCHULER MD [facility] ER UPPER ABD PAIN [id number] 11/20/2017 08:15:00 11/20/2017 11:10:00 DIS Emergency GIORGIO ANDERSEN, WILLIAM Mejia [facility] ER RT SIDE PAIN/NAUSEA, LIGHT-HEADED [id number] 11/07/2017 10:23:00 11/07/2017 12:23:00 DIS Emergency 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 [facility] ER LOWER BACK PAIN,HURTS TO URINATE [id number] 10/22/2017 10:28:00 10/22/2017 23:59:59 CLS Outpatient NORMAN VEGA DO [facility] LAB H-PYLORI [id number] 10/18/2017 10:06:00 10/18/2017 11:26:00 DIS Emergency HUNTER COULTER APRN [facility] ER CHEST DISCOMFORT,BACKPAIN, THROAT PAIN [id number] 10/14/2017 17:13:00 10/14/2017 19:19:00 DIS Emergency NEDA LOMAX [facility] ER WEAK;ABD PAIN;N/V [id number] 09/30/2017 14:00:00 09/30/2017 23:59:59 CLS Preadmit NORMAN VEGA DO [facility] ENDO HX OF H-PYLORI [id number] 09/30/2017 08:39:00 09/30/2017 14:05:00 DIS Outpatient NORMAN VEGA DO [facility] SDC ENDO [id number] 09/26/2017 09:12:00 09/26/2017 12:30:00 DIS Emergency TAINA SCHULER MD [facility] ER RIGHT SIDE PAIN,N/ DIZZINESS [id number] 09/25/2017 05:39:00 09/25/2017 13:30:00 DIS Outpatient NORMAN VEGA DO [facility] PREOP EGD [id number] 09/13/2017 13:15:00 09/13/2017 15:31:00 DIS Emergency NEDA LOMAX [facility] ER RT FOOT PAIN [id number] 09/12/2017 13:23:00 09/12/2017 23:59:59 CLS Outpatient ETHEL ROSAS-Catrachita [facility] RAD S99.921A [id number] 07/28/2017 13:52:00 07/28/2017 16:14:00 DIS Emergency GIORGIO ANDERSEN, WILLIAM Mejia [facility] ER ULCER/ABD PAIN/ VOMITING [id number] 07/19/2017 10:16:00 07/22/2017 14:49:00 DIS Inpatient NORMAN VEGA DO [facility] 4TH PUD-POSS PERFORATION [id number] 07/16/2017 09:12:00 07/16/2017 12:08:00 DIS Emergency KELSIE CRUZ DO [facility] ER RIGHT SIDE PAIN [id number] 02/10/2018 16:19:00 Document Registration
--- NOTE | 2018-07-06 10:52 | Diagnostic Imaging Report ---
EXAMINATION: PA and lateral chest at 1056. INDICATION: Cough and congestion There is a much better inspiratory effort on this study than on the prior exam of 12/19/2017. The heart size is within normal limits. The lungs are clear. There is no evidence for failure, pneumonia or for a pleural effusion to indicate an acute abnormality. The mediastinum is not widened. The osseous structures are intact. IMPRESSION: There is no evidence for an acute cardiopulmonary abnormality. Dictated by: Dictated on workstation # [id number]
--- NOTE | 2018-07-06 11:01 | ED General ---
General Chief Complaint: Cough/Cold/Flu Symptoms Stated Complaint: COUGH/CONGESTION/BODY ACHES Nursing Triage Note: pt presents to er with complaint of cough, congestion, body aches, sore throat, nausea. Nursing Sepsis Screen: No Definite Risk Source of Information: Patient Exam Limitations: No Limitations Allergies and Home Medications Allergies Coded Allergies: ketoprofen (Verified Allergy, Unknown, RASH, 12/12/17) ketorolac (Verified Allergy, Unknown, RASH, 12/12/17) cephalexin (Verified Adverse Reaction, Mild, NAUSEA, 12/17/17) Home Medications Hydrochlorothiazide 25 Mg Tablet, 25 MG PO DAILY, (Reported) Omeprazole 20 Mg Tablet.dr, 20 MG PO BID, (Reported) Zolpidem Tartrate 10 Mg Tablet, 10 MG PO HS, (Reported) Past Qovtgiw-Ettljy-Zgcpeu Hx Patient Social History Alcohol Use: Denies Use Recreational Drug Use: No Smoking Status: Current Everyday Smoker Type Used: Cigarettes, Smokeless Tobacco Former Smoker, Quit: Mar 03, 2018 2nd Hand Smoke Exposure: Yes Recent Foreign Travel: No Contact w/Someone Who Travel: No Recent Infectious Disease Expo: No Recent Hopitalizations: No Immunizations Up To Date Tetanus Booster (TDap): Less than 5yrs PED Vaccines UTD: No Date of Influenza Vaccine: May 24, 2017 Seasonal Allergies Seasonal Allergies: No Past Medical History Surgeries: Yes (colon resection, r inguinal nerve cut?) Abdominal, Gallbladder Respiratory: Yes (asthma as kid) Asthma, Sleep Apnea Cardiac: No Hypertension Neurological: No Genitourinary: No Gastrointestinal: Yes (HIRSCHSPRUNG'S, esophagitis, H. PYLORI) Gastroesophageal Reflux, Ulcer Musculoskeletal: Yes (right foot fx) Endocrine: No HEENT: No Cancer: No Psychosocial: No Integumentary: No Blood Disorders: No Adverse Reaction/Blood Tranf: No Family Medical History No Pertinent Family Hx Physical Exam Vital Signs Vital Signs - First Documented 07/06/18 10:05 Temp 98.2 Pulse 96 Resp 20 B/P (MAP) 108/69 (82) Pulse Ox 95 O2 Delivery Room Air Capillary Refill : Less Than 3 Seconds Height, Weight, BMI Height: 6'1.00" Weight: 290lbs. 0.0oz. 131.351178we; 36.9 BMI Method:Stated Progress/Results/Core Measures Suspected Sepsis Recent Fever Within 48 Hours: No Infection Criteria Present: None New/Unexplained Altered Menta: No Sepsis Screen: No Definite Risk SIRS Temperature:98.2 Pulse: 96 Respiratory Rate: 20 Blood Pressure 108 /69 Mean: 82 Results/Orders Micro Results Microbiology 07/06/18 Influenza Types A,B Antigen (VI) - Final, Complete My Orders Orders - WILLIAM ALVARES MD Influenza A And B Antigens (07/06/18 09:48) Chest Pa/Lat (2 View) (07/06/18 10:24) Vital Signs/I&O 07/06/18 10:05 Temp 98.2 Pulse 96 Resp 20 B/P (MAP) 108/69 (82) Pulse Ox 95 O2 Delivery Room Air Capillary Refill : Less Than 3 Seconds Blood Pressure Mean: 82 Departure Impression Primary Impression: Viral upper respiratory illness Disposition: 01 HOME, SELF-CARE Condition: Stable Departure-Patient Inst. Decision time for Depature: 11:00 Referrals: MAAME COTTRELL MD (PCP/Family) Primary Care Physician Patient Instructions: Viral Upper Respiratory Infection, Adult (DC) Add. Discharge Instructions: For pain and fever you may take ibuprofen up to 600 mg every 6 hours as needed. Add Tylenol (acetaminophen) up to 1000 mg every 6 hours as needed for additional relief. Use the Tessalon Perles as prescribed for cough. Use Zofran (ondansetron) as prescribed for nausea and vomiting. Drink plenty of clear liquids. Return to care if you have worsening symptoms. All discharge instructions reviewed with patient and/or family. Voiced understanding. Scripts Benzonatate (TESSALON PERLES) 100 Mg Capsule 200 MG PO TID PRN for COUGH, #20 CAP Prov: WILLIAM ALVARES MD 07/06/18 Ondansetron (Ondansetron Odt) 4 Mg Tab.rapdis 4 MG SL Q4H PRN for NAUSEA/VOMITING, #10 TAB Prov: WILLIAM ALVARES MD 07/06/18 WILLIAM ALVARES MD Jul 06, 2018 11:01
[2018-07-06] MEDS ORDERED: BENZ100C18 PO (11:06)
[2018-07-06] MEDS ORDERED: ONDA4TAB11 SL (11:06)
[2018-07-06 11:19] VITALS: BP 108/69
== END 2018-07-06 11:19 | disposition home or self-care (01) ==
LOC: EDUNIT# 09:40 → ER 09:41
DX: J06.9 Acute upper respiratory infection, unspecified (principal); J45.909 Unspecified asthma, uncomplicated; G47.30 Sleep apnea, unspecified; I10 Essential (primary) hypertension; K21.9 Gastro-esophageal reflux disease without esophagitis; Z87.19 Personal history of other diseases of the digestive system; Z88.1 Allergy status to other antibiotic agents; Z88.8 Allergy status to other drugs, medicaments and biological substances; Z87.891 Personal history of nicotine dependence; Z98.890 Other specified postprocedural states; Z90.49 Acquired absence of other specified parts of digestive tract
CPT/HCPCS: 71046; 87804

== ENCOUNTER 2018-08-01 08:20 | Emergency (ER) | payer MEDICAID ==
[~2018-08-01] VITALS: Ht 185.4 cm; Wt 136.1 kg
[~2018-08-01 08:20] MED LIST changes: +BENZ100C18 PO; +ONDA4TAB11 SL
[2018-08-01] MEDS ORDERED: NS IV 1000 ML 1,000 ML IV SCH (08:45)
[2018-08-01] MEDS ORDERED: fentaNYL INJECTION 100 MCG/2 ML AMP IVP ONE (08:45)
[2018-08-01] MEDS ORDERED: ONDANSETRON 4 MG/2 ML (SDV) Z0FRAN IVP ONE (08:45)
[2018-08-01 08:54] LABS: BASOPHILS % (AUTO) 0 % (0-10); EOSINOPHILS # (AUTO) 0.2 10^3/uL (0.0-0.3); EOSINOPHILS % (AUTO) 2 % (0-10); HEMATOCRIT 45 % (40-54); HEMOGLOBIN 15.1 G/DL (13.3-17.7); LYMPHOCYTES # (AUTO) 1.4 X 10^3 (1.0-4.0); LYMPHOCYTES % (AUTO) 18 % (12-44); MEAN CORPUSCULAR HEMOGLOBIN 30 PG (25-34); MEAN CORPUSCULAR HGB CONC 34 G/DL (32-36); MEAN CORPUSCULAR VOLUME 89 FL (80-99); MEAN PLATELET VOLUME 10.3 FL (7.4-10.4); MONOCYTES # (AUTO) 0.9 X 10^3 (0.0-1.0); MONOCYTES % (AUTO) 12 % (0-12); NEUTROPHILS # (AUTO) 5.1 X 10^3 (1.8-7.8); NEUTROPHILS % (AUTO) 68 % (42-75); PLATELET COUNT 223 10^3/uL (130-400); RED CELL DISTRIBUTION WIDTH 12.9 % (10.0-14.5); WHITE BLOOD COUNT 7.6 10^3/uL (4.3-11.0)
[2018-08-01] MEDS ORDERED: IOHEXOL 350 MG/ML 100 ML (OMNIPAQUE 350) VIAL IV ONE (09:00)
[2018-08-01] MEDS ORDERED: NS 100 ML (IVPB) BAG IV ONE (09:00)
[2018-08-01] MEDS ORDERED: RECEIVED CONTRAST (Hold Metformin) IV SCH (09:00)
[2018-08-01 09:07] LABS: BILIRUBIN,URINE NEGATIVE (NEGATIVE); CLARITY,URINE CLEAR; COLOR,URINE YELLOW; GLUCOSE, URINE (UA) NEGATIVE (NEGATIVE); KETONES,URINE NEGATIVE (NEGATIVE); LEUKOCYTE ESTERASE ,URINE NEGATIVE (NEGATIVE); NITRITE,URINE NEGATIVE (NEGATIVE); PH,URINE 7 (5-9); PROTEIN,URINE NEGATIVE (NEGATIVE); UROBILINOGEN,URINE NORMAL (NORMAL)
--- NOTE | 2018-08-01 09:07 | ED Abdominal Pain ---
General Stated Complaint: RLQ/BACK PAIN; NAUSEA; RT LEG PAIN Source of Information: Patient, Family Exam Limitations: No Limitations History of Present Illness Date Seen by Provider: Aug 01, 2018 Time Seen by Provider: 09:04 Initial Comments This 33-year-old male presents complaining of right sided back pain right lower quadrant pain and nausea that has been present for the last 12 hours. The patient has had a history of a bleeding ulcer, resection for Hirschsprung's disease, and cholecystectomy. Patient denies fever, chills, headache or stiff neck, photophobia, chest pain, shortness of breath, palpitations, or hematuria. Allergies and Home Medications Allergies Coded Allergies: ketoprofen (Verified Allergy, Unknown, RASH, 12/12/17) ketorolac (Verified Allergy, Unknown, RASH, 12/12/17) cephalexin (Verified Adverse Reaction, Mild, NAUSEA, 12/17/17) Home Medications Benzonatate 100 Mg Capsule, 200 MG PO TID PRN for COUGH Prescribed by: WILLIAM PRATT on 07/06/18 1106 Hydrochlorothiazide 25 Mg Tablet, 25 MG PO DAILY, (Reported) Omeprazole 20 Mg Tablet.dr, 20 MG PO BID, (Reported) Ondansetron 4 Mg Tab.rapdis, 4 MG SL Q4H PRN for NAUSEA/VOMITING Prescribed by: WILLIAM PRATT on 07/06/18 1106 Zolpidem Tartrate 10 Mg Tablet, 10 MG PO HS, (Reported) Patient Home Medication List Home Medication List Reviewed: Yes Review of Systems Review of Systems Constitutional: No chills, No fever EENTM: No Blurred Vision Respiratory: Denies Cough Cardiovascular: Denies Chest Pain Gastrointestinal: Abdominal Pain; Denies Diarrhea; Nausea; Denies Rectal Bleeding Genitourinary: Denies Frequency Musculoskeletal: No back pain Skin: No rash Psychiatric/Neurological: No Symptoms Reported Endocrine: No Symptoms Reported Hematologic/Lymphatic: No Symptoms Reported Past Xsrpjag-Dillwq-Mnspkr Hx Past Med/Social Hx: Reviewed Nursing Past Med/Soc Hx Patient Social History Type Used: Cigarettes, Smokeless Tobacco Former Smoker, Quit: Mar 03, 2018 2nd Hand Smoke Exposure: Yes Recent Hopitalizations: No Immunizations Up To Date Tetanus Booster (TDap): Less than 5yrs PED Vaccines UTD: No Date of Influenza Vaccine: May 24, 2017 Seasonal Allergies Seasonal Allergies: No Past Medical History Surgeries: Yes (colon resection, r inguinal nerve cut?) Abdominal, Gallbladder Respiratory: Yes (asthma as kid) Asthma, Sleep Apnea Cardiac: Yes Hypertension Neurological: No Genitourinary: No Gastrointestinal: Yes (HIRSCHSPRUNG'S, esophagitis, H. PYLORI) Gastroesophageal Reflux, Ulcer Musculoskeletal: Yes (right foot fx) Endocrine: No HEENT: No Cancer: No Psychosocial: Yes Sleep Difficulties Integumentary: No Blood Disorders: No Adverse Reaction/Blood Tranf: No Family Medical History No Pertinent Family Hx Physical Exam Vital Signs Vital Signs - First Documented 08/01/18 08:34 Temp 96.8 Pulse 81 Resp 18 B/P (MAP) 156/84 (108) Pulse Ox 96 O2 Delivery Room Air Capillary Refill : Height/Weight/BMI Height: 6'1.00" Weight: 290lbs. 0.0oz. 131.504429aq; 36.9 BMI Method:Stated General Appearance: WD/WN, moderate distress HEENT: normal ENT inspection Neck: normal inspection Respiratory: lungs clear Cardiovascular: regular rate, rhythm Gastrointestinal: abnormal bowel sounds (hypoactive bowel sounds), tenderness ( right lower quadrant) Extremities: normal range of motion, non-tender, normal inspection Back: normal inspection, no CVA tenderness Neurologic/Psychiatric: no motor/sensory deficits, alert, normal mood/affect Skin: normal color, warm/dry Progress/Results/Core Measures Results/Orders Lab Results Laboratory Tests Test 08/01/18 08:45 08/01/18 08:55 Range/Units White Blood Count 7.6 4.3-11.0 10^3/uL Red Blood Count 4.99 4.35-5.85 10^6/uL Hemoglobin 15.1 13.3-17.7 G/DL Hematocrit 45 40-54 % Mean Corpuscular Volume 89 80-99 FL Mean Corpuscular Hemoglobin 30 25-34 PG Mean Corpuscular Hemoglobin Concent 34 32-36 G/DL Red Cell Distribution Width 12.9 10.0-14.5 % Platelet Count 223 130-400 10^3/uL Mean Platelet Volume 10.3 7.4-10.4 FL Neutrophils (%) (Auto) 68 42-75 % Lymphocytes (%) (Auto) 18 12-44 % Monocytes (%) (Auto) 12 0-12 % Eosinophils (%) (Auto) 2 0-10 % Basophils (%) (Auto) 0 0-10 % Neutrophils # (Auto) 5.1 1.8-7.8 X 10^3 Lymphocytes # (Auto) 1.4 1.0-4.0 X 10^3 Monocytes # (Auto) 0.9 0.0-1.0 X 10^3 Eosinophils # (Auto) 0.2 0.0-0.3 10^3/uL Basophils # (Auto) 0.0 0.0-0.1 10^3/uL Sodium Level 138 135-145 MMOL/L Potassium Level 3.7 3.6-5.0 MMOL/L Chloride Level 101 98-107 MMOL/L Carbon Dioxide Level 25 21-32 MMOL/L Anion Gap 12 5-14 MMOL/L Blood Urea Nitrogen 12 7-18 MG/DL Creatinine 0.75 0.60-1.30 MG/DL Estimat Glomerular Filtration Rate > 60 BUN/Creatinine Ratio 16 Glucose Level 115 H 70-105 MG/DL Calcium Level 9.7 8.5-10.1 MG/DL Corrected Calcium 9.5 8.5-10.1 MG/DL Total Bilirubin 0.3 0.1-1.0 MG/DL Aspartate Amino Transf (AST/SGOT) 24 5-34 U/L Alanine Aminotransferase (ALT/SGPT) 27 0-55 U/L Alkaline Phosphatase 76 40-136 U/L Total Protein 7.4 6.4-8.2 GM/DL Albumin 4.2 3.2-4.5 GM/DL Lipase 23 8-78 U/L Urine Color YELLOW Urine Clarity CLEAR Urine pH 7 5-9 Urine Specific [place] 1.010 L 1.016-1.022 Urine Protein NEGATIVE NEGATIVE Urine Glucose (UA) NEGATIVE NEGATIVE Urine Ketones NEGATIVE NEGATIVE Urine Nitrite NEGATIVE NEGATIVE Urine Bilirubin NEGATIVE NEGATIVE Urine Urobilinogen NORMAL NORMAL MG/DL Urine Leukocyte Esterase NEGATIVE NEGATIVE Urine RBC (Auto) NEGATIVE NEGATIVE Urine RBC NONE /HPF Urine WBC NONE /HPF Urine Squamous Epithelial Cells 2-5 /HPF Urine Crystals NONE /LPF Urine Bacteria NEGATIVE /HPF Urine Casts NONE /LPF Urine Mucus NEGATIVE /LPF Urine Culture Indicated NO My Orders Orders - AZAEL SUAREZ MD Cbc With Automated Diff (08/01/18 08:39) Comprehensive Metabolic Panel (08/01/18 08:39) Lipase (08/01/18 08:39) Ua Culture If Indicated (08/01/18 08:39) Ct Abdomen/Pelvis W (08/01/18 08:39) Ns Iv 1000 Ml (Sodium Chloride 0.9%) (08/01/18 08:45) Ondansetron Injection (Zofran Injectio (08/01/18 08:45) Fentanyl Injection (Sublimaze Injection (08/01/18 08:45) Iohexol Injection (Omnipaque 350 Mg/Ml 1 (08/01/18 09:00) Contrast Received (Contrast Received) (08/01/18 09:00) Ns (Ivpb) (Sodium Chloride 0.9% Ivpb Bag (08/01/18 09:00) Medications Given in ED Current Medications Medications Dose Ordered Sig/Jose G Route Start Time Stop Time Status Last Admin Dose Admin Fentanyl Citrate 50 mcg ONCE ONCE IVP 08/01/18 08:45 08/01/18 08:46 DC 08/01/18 08:57 50 MCG Iohexol 100 ml ONCE ONCE IV 08/01/18 09:00 08/01/18 09:01 DC 08/01/18 09:09 100 ML Ondansetron HCl 4 mg ONCE ONCE IVP 08/01/18 08:45 08/01/18 08:46 DC 08/01/18 08:57 4 MG Sodium Chloride 100 ml ONCE ONCE IV 08/01/18 09:00 08/01/18 09:01 DC 08/01/18 09:09 80 ML Vital Signs/I&O 08/01/18 08:34 Temp 96.8 Pulse 81 Resp 18 B/P (MAP) 156/84 (108) Pulse Ox 96 O2 Delivery Room Air Progress Progress Note : Time: 10:39 Progress Note The patient was treated with normal saline, fentanyl IV, and Zofran IV. Patient's laboratory evaluation as well as CT of the chest and abdomen failed to demonstrate evidence of acute pathology. I discussed the findings with the patient and family. We settled on a course of conservative treatment with clear liquids, Zofran, and Vicodin. Patient will return this weekend if his symptoms do not improve. I asked that he follow -up with his primary care physician on Saturday for further evaluation. Departure Impression Primary Impression: LOWER ABDOMINAL PAIN, UNSPECIFIED Disposition: HOME, SELF-CARE Condition: Improved Departure-Patient Inst. Decision time for Depature: 10:44 Referrals: MAAME COTTRELL MD (PCP) Primary Care Physician Patient Instructions: Acute Abdomen (Belly Pain) Add. Discharge Instructions: Follow-up with your doctor on Saturday. Vicodin for pain. Zofran for nausea. Clear liquids for the next 24 hours. Return if any problems or questions. AZAEL SUAREZ MD Aug 01, 2018 09:07
[2018-08-01 09:16] LABS: ALANINE AMINOTRANSFERASE 27 U/L (0-55); ALBUMIN 4.2 GM/DL (3.2-4.5); ALKALINE PHOSPHATASE 76 U/L (40-136); BILIRUBIN,TOTAL 0.3 MG/DL (0.1-1.0); BUN/CREATININE RATIO 16; CALCIUM 9.7 MG/DL (8.5-10.1); CARBON DIOXIDE 25 MMOL/L (21-32); CHLORIDE 101 MMOL/L (98-107); CREATININE SERUM 0.75 MG/DL (0.60-1.30); GFR ESTIMATED > 60; GLUCOSE 115 MG/DL (70-105); LIPASE 23 U/L (8-78); POTASSIUM 3.7 MMOL/L (3.6-5.0); SODIUM 138 MMOL/L (135-145); TOTAL PROTEIN 7.4 GM/DL (6.4-8.2)
[2018-08-01 09:22] LABS: BACTERIA,URINE NEGATIVE /HPF
--- NOTE | 2018-08-01 09:40 | Diagnostic Imaging Report ---
PROCEDURE: CT abdomen and pelvis with contrast. TECHNIQUE: Multiple contiguous axial images were obtained through the abdomen and pelvis after administration of intravenous contrast. INDICATION: Abdominal pain. Patient has had prior colon resection and cholecystectomy. CORRELATION is made with prior CT from 11/20/2017. FINDINGS: The lung bases are clear. No discrete liver mass is identified. The gallbladder is surgically absent. No biliary ductal dilatation is seen. The pancreas and spleen are unremarkable. No adrenal mass is detected. Kidneys are unremarkable. No definite calculi or hydronephrosis is identified. The aorta is non-aneurysmal. The small and large bowel loops are normal caliber. No obstruction is identified. There is no ascites. Moderate stool in the rectum and sigmoid colon is similar to prior examination from October 2017. There appears to be suture material at the rectosigmoid junction. No central retroperitoneal or mesenteric lymphadenopathy is identified. There is a small fat-containing umbilical hernia. No definite iliac or inguinal lymphadenopathy is detected. The partially filled urinary bladder does show generalized wall thickening however this could be secondary to incomplete distention. The bony structures are nonacute. IMPRESSION: Stable CT of the abdomen and pelvis when compared with prior CT from 11/20/2017. Moderate stool in the rectum and sigmoid is again noted. No acute feature is detected. Dictated by: Dictated on workstation # [id number]
[2018-08-01 10:50] VITALS: BP 119/71
--- OUTSIDE RECORDS SUMMARY | 2018-08-01 12:28 | XMS REPORT ---
Author Author Grant Lara [facility] Address [address] [place], [place] [id number] Care Team Providers Care Train System Operator Name Role Phone Grant Lara PCP Grant Lara PreferredProvider Allergies and Adverse Reactions Name Reaction Notes Keflex Plan of Treatment Not available. Medications Active Name Start Date Estimated Completion Date SIG Comments omeprazole 20 mg oral capsule,delayed release(DR/EC) take 1 capsule (20 mg) by oral route once daily before a meal trazodone 50 mg oral tablet take 1 tablet (50 mg) by oral route once daily at bedtime hydrochlorothiazide 25 mg oral tablet 05/26/2018 05/21/2019 take 1 tablet ( 25 mg) by oral route once daily for 90 days Levaquin 500 mg oral tablet 07/07/2018 07/14/2018 take 1 tablet (500 mg) by oral route once daily for 7 days Name Start Date Expiration Date SIG [...] HC BMI BSA BMI Percentile O2 Sat(%) 07/07/2018 8:48:00 AM 136 mmHg 80 mmHg 84 bpm 20 rpm 98.6 F 315.25 lbs 73 in 41.5918 kg/m 2.7139 m 97 % 04/22/2018 1:18:00 PM 134 mmHg 88 mmHg 85 bpm 18 rpm 98.1 F 311.375 lbs 73 in 41.08 kg/m2 2.70 m2 95 % 04/01/2018 8:54:00 AM 136 mmHg [...] Given Vis Pub CVX Influenza 04/01/2018 ID Communication Intelligence Velia or [place] BCQ Flulaval quadrivalent [id number] Intramuscular Left Arm [...] (obstructive sleep apnea) Apr 22 2018 1:21PM Bronchitis Jul 07 2018 8:51AM Payers Insurance Name Company Name Plan Name Plan Number Policy Number Policy Group Number Start Date [facility] - Community Plan of [facility] Comm [id number] N/A [facility] [address] [facility] Allies [id number] N/A History of Encounters Visit Date Visit Type Provider 07/07/2018 Office visit Grant Lara MD 04/22/2018 Office visit Grant Lara MD 04/01/2018 Office visit Latoya Joseph KOSHER SEALER 03/12/2018 Office visit Grant Lara MD 03/03/2018 Office visit Grant Lara MD 12/05/2017 [facility] Salvador Solorzano MD
--- OUTSIDE RECORDS SUMMARY | 2018-08-01 12:28 | XMS REPORT ---
Author Author Grant Lara [facility] Address [address] [place], [place] [id number] Care Team Providers Care Marine Engine Machinist Name Role Phone Grant Lara PCP Grant [...] oral route once daily for 90 days Medrol (Orlin) 4 mg oral tablets,dose pack 07/23/2018 08/04/2018 take as directed for 6 days Name Start Date Expiration Date SIG [...] route every 12 hours for 7 days Levaquin 500 mg oral tablet 07/07/2018 07/14/2018 take 1 tablet (500 mg) by oral route once daily for 7 days Discontinued Name Start Date Discontinued Date SIG Comments Ambien 10 mg oral tablet 03/03/2018 04/21/2018 take 1 tablet (10 mg) by oral route once daily at bedtime for 30 days Problem List Not available. Vital Signs Date Time BP-Sys(mm[Hg] BP-Ermelinda(mm[Hg]) HR(bpm) RR(rpm) Temp WT HT HC BMI BSA BMI Percentile O2 Sat(%) 07/23/2018 10:27:00 AM 142 mmHg 82 mmHg 76 bpm 16 rpm 98.6 F 316 lbs 73 in 41.6907 kg/m 2.7171 m 97 % 07/07/2018 8:48:00 AM 136 mmHg 80 mmHg 84 bpm 20 rpm 98.6 F 315.25 lbs 73 in 41.59 kg/m2 2.71 m2 97 % 04/22/2018 1:18:00 PM 134 mmHg [...] JNT OF LWR EXTRE W/O DYE Returned 07/07/2018 12:00 AM Decadron 8mg Injection Reviewed 07/07/2018 12:00 AM Depo-Medrol 80mg Injection Reviewed Results Summary Not available. History Of Immunizations Name Date Admin Mfg Name Mfg Code Trade Name Lot# Route Inj Vis Given Vis Pub CVX Influenza 04/01/2018 ID Biomedical Velia or [place] BCQ Flulaval quadrivalent [id number] Intramuscular Left Arm [...] 2018 1:21PM Bronchitis Jul 07 2018 8:51AM Shoulder pain, left Jul 23 2018 10:34AM Payers Insurance Name Company Name Plan Name Plan Number Policy Number Policy Group Number Start Date [facility] - [facility] - Community Plan of [facility] Comm [id number] N/A [facility] [address] [facility] Allies [id number] N/A History of Encounters Visit Date Visit Type Provider 07/23/2018 Office visit Grant Lara MD 07/07/2018 Office visit Grant Lara MD 04/22/2018 Office visit Grant Lara MD 04/01/2018 Office visit Latoya Joseph APRN 03/12/2018 Office visit Grant Lara MD 03/03/2018 Office visit Grant Lara MD 12/05/2017 [facility] Salvador Solorzano MD
--- OUTSIDE RECORDS SUMMARY | 2018-08-01 12:28 | XMS REPORT ---
Author Author Grant Lara [facility] Address [address] [place], [place] [id number] Care Team Providers Care Unified Communications Engineer Name Role Phone Grant Lara PCP [...] Given Vis Pub CVX Influenza 04/01/2018 ID Austral 3D Velia or [place] BCQ Flulaval quadrivalent [id number] Intramuscular Left Arm [...] Policy Group Number Start Date [facility] - [facility] - Community Plan of [facility] Comm [id number] N/A [facility] [address] [facility] Allies [id number] N/A History of Encounters Visit Date Visit Type Provider 07/07/2018 Office visit Grant Lara MD 04/22/2018 Office visit Grant Lara MD 04/01/2018 Office visit Latoya Joseph COPY CAMERA OPERATOR 03/12/2018 Office visit Grant Lara MD 03/03/2018 Office visit Grant Lara MD 12/05/2017 [facility] Salvador Solorzano MD
--- OUTSIDE RECORDS SUMMARY | 2018-08-01 12:30 | XMS REPORT | Continuity of Care Document ---
Author Author [facility] Organization [facility] Address Unknown Phone Unavailable Allergies Active Description Code Type Severity Reaction Onset Reported/Identified Relationship to Patient Clinical Status Yes KEFLEX [id number] BRANDNAME N/A RASH Yes KETOPROFEN [id number] DRUG N/A LETHARGY; RASH; RASH Yes No Known Drug Allergies [id number] Drug Allergy Unknown N/A 09/30/2017 Yes cephalexin [id number] Drug Allergy Unknown NAUSEA 12/12/2017 Yes ketoprofen [id number] Drug Allergy Unknown RASH 12/12/2017 Yes ketorolac [id number] Drug Allergy Unknown RASH 12/12/2017 Yes cephalexin [id number] Drug Allergy Mild NAUSEA 12/17/2017 Medications There is no data. Problems Date Dx Coded Attending Type Code Diagnosis Diagnosed By 07/16/2017 KELSIE CRZU DO Ot K21.9 GASTRO-ESOPHAGEAL REFLUX DISEASE WITHOUT [...] UNSPECIFIED CHRONIC GASTRITIS WITHOUT BL 07/22/2017 GARY COON, NORMAN B Ot K59.09 OTHER CONSTIPATION 07/28/2017 [...] UNSPECIFIED GASTRIC ULCER WIT 09/13/2017 ALISON, ETHEL FINANCIAL REPORTING MANAGER-C Ot S99.911A UNSPECIFIED INJURY OF RIGHT ANKLE, INITI 09/13/2017 LARERY, ETHEL FINANCIAL REPORTING MANAGER-C Ot S99.921A UNSPECIFIED INJURY OF RIGHT FOOT, INITIA 09/13/2017 LARERY, ETHEL FINANCIAL REPORTING MANAGER-C Ot S99.911A UNSPECIFIED INJURY OF RIGHT ANKLE, INITI 09/13/2017 LARERY, ETHEL FINANCIAL REPORTING MANAGER-C Ot S99.921A UNSPECIFIED INJURY OF RIGHT FOOT, INITIA 09/13/2017 NEDA LOMAX Ot K21.9 GASTRO-ESOPHAGEAL REFLUX DISEASE WITHOUT 09/13/2017 LEROY LOMAXEN L Ot K59.09 OTHER CONSTIPATION 09/13/2017 DALI JACINTANEDA Domenico Ot M79.671 PAIN IN RIGHT FOOT 09/13/2017 DALI WORKMAN NEDA L Ot S92.251A DISP FX OF NAVICULAR OF RIGHT FOOT, INIT 09/13/2017 DALI JACINTA NEDA L Ot X50.1XXA OVEREXERTION FROM PROLONGED STATIC OR AW 09/13/2017 DALI WORKMAN NEDA L Ot Z77.22 CNTCT W AND EXPSR TO ENVIRON TOBACCO SMO 09/13/2017 DALI JACINTA NEDA L Ot Z87.19 PERSONAL HISTORY OF OTHER DISEASES OF TH 09/16/2017 DALI WORKMAN NEDA L Ot K21.9 GASTRO-ESOPHAGEAL REFLUX DISEASE WITHOUT 09/16/2017 DALI WORKMAN NEDA L Ot K59.09 OTHER CONSTIPATION 09/16/2017 DALI JACINTA NEDA L Ot M79.671 PAIN IN RIGHT FOOT 09/16/2017 DALI WORKMAN NEDA L Ot S92.251A DISP FX OF NAVICULAR OF RIGHT FOOT, INIT 09/16/2017 DALI WORKMAN NEDA L Ot X50.1XXA OVEREXERTION FROM PROLONGED STATIC OR AW 09/16/2017 DALI WORKMAN NEDA L Ot Z77.22 CNTCT [...] Ot R10.11 RIGHT UPPER QUADRANT PAIN 09/30/2017 TANIA SCHULER MD Ot Z86.19 PERSONAL HISTORY OF OTHER INFECTIOUS AND 09/30/2017 TAINA SCHULER MD Ot Z87.19 PERSONAL HISTORY OF OTHER DISEASES OF TH 09/30/2017 TAINA SCHULER MD Ot Z90.49 ACQUIRED ABSENCE OF OTHER SPECIFIED PART 09/30/2017 DELMAN DO, NORMAN B Ot F17.210 NICOTINE DEPENDENCE, CIGARETTES, UNCOMPL 09/30/2017 DELMAN DO NORMAN B Ot K20.9 ESOPHAGITIS, UNSPECIFIED 09/30/2017 DELMAN DO, NORMAN B Ot K25.9 GASTRIC ULCER, UNSP ACUTE OR CHRONIC, 09/30/2017 DELMAN DO NORMAN B Ot K26.9 DUODENAL ULCER, UNSP ACUTE [...] Ot F17.210 NICOTINE DEPENDENCE, CIGARETTES, UNCOMPL 10/02/2017 ALESHIA VEGA DOIC B Ot K20.9 ESOPHAGITIS, UNSPECIFIED 10/02/2017 NORMAN VEGA DO Ot K25.9 GASTRIC ULCER, UNSP ACUTE OR CHRONIC, 10/02/2017 NORMAN VEGA DO Ot K26.9 DUODENAL ULCER, UNSP ACUTE OR CHRONIC 10/02/2017 NORMAN VEGA DO B Ot K29.70 GASTRITIS, UNSPECIFIED, WITHOUT BLEEDING 10/02/2017 NORMAN VEGA DO B Ot K92.0 HEMATEMESIS 10/14/2017 ETHEL ROSAS FINANCIAL REPORTING MANAGER-C Ot S99.911A UNSPECIFIED INJURY OF RIGHT ANKLE, INITI 10/14/2017 ETHEL ROSAS FINANCIAL REPORTING MANAGER-C Ot S99.921A UNSPECIFIED INJURY OF RIGHT FOOT, [...] ACQUIRED ABSENCE OF OTHER SPECIFIED PART 10/23/2017 NORMAN VEGA DO B Ot A04.8 OTHER SPECIFIED BACTERIAL INTESTINAL [...] J45.909 UNSPECIFIED ASTHMA, UNCOMPLICATED 11/07/2017 HUNTER COULTER EXECUTIVE ASSISTANT TO GENERAL COUNSEL Ot K21.9 GASTRO-ESOPHAGEAL REFLUX DISEASE WITHOUT 11/07/2017 HUNTER COULTER EXECUTIVE ASSISTANT TO GENERAL COUNSEL Ot M54.5 LOW BACK PAIN 11/07/2017 HUNTER COULTER APRN Ot Z77.22 CNTCT W AND EXPSR TO ENVIRON TOBACCO SMO 11/07/2017 HUNTER COULTER EXECUTIVE ASSISTANT TO GENERAL COUNSEL Ot Z79.52 [facility] (CURRENT) USE OF SYSTEMIC STER 11/07/2017 HUNTER COULTER EXECUTIVE ASSISTANT TO GENERAL COUNSEL Ot Z87.19 PERSONAL HISTORY OF OTHER DISEASES [...] SMO 11/11/2017 HUNTER COULTER APRN Ot Z79.52 [facility] (CURRENT) USE OF SYSTEMIC STER 11/11/2017 HUNTER COULTER EXECUTIVE ASSISTANT TO GENERAL COUNSEL Ot Z87.19 PERSONAL HISTORY OF OTHER DISEASES OF TH 11/11/2017 HUNTER COULTER EXECUTIVE ASSISTANT TO GENERAL COUNSEL Ot Z90.49 ACQUIRED ABSENCE OF OTHER SPECIFIED [...] SMO 11/20/2017 WILLIAM ALVARES MD Ot 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 11/20/2017 WILLIAM [...] SMO 11/22/2017 WILLIAM ALVARES MD Ot 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 11/22/2017 WILLIAM [...] SMO 11/22/2017 TAINA SCHULER MD Ot Z79.52 [facility] (CURRENT) USE OF SYSTEMIC STER 11/22/2017 TAINA [...] SMO 11/25/2017 TAINA SCHULER MD Ot 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 11/25/2017 TAINA [...] R10.10 UPPER ABDOMINAL PAIN, UNSPECIFIED 12/17/2017 WILLIAM ALAVRES MD, Ot Z77.22 CNTCT W AND EXPSR TO ENVIRON TOBACCO SMO 12/17/2017 WILLIAM ALVARES MD, Ot Z87.2 PERSONAL HISTORY OF DISEASES OF THE SKIN 12/17/2017 WILLIAM ALVARES MD Ot Z90.49 ACQUIRED ABSENCE OF OTHER SPECIFIED PART 12/18/2017 ALESHIA VEGA DOIC Santosh Ot F17.210 NICOTINE DEPENDENCE, CIGARETTES, UNCOMPL 12/18/2017 [...] B Ot K29.80 DUODENITIS WITHOUT BLEEDING 12/18/2017 NORMAN VEGA DO B Ot K81.1 CHRONIC CHOLECYSTITIS 12/18/2017 NORMAN VEGA DO Ot K82.8 OTHER SPECIFIED [...] HISTORY OF DISEASES OF THE SKIN 12/18/2017 SONIA ALVARES MDUA T Ot Z90.49 ACQUIRED ABSENCE OF OTHER [...] UNSPECIFIED ASTHMA, UNCOMPLICATED 12/23/2017 ISAIAS PARKER MD J Ot J98.11 ATELECTASIS 12/23/2017 ISAIAS PARKER MD J Ot K21.9 GASTRO-ESOPHAGEAL REFLUX DISEASE WITHOUT 12/23/2017 [...] DISEASE WITH ES 01/15/2018 NORMAN VEGA DO Ot K25.7 CHRONIC GASTRIC ULCER WITHOUT HEMORRHAGE 01/15/2018 NORMAN VEGA DO Ot K26.9 DUODENAL ULCER, UNSP ACUTE OR CHRONIC 01/15/2018 NORMAN VEGA DO Ot K29.50 UNSPECIFIED CHRONIC GASTRITIS WITHOUT BL 01/15/2018 DELMAN DO, NORMAN B Ot K29.80 DUODENITIS WITHOUT BLEEDING 01/15/2018 EZEKIELMAN DO, NORMAN B Ot K81.1 CHRONIC CHOLECYSTITIS 01/15/2018 EZEKIELMAN DO, NORMAN B Ot K82.8 OTHER SPECIFIED DISEASES OF GALLBLADDER 01/15/2018 EZEKIELMAN DO, NORMAN B Ot 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 01/15/2018 EZEKIELMAN DO, NORMAN B Ot Z11.2 ENCOUNTER FOR SCREENING FOR OTHER BACTER 01/21/2018 GARY DO, NORMAN B Ot A04.8 OTHER SPECIFIED BACTERIAL INTESTINAL INF 01/21/2018 EZEKIELMAN DO, NORMAN B Ot R93.2 ABNORMAL FINDINGS ON DX IMAGING OF LIVER 02/10/2018 ANN ANDERSEN, CAMERON Acuña Ot Z13.1 ENCOUNTER [...] HYPERTENSION 02/17/2018 Ot R06.83 SNORING 02/21/2018 GARY DO, NORMAN B Ot R10.9 UNSPECIFIED ABDOMINAL PAIN 02/21/2018 EZEKIELMAN DO, NORMAN B Ot R11.2 NAUSEA WITH VOMITING, UNSPECIFIED 02/26/2018 EZEKIELMAN DO, NORMAN B Ot A04.8 OTHER SPECIFIED BACTERIAL INTESTINAL INF 02/26/2018 GARY DO, NORMAN B Ot R93.2 ABNORMAL [...] B Ot J45.909 UNSPECIFIED ASTHMA, UNCOMPLICATED 03/05/2018 GARY COON NORMAN B Ot K21.9 GASTRO-ESOPHAGEAL REFLUX DISEASE WITHOUT 03/05/2018 ALESHIA VEGA DOIC B Ot K29.50 UNSPECIFIED CHRONIC GASTRITIS WITHOUT BL 03/05/2018 EZEKIELLATANYA NORMAN COON B Ot K64.8 OTHER HEMORRHOIDS 03/05/2018 EZEKIELLATANYA NORMAN COON Ot 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 03/05/2018 ALESHIA VEGA DOIC B Ot Z09 ENCNTR FOR F/U EXAM AFT TRTMT FOR COND O 03/05/2018 GARY COONALESHIAIC B Ot Z79.899 OTHER [facility] (CURRENT) DRUG THERAPY 03/05/2018 NORMAN VEGA DO B Ot Z87.19 PERSONAL HISTORY OF OTHER DISEASES OF TH 03/07/2018 EZEKIELLATANYA ALESHIA COONIC B Ot R10.9 UNSPECIFIED ABDOMINAL PAIN 03/07/2018 NORMAN VEGA DO B Ot R11.2 NAUSEA WITH VOMITING, UNSPECIFIED 03/10/2018 ALESHIA VEGA DOIC B Ot D12.5 BENIGN NEOPLASM OF SIGMOID COLON 03/10/2018 ALESHIA VEGA DOIC B Ot F17.210 NICOTINE DEPENDENCE, CIGARETTES, UNCOMPL 03/10/2018 NORMAN VEGA DO Ot G73.3 MYASTHENIC SYNDROMES IN OTHER DISEASES C 03/10/2018 EZEKIELLATANYA NORMAN COON B Ot I10 ESSENTIAL (PRIMARY) HYPERTENSION 03/10/2018 NORMAN VEGA DO B Ot J45.909 UNSPECIFIED ASTHMA, UNCOMPLICATED 03/10/2018 NORMAN VEGA DO Ot K21.9 GASTRO-ESOPHAGEAL REFLUX DISEASE WITHOUT 03/10/2018 EZEKIELLATANYA ALESHIA COONIC B Ot K29.50 UNSPECIFIED CHRONIC GASTRITIS WITHOUT BL 03/10/2018 NORMAN VEGA DO Ot K64.8 OTHER HEMORRHOIDS 03/10/2018 NORMAN VEGA DO Ot 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 03/10/2018 NORMAN VEGA DO B Ot Z09 ENCNTR FOR F/U EXAM AFT TRTMT FOR COND O 03/10/2018 NORMAN VEGA DO B Ot Z79.899 OTHER 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) DRUG THERAPY 03/10/2018 ALESHIA VEGA DOIC B Ot Z87.19 PERSONAL HISTORY OF OTHER DISEASES OF 03/14/2018 ALESHIA VEGA DOIC B Ot D12.5 BENIGN NEOPLASM OF SIGMOID COLON 03/14/2018 ALESHIA VEGA DOIC B Ot F17.210 NICOTINE DEPENDENCE, CIGARETTES, UNCOMPL 03/14/2018 EZEKIELLATANYA NORMAN COON Ot G73.3 MYASTHENIC SYNDROMES IN OTHER DISEASES C 03/14/2018 NORMAN VEGA DO Ot I10 ESSENTIAL (PRIMARY) HYPERTENSION 03/14/2018 EZEKIELLATANYA NORMAN COON Ot J45.909 UNSPECIFIED ASTHMA, UNCOMPLICATED 03/14/2018 EZEKIELLATANYA NORMAN COON Ot K21.9 GASTRO-ESOPHAGEAL REFLUX DISEASE WITHOUT 03/14/2018 NORMAN VEGA DO Ot K29.50 UNSPECIFIED CHRONIC GASTRITIS WITHOUT BL 03/14/2018 EZEKIELLATANYA NORMAN COON Ot K64.8 OTHER HEMORRHOIDS 03/14/2018 EZEKIELLATANYA NORMAN COON Ot 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 03/14/2018 NORMAN VEGA DO, Ot Z09 ENCNTR FOR F/U EXAM AFT TRTMT FOR COND O 03/14/2018 EZEKIELLATANYA NORMAN COON Ot Z79.899 OTHER 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) DRUG THERAPY 03/14/2018 NORMAN VEGA DO Ot Z87.19 PERSONAL HISTORY OF OTHER DISEASES OF TH 03/24/2018 EZEKIELLATANYA NORMAN COON Ot R10.9 UNSPECIFIED ABDOMINAL PAIN 03/24/2018 NORMAN VEGA DO Ot R11.2 NAUSEA WITH VOMITING, UNSPECIFIED 06/03/2018 ANN ANDERSEN, CAMERON Acuña Ot Z13.1 ENCOUNTER FOR SCREENING FOR DIABETES KEESHA 06/03/2018 ANN ANDERSEN, CAMERON Acuña Ot Z13.220 ENCOUNTER FOR SCREENING FOR LIPOID DISOR 06/03/2018 ANN ANDERSEN, CAMERON Acuña Ot Z83.3 FAMILY HISTORY OF DIABETES MELLITUS 07/06/2018 GIORGIO ANDERSEN, WILLIAM Mejia Ot G47.30 SLEEP APNEA, UNSPECIFIED 07/06/2018 GIORGIO ANDERSEN, WILLIAM Mejia Ot I10 ESSENTIAL (PRIMARY) HYPERTENSION 07/06/2018 GIORGIO ANDERSEN, WILLIAM Mejia Ot J06.9 ACUTE UPPER RESPIRATORY INFECTION, UNSPE 07/06/2018 GIORGIO ANDERSEN, WILLIAM Mejia Ot J45.909 UNSPECIFIED ASTHMA, UNCOMPLICATED 07/06/2018 GIORGIO ANDERSEN, WILLIAM Mejia Ot K21.9 GASTRO-ESOPHAGEAL REFLUX DISEASE WITHOUT 07/06/2018 WILLIAM ALVARES MD Ot R05 COUGH 07/06/2018 WILLIAM ALVARES MD Ot Z87.19 PERSONAL HISTORY OF OTHER DISEASES OF TH 07/06/2018 WILLIAM ALVARES MD Ot Z87.891 PERSONAL HISTORY OF NICOTINE DEPENDENCE 07/06/2018 WILLIAM ALVARES MD Ot Z88.1 ALLERGY STATUS TO OTHER ANTIBIOTIC AGENT 07/06/2018 WILLIAM ALVARES MD Ot Z88.8 ALLERGY STATUS TO OTH DRUG/MEDS/BIOL SUB 07/06/2018 WILLIAM ALVARES MD Ot Z90.49 ACQUIRED ABSENCE OF OTHER SPECIFIED PART 07/06/2018 WILLIAM ALVARES MD Ot Z98.890 OTHER SPECIFIED POSTPROCEDURAL STATES 07/08/2018 WILLIAM ALVARES MD Ot G47.30 SLEEP APNEA, UNSPECIFIED 07/08/2018 WILLIAM ALVARES MD Ot I10 ESSENTIAL (PRIMARY) HYPERTENSION 07/08/2018 WILLIAM ALVARES MD Ot J06.9 ACUTE UPPER RESPIRATORY INFECTION, UNSPE 07/08/2018 WILLIAM ALVARES MD Ot J45.909 UNSPECIFIED ASTHMA, UNCOMPLICATED 07/08/2018 WILLIAM ALVARES MD Ot K21.9 GASTRO-ESOPHAGEAL REFLUX DISEASE WITHOUT 07/08/2018 WILLIAM ALVARES MD Ot R05 COUGH 07/08/2018 WILLIAM ALVARES MD Ot Z87.19 PERSONAL HISTORY OF OTHER DISEASES OF 07/08/2018 WILLIAM ALVARES MD Ot Z87.891 PERSONAL HISTORY OF NICOTINE DEPENDENCE 07/08/2018 WILLIAM ALVARES MD Ot Z88.1 ALLERGY STATUS TO OTHER ANTIBIOTIC AGENT 07/08/2018 WILLIAM ALVARES MD Ot Z88.8 ALLERGY STATUS TO OTH DRUG/MEDS/BIOL SUB 07/08/2018 WILLIAM ALVARES MD Ot Z90.49 ACQUIRED ABSENCE OF OTHER SPECIFIED PART 07/08/2018 WILLIAM ALVARES MD Ot Z98.890 OTHER SPECIFIED POSTPROCEDURAL STATES Procedures Code Description Performed By Performed On [id number] EXCISION OF ESOPHAGOGASTRIC JUNCTION, EN 07/19/2017 [id number] EXCISION OF STOMACH, PYLORUS, ENDO, DIAG 07/19/2017 [id number] EXCISION OF DUODENUM, ENDO , DIAGN 07/19/2017 [...] NRG Blood erythrocyte morphology finding identification [facility] Comprehensive metabolic panel - 12/17/17 [...] 5.6 MEAN BLOOD GLUCOSE 114 % <=126 Influenza virus A and B antigen detection - 07/06/18 10:08 FLU RESULT NEGATIVE FOR INFLUENZA A AND B ANTIGENS BY IA NRG Encounters ACCT No. Visit Date/Time Discharge Status Pt. Type Provider Facility Loc./Unit Complaint [id number] 07/23/2018 11:07:37 07/23/2018 23:59:59 [facility] Outpatient Grant Lara [id number] 07/07/2018 09:42:36 07/07/2018 23:59:59 [facility] Outpatient Grant Lara [id number] 04/22/2018 13:59:55 04/22/2018 23:59:59 [facility] Outpatient Grant Lara [id number] 04/01/2018 17:34:17 04/01/2018 23:59:59 [facility] Outpatient Latoya Joseph [id number] 03/12/2018 09:44:59 03/12/2018 23:59:59 [facility] Outpatient Grant Lara [id number] 03/03/2018 10:34:33 03/03/2018 23:59:59 [facility] Outpatient Grant Lara [id number] 01/09/2018 11:23:23 01/09/2018 23:59:59 [facility] Outpatient Salvador Solorzano [id number] 05/20/2018 20:35:35 Document Registration [id number] 05/20/2018 20:26:23 Document Registration [id number] 05/04/2018 16:48:09 Document Registration [id number] 05/04/2018 16:35:16 Document Registration [id number] 05/01/2018 15:34:35 Document Registration [id number] 08/01/2018 08:24:00 08/01/2018 10:50:00 DIS Emergency ERICK ANDERSEN, AZAEL Baires [facility] ER RLQ/BACK PAIN; NAUSEA; RT LEG PAIN [id number] 07/06/2018 09:41:00 07/06/2018 11:19:00 DIS Emergency GIORGIO ANDERSEN, WILLIAM Mejia [facility] ER COUGH/CONGESTION/BODY ACHES [id number] 03/24/2018 00:50:00 03/24/2018 23:59:59 CLS Preadmit NORMAN VEGA DO [facility] LAB H-PYLORI [id number] 03/05/2018 13:40:00 03/05/2018 23:59:59 CLS Outpatient NORMAN VEGA DO [facility] ENDO RECTAL BLEEDING/HX H PYLORI [id number] 02/28/2018 15:51:00 02/28/2018 16:04:00 DIS Outpatient NORMAN VEGA DO [facility] PREOP COLONOSCOPY/EGD [id number] 02/13/2018 13:55:00 02/21/2018 00:01:00 DIS Outpatient NORMAN VEGA DO [facility] LAB H-PYLORI [id number] 01/21/2018 08:33:00 01/21/2018 23:59:59 CLS Outpatient CAMERON JUAREZ MD [facility] LAB SCREENING,FAMILY HX [id number] 12/19/2017 20:41:00 12/19/2017 22:57:00 DIS Emergency KEITH ANDERSEN, ISAIAS Mann [facility] ER ABD PAIN [id number] 12/17/2017 15:02:00 12/17/2017 17:44:00 DIS Emergency GIORGIO ANDERSEN, WILLIAM Mejia [facility] ER CHEST PAIN;ABD PAIN; TROUBLE WALKING [id number] 12/16/2017 07:34:00 12/16/2017 12:40:00 DIS Outpatient NORMAN VEGA DO [facility] SDC GALLBLADDER DISEASE, CHRONIC GASTRIC ULCER [id number] 12/12/2017 05:29:00 12/12/2017 10:00:00 DIS Outpatient NORMAN VEGA DO [facility] PREOP GALLBLADDER DISEASE, CHRONIC GASTRIC ULCER [id number] 11/29/2017 12:00:00 11/29/2017 23:59:59 CLS Outpatient NORMAN VEGA DO [facility] CARD ABD PAIN [id number] 11/22/2017 18:51:00 11/22/2017 22:17:00 DIS Emergency HARINI ANDERSEN, TAINA Romano [facility] ER UPPER ABD PAIN [id number] 11/20/2017 08:15:00 11/20/2017 11:10:00 DIS Emergency GIORGIO ANDERSEN, WILLIAM Mejia [facility] ER RT SIDE PAIN/NAUSEA, LIGHT-HEADED [id number] 11/07/2017 10:23:00 11/07/2017 12:23:00 DIS Emergency HUNTER COULTER APRN [facility] ER LOWER BACK PAIN,HURTS TO URINATE [id number] 10/22/2017 10:28:00 10/22/2017 23:59:59 CLS Outpatient NORMAN VEGA DO [facility] LAB H-PYLORI [id number] 10/18/2017 10:06:00 10/18/2017 11:26:00 DIS Emergency HUNTER COULTER APRN [facility] ER CHEST DISCOMFORT,BACKPAIN, THROAT PAIN [id number] 10/14/2017 17:13:00 10/14/2017 19:19:00 DIS Emergency NEDA LOMAX [facility] ER WEAK;ABD PAIN;N/V [id number] 09/30/2017 14:00:00 09/30/2017 23:59:59 CLS Preadmit NORMAN VEGA DO [facility] ENDO HX OF H-PYLORI [id number] 09/30/2017 08:39:00 09/30/2017 14:05:00 DIS Outpatient NORMAN VEGA DO [facility] SDC ENDO [id number] 09/26/2017 09:12:00 09/26/2017 12:30:00 DIS Emergency TAINA SCHULER MD [facility] ER RIGHT SIDE PAIN,N/ DIZZINESS [id number] 09/25/2017 05:39:00 09/25/2017 13:30:00 DIS Outpatient NORMAN VEGA DO [facility] PREOP EGD [id number] 09/13/2017 13:15:00 09/13/2017 15:31:00 DIS Emergency NEDA LOMAX [facility] ER RT FOOT PAIN [id number] 09/12/2017 13:23:00 09/12/2017 23:59:59 CLS Outpatient ETHEL ROSAS-Catrachita [facility] RAD [id number] 07/28/2017 13:52:00 07/28/2017 16:14:00 DIS Emergency WILLIAM ALVARES MD [facility] ER ULCER/ABD PAIN/ VOMITING [id number] 07/19/2017 10:16:00 07/22/2017 14:49:00 DIS Outpatient NORMAN VEGA DO [facility] 4TH PUD-POSS PERFORATION [id number] 07/16/2017 09:12:00 07/16/2017 12:08:00 DIS Emergency KELSIE CRUZ DO [facility] ER RIGHT SIDE PAIN [id number] 02/10/2018 16:19:00 Document Registration
== END 2018-08-01 10:50 | disposition home or self-care (01) ==
LOC: EDUNIT# 08:20 → ER 08:24
DX: R10.31 Right lower quadrant pain (principal); J45.909 Unspecified asthma, uncomplicated; K21.9 Gastro-esophageal reflux disease without esophagitis; I10 Essential (primary) hypertension; G47.30 Sleep apnea, unspecified; Z88.4 Allergy status to anesthetic agent; Z88.1 Allergy status to other antibiotic agents; Z88.8 Allergy status to other drugs, medicaments and biological substances; Z90.49 Acquired absence of other specified parts of digestive tract; Z87.19 Personal history of other diseases of the digestive system; Z87.891 Personal history of nicotine dependence
CPT/HCPCS: 36415; 74177; 80053; 81000; 83690; 85025

== ENCOUNTER 2018-08-26 10:29 | Outpatient (RCR) | payer MEDICAID ==
--- NOTE | 2018-08-27 20:29 | Physician Query-Final Dx ---
KAMILLA BOGGS 08/27/182028: Clinic Account Progress/Dx Physician Query: Please give diagnosis Need diagnosis or sign/symptom for stool culture for H-pylori Date of Service Aug 26, 2018 at 10:29 NORMAN VEGA DO 09/02/18 1253: Clinic Account Progress/Dx Physician Query: Please give diagnosis DIAGNOSIS: Diagnosis: (1) Gastric ulcer due to bacteria (2) h pylori Diagnosis hx of h. pylori KAMILLA BOGGS Aug 27, 2018 20:29 NORMAN VEGA DO Sep 02, 2018 12:53
[2018-09-22] MEDS ORDERED: TRAZ-222 PO (12:32)
[2018-09-22] MEDS ORDERED: DOCU-143 PO (12:34)
[2018-09-24] MEDS ORDERED: CARI3CAP PO (11:06)
[2018-09-24] MEDS ORDERED: ACHD5005 PO (13:58)
[2018-10-29] MEDS ORDERED: ACHD5005 PO (10:42)
[2018-10-29] MEDS ORDERED: ONDA4TAB11 PO (10:42)
== END 2018-11-24 | disposition home or self-care (01) ==
LOC: LAB 10:29
PROVIDERS: ATTEND Surgery
DX: K25.9 Gastric ulcer, unspecified as acute or chronic, without hemorrhage or perforation (principal); B96.81 Helicobacter pylori [H. pylori] as the cause of diseases classified elsewhere
CPT/HCPCS: 36415; 87338

== ENCOUNTER → 2018-09-05 | Outpatient (CLI) | payer MEDICAID ==
[~2018-09-05] MED LIST changes: +HOLD METFORMIN - RECEIVED CONTRAST 20 ML VIAL IV SCH
[2018-09-05] MEDS: IOHEXOL 350 MG/ML 100 ML (OMNIPAQUE 350) VIAL IV ONE (09:28)
[2018-09-05] MEDS: NS 100 ML (IVPB) BAG IV ONE (09:28)
--- NOTE | 2018-09-05 10:11 | Diagnostic Imaging Report ---
PROCEDURE: CT abdomen and pelvis with contrast. TECHNIQUE: Multiple contiguous axial images were obtained through the abdomen and pelvis after administration of intravenous contrast. INDICATION: Sharp abdominal pain in the left abdomen for one month. Correlation is made with prior CT from 08/01/2018. FINDINGS: The lung bases are clear. No discrete liver mass is identified. Gallbladder is surgically absent. No biliary ductal dilatation is seen. The pancreas and spleen are unremarkable. No adrenal mass is identified. The kidneys are unremarkable. Bowel loops are normal caliber. There is moderate stool in the rectum and sigmoid. There appears to be post surgical changes at the rectosigmoid junction. There is no ascites. Bladder is unremarkable. No abdominal or pelvic lymphadenopathy is seen. No acute inflammatory process is detected. IMPRESSION: Postop changes. No acute feature in the abdomen or pelvis is identified. Specifically, no underlying abnormality at the area of palpable abnormality in the left abdomen is identified. Dictated by: Dictated on workstation # [id number]
== END ==
LOC: RAD 09:15
PROVIDERS: ATTEND Surgery
DX: G89.18 Other acute postprocedural pain (principal); Z90.49 Acquired absence of other specified parts of digestive tract
CPT/HCPCS: 74177

== ENCOUNTER 2018-09-22 06:23 | Outpatient (CLI) | payer MEDICAID ==
[~2018-09-22] VITALS: Ht 185.4 cm; Wt 143.8 kg
[~2018-09-22 06:23] MED LIST changes: -HOLD METFORMIN - RECEIVED CONTRAST 20 ML VIAL IV SCH
[2018-09-22] MEDS ORDERED: TRAZ-189 PO (12:32)
[2018-09-22] MEDS ORDERED: DOCU-143 PO (12:34)
[2018-09-24] MEDS ORDERED: ACHD5005 PO (13:58)
== END 2018-09-22 12:48 | disposition home or self-care (01) ==
LOC: PREOP 06:23
PROVIDERS: ATTEND Surgery
DX: Z01.818 Encounter for other preprocedural examination (principal)

== ENCOUNTER 2018-09-24 09:45 | Day surgery (SDC) | payer MEDICAID ==
[~2018-09-24] VITALS: Ht 185.4 cm; Wt 144.0 kg
[~2018-09-24 09:45] MED LIST changes: +TRAZ-189 PO
--- NOTE | 2018-09-24 09:58 | Progress Note-Pre Operative ---
Pre-Operative Progress Note H&P Reviewed The H&P was reviewed, patient examined and no changes noted. Time Seen by Provider: 09:54 Date H&P Reviewed: Sep 24, 2018 Time H&P Reviewed: 09:55 Pre-Operative Diagnosis: Incarcerated incisional/ventral hernia NORMAN VEGA DO Sep 24, 2018 09:57
[2018-09-24] MEDS ORDERED: ceFAZolin 2 GM IV Premixed 50 ML IV ONE (10:00)
[2018-09-24 10:25] VITALS: BP 128/84
[2018-09-24] MEDS: LACTATED RINGERS 1,000 ML IV PRN ×2 (10:25→12:53)
[2018-09-24 10:33] LABS: BASOPHILS % (AUTO) 0 % (0-10); EOSINOPHILS # (AUTO) 0.2 10^3/uL (0.0-0.3); EOSINOPHILS % (AUTO) 2 % (0-10); HEMATOCRIT 41 % (40-54); HEMOGLOBIN 14.3 G/DL (13.3-17.7); LYMPHOCYTES # (AUTO) 1.4 X 10^3 (1.0-4.0); LYMPHOCYTES % (AUTO) 21 % (12-44); MEAN CORPUSCULAR HEMOGLOBIN 31 PG (25-34); MEAN CORPUSCULAR HGB CONC 35 G/DL (32-36); MEAN CORPUSCULAR VOLUME 88 FL (80-99); MEAN PLATELET VOLUME 11.2 FL (7.4-10.4); MONOCYTES # (AUTO) 0.8 X 10^3 (0.0-1.0); MONOCYTES % (AUTO) 12 % (0-12); NEUTROPHILS # (AUTO) 4.5 X 10^3 (1.8-7.8); NEUTROPHILS % (AUTO) 65 % (42-75); PLATELET COUNT 146 10^3/uL (130-400); RED CELL DISTRIBUTION WIDTH 12.9 % (10.0-14.5); WHITE BLOOD COUNT 6.9 10^3/uL (4.3-11.0)
[2018-09-24] MEDS ORDERED: FAMOTIDINE 20MG/2ML IV (PEPCID) ONE (10:33)
[2018-09-24] MEDS ORDERED: MIDAZOLAM 2 MG/2 ML (VERSED) VIAL ONE ×2 (10:33→11:50)
[2018-09-24] MEDS ORDERED: MIDAZOLAM 2 MG/2 ML (VERSED) VIAL IV ONE (10:45)
[2018-09-24] MEDS ORDERED: FAMOTIDINE 20MG/2ML IV (PEPCID) IV ONE (10:45)
[2018-09-24] MEDS ORDERED: CARI3CAP PO (11:06)
[2018-09-24] MEDS ORDERED: BUPIVACAINE 0.5% 30 ML (SENSORCAINE) VIAL ONE (11:07)
[2018-09-24] MEDS ORDERED: LIDOCAINE/EPI 1%-1:100,000 (XYLOCAINE) 20ML ONE (11:08)
[2018-09-24] MEDS ORDERED: CLINDAMYCIN 900 MG/50 ML IVPB 50 ML IV ONE ×2 (11:19→11:30)
[2018-09-24] MEDS ORDERED: proPOfol 200 MG/20 ML (DIPRIVAN) VIAL IV ONE (11:50)
[2018-09-24] MEDS ORDERED: DEXAMETHASONE 10 MG/ML (DECADRON) 1 ML VIAL ONE (11:50)
[2018-09-24] MEDS ORDERED: ONDANSETRON 4 MG/2 ML (SDV) Z0FRAN ONE (11:50)
[2018-09-24] MEDS ORDERED: LIDOCAINE PF 2% 5 ML (XYLOCAINE) VIAL ONE (11:50)
[2018-09-24] MEDS ORDERED: SEVOFLURANE (ULTANE) 15 ML INHAL SOLN ONE ×7 (11:50→13:57)
[2018-09-24] MEDS ORDERED: fentaNYL INJECTION 100 MCG/2 ML AMP ONE ×2 (11:51→12:40)
[2018-09-24] MEDS ORDERED: ROCURONIUM 10 MG/ML 5 ML SYRINGE IV ONE ×2 (12:04→12:05)
[2018-09-24] MEDS ORDERED: GLYCOPYRROLATE 0.2 MG/ML (ROBINUL) 2 ML VIAL ONE (12:15)
[2018-09-24] MEDS ORDERED: NEOSTIGMINE 1 MG/ML 5 ML SYRINGE ONE (12:15)
[2018-09-24] MEDS ORDERED: morphine INJ 10 MG/ML 1ML (SYR OR VIAL) ONE (13:50)
[2018-09-24] MEDS ORDERED: RT-ALBUTEROL HFA (VENTOLIN) PER PUFF IH ONE (13:56)
--- NOTE | 2018-09-24 13:57 | Progress Note-Post Operative ---
Post-Operative Progess Note Surgeon (s)/Typewriter Ribbon Winder (s) Surgeon NORMAN VEGA DO Typewriter Ribbon Winder: Emma Pre-Operative Diagnosis Incarcerated incisional/ventral hernia Post-Operative Diagnosis Same plus adhesions Procedure & Operative Findings Date of Procedure 09/24/18 Procedure Performed/Findings Lap Incisional/Ventral herniarraphy with mesh placement CATHRYN Anesthesia Type GET Estimated Blood Loss Estimated blood loss (mL): scant Specimens/Packing Specimens Removed none NORMAN VEGA DO Sep 24, 2018 13:57
[2018-09-24] MEDS ORDERED: ACHD5005 PO (13:58)
--- NOTE | 2018-09-24 13:59 | Discharge Inst-Surgical ---
Discharge Inst-Surgical Depart Medication/Instructions New, Converted or Re-Newed RX: RX Given to Pt/Family Patient Instructions Follow up Appt: Make appointment for 1 week. [phone] Instructions: No lifting greater than 20 pounds. No strenuous activity. May shower in 24 hours, no tub bath or soaking. Use incentive spirometer at home as directed. No Smoking Skin/Wound Care: May remove bandages in am. You need to leave the Dermabond on incision it will fall off on it's own. Symptoms to Report: Appetite Changes, Extremity Discoloration, Numbness/Tingling, Swelling Increased , Bleeding Excessive, Eyesight Changes, Pain Increased, Urine Color Change, Constipation(Persistent), Fever over 101 degree F, Pain/Pressure in chest, Urinating Difficulty, Cough Up/Vomit Blood, Heart Beat Irreg/Pounding, Pain/ Pressure in jaw, Cramps in feet or legs, Lightheadedness, Pain/Pressure in shoulder, Diarrhea(Persistent), Memory Changes Suddenly, Questions/Concerns, Weight gain consecutive days, Dizziness/Fainting, Nausea/Vomiting, Shortness of Breath, Weight gain over 2 pounds If questions or concerns contact your physician Or seek help at emergency department. Activity Activity as Tolerated: Yes Activity Instructions: Avoid Stress to Incision Driving Instructions: No Driving/Refer to Dr. Hernández Discharge Diet: No Restrictions Diet After 24 Hours: Clear Liquid if Nauseous If Any Problems/Questions/Issu: Contact Your Physician, Go to Emergency Room Skin/Wound Care Infection Signs and Symptoms: Increased Redness, Foul Odor of Wound, Increased Drainage, Skin Itchy or Has a Rash, Increased Swelling, Temperature Above 101 F Wound Care Comment: Heating pad to shoulder or neck tonight for pain Bathing Instructions: Shower Stitches/[place]/Dermabond Dis: Dermabond Ice Pack: Ice On and Off Site NORMAN VEGA DO Sep 24, 2018 13:59
[2018-09-24] MEDS: HYDROmorphone 2 MG/ML VIAL (DILAUDID) ONE ×2 (14:43→16:20)
[2018-09-24] MEDS ORDERED: PROMETHAZINE INJ 25 MG/ML (PHENERGAN) AMP IVP ONE (14:45)
[2018-09-24] MEDS ORDERED: ONDANSETRON 4 MG/2 ML (SDV) Z0FRAN IVP PRN (14:45)
[2018-09-24] MEDS ORDERED: HYDROmorphone 2 MG/ML VIAL (DILAUDID) IV ONE (14:45)
[2018-09-24 15:40] VITALS: BP 119/67
[2018-09-24 16:10] VITALS: BP 114/70
[2018-09-24 16:40] VITALS: BP 122/79
[2018-09-24 17:10] VITALS: BP 132/77
[2018-09-24 17:30] VITALS: BP 132/77
--- NOTE | 2018-09-24 18:53 | OPERATIVE REPORT ---
DATE OF SERVICE: 09/24/2018 PREOPERATIVE DIAGNOSES: 1. Incarcerated incisional ventral hernia. 2. Left lower quadrant pain. POSTOPERATIVE DIAGNOSES: 1. Incarcerated incisional ventral hernia. 2. Adhesions. PROCEDURES: 1. Laparoscopic ventral herniorrhaphy with mesh placement. 2. Lysis of adhesions. SURGEON: Norman Dennis DO COMPOUNDING SCALER: Hector Carter DO ANESTHESIA: General endotracheal tube. SPECIMENS: None. BLOOD LOSS: Scant. FLUIDS: Per anesthesia. POSTOPERATIVE CONDITION: Stable. INDICATION FOR PROCEDURE: The patient is a 33-year-old male, who has had some sudden onset of severe pain and an incarcerated incisional ventral hernia and he wanted to get them fixed. He has been having some pain in the left lower quadrant, but a CAT scan did not show any problems at this area. FINDINGS: The patient had an incarcerated incisional ventral hernia and he had some adhesions actually right at the spot where he is having some abdominal pain, so these were taken down just to be safe or just to attempt to ease his pain. PROCEDURE NOTE: After informed consent was obtained, the patient was brought to the operating room, placed on the table in supine position, sterilely prepped and draped in normal fashion. Local lidocaine was used to infiltrate the skin in left upper quadrant. I then made an incision with #11 blade, carried down through the skin into subcutaneous tissue, then deepened down to subcutaneous tissue with Bovie electrocautery down to the fascia. Fascia incised with Bovie electrocautery, then bluntly spread the muscle aside and went to the posterior fascia and then into the peritoneum. Placed 11 mm trocar port under direct visualization. Created pneumoperitoneum and then placed 2 more ports in normal fashion using local lidocaine. A 11 blade for stab incision and the VersaStep system, all done under direct visualization, one at about equal to the umbilicus level and one in the left lower quadrant. Noted adhesions in left lower quadrant. These were right over the patient had been complaining of some left lower quadrant pain. There was some preperitoneal fat directly under the previous incision. This was carefully taken down with LigaSure, clamping, coagulating and transecting and taking this down to move this out of the way. Able to take some fat out of the incisional hernia and then took a picture of the hernia. There was some small intestine stuck up to the left lower quadrant, took a picture of this and then elected to start to take this down. One reason was because he had pain in this area and one reason because in order to put the mesh up, it would need to be covered in this area, started carefully taking these down with sharp dissection with the scissors, did this very slowly to make sure that we did not run into any problems and able to take this down with a difficulty wash to the bowel. Bowel looked fine. There were no serosal tears or cuts or holes. At this point, then elected to place a Bard 4-1/2 inch round mesh, placed this through the left upper quadrant port, made a stab incision at the base of the previous midline incision and then brought a Joey-Lynn through, grasped the wire on the mesh and pulled this through the abdominal wall. Then, blew up the balloon on the mesh to hold this up in place and then used a SecureStrap to tack the surround tack at the 3, 9, 6 and 12 o'clock position and in between these with 0.5 to 1 cm spacing and then in the middle to hold the mesh up in place, covered the incisional hernia well and actually covered most of the area where the previous adhesions had been stuck up. There was no defect on the wall here, took pictures of this, looked around, no other obvious pathology and then removed all ports under direct visualization, allowed pneumoperitoneum to escape, closed the fascia of the left upper quadrant incision with 0 Vicryl [id number] suture. Copiously irrigated all incisions with normal saline and closed the 2 small 5 mm incisions with a single interrupted 4-0 undyed Monocryl subcuticular stitch, closed the left upper quadrant incision with 3 interrupted 4-0 undyed Monocryl subcuticular stitches. Area was cleaned and dried and Dermabond was placed as well as Band-Aids. The patient then transferred to recovery room in stable condition. Sponge, instrument and needle counts were correct at the end of the case. Dr. Carter assisted in this case helping to make incisions, closed incision as well as identify anatomy and helped move anatomy out of the way. Job ID: [id number] DocumentID: [id number] Dictated Date: 09/24/2018 14:52:23 Metal Cabinet Finisher Date: 09/24/2018 18:53:01 Dictated By: NORMAN DENNIS DO
== END 2018-09-24 17:30 | disposition home or self-care (01) ==
LOC: SDC 09:45
PROVIDERS: ATTEND Surgery
DX: K43.0 Incisional hernia with obstruction, without gangrene (principal); Z11.2 Encounter for screening for other bacterial diseases; Q43.1 Hirschsprung's disease; F17.210 Nicotine dependence, cigarettes, uncomplicated; I10 Essential (primary) hypertension; J45.909 Unspecified asthma, uncomplicated; G47.33 Obstructive sleep apnea (adult) (pediatric); K21.9 Gastro-esophageal reflux disease without esophagitis; Z79.899 Other long term (current) drug therapy
CPT/HCPCS: 36415; 85025; 87081

== ENCOUNTER 2018-10-03 22:00 | Emergency (ER) | payer MEDICAID ==
[~2018-10-03] VITALS: Ht 185.4 cm; Wt 133.8 kg
[~2018-10-03 22:00] MED LIST changes: +CARI3CAP PO
[2018-10-03] MEDS ORDERED: fentaNYL INJECTION 100 MCG/2 ML AMP IVP STA (22:32)
[2018-10-03] MEDS ORDERED: NS IV 1000 ML 1,000 ML IV ONE (22:32)
--- NOTE | 2018-10-03 22:40 | ED Abdominal Pain ---
General Chief Complaint: Abdominal/GI Problems Stated Complaint: ABD PAIN Nursing Triage Note: hernia site pain. Sepsis Screen: No Definite Risk Source of Information: Patient, Family Exam Limitations: No Limitations History of Present Illness Date Seen by Provider: Oct 03, 2018 Time Seen by Provider: 22:25 Initial Comments Here with report of postoperative pain. He had ventral hernia repair on 09/24/18 related to incarcerated bowel in the incisional ventral hernia. Also had lysis of adhesions at that time. Denies bowel or bladder problems. States bowel is slightly loose but otherwise okay. He has been taking hydrocodone and last dose of that was today. Denies nausea or vomiting. Unsure about fever or chills and states that he has been hot and cold today. Pain is worse tonight. Timing/Duration: 12 Hours Severity/Quality: Moderate, Aching Location: Epigastric Radiation: RLQ Activities at Onset: None Modifying Factors: Improves With Analgesics; Worsens With Movement Associated Symptoms: No Back Pain, No Chest Pain, No Nausea/Vomiting, No Shortness of Air, No Swelling/Mass in Abdomen, No Weakness Allergies and Home Medications Allergies Coded Allergies: ketoprofen (Verified Allergy, Unknown, RASH, 12/12/17) ketorolac (Verified Allergy, Unknown, RASH, 09/22/18) cephalexin (Verified Adverse Reaction, Mild, NAUSEA, 09/22/18) Home Medications Cariprazine Hydrochloride 3 Mg Capsule, 3 MG PO DAILY, (Reported) Docusate Sodium 100 Mg Capsule, 100 MG PO DAILY, (Reported) Hydrochlorothiazide 25 Mg Tablet, 25 MG PO DAILY, (Reported) Hydrocodone Bit/Acetaminophen 1 Tab Tab, 1 TAB PO Q6H PRN for PAIN-MODERATE Prescribed by: NORMAN DENNIS on 09/24/18 1358 Omeprazole 20 Mg Tablet.dr, 20 MG PO BID PRN for HEARTBURN, (Reported) Trazodone HCl 50 Mg Tablet, 50 MG PO HS, (Reported) Patient Home Medication List Home Medication List Reviewed: Yes Review of Systems Review of Systems Constitutional: see HPI; No chills, No fever EENTM: No Symptoms Reported Respiratory: No Symptoms Reported Cardiovascular: No Symptoms Reported Gastrointestinal: See HPI, Abdominal Pain; Denies Constipated Genitourinary: No Symptoms Reported Musculoskeletal: No back pain; muscle pain Skin: no symptoms reported Psychiatric/Neurological: No Symptoms Reported All Other Systems Reviewed Negative Unless Noted: Yes Past Qtharsl-Zedsgv-Guckyh Hx Past Med/Social Hx: Reviewed Nursing Past Med/Soc Hx Patient Social History Alcohol Use: Occasionally Uses Recreational Drug Use: No Smoking Status: Current Everyday Smoker Type Used: Cigarettes, Smokeless Tobacco Former Smoker, Quit: Mar 03, 2018 2nd Hand Smoke Exposure: Yes Recent Foreign Travel: No Contact w/Someone Who Travel: No Recent Infectious Disease Expo: No Recent Hopitalizations: Yes (hernia repair 09/24/18) Immunizations Up To Date Tetanus Booster (TDap): Less than 5yrs PED Vaccines UTD: No Date of Influenza Vaccine: Mar 24, 2018 Seasonal Allergies Seasonal Allergies: Yes Past Medical History Surgeries: Yes (colon resection, r inguinal nerve cut, KNEE L SCOPE) Abdominal, Gallbladder Respiratory: Yes (asthma as kid) Asthma, Sleep Apnea Currently Using CPAP: Yes Cardiac: Yes Hypertension Neurological: No Sexually Transmitted Disease: No HIV/AIDS: No Genitourinary: No Gastrointestinal: Yes (HIRSCHSPRUNG'S, esophagitis, H. PYLORI) Gastroesophageal Reflux, Chronic Constipation, Ulcer Musculoskeletal: Yes (right foot fx) Endocrine: No HEENT: Yes (GLASSES) Loss of Vision: Bilateral Hearing Impairment: Denies Cancer: No Psychosocial: Yes Sleep Difficulties Integumentary: No Blood Disorders: No Adverse Reaction/Blood Tranf: No (N/A) Family Medical History Reviewed Nursing Family Hx No Pertinent Family Hx Physical Exam Vital Signs Vital Signs - First Documented 10/03/18 22:15 Temp 98.0 Pulse 90 Resp 18 B/P (MAP) 168/104 (125) Pulse Ox 98 O2 Delivery Room Air Capillary Refill : Less Than 3 Seconds Height/Weight/BMI Height: 6'1.00" Weight: 295lbs. 0oz. 133.884761hi; 41.9 BMI Method:Stated General Appearance: WD/WN, no apparent distress HEENT: PERRL/EOMI, pharynx normal Neck: full range of motion, supple Respiratory: lungs clear, normal breath sounds Cardiovascular: regular rate, rhythm, no murmur Gastrointestinal: soft, tenderness (tender at the area of the site of the previous hernia. No obvious hernia noted now. This is in the mid upper abdomen. No rebound or guarding. Incision sites are clean, dry and intact without signs of infection.) Extremities: non-tender, normal inspection Back: normal inspection, no CVA tenderness, no vertebral tenderness Neurologic/Psychiatric: alert, oriented x 3 Skin: normal color, warm/dry Progress/Results/Core Measures Results/Orders Lab Results Laboratory Tests Test 10/03/18 22:40 10/03/18 23:29 Range/Units White Blood Count 11.1 H 4.3-11.0 10^3/uL Red Blood Count 4.64 4.35-5.85 10^6/uL Hemoglobin 14.0 13.3-17.7 G/DL Hematocrit 40 40-54 % Mean Corpuscular Volume 87 80-99 FL Mean Corpuscular Hemoglobin 30 25-34 PG Mean Corpuscular Hemoglobin Concent 35 32-36 G/DL Red Cell Distribution Width 12.6 10.0-14.5 % Platelet Count 258 130-400 10^3/uL Mean Platelet Volume 10.1 7.4-10.4 FL Neutrophils (%) (Auto) 63 42-75 % Lymphocytes (%) (Auto) 21 12-44 % Monocytes (%) (Auto) 14 H 0-12 % Eosinophils (%) (Auto) 3 0-10 % Basophils (%) (Auto) 0 0-10 % Neutrophils # (Auto) 6.9 1.8-7.8 X 10^3 Lymphocytes # (Auto) 2.3 1.0-4.0 X 10^3 Monocytes # (Auto) 1.5 H 0.0-1.0 X 10^3 Eosinophils # (Auto) 0.3 0.0-0.3 10^3/uL Basophils # (Auto) 0.0 0.0-0.1 10^3/uL Sodium Level 139 135-145 MMOL/L Potassium Level 3.8 3.6-5.0 MMOL/L Chloride Level 101 98-107 MMOL/L Carbon Dioxide Level 27 21-32 MMOL/L Anion Gap 11 5-14 MMOL/L Blood Urea Nitrogen 13 7-18 MG/DL Creatinine 0.78 0.60-1.30 MG/DL Estimat Glomerular Filtration Rate > 60 BUN/Creatinine Ratio 17 Glucose Level 94 70-105 MG/DL Calcium Level 9.7 8.5-10.1 MG/DL Corrected Calcium 9.6 8.5-10.1 MG/DL Total Bilirubin 0.2 0.1-1.0 MG/DL Aspartate Amino Transf (AST/SGOT) 15 5-34 U/L Alanine Aminotransferase (ALT/SGPT) 27 0-55 U/L Alkaline Phosphatase 82 40-136 U/L C-Reactive Protein High Sensitivity 2.48 H 0.00-0.50 MG/DL Total Protein 7.3 6.4-8.2 GM/DL Albumin 4.1 3.2-4.5 GM/DL Urine Color YELLOW Urine Clarity CLEAR Urine pH 6 5-9 Urine Specific [place] 1.025 H 1.016-1.022 Urine Protein 1+ H NEGATIVE Urine Glucose (UA) NEGATIVE NEGATIVE Urine Ketones NEGATIVE NEGATIVE Urine Nitrite NEGATIVE NEGATIVE Urine Bilirubin NEGATIVE NEGATIVE Urine Urobilinogen NORMAL NORMAL MG/DL Urine Leukocyte Esterase 1+ H NEGATIVE Urine RBC (Auto) NEGATIVE NEGATIVE Urine RBC NONE /HPF Urine WBC RARE /HPF Urine Squamous Epithelial Cells 0-2 /HPF Urine Crystals PRESENT H /LPF Urine Calcium Oxalate Crystals MODERATE H /LPF Urine Bacteria FEW H /HPF Urine Casts NONE /LPF Urine Mucus SMALL H /LPF Urine Culture Indicated NO My Orders Orders - TAINA SCHULER MD Cbc With Automated Diff (10/03/18 22:32) Comprehensive Metabolic Panel (10/03/18 22:32) Hs C Reactive Protein (10/03/18 22:32) Ua Culture If Indicated (10/03/18 22:32) Ed Iv/Invasive Line Start (10/03/18 22:32) Ns Iv 1000 Ml (Sodium Chloride 0.9%) (10/03/18 22:32) Fentanyl Injection (Sublimaze Injection (10/03/18 22:32) Ct Abdomen/Pelvis W (10/03/18 23:20) Iohexol Injection (Omnipaque 350 Mg/Ml 1 (10/04/18 00:00) Received Contrast (Hold Metformin- Contr (10/04/18 00:00) Medications Given in ED Current Medications Medications Dose Ordered Sig/Jose G Route Start Time Stop Time Status Last Admin Dose Admin Iohexol 100 ml ONCE ONCE IV 10/04/18 00:00 10/04/18 00:01 DC 10/03/18 23:55 100 ML Sodium Chloride 1,000 ml @ 0 mls/hr Q0M ONCE IV 10/03/18 22:32 10/03/18 22:34 DC 10/03/18 22:44 0 MLS/HR Vital Signs/I&O 10/03/18 22:15 Temp 98.0 Pulse 90 Resp 18 B/P (MAP) 168/104 (125) Pulse Ox 98 O2 Delivery Room Air 10/04/18 00:00 Intake Total 1000 ml Balance 1000 ml Blood Pressure Mean: 125 Progress Progress Note : Progress Note Seen and evaluated. IV, labs, normal saline 1 L bolus and 75 g of fentanyl IV ordered. Monitor patient. CT abdomen and pelvis ordered due to pain and elevated white count. 0035: I discussed the case with Dr. Dennis. Patient is feeling better. CT is negative. No acute findings otherwise that are concerning. Okay for discharge home. I discussed all the findings concerns with the patient and family. Discharged home with return precautions. Patient verbalized understanding instructions and agreement with plan. We did discuss narcotic pain medication and pain response after coming off those medicines. We also discussed the need to avoid narcotics to avoid addiction. Patient was in agreement. Diagnostic Imaging Diagonstic Imaging: CT Plain Films/CT/US/NM/MRI: abdomen, pelvis Comments No acute intra-abdominal or pelvic findings. Reviewed: Reviewed Night [facility] Study Departure Impression Primary Impression: Abdominal wall pain Disposition: HOME, SELF-CARE Condition: Improved Departure-Patient Inst. Decision time for Depature: 00:38 Referrals: MAAME COTTRELL MD (PCP/Family) Primary Care Physician Patient Instructions: Acute Abdomen (Belly Pain), Adult (DC) Add. Discharge Instructions: All discharge instructions reviewed with patient and/or family. Voiced understanding. Follow-up with Dr Dennis next week for recheck and further evaluation as needed. You may take Tylenol/acetaminophen 1000 mg every 6 hours as needed for pain. Drink plenty of fluids. Return for worse pain, fever, vomiting, weakness, breathing problems or other concerns as needed. Copy Copies To 1: NORMAN DENNIS TIMOTHY D MD Oct 03, 2018 22:40
[2018-10-03 22:56] LABS: BASOPHILS % (AUTO) 0 % (0-10); EOSINOPHILS # (AUTO) 0.3 10^3/uL (0.0-0.3); EOSINOPHILS % (AUTO) 3 % (0-10); HEMATOCRIT 40 % (40-54); LYMPHOCYTES # (AUTO) 2.3 X 10^3 (1.0-4.0); LYMPHOCYTES % (AUTO) 21 % (12-44); MEAN CORPUSCULAR HEMOGLOBIN 30 PG (25-34); MEAN CORPUSCULAR HGB CONC 35 G/DL (32-36); MEAN CORPUSCULAR VOLUME 87 FL (80-99); MEAN PLATELET VOLUME 10.1 FL (7.4-10.4); MONOCYTES # (AUTO) 1.5 X 10^3 (0.0-1.0); MONOCYTES % (AUTO) 14 % (0-12); NEUTROPHILS # (AUTO) 6.9 X 10^3 (1.8-7.8); NEUTROPHILS % (AUTO) 63 % (42-75); PLATELET COUNT 258 10^3/uL (130-400); RED CELL DISTRIBUTION WIDTH 12.6 % (10.0-14.5); WHITE BLOOD COUNT 11.1 10^3/uL (4.3-11.0)
[2018-10-03 23:12] LABS: ALANINE AMINOTRANSFERASE 27 U/L (0-55); ALBUMIN 4.1 GM/DL (3.2-4.5); ALKALINE PHOSPHATASE 82 U/L (40-136); BILIRUBIN,TOTAL 0.2 MG/DL (0.1-1.0); BUN/CREATININE RATIO 17; CALCIUM 9.7 MG/DL (8.5-10.1); CARBON DIOXIDE 27 MMOL/L (21-32); CHLORIDE 101 MMOL/L (98-107); CREATININE SERUM 0.78 MG/DL (0.60-1.30); GFR ESTIMATED > 60; GLUCOSE 94 MG/DL (70-105); POTASSIUM 3.8 MMOL/L (3.6-5.0); SODIUM 139 MMOL/L (135-145); TOTAL PROTEIN 7.3 GM/DL (6.4-8.2)
[2018-10-03 23:36] LABS: BILIRUBIN,URINE NEGATIVE (NEGATIVE); CLARITY,URINE CLEAR; COLOR,URINE YELLOW; GLUCOSE, URINE (UA) NEGATIVE (NEGATIVE); KETONES,URINE NEGATIVE (NEGATIVE); LEUKOCYTE ESTERASE ,URINE 1+ (NEGATIVE); NITRITE,URINE NEGATIVE (NEGATIVE); PH,URINE 6 (5-9); PROTEIN,URINE 1+ (NEGATIVE); UROBILINOGEN,URINE NORMAL (NORMAL)
[2018-10-03 23:48] LABS: BACTERIA,URINE FEW /HPF; CALCIUM OXALATE CRYSTALS,UR MODERATE /LPF; SQUAMOUS EPITHELIAL CELL,UR 0-2 /HPF; WBC,URINE RARE /HPF
[2018-10-04] MEDS ORDERED: IOHEXOL 350 MG/ML 100 ML (OMNIPAQUE 350) VIAL IV ONE
[2018-10-04] MEDS ORDERED: HOLD METFORMIN - RECEIVED CONTRAST 20 ML VIAL IV SCH
[2018-10-04 00:44] VITALS: BP 125/92
--- NOTE | 2018-10-04 07:11 | Diagnostic Imaging Report ---
PROCEDURE: CT abdomen and pelvis with contrast. TECHNIQUE: Multiple contiguous axial images were obtained through the abdomen and pelvis after administration of intravenous contrast. Auto Exposure Controls were utilized during the CT exam to meet ALARA standards for radiation dose reduction. INDICATION: Recent hernia repair with operative site pain. COMPARISON: CT abdomen and pelvis with IV contrast 09/05/2018. FINDINGS: Lung bases are clear. Cholecystectomy. The liver, pancreas, spleen, adrenals, kidneys, collecting systems and bladder are unremarkable. No evidence of appendicitis. No free intraperitoneal air or fluid. No lymphadenopathy. Sigmoid anastomosis is widely patent. No fluid collections about the anterior midline abdominal wall surgical incision. IMPRESSION: 1. Mild inflammatory changes about the midline abdominal wall surgical incision. No fluid collections. 2. No acute CT findings in the abdomen or pelvis. Dictated by: Dictated on workstation # [id number]
== END 2018-10-04 00:47 | disposition home or self-care (01) ==
LOC: EDUNIT# 22:00 → ER 22:01
DX: G89.18 Other acute postprocedural pain (principal); R10.13 Epigastric pain; J45.909 Unspecified asthma, uncomplicated; G47.30 Sleep apnea, unspecified; I10 Essential (primary) hypertension; K21.0 Gastro-esophageal reflux disease with esophagitis; Z87.19 Personal history of other diseases of the digestive system; Z98.890 Other specified postprocedural states; Z88.4 Allergy status to anesthetic agent; Z88.1 Allergy status to other antibiotic agents; Z88.8 Allergy status to other drugs, medicaments and biological substances; Z87.891 Personal history of nicotine dependence; Z90.49 Acquired absence of other specified parts of digestive tract
CPT/HCPCS: 36415; 74177; 80053; 81000; 85025; 86141

== ENCOUNTER 2018-10-29 07:57 | Emergency (ER) | payer MEDICAID ==
[~2018-10-29] VITALS: Ht 185.4 cm; Wt 141.5 kg
[2018-10-29 08:11] LABS: BILIRUBIN,URINE NEGATIVE (NEGATIVE); CLARITY,URINE CLEAR; COLOR,URINE YELLOW; GLUCOSE, URINE (UA) NEGATIVE (NEGATIVE); KETONES,URINE NEGATIVE (NEGATIVE); LEUKOCYTE ESTERASE ,URINE NEGATIVE (NEGATIVE); NITRITE,URINE NEGATIVE (NEGATIVE); PH,URINE 6 (5-9); PROTEIN,URINE NEGATIVE (NEGATIVE); UROBILINOGEN,URINE NORMAL (NORMAL)
[2018-10-29] MEDS ORDERED: LACTATED RINGERS 1,000 ML IV ONE (08:11)
[2018-10-29] MEDS ORDERED: fentaNYL INJECTION 100 MCG/2 ML AMP IVP ONE (08:15)
[2018-10-29] MEDS ORDERED: IBUPROFEN TABLET 200 MG TAB PO ONE (08:15)
--- NOTE | 2018-10-29 08:16 | ED Abdominal Pain ---
General Chief Complaint: Abdominal/GI Problems Stated Complaint: ABD PAIN Source of Information: Patient Exam Limitations: No Limitations History of Present Illness Date Seen by Provider: October 29, 2018 Time Seen by Provider: 07:59 Initial Comments The patient presents to ER by private conveyance with a chief complaint that sometime last night he got up to go the bathroom when he urinated he had a lot of pain in his right flank radiating up his right back. He's never had a kidney stone before. He denies any blood in the urine or discharge. He is having some nausea without vomiting. Rates his pain as an 8 out of 10. He took 600 mg of ibuprofen and some Tylenol which has not helped much. He states that his allergy to Toradol is a rash and heart palpitations. He has a history of Hirschsprung's with colectomy and he was a as well as cholecystectomy and a few months ago he had a hernia repair. No fever or chills. Bowels are moving normally for him. Allergies and Home Medications Allergies Coded Allergies: ketoprofen (Verified Allergy, Unknown, RASH, 12/12/17) ketorolac (Verified Allergy, Unknown, RASH, 09/22/18) cephalexin (Verified Adverse Reaction, Mild, NAUSEA, 09/22/18) Home Medications Cariprazine Hydrochloride 3 Mg Capsule, 3 MG PO DAILY, (Reported) Docusate Sodium 100 Mg Capsule, 100 MG PO DAILY, (Reported) Hydrochlorothiazide 25 Mg Tablet, 25 MG PO DAILY, (Reported) Hydrocodone Bit/Acetaminophen 1 Tab Tab, 1 TAB PO Q6H PRN for PAIN-MODERATE Prescribed by: NORMAN VEGA on 09/24/18 1358 Omeprazole 20 Mg Tablet.dr, 20 MG PO BID PRN for HEARTBURN, (Reported) Trazodone HCl 50 Mg Tablet, 50 MG PO HS, (Reported) Patient Home Medication List Home Medication List Reviewed: Yes Review of Systems Review of Systems Constitutional: No chills, No diaphoresis EENTM: No Blurred Vision, No Double Vision Respiratory: Denies Cough, Denies Shortness of Air Cardiovascular: Denies Chest Pain, Denies Edema Gastrointestinal: Denies Constipated, Denies Diarrhea; Nausea; Denies Vomiting Genitourinary: Denies Burning, Denies Discharge, Denies Drainage Musculoskeletal: see HPI, back pain; No joint pain Skin: No change in color, No rash Psychiatric/Neurological: Denies Headache, Denies Numbness Past Kauntjh-Azqhyr-Lysico Hx Patient Social History Alcohol Use: Occasionally Uses Recreational Drug Use: No Smoking Status: Former Smoker Type Used: Cigarettes, Smokeless Tobacco Former Smoker, Quit: October 26, 2018 2nd Hand Smoke Exposure: Yes Recent Hopitalizations: Yes (hernia repair 09/24/18) Physical Abuse: No Sexual Abuse: No Mistreated: No Fear: No Immunizations Up To Date Tetanus Booster (TDap): Less than 5yrs PED Vaccines UTD: No Date of Influenza Vaccine: Mar 24, 2018 Seasonal Allergies Seasonal Allergies: Yes Past Medical History Surgeries: Yes (colon resection, r inguinal nerve cut, KNEE L SCOPE) Abdominal, Gallbladder Respiratory: Yes (asthma as kid) Asthma, Sleep Apnea Currently Using CPAP: Yes Cardiac: Yes Hypertension Neurological: No Sexually Transmitted Disease: No HIV/AIDS: No Genitourinary: No Gastrointestinal: Yes (HIRSCHSPRUNG'S, esophagitis, H. PYLORI) Gastroesophageal Reflux, Chronic Constipation, Ulcer Musculoskeletal: Yes (right foot fx) Endocrine: No HEENT: Yes (GLASSES) Loss of Vision: Bilateral Hearing Impairment: Denies Cancer: No Psychosocial: Yes Sleep Difficulties Integumentary: No Blood Disorders: No Adverse Reaction/Blood Tranf: No (N/A) Family Medical History No Pertinent Family Hx Physical Exam Vital Signs Vital Signs - First Documented 10/29/18 08:06 Temp 97.5 Pulse 95 Resp 20 B/P (MAP) 139/98 (112) Pulse Ox 98 Capillary Refill : Height/Weight/BMI Height: 6'1.00" Weight: 295lbs. 0oz. [id number]; 41.9 BMI Method:Stated General Appearance: WD/WN, mild distress HEENT: PERRL/EOMI, pharynx normal Neck: full range of motion, normal inspection Respiratory: no respiratory distress, no accessory muscle use Cardiovascular: normal peripheral pulses, regular rate, rhythm Gastrointestinal: normal bowel sounds, soft, no organomegaly, other (mild tenderness on the right upper and right lower quadrant. No McBurney's point tenderness, rebound tenderness or Rovsing sign. No mesenteric signs. Extensive, well-healed scars) Extremities: normal range of motion, normal inspection, normal capillary refill ( across the abdominal wall.) Back: normal inspection, CVA tenderness (R); No CVA tenderness (L) Neurologic/Psychiatric: alert, oriented x 3 Skin: normal color, warm/dry Progress/Results/Core Measures Results/Orders Lab Results Laboratory Tests Test 10/29/18 08:07 10/29/18 08:25 Range/Units Urine Color YELLOW Urine Clarity CLEAR Urine pH 6 5-9 Urine Specific [place] 1.020 1.016-1.022 Urine Protein NEGATIVE NEGATIVE Urine Glucose (UA) NEGATIVE NEGATIVE Urine Ketones NEGATIVE NEGATIVE Urine Nitrite NEGATIVE NEGATIVE Urine Bilirubin NEGATIVE NEGATIVE Urine Urobilinogen NORMAL NORMAL MG/DL Urine Leukocyte Esterase NEGATIVE NEGATIVE Urine RBC (Auto) NEGATIVE NEGATIVE Urine RBC NONE /HPF Urine WBC RARE /HPF Urine Squamous Epithelial Cells 2-5 /HPF Urine Crystals NONE /LPF Urine Bacteria NEGATIVE /HPF Urine Casts NONE /LPF Urine Mucus SMALL H /LPF Urine Culture Indicated NO White Blood Count 7.6 4.3-11.0 10^3/uL Red Blood Count 5.02 4.35-5.85 10^6/uL Hemoglobin 15.1 13.3-17.7 G/DL Hematocrit 44 40-54 % Mean Corpuscular Volume 87 80-99 FL Mean Corpuscular Hemoglobin 30 25-34 PG Mean Corpuscular Hemoglobin Concent 35 32-36 G/DL Red Cell Distribution Width 12.9 10.0-14.5 % Platelet Count 189 130-400 10^3/uL Mean Platelet Volume 10.3 7.4-10.4 FL Neutrophils (%) (Auto) 66 42-75 % Lymphocytes (%) (Auto) 20 12-44 % Monocytes (%) (Auto) 12 0-12 % Eosinophils (%) (Auto) 3 0-10 % Basophils (%) (Auto) 0 0-10 % Neutrophils # (Auto) 5.0 1.8-7.8 X 10^3 Lymphocytes # (Auto) 1.5 1.0-4.0 X 10^3 Monocytes # (Auto) 0.9 0.0-1.0 X 10^3 Eosinophils # (Auto) 0.2 0.0-0.3 10^3/uL Basophils # (Auto) 0.0 0.0-0.1 10^3/uL Sodium Level 138 135-145 MMOL/L Potassium Level 3.7 3.6-5.0 MMOL/L Chloride Level 102 98-107 MMOL/L Carbon Dioxide Level 25 21-32 MMOL/L Anion Gap 11 5-14 MMOL/L Blood Urea Nitrogen 9 7-18 MG/DL Creatinine 0.79 0.60-1.30 MG/DL Estimat Glomerular Filtration Rate > 60 BUN/Creatinine Ratio 11 Glucose Level 163 H 70-105 MG/DL Calcium Level 9.8 8.5-10.1 MG/DL Corrected Calcium 9.8 8.5-10.1 MG/DL Total Bilirubin 0.4 0.1-1.0 MG/DL Aspartate Amino Transf (AST/SGOT) 20 5-34 U/L Alanine Aminotransferase (ALT/SGPT) 32 0-55 U/L Alkaline Phosphatase 78 40-136 U/L Total Protein 7.0 6.4-8.2 GM/DL Albumin 4.0 3.2-4.5 GM/DL My Orders Orders - ISAIAS PARKER Ua Culture If Indicated (10/29/18 08:06) Cbc With Automated Diff (10/29/18 08:06) Comprehensive Metabolic Panel (10/29/18 08:06) Ibuprofen Tablet (Motrin Tablet) (10/29/18 08:15) Fentanyl Injection (Sublimaze Injection (10/29/18 08:15) Ed Iv/Invasive Line Start (10/29/18 08:11) Lactated Ringers (Lr 1000 Ml Iv Solution (10/29/18 08:11) Ct Abd/Pelvis Wo(Kidney Stone) (10/29/18 08:43) Ondansetron Injection (Zofran Injectio (10/29/18 08:45) Hydrocodone/Apap 5/325 Tablet (Lortab 5 (10/29/18 10:30) Medications Given in ED Current Medications Medications Dose Ordered Sig/Jose G Route Start Time Stop Time Status Last Admin Dose Admin Fentanyl Citrate 75 mcg ONCE ONCE IVP 10/29/18 08:15 10/29/18 08:16 DC 10/29/18 08:29 75 MCG Ibuprofen 200 mg ONCE ONCE PO 10/29/18 08:15 10/29/18 08:16 DC 10/29/18 08:29 200 MG Lactated Ringer's 1,000 ml @ 0 mls/hr Q0M ONCE IV 10/29/18 08:11 10/29/18 08:12 DC 10/29/18 08:29 0 MLS/HR Ondansetron HCl 4 mg ONCE ONCE IVP 10/29/18 08:45 10/29/18 08:47 DC 10/29/18 09:00 4 MG Vital Signs/I&O 10/29/18 08:06 Temp 97.5 Pulse 95 Resp 20 B/P (MAP) 139/98 (112) Pulse Ox 98 Progress Progress Note : Time: 08:15 Progress Note Lab, liter of LR and urinalysis. He does appear to be clinically dry on examination. If he has a kidney stone then fluids will help. Also should consider appendix, back pain, etc. Departure Impression Primary Impression: Acute right flank pain Disposition: HOME, SELF-CARE Condition: Stable Departure-Patient Inst. Decision time for Depature: 10:39 Referrals: MAAME COTTRELL MD (PCP/Family) Primary Care Physician Patient Instructions: Acute Abdomen (Belly Pain), Adult (DC) Add. Discharge Instructions: You do have a few small stones in your kidney that are not causing any problems and is possible that one of those may have just recently passed. If this is the case then your symptoms should resolve in about a day or so. Drink plenty of fluids and use ibuprofen 800 mg every 8 hours in addition to Tylenol 1000 mg every 8 hours and heating pad. If your pain is intolerable you can use hydrocodone one tablet every 6 hours. If your symptoms persist for more than a couple days then you should follow up with your primary doctor for further evaluation. It would be advisable to make an appointment before the weekend if possible. If you're having nausea take one tablet of Zofran every 6 hours. fast food supervisor some MiraLAX and try and clean your bowels out to help remove the possibility of constipation being source of your discomfort. If your pain is intractable or you cannot control your nausea or other worrisome symptoms please return to the ER nearest you for further evaluation. All discharge instructions reviewed with patient and/or family. Voiced understanding. Scripts Ondansetron (Ondansetron Odt) 4 Mg Tab.rapdis 4 MG PO Q6H PRN for NAUSEA/VOMITING, #8 TAB 0 Refills Prov: ISAIAS PARKER 10/29/18 Hydrocodone Bit/Acetaminophen (Hydrocodone/Acetaminophen 5/325mg Tablet) 1 Tab Tab 1 EACH PO Q4-6HR PRN for PAIN-MODERATE MDD 10 for 2 Days, #8 TAB 0 Refills Prov: ISAIAS PARKER 10/29/18 Work/School Note: Work Release Form Date Seen in the Emergency Department: October 29, 2018 Return to Work: October 30, 2018 Restrictions: No Restrictions ISAIAS PARKER October 29, 2018 08:16
[2018-10-29 08:28] LABS: BACTERIA,URINE NEGATIVE /HPF; WBC,URINE RARE /HPF
[2018-10-29 08:33] LABS: BASOPHILS % (AUTO) 0 % (0-10); EOSINOPHILS # (AUTO) 0.2 10^3/uL (0.0-0.3); EOSINOPHILS % (AUTO) 3 % (0-10); HEMATOCRIT 44 % (40-54); HEMOGLOBIN 15.1 G/DL (13.3-17.7); LYMPHOCYTES # (AUTO) 1.5 X 10^3 (1.0-4.0); LYMPHOCYTES % (AUTO) 20 % (12-44); MEAN CORPUSCULAR HEMOGLOBIN 30 PG (25-34); MEAN CORPUSCULAR HGB CONC 35 G/DL (32-36); MEAN CORPUSCULAR VOLUME 87 FL (80-99); MEAN PLATELET VOLUME 10.3 FL (7.4-10.4); MONOCYTES # (AUTO) 0.9 X 10^3 (0.0-1.0); MONOCYTES % (AUTO) 12 % (0-12); NEUTROPHILS % (AUTO) 66 % (42-75); PLATELET COUNT 189 10^3/uL (130-400); RED CELL DISTRIBUTION WIDTH 12.9 % (10.0-14.5); WHITE BLOOD COUNT 7.6 10^3/uL (4.3-11.0)
[2018-10-29] MEDS ORDERED: ONDANSETRON 4 MG/2 ML (SDV) Z0FRAN IVP ONE (08:45)
[2018-10-29 08:56] LABS: ALANINE AMINOTRANSFERASE 32 U/L (0-55); ALKALINE PHOSPHATASE 78 U/L (40-136); BILIRUBIN,TOTAL 0.4 MG/DL (0.1-1.0); BUN/CREATININE RATIO 11; CALCIUM 9.8 MG/DL (8.5-10.1); CARBON DIOXIDE 25 MMOL/L (21-32); CHLORIDE 102 MMOL/L (98-107); CREATININE SERUM 0.79 MG/DL (0.60-1.30); GFR ESTIMATED > 60; GLUCOSE 163 MG/DL (70-105); POTASSIUM 3.7 MMOL/L (3.6-5.0); SODIUM 138 MMOL/L (135-145)
--- NOTE | 2018-10-29 09:45 | Diagnostic Imaging Report ---
PROCEDURE: CT urinary tract, rule out kidney stone. TECHNIQUE: Multiple contiguous axial images were obtained through the abdomen and pelvis without the use of intravenous contrast. Auto Exposure Controls were utilized during the CT exam to meet ALARA standards for radiation dose reduction. INDICATION: Right side abdominal pain and history of kidney stones. Correlation is made with prior CT from 10/03/2018. FINDINGS: The lung bases are clear. No discrete liver mass is identified. The gallbladder is surgically absent. No biliary ductal dilatation is identified. The pancreas and spleen are unremarkable. No adrenal mass is identified. Right kidney does contain a tiny 1-2 mm nonobstructing calculus in the upper pole. Left kidney is unremarkable. No ureteral calculi or hydronephrosis is seen. Aorta is nonaneurysmal. Bowel loops appear to be normal caliber without evidence of obstruction. There is no ascites. There are post operative changes in the region of the rectum and sigmoid. Rectum and sigmoid as well as the descending colon contain moderate amount of stool. Bladder is decompressed. Prostate is unremarkable. Postop changes in the midline abdomen. IMPRESSION: 1. Tiny nonobstructing right upper pole renal calculus. No ureteral calculi or hydronephrosis is detected. 2. Postsurgical changes. There is moderate stool in the colon. Study is otherwise unremarkable. Dictated by: Dictated on workstation # [id number]
[2018-10-29] MEDS ORDERED: HYDROcodone/APAP 5 MG/325 MG (LORTAB) TAB PO ONE (10:30)
[2018-10-29] MEDS ORDERED: ONDA4TAB11 PO (10:42)
[2018-10-29] MEDS ORDERED: ACHD5005 PO (10:42)
[2018-10-29 10:48] VITALS: BP 133/82
== END 2018-10-29 10:48 | disposition home or self-care (01) ==
LOC: EDUNIT# 07:57 → ER 07:57
DX: R10.31 Right lower quadrant pain (principal); R10.11 Right upper quadrant pain; G47.30 Sleep apnea, unspecified; J45.909 Unspecified asthma, uncomplicated; I10 Essential (primary) hypertension; K21.0 Gastro-esophageal reflux disease with esophagitis; Q43.1 Hirschsprung's disease; Z87.19 Personal history of other diseases of the digestive system; Z88.0 Allergy status to penicillin; Z88.1 Allergy status to other antibiotic agents; Z88.8 Allergy status to other drugs, medicaments and biological substances; Z87.891 Personal history of nicotine dependence; Z98.890 Other specified postprocedural states
CPT/HCPCS: 36415; 74176; 80053; 81000; 85025; 96361; 96374; 96375

== ENCOUNTER 2018-12-15 10:53 | Emergency (ER) | payer MEDICAID ==
[~2018-12-15] VITALS: Ht 185.4 cm; Wt 149.7 kg
[~2018-12-15 10:53] MED LIST changes: -TRAZ-189 PO; +TRAZ-222 PO
[2018-12-15] MEDS ORDERED: CYCLOBENZAPRINE 10 MG (FLEXERIL) TAB PO STA (11:30)
--- NOTE | 2018-12-15 11:53 | Diagnostic Imaging Report ---
Indication: [place] a pop in the back. Time of exam: 11:45 AM Three views of the lumbar spine were obtained. Curvature and alignment is normal. Vertebral body heights and disc spaces are well-maintained. No fracture or subluxation is seen. Impression: No acute abnormality is detected. Dictated by: Dictated on workstation # [id number]
[2018-12-15] MEDS ORDERED: TRAM50TA2 PO (12:17)
[2018-12-15] MEDS ORDERED: CYCL10TA9 PO (12:17)
--- NOTE | 2018-12-15 12:17 | ED Back Pain ---
General Chief Complaint: Back Problems Stated Complaint: BACK PAIN Nursing Triage Note: PT STATES HE WAS LIFTING HIS 50 POUND CHILD ON SATURDAY AND FELT A POP. PT DENIES LOSS OF BOWEL OR BLADDER. PT DENIES SADDLE NUMBNESS OR TINGLING. PT STATES HE HAS TAKEN TYLENOL WITHOUT RELIEF. PT AMBULATES WITHOUT DIFFICULTY. Nursing Sepsis Screen: No Definite Risk History of Present Illness Date Seen by Provider: Dec 15, 2018 Time Seen by Provider: 11:20 Initial Comments 33-year-old male presents for low back pain. He states 2 days ago he was lifting his 50 pound child when he felt a pole and then a pop sensation in his low back. He denies any symptoms radiating into his legs. He's had no urinary or bowel retention or incontinence. He's had no previous history of injuries to his back. He has been taking Tylenol with minimal improvement in his symptoms. He has been using a hot pack to his back with minimal improvement. Timing/Duration: 2-3 Days Severity: Mild Pain/Injury Location: Back Method of Injury: Other (lifting approximately 50 pounds) Modifying Factors: Improves With Rest Associated Symptoms: muscle spasms; No numbness in legs/feet, No tingling in legs/feet, No sensory/motor loss; lower back pain; No loss of bladder control, No loss of bowel control Allergies and Home Medications Allergies Coded Allergies: ketoprofen (Verified Allergy, Unknown, RASH, 12/12/17) ketorolac (Verified Allergy, Unknown, RASH, 09/22/18) cephalexin (Verified Adverse Reaction, Mild, NAUSEA, 09/22/18) Home Medications Cariprazine Hydrochloride 3 Mg Capsule, 3 MG PO DAILY, (Reported) Cyclobenzaprine HCl 10 Mg Tablet, 10 MG PO Q8H PRN for SPASMS Prescribed by: HE GALLO on 12/15/18 1217 Docusate Sodium 100 Mg Capsule, 100 MG PO DAILY, (Reported) Hydrochlorothiazide 25 Mg Tablet, 25 MG PO DAILY, (Reported) Hydrocodone Bit/Acetaminophen 1 Tab Tab, 1 TAB PO Q6H PRN for PAIN-MODERATE Prescribed by: NORMAN VEGA on 09/24/18 1358 Hydrocodone Bit/Acetaminophen 1 Tab Tab, 1 EACH PO Q4-6HR PRN for PAIN-MODERATE Prescribed by: ISAIAS PARKER on 10/29/18 1042 Omeprazole 20 Mg Tablet.dr, 20 MG PO BID PRN for HEARTBURN, (Reported) Ondansetron 4 Mg Tab.rapdis, 4 MG PO Q6H PRN for NAUSEA/VOMITING Prescribed by: ISAIAS PARKER on 10/29/18 1042 Tramadol HCl 50 Mg Tablet, 50 MG PO Q6H PRN for PAIN Prescribed by: HE GALLO on 12/15/18 1217 Trazodone HCl 50 Mg Tablet, 50 MG PO HS, (Reported) Patient Home Medication List Home Medication List Reviewed: Yes Review of Systems Constitutional: no symptoms reported, see HPI Musculoskeletal: see HPI, back pain All Other Systems Reviewed Negative Unless Noted: Yes Past Handcdv-Iwcaxv-Pzumgp Hx Past Med/Social Hx: Reviewed Nursing Past Med/Soc Hx Patient Social History Alcohol Use: Occasionally Uses Recreational Drug Use: No Smoking Status: Current Everyday Smoker Type Used: Cigarettes, Smokeless Tobacco Former Smoker, Quit: October 26, 2018 2nd Hand Smoke Exposure: Yes Recent Foreign Travel: No Contact w/Someone Who Travel: No Recent Infectious Disease Expo: No Recent Hopitalizations: Yes (hernia repair 09/24/18) Physical Abuse: No Sexual Abuse: No Mistreated: No Fear: No Immunizations Up To Date Tetanus Booster (TDap): Less than 5yrs PED Vaccines UTD: No Date of Influenza Vaccine: Mar 24, 2018 Seasonal Allergies Seasonal Allergies: Yes Past Medical History Surgeries: Yes (colon resection, r inguinal nerve cut, KNEE L SCOPE) Abdominal, Gallbladder Respiratory: Yes (asthma as kid) Asthma, Sleep Apnea Currently Using CPAP: Yes Cardiac: Yes Hypertension Neurological: No Sexually Transmitted Disease: No HIV/AIDS: No Genitourinary: No Gastrointestinal: Yes (HIRSCHSPRUNG'S, esophagitis, H. PYLORI) Gastroesophageal Reflux, Chronic Constipation, Ulcer Musculoskeletal: Yes (right foot fx) Endocrine: No HEENT: Yes (GLASSES) Loss of Vision: Bilateral Hearing Impairment: Denies Cancer: No Psychosocial: Yes Sleep Difficulties Integumentary: No Blood Disorders: No Adverse Reaction/Blood Tranf: No (N/A) Family Medical History No Pertinent Family Hx Physical Exam Vital Signs Vital Signs - First Documented 12/15/18 11:13 Temp 97.6 Pulse 94 Resp 18 B/P (MAP) 145/110 (122) Capillary Refill : Less Than 3 Seconds Height, Weight, BMI Height: 6'1.00" Weight: 330lbs. 0oz. 149.268100sn; 41.9 BMI Method:Stated General Appearance: No Apparent Distress, WD/WN Neck: Full Range of Motion, Normal Inspection, Non Tender, Supple Cardiovascular: Regular Rate, Rhythm, No Edema, No Murmur, Normal Peripheral Pulses Respiratory: Chest Non Tender, Lungs Clear, Normal Breath Sounds Gastrointestinal: Normal Bowel Sounds, Non Tender, Soft Back: Normal Inspection, No CVA Tenderness, Decreased Range of Motion (secondary to pain), Muscle Spasm, Vertebral Tenderness (right lateral greater than left), Other (ambulates with a steady heel-to-toe gait, able to walk on his toes and heels, power V/V L4 to S1. Negative straight leg raising sign) Extremity: Normal Capillary Refill, Normal Inspection, Normal Range of Motion, No Calf Tenderness Neurologic/Psychiatric: Alert, Oriented x3, No 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, Normal Mood/Affect Skin: Normal Color, Warm/Dry Lymphatic: No Adenopathy Progress/Results/Core Measures Results/Orders My Orders Orders - HE GALLO Tramadol Tablet (Ultram Tablet) (12/15/18 11:30) Cyclobenzaprine Tablet (Flexeril Tablet) (12/15/18 11:30) Lumbar Spine - 2-3 Views (12/15/18 11:30) Medications Given in ED Current Medications Medications Dose Ordered Sig/Jose G Route Start Time Stop Time Status Last Admin Dose Admin Tramadol HCl 50 mg ONCE ONCE PO 12/15/18 11:30 12/15/18 11:34 DC 12/15/18 11:37 50 MG Vital Signs/I&O 12/15/18 11:13 Temp 97.6 Pulse 94 Resp 18 B/P (MAP) 145/110 (122) Blood Pressure Mean: 122 Progress Progress Note : Time: 11:20 Progress Note Patient seen and evaluated, we'll obtain x-rays of the lumbar spine, tramadol 50 mg for pain and cyclobenzaprine 10 mg for muscle spasms. 1210 patient reports improvement in his symptoms. Discharge instructions and return precautions reviewed with the patient. All questions answered. Diagnostic Imaging Diagonstic Imaging: Xray Plain Films/CT/US/NM/MRI: other (LS-spine) Comments NAME: GENE GOLDMAN MED REC#: [id number] PT STATUS: REG ER : 1985 PHYSICIAN: HE GALLO ADMIT DATE: 12/15/18/ER Draft Date of Exam:12/15/18 LUMBAR SPINE - 2-3 VIEWS Indication: [place] a pop in the back. Time of exam: 11:45 AM Three views of the lumbar spine were obtained. Curvature and alignment is normal. Vertebral body heights and disc spaces are well-maintained. No fracture or subluxation is seen. Impression: No acute abnormality is detected. Dictated on workstation # [id number] Dict: 12/15/18 1149 Trans: 12/15/18 1153 CV [id number] Interpreted by: BERRY BROWNLEE MD Electronically signed by: Reviewed: Reviewed by Me Departure Impression Primary Impression: Lumbosacral strain Qualified Codes: S39.012A - Strain of muscle, fascia and tendon of lower back, initial encounter Disposition: HOME, SELF-CARE Condition: Improved Departure-Patient Inst. Decision time for Depature: 12:10 Referrals: MAAME COTTRELL MD (PCP/Family) Primary Care Physician Patient Instructions: Lumbar Muscle Strain (DC) Add. Discharge Instructions: Continue taking your to alternate between heat and ice to the low back. Follow-up with your primary care provider if symptoms are not improving or worsen. Use medications as prescribed. You may apply vrfz-ldr-zwaqbjq pain remedies such as Ice E Hot or [place]. Walking will assist with back pain. No lifting or aggressive activity. Return to emergency department for new, urgent health care needs. All discharge instructions reviewed with patient and/or family. Voiced understanding. Scripts Tramadol HCl (Tramadol HCl) 50 Mg Tablet 50 MG PO Q6H PRN for PAIN, #12 TAB 0 Refills Prov: HE GALLO 12/15/18 Cyclobenzaprine HCl (Cyclobenzaprine HCl) 10 Mg Tablet 10 MG PO Q8H PRN for SPASMS, #15 TAB 0 Refills Prov: HE GALLO 12/15/18 HE GALLO Dec 15, 2018 12:17
[2018-12-15 12:55] VITALS: BP 145/110
== END 2018-12-15 12:30 | disposition home or self-care (01) ==
LOC: EDUNIT# 10:53 → ER 10:54
DX: S39.012A Strain of muscle, fascia and tendon of lower back, initial encounter (principal); J45.909 Unspecified asthma, uncomplicated; G47.30 Sleep apnea, unspecified; I10 Essential (primary) hypertension; K21.9 Gastro-esophageal reflux disease without esophagitis; F17.210 Nicotine dependence, cigarettes, uncomplicated; Z87.19 Personal history of other diseases of the digestive system; Z88.1 Allergy status to other antibiotic agents; Z88.6 Allergy status to analgesic agent; Z98.890 Other specified postprocedural states; X50.0XXA Overexertion from strenuous movement or load, initial encounter
CPT/HCPCS: 72100

== ENCOUNTER 2019-01-08 05:32 | Outpatient (CLI) | payer MEDICAID ==
[~2019-01-08] VITALS: Ht 185.4 cm; Wt 149.7 kg
[~2019-01-08 05:32] MED LIST changes: +CYCL10TA9 PO
[2019-01-08] MEDS ORDERED: METF-397 PO (10:32)
[2019-01-08] MEDS ORDERED: VARE1TAB22 PO (10:32)
== END 2019-01-08 10:38 | disposition home or self-care (01) ==
LOC: PREOP 05:32
PROVIDERS: ATTEND Surgery
DX: Z01.818 Encounter for other preprocedural examination (principal)

== ENCOUNTER 2019-01-12 08:28 | Day surgery (SDC) | payer MEDICAID ==
--- NOTE | 2017-09-30 14:48 | Anesthesia-General Post-Op ---
MAC Patient Condition Mental Status/LOC: Same as Preop Cardiovascular: Satisfactory Nausea/Vomiting: Absent Respiratory: Satisfactory Pain: Controlled Complications: Absent Post Op Complications Complications None Follow Up Care/Instructions Patient Instructions None needed. Anesthesiology Discharge Order Discharge Order Patient is doing well, no complaints, stable vital signs, no apparent adverse anesthesia problems. No complications reported per nursing. TORO MO CRNA Sep 30, 2017 14:48
[~2019-01-12] VITALS: Ht 185.4 cm; Wt 149.7 kg
[2019-01-12] VITALS (8 sets, daily range): BP systolic 112–145; BP diastolic 57–92
[~2019-01-12 08:28] MED LIST changes: +HURRICAINE EXT TUBE (BENZOCAINE) XX ONE; +METF-397 PO; +VARE1TAB22 PO
[2019-01-12] MEDS ORDERED: LACTATED RINGERS 1,000 ML IV ONE (08:33)
[2019-01-12] MEDS ORDERED: LACTATED RINGERS 1,000 ML IV STA (08:33)
[2019-01-12] MEDS ORDERED: HURRICAINE EXT TUBE (BENZOCAINE) XX PRN (08:45)
--- NOTE | 2019-01-12 09:22 | Progress Note-Pre Operative ---
Pre-Operative Progress Note H&P Reviewed The H&P was reviewed, patient examined and no changes noted. Time Seen by Provider: 09:19 Date H&P Reviewed: Jan 12, 2019 Time H&P Reviewed: 09:20 Pre-Operative Diagnosis: Burning Epigastric pain, hx of ulcer and H. pylori NORMAN VEGA DO Jan 12, 2019 09:22
[2019-01-12] MEDS ORDERED: LIDOCAINE PF 2% 5 ML (XYLOCAINE) VIAL ONE (09:47)
[2019-01-12] MEDS ORDERED: proPOfol 200 MG/20 ML (DIPRIVAN) VIAL IV ONE ×2 (09:47→09:59)
[2019-01-12] MEDS ORDERED: MIDAZOLAM 2 MG/2 ML (VERSED) VIAL ONE (09:47)
--- NOTE | 2019-01-12 10:16 | Progress Note-Post Operative ---
Post-Operative Progess Note Surgeon (s)/Miner Assistant (s) Surgeon NORMAN VEGA DO Miner Assistant: none Pre-Operative Diagnosis Burning Epigastric pain, hx of ulcer and H. pylori Post-Operative Diagnosis Gastritis Esophagitis Procedure & Operative Findings Date of Procedure 01/12/19 Procedure Performed/Findings EGD with bx Anesthesia Type IV sedation by TRAFFIC MAINTENANCE OFFICER Estimated Blood Loss Estimated blood loss (mL): scant Specimens/Packing Specimens Removed antral bx Body of stomach bx NORMAN VEGA DO Jan 12, 2019 10:16
--- NOTE | 2019-01-12 10:18 | Endoscopy Discharge Instruct ---
Endo Procedure/Findings Findings 1.: Gastritis 2.: Other Findings (Esophagitis) Discharge Instructions - Activity: You might feel a little sleepy until tomorrow. This is due to the medicine you received to relax you. Until tomorrow, you should: NOT drive a car, operate machinery or power tools. NOT drink any alcoholic beverages. NOT make any important decisions or sign importortant papers. Do not return to work until tomorrow, unless otherwise instructed. Resume previous activities tomorrow. Diet: Start by taking liquids. If you tolerate liquids, advance to solid food. make an appointment in 2 weeks Notify Physician - If you experience excessive bleeding, unusual abdominal pain, fever, or chest pain, contact your doctor immediately. Follow-Up: - I have received and understand the above instructions and will call my doctor if I have any further questions. Patient Signature Date Nurse Signature Other (Relationship) NORMAN VEGA DO Jan 12, 2019 10:18
--- NOTE | 2019-01-14 00:13 | OPERATIVE REPORT ---
DATE OF SERVICE: 01/12/2019 PREOPERATIVE DIAGNOSES: Gastritis, burning epigastric pain, history of H. pylori and ulcers. POSTOPERATIVE DIAGNOSES: Gastritis and esophagitis. PROCEDURE: EGD with biopsy. SURGEON: Cabrera Dennis DO REGISTERED DIETETIC TECHNICIAN: None. ANESTHESIA: IV sedation by the CONCENTRATOR OPERATOR. SPECIMEN: Biopsies from the stomach. BLOOD LOSS: Scant. FLUIDS: Per anesthesia. POSTOPERATIVE CONDITION: Stable. INDICATION FOR PROCEDURE: The patient is a 34-year-old male who has a history of ulcers and H. pylori, was doing fine, but then stated he started getting a burning epigastric pain like he had when he had H. pylori and the ulcers. He needed to get this looked at. FINDINGS: The patient had some gastritis, but did not see any ulcers. PROCEDURE NOTE: After informed consent was obtained, the patient was brought to the endoscopy suite and placed in the bed in the left lateral decubitus position. He was administered IV sedation by the CONCENTRATOR OPERATOR who then monitored his vitals the entire time, heart rate, blood pressure and pulse ox and the scope was inserted down the mouth through the esophagus into the stomach. Stomach looked like some gastritis, took a picture of this, pushed into the duodenum. Duodenum looked fine. Pulled back into the antrum and did a biopsy of the antrum as well as the biopsy the body of stomach, retroflexed the scope, did not see any ulcers or any erosions. Pulled the scope back up into the esophagus, looked at the GE junction and then pulled the scope up the esophagus and out the mouth. The patient tolerated the procedure. He was recovered in endoscopy suite. Job ID: [id number] DocumentID: [id number] Dictated Date: 01/13/2019 17:40:39 Multiple Cut Off Saw Operator Date: 01/14/2019 00:12:15 Dictated By: CABRERA DENNIS DO
== END 2019-01-12 11:15 | disposition home or self-care (01) ==
LOC: ENDO 08:28
PROVIDERS: ATTEND Surgery
DX: Z09 Encounter for follow-up examination after completed treatment for conditions other than malignant neoplasm (principal); K29.50 Unspecified chronic gastritis without bleeding; B96.81 Helicobacter pylori [H. pylori] as the cause of diseases classified elsewhere; K20.9 Esophagitis, unspecified; J45.909 Unspecified asthma, uncomplicated; Q43.1 Hirschsprung's disease; F17.210 Nicotine dependence, cigarettes, uncomplicated; Z87.19 Personal history of other diseases of the digestive system
CPT/HCPCS: 82962; 88305

== ENCOUNTER 2019-01-30 08:36 | Emergency (ER) | payer MEDICAID ==
[~2019-01-30] VITALS: Ht 185.4 cm; Wt 149.7 kg
[~2019-01-30 08:36] MED LIST changes: -HURRICAINE EXT TUBE (BENZOCAINE) XX ONE
[2019-01-30] MEDS ORDERED: NS IV 1000 ML 1,000 ML IV SCH (08:54)
[2019-01-30] MEDS ORDERED: ONDANSETRON 4 MG/2 ML (SDV) Z0FRAN IVP ONE (09:00)
[2019-01-30] MEDS ORDERED: fentaNYL INJECTION 100 MCG/2 ML AMP IVP ONE (09:00)
--- NOTE | 2019-01-30 09:01 | ED Abdominal Pain ---
General Chief Complaint: Abdominal/GI Problems Stated Complaint: ABD PAIN Nursing Triage Note: PT STATES SHARP RLQ PAIN THAT STARTED LAST NIGHT. DIARRHEA FOR A FEW DAYS, STATES THAT IS NORMAL DUE TO METFORMIN. Sepsis Screen: No Definite Risk Source of Information: Patient Exam Limitations: No Limitations History of Present Illness Date Seen by Provider: Jan 30, 2019 Time Seen by Provider: 08:50 Initial Comments 34-year-old male presents with right lower quadrant pain. Patient reports the pain started last night. He said some nausea and vomiting. Patient reports he has a couple episodes of diarrhea that feels that that is normal. He does not have any fevers or chills. He does not have any urinary symptoms or flank pain. Patient denies any chest pain, shortness of breath or other systemic complaints at this time Allergies and Home Medications Allergies Coded Allergies: ketoprofen (Verified Allergy, Unknown, RASH, 12/12/17) ketorolac (Verified Allergy, Unknown, RASH, 09/22/18) cephalexin (Verified Adverse Reaction, Mild, NAUSEA, 09/22/18) Home Medications Cariprazine Hydrochloride 3 Mg Capsule, 3 MG PO DAILY, (Reported) Hydrochlorothiazide 25 Mg Tablet, 25 MG PO DAILY, (Reported) Metformin HCl 500 Mg Tablet, 500 MG PO BID, (Reported) Omeprazole 20 Mg Tablet.dr, 20 MG PO BID PRN for HEARTBURN, (Reported) Varenicline Tartrate 1 Mg Tablet, 1 MG PO BID, (Reported) Patient Home Medication List Home Medication List Reviewed: Yes Review of Systems Review of Systems Constitutional: No chills, No fever Respiratory: Denies Cough, Denies Shortness of Air Cardiovascular: Denies Chest Pain, Denies Irregular Heart Rate Gastrointestinal: Abdominal Pain, Diarrhea, Nausea, Vomiting Genitourinary: No Symptoms Reported Skin: no symptoms reported Psychiatric/Neurological: No Symptoms Reported Past Ulbyeou-Mccczl-Bpccoc Hx Past Med/Social Hx: Reviewed Nursing Past Med/Soc Hx Patient Social History Alcohol Use: Rarely Uses Alcohol Beverage of Choice: Beer Recreational Drug Use: No Smoking Status: Current Everyday Smoker Type Used: Cigarettes, Smokeless Tobacco Former Smoker, Quit: October 26, 2018 2nd Hand Smoke Exposure: Yes Recent Foreign Travel: No Contact w/Someone Who Travel: No Recent Infectious Disease Expo: No Recent Hopitalizations: No Physical Abuse: No Sexual Abuse: No Mistreated: No Fear: No Immunizations Up To Date Tetanus Booster (TDap): Less than 5yrs PED Vaccines UTD: No Date of Influenza Vaccine: Mar 24, 2018 Seasonal Allergies Seasonal Allergies: Yes Past Medical History Surgeries: Yes (colon resection, r inguinal nerve cut, KNEE L SCOPE, hernia) Abdominal, Gallbladder Respiratory: Yes (asthma as kid) Asthma, Sleep Apnea Currently Using CPAP: Yes Cardiac: Yes Hypertension Neurological: No Sexually Transmitted Disease: No HIV/AIDS: No Genitourinary: No Gastrointestinal: Yes (HIRSCHSPRUNG'S, esophagitis, H. PYLORI) Gastroesophageal Reflux, Chronic Constipation, Ulcer Musculoskeletal: Yes (right foot fx) Endocrine: Yes Diabetes, Non-Insulin dep HEENT: Yes (GLASSES) Loss of Vision: Bilateral Hearing Impairment: Denies Cancer: No Psychosocial: Yes Sleep Difficulties Integumentary: No Blood Disorders: No Adverse Reaction/Blood Tranf: No (N/A) Family Medical History No Pertinent Family Hx Physical Exam Vital Signs Vital Signs - First Documented 01/30/19 08:42 Temp 96.0 Pulse 91 Resp 20 B/P (MAP) 156/96 (116) Pulse Ox 96 O2 Delivery Room Air Capillary Refill : Less Than 3 Seconds Height/Weight/BMI Height: 6'1.00" Weight: 330lbs. 0.0oz. 149.033383zl; 43.5 BMI Method:Stated General Appearance: WD/WN, obese HEENT: PERRL/EOMI Neck: supple Respiratory: chest non-tender, lungs clear, normal breath sounds Cardiovascular: normal peripheral pulses, regular rate, rhythm Gastrointestinal: No distended, No guarding, No rebound; tenderness (right lower quadrant) Extremities: normal range of motion, non-tender Back: no CVA tenderness Neurologic/Psychiatric: no motor/sensory deficits, normal mood/affect Skin: normal color, warm/dry Progress/Results/Core Measures Results/Orders Lab Results Laboratory Tests Test 01/30/19 09:10 01/30/19 09:45 Range/Units White Blood Count 9.3 4.3-11.0 10^3/uL Red Blood Count 5.30 4.35-5.85 10^6/uL Hemoglobin 15.8 13.3-17.7 G/DL Hematocrit 46 40-54 % Mean Corpuscular Volume 86 80-99 FL Mean Corpuscular Hemoglobin 30 25-34 PG Mean Corpuscular Hemoglobin Concent 35 32-36 G/DL Red Cell Distribution Width 12.8 10.0-14.5 % Platelet Count 242 130-400 10^3/uL Mean Platelet Volume 10.5 H 7.4-10.4 FL Neutrophils (%) (Auto) 63 42-75 % Lymphocytes (%) (Auto) 21 12-44 % Monocytes (%) (Auto) 12 0-12 % Eosinophils (%) (Auto) 3 0-10 % Basophils (%) (Auto) 1 0-10 % Neutrophils # (Auto) 5.8 1.8-7.8 X 10^3 Lymphocytes # (Auto) 2.0 1.0-4.0 X 10^3 Monocytes # (Auto) 1.1 H 0.0-1.0 X 10^3 Eosinophils # (Auto) 0.3 0.0-0.3 10^3/uL Basophils # (Auto) 0.1 0.0-0.1 10^3/uL Sodium Level 137 135-145 MMOL/L Potassium Level 4.3 3.6-5.0 MMOL/L Chloride Level 101 98-107 MMOL/L Carbon Dioxide Level 25 21-32 MMOL/L Anion Gap 11 5-14 MMOL/L Blood Urea Nitrogen 8 7-18 MG/DL Creatinine 0.75 0.60-1.30 MG/DL Estimat Glomerular Filtration Rate > 60 BUN/Creatinine Ratio 11 Glucose Level 115 H 70-105 MG/DL Calcium Level 9.6 8.5-10.1 MG/DL Corrected Calcium 9.5 8.5-10.1 MG/DL Total Bilirubin 0.3 0.1-1.0 MG/DL Aspartate Amino Transf (AST/SGOT) 20 5-34 U/L Alanine Aminotransferase (ALT/SGPT) 30 0-55 U/L Alkaline Phosphatase 79 40-136 U/L C-Reactive Protein High Sensitivity 0.89 H 0.00-0.50 MG/DL Total Protein 7.4 6.4-8.2 GM/DL Albumin 4.1 3.2-4.5 GM/DL Lipase 20 8-78 U/L Urine Color YELLOW Urine Clarity CLEAR Urine pH 7 5-9 Urine Specific [place] 1.010 L 1.016-1.022 Urine Protein NEGATIVE NEGATIVE Urine Glucose (UA) NEGATIVE NEGATIVE Urine Ketones NEGATIVE NEGATIVE Urine Nitrite NEGATIVE NEGATIVE Urine Bilirubin NEGATIVE NEGATIVE Urine Urobilinogen NORMAL NORMAL MG/DL Urine Leukocyte Esterase NEGATIVE NEGATIVE Urine RBC (Auto) NEGATIVE NEGATIVE Urine RBC NONE /HPF Urine WBC RARE /HPF Urine Squamous Epithelial Cells 2-5 /HPF Urine Crystals NONE /LPF Urine Bacteria NEGATIVE /HPF Urine Casts NONE /LPF Urine Mucus NEGATIVE /LPF Urine Culture Indicated NO My Orders Orders - SHARP,SHAY L DO Ed Iv/Invasive Line Start (01/30/19 08:54) Comprehensive Metabolic Panel (01/30/19 08:54) Lipase (01/30/19 08:54) Ua Culture If Indicated (01/30/19 08:54) Acute Abd Series (01/30/19 08:54) Cbc With Automated Diff (01/30/19 08:54) Hs C Reactive Protein (01/30/19 08:54) Ed Iv/Invasive Line Start (01/30/19 08:54) Ns Iv 1000 Ml (Sodium Chloride 0.9%) (01/30/19 08:54) Ondansetron Injection (Zofran Injectio (01/30/19 09:00) Fentanyl Injection (Sublimaze Injection (01/30/19 09:00) Ct Abdomen/Pelvis W (01/30/19 10:25) Iohexol Injection (Omnipaque 350 Mg/Ml 1 (01/30/19 10:45) Received Contrast (Hold Metformin- Contr (01/30/19 10:45) Sodium Chloride Flush (Catheter Flush Sy (01/30/19 10:45) Ns (Ivpb) (Sodium Chloride 0.9% Ivpb Bag (01/30/19 10:45) Fentanyl Injection (Sublimaze Injection (01/30/19 10:45) Medications Given in ED Current Medications Medications Dose Ordered Sig/Jose G Route Start Time Stop Time Status Last Admin Dose Admin Fentanyl Citrate 50 mcg ONCE ONCE IVP 01/30/19 09:00 01/30/19 09:01 DC 01/30/19 09:10 50 MCG Fentanyl Citrate 50 mcg Q1H PRN IVP 01/30/19 10:45 01/30/19 10:37 50 MCG Iohexol 100 ml ONCE ONCE IV 01/30/19 10:45 01/30/19 10:46 DC 01/30/19 11:06 100 ML Ondansetron HCl 4 mg ONCE ONCE IVP 01/30/19 09:00 01/30/19 09:01 DC 01/30/19 09:10 4 MG Sodium Chloride 10 ml NEEDED PRN IV 01/30/19 10:45 01/30/19 11:06 10 ML Sodium Chloride 100 ml ONCE ONCE IV 01/30/19 10:45 01/30/19 10:46 DC 01/30/19 11:06 80 ML Vital Signs/I&O 01/30/19 01/30/19 01/30/19 08:42 09:10 10:37 Temp 96.0 96.0 96.0 Pulse 91 Resp 20 B/P (MAP) 156/96 (116) Pulse Ox 96 O2 Delivery Room Air Blood Pressure Mean: 116 Progress Progress Note : Progress Note Review labs, CT and x-ray with patient. Patient with no acute findings. I discussed with has likely a GI bug versus some moderate stool that was seen on that CT. Patient will be discharged home with Zofran prescription. He should., On ibuprofen as needed for pain. Drink plenty of fluids follow-up with his primary care provider if symptoms worsen or are not improving. Diagnostic Imaging Diagonstic Imaging: Xray, CT Plain Films/CT/US/NM/MRI: abdomen, pelvis Comments No acute intra-abdominal findings Departure Impression Primary Impression: Right lower quadrant abdominal pain Disposition: HOME, SELF-CARE Condition: Stable Departure-Patient Inst. Referrals: MAAME COTTRELL MD (PCP/Family) Primary Care Physician Patient Instructions: Nausea and Vomiting, Adult, Acute Abdomen (Belly Pain), Adult (DC), Viral Gastroenteritis, Adult (DC) Add. Discharge Instructions: Tylenol or ibuprofen as needed for pain Drink plenty of fluids All discharge instructions reviewed with patient and/or family. Voiced understanding. Scripts Ondansetron (Ondansetron Odt) 4 Mg Tab.rapdis 4 MG PO Q6H PRN for NAUSEA/VOMITING, #20 TAB Prov: SHAY SHARP DO 01/30/19 SHAY SHARP DO Jan 30, 2019 09:01
[2019-01-30 09:24] LABS: BASOPHILS # (AUTO) 0.1 10^3/uL (0.0-0.1); BASOPHILS % (AUTO) 1 % (0-10); EOSINOPHILS # (AUTO) 0.3 10^3/uL (0.0-0.3); EOSINOPHILS % (AUTO) 3 % (0-10); HEMATOCRIT 46 % (40-54); HEMOGLOBIN 15.8 G/DL (13.3-17.7); LYMPHOCYTES % (AUTO) 21 % (12-44); MEAN CORPUSCULAR HEMOGLOBIN 30 PG (25-34); MEAN CORPUSCULAR HGB CONC 35 G/DL (32-36); MEAN CORPUSCULAR VOLUME 86 FL (80-99); MEAN PLATELET VOLUME 10.5 FL (7.4-10.4); MONOCYTES # (AUTO) 1.1 X 10^3 (0.0-1.0); MONOCYTES % (AUTO) 12 % (0-12); NEUTROPHILS # (AUTO) 5.8 X 10^3 (1.8-7.8); NEUTROPHILS % (AUTO) 63 % (42-75); PLATELET COUNT 242 10^3/uL (130-400); RED CELL DISTRIBUTION WIDTH 12.8 % (10.0-14.5); WHITE BLOOD COUNT 9.3 10^3/uL (4.3-11.0)
[2019-01-30 09:44] LABS: ALANINE AMINOTRANSFERASE 30 U/L (0-55); ALBUMIN 4.1 GM/DL (3.2-4.5); ALKALINE PHOSPHATASE 79 U/L (40-136); BILIRUBIN,TOTAL 0.3 MG/DL (0.1-1.0); BUN/CREATININE RATIO 11; CALCIUM 9.6 MG/DL (8.5-10.1); CARBON DIOXIDE 25 MMOL/L (21-32); CHLORIDE 101 MMOL/L (98-107); CREATININE SERUM 0.75 MG/DL (0.60-1.30); GFR ESTIMATED > 60; GLUCOSE 115 MG/DL (70-105); LIPASE 20 U/L (8-78); POTASSIUM 4.3 MMOL/L (3.6-5.0); SODIUM 137 MMOL/L (135-145); TOTAL PROTEIN 7.4 GM/DL (6.4-8.2)
--- NOTE | 2019-01-30 09:44 | Diagnostic Imaging Report ---
INDICATION: Right-sided abdominal pain. TIME OF EXAM: 9:27 AM FINDINGS: The heart size is normal. There is some minimal atelectasis in left base. There is minimal density right midlung laterally at the level of the right anterior fifth rib. No free air is detected. Surgical clips right upper quadrant are seen. Bowel gas pattern appears nonobstructed. Surgical changes in the pelvis are seen. No pathologic calcifications are seen. IMPRESSION: There are some densities in both lung rader. Followup to confirm clearing is recommended. No acute feature in the abdomen is seen. Dictated by: Dictated on workstation # [id number]
[2019-01-30 09:55] LABS: BILIRUBIN,URINE NEGATIVE (NEGATIVE); CLARITY,URINE CLEAR; COLOR,URINE YELLOW; GLUCOSE, URINE (UA) NEGATIVE (NEGATIVE); KETONES,URINE NEGATIVE (NEGATIVE); LEUKOCYTE ESTERASE ,URINE NEGATIVE (NEGATIVE); NITRITE,URINE NEGATIVE (NEGATIVE); PH,URINE 7 (5-9); PROTEIN,URINE NEGATIVE (NEGATIVE); UROBILINOGEN,URINE NORMAL (NORMAL)
[2019-01-30 10:02] LABS: BACTERIA,URINE NEGATIVE /HPF; WBC,URINE RARE /HPF
[2019-01-30] MEDS ORDERED: HOLD METFORMIN - RECEIVED CONTRAST 20 ML VIAL IV SCH (10:45)
[2019-01-30] MEDS ORDERED: CATHETER FLUSH 10 ML SYR IV PRN (10:45)
[2019-01-30] MEDS ORDERED: NS 100 ML (IVPB) BAG IV ONE (10:45)
[2019-01-30] MEDS ORDERED: fentaNYL INJECTION 100 MCG/2 ML AMP IVP PRN (10:45)
[2019-01-30] MEDS ORDERED: IOHEXOL 350 MG/ML 100 ML (OMNIPAQUE 350) VIAL IV ONE (10:45)
--- NOTE | 2019-01-30 11:24 | Diagnostic Imaging Report ---
PROCEDURE: CT abdomen and pelvis with contrast. TECHNIQUE: Multiple contiguous axial images were obtained through the abdomen and pelvis after administration of intravenous contrast. Auto Exposure Controls were utilized during the CT exam to meet ALARA standards for radiation dose reduction. INDICATION: Right lower quadrant pain since last night. Correlation is made with prior CT from 10/29/2018. The lung bases are clear. Liver demonstrates generalized low density consistent with hepatic steatosis. No discrete liver mass is seen. The gallbladder is surgically absent. No biliary ductal dilatation is identified. The pancreas and spleen are unremarkable. No adrenal mass is detected. Tiny nonobstructing calculus upper pole right kidney is again noted. There appears be a small cyst lower pole right kidney. No hydronephrosis is seen. The small and large bowel loops appear to be normal caliber. No obstruction. Moderate stool in the sigmoid colon and rectum is seen. Postsurgical changes at the rectosigmoid junction are seen. The appendix is visualized in the right abdomen and unremarkable. No inflammatory changes are seen. There is no free fluid or fluid collection. Bladder is decompressed. Bony structures are nonacute. IMPRESSION: 1. Hepatic steatosis. 2. Tiny nonobstructing right renal cactus. 3. Moderate stool in the rectum and sigmoid. No bowel obstruction is seen. No CT evidence of acute appendicitis is identified. Dictated by: Dictated on workstation # [id number]
[2019-01-30] MEDS ORDERED: ONDA4TAB11 PO (11:38)
[2019-01-30 11:48] VITALS: BP 102/73
== END 2019-01-30 11:48 | disposition home or self-care (01) ==
LOC: EDUNIT# 08:36 → ER 08:37
DX: R10.31 Right lower quadrant pain (principal); J45.909 Unspecified asthma, uncomplicated; G47.30 Sleep apnea, unspecified; I10 Essential (primary) hypertension; K21.9 Gastro-esophageal reflux disease without esophagitis; E11.9 Type 2 diabetes mellitus without complications; F17.210 Nicotine dependence, cigarettes, uncomplicated; Z87.19 Personal history of other diseases of the digestive system; Z88.1 Allergy status to other antibiotic agents; Z88.6 Allergy status to analgesic agent
CPT/HCPCS: 36415; 74022; 74177; 80053; 81000; 83690; 85025; 86141

== ENCOUNTER 2019-02-26 08:23 | Emergency (ER) | payer MEDICAID ==
[~2019-02-26] VITALS: Ht 185.4 cm; Wt 145.1 kg
[2019-02-26] MEDS ORDERED: ONDANSETRON 4 MG/2 ML (SDV) Z0FRAN IVP ONE (08:45)
[2019-02-26] MEDS ORDERED: NS IV 1000 ML 1,000 ML IV ONE (08:45)
[2019-02-26] MEDS ORDERED: fentaNYL INJECTION 100 MCG/2 ML AMP IVP STA (08:45)
--- NOTE | 2019-02-26 09:07 | ED Abdominal Pain ---
General Chief Complaint: Abdominal/GI Problems Stated Complaint: ABD PAIN Nursing Triage Note: AMB TO ROOM WITH FEMALE C/O LOW ABD PAIN FOR 2 DAYS. CONCER ABOUT KNOT IN ABD. Sepsis Screen: No Definite Risk Source of Information: Patient Exam Limitations: No Limitations (WILLIAM GONZALEZ MED STUDENT) History of Present Illness Date Seen by Provider: Feb 26, 2019 Time Seen by Provider: 08:40 Initial Comments The patient is a 34 y/o male who presents with a chief complaint of abdominal pain. He states that the pain began 2 days ago and has progressively gotten worse. He describes the pain as a 6/10, sharp and stabbing across his lower abdomen. He reports that last night he noticed a slightly raised area located just lateral and below his umbilicus. The area is about 3x4 cm, soft, and is exquisitely tender to palpation. The patient has been experiencing nausea with one bout of vomiting last night and two this morning. He reports a bowel movement this morning. He denies black/bloody stool. The patient has a previous surgical history of colon resection due to Hirschsprung disease, cholecystectomy, and hernia repair. He reports that he had a colonoscopy recently that was unremarkable. Timing/Duration: 1-2 Days Severity/Quality: Moderate Location: RLQ, LLQ Modifying Factors: Improves With Lying down, Improves With Movement Associated Symptoms: Nausea/Vomiting (WILLIAM GONZALEZ MED STUDENT) Timing/Duration: 1-2 Days Severity/Quality: Moderate Location: Other (just to the left of the midline scar in the upper portion of the scar below the umbilicus.) Radiation: No Radiation Modifying Factors: Improves With Lying down; Worsens With Movement Associated Symptoms: No Back Pain, No Chest Pain, No Fever/Chills; Nausea/Vomiting (TAINA SCHULER MD) Allergies and Home Medications Allergies Coded Allergies: ketoprofen (Verified Allergy, Unknown, RASH, 12/12/17) ketorolac (Verified Allergy, Unknown, RASH, 09/22/18) cephalexin (Verified Adverse Reaction, Mild, NAUSEA, 09/22/18) Home Medications Cariprazine Hydrochloride 3 Mg Capsule, 3 MG PO DAILY, (Reported) Hydrochlorothiazide 25 Mg Tablet, 25 MG PO DAILY, (Reported) Metformin HCl 500 Mg Tablet, 500 MG PO BID, (Reported) Omeprazole 20 Mg Tablet.dr, 20 MG PO BID PRN for HEARTBURN, (Reported) Ondansetron 4 Mg Tab.rapdis, 4 MG PO Q6H PRN for NAUSEA/VOMITING Prescribed by: SHAY SHARP on 01/30/19 1138 Varenicline Tartrate 1 Mg Tablet, 1 MG PO BID, (Reported) Patient Home Medication List Home Medication List Reviewed: Yes (TAINA SCHULER MD) Review of Systems Review of Systems Constitutional: No fever; weight gain EENTM: No Blurred Vision, No Double Vision Respiratory: Denies Cough, Denies Shortness of Air Gastrointestinal: Abdominal Pain; Denies Blood Streaked Stools; Nausea, Vomiting (WILLIAM GONZALEZ STUDENT) Constitutional: No chills Gastrointestinal: Denies Constipated, Denies Diarrhea; Nausea, Vomiting Musculoskeletal: no symptoms reported Skin: no symptoms reported Psychiatric/Neurological: No Symptoms Reported (TAINA SCHULER MD) All Other Systems Reviewed Negative Unless Noted: Yes (TAINA SCHULER MD) Past Popofix-Kiectc-Tfddml Hx Past Med/Social Hx: Reviewed Nursing Past Med/Soc Hx (TAINA SCHULER MD) Patient Social History Alcohol Use: Occasionally Uses Number of Drinks Today: AA Alcohol Beverage of Choice: Beer Recreational Drug Use: No Smoking Status: Current Everyday Smoker Type Used: Cigarettes, Smokeless Tobacco Former Smoker, Quit: October 26, 2018 2nd Hand Smoke Exposure: Yes Recent Foreign Travel: No Contact w/Someone Who Travel: No Recent Infectious Disease Expo: No Recent Hopitalizations: No (WILLIAM GONZALEZ STUDENT) Immunizations Up To Date Tetanus Booster (TDap): Less than 5yrs PED Vaccines UTD: No Date of Influenza Vaccine: Mar 24, 2018 (WILLIAM GONZALEZ STUDENT) Seasonal Allergies Seasonal Allergies: Yes (WILLIAM GONZALEZ STUDENT) Past Medical History Surgeries: Yes (colon resection, r inguinal nerve cut, KNEE L SCOPE, hernia) Abdominal, Gallbladder Respiratory: Yes (asthma as kid) Asthma, Sleep Apnea Currently Using CPAP: Yes Cardiac: Yes Hypertension Neurological: No Sexually Transmitted Disease: No HIV/AIDS: No Genitourinary: No Gastrointestinal: Yes (HIRSCHSPRUNG'S, esophagitis, H. PYLORI) Gastroesophageal Reflux, Chronic Constipation, Ulcer Musculoskeletal: Yes (right foot fx) Endocrine: Yes Diabetes, Non-Insulin dep HEENT: Yes (GLASSES) Loss of Vision: Bilateral Hearing Impairment: Denies Cancer: No Psychosocial: Yes Sleep Difficulties Integumentary: No Blood Disorders: No Adverse Reaction/Blood Tranf: No (N/A) (WILLIAM GONZALEZ STUDENT) Family Medical History Reviewed Nursing Family Hx (TAINA SCHULER MD) No Pertinent Family Hx (WILLIAM GONZALEZ) Physical Exam Vital Signs Vital Signs - First Documented 02/26/19 08:26 Temp 98.3 Pulse 98 Resp 18 B/P (MAP) 175/122 (139) O2 Delivery Nasal Cannula (TAINA SCHULER MD) Vital Signs Capillary Refill : Less Than 3 Seconds (WILLIAM GONZALEZ STUDENT) Height/Weight/BMI Height: 6'1.00" Weight: 320lbs. 0.0oz. 145.583022lb; 43.5 BMI Method:Stated General Appearance: WD/WN, no apparent distress HEENT: PERRL/EOMI Respiratory: chest non-tender, lungs clear, normal breath sounds, no respiratory distress Cardiovascular: regular rate, rhythm, no edema, no murmur Gastrointestinal: normal bowel sounds, soft, rebound, tenderness Neurologic/Psychiatric: alert, normal mood/affect, oriented x 3 Skin: normal color, warm/dry (WILLIAM GONZALEZ STUDENT) General Appearance: WD/WN, no apparent distress Respiratory: lungs clear, normal breath sounds, no respiratory distress Cardiovascular: regular rate, rhythm, no edema Gastrointestinal: soft, tenderness (just to the left of the midline scar the upper portion. There is a soft area at that area pain although there is no findings of hernia or feeling or hearing perastalsis noted.) Back: normal inspection, no CVA tenderness, no vertebral tenderness Neurologic/Psychiatric: alert, oriented x 3 Skin: normal color, warm/dry (TAINA SCHULER MD) Progress/Results/Core Measures Results/Orders Lab Results Laboratory Tests Test 02/26/19 09:00 02/26/19 09:05 Range/Units Urine Color YELLOW Urine Clarity CLEAR Urine pH 6.5 5-9 Urine Specific [place] 1.020 1.016-1.022 Urine Protein 2+ H NEGATIVE Urine Glucose (UA) NEGATIVE NEGATIVE Urine Ketones 1+ H NEGATIVE Urine Nitrite NEGATIVE NEGATIVE Urine Bilirubin NEGATIVE NEGATIVE Urine Urobilinogen 4 H NORMAL MG/DL Urine Leukocyte Esterase 1+ H NEGATIVE Urine RBC (Auto) NEGATIVE NEGATIVE Urine RBC NONE /HPF Urine WBC 2-5 /HPF Urine Crystals NONE /LPF Urine Bacteria TRACE /HPF Urine Casts NONE /LPF Urine Mucus NEGATIVE /LPF Urine Culture Indicated NO White Blood Count 8.0 4.3-11.0 10^3/uL Red Blood Count 5.05 4.35-5.85 10^6/uL Hemoglobin 15.2 13.3-17.7 G/DL Hematocrit 44 40-54 % Mean Corpuscular Volume 87 80-99 FL Mean Corpuscular Hemoglobin 30 25-34 PG Mean Corpuscular Hemoglobin Concent 35 32-36 G/DL Red Cell Distribution Width 12.6 10.0-14.5 % Platelet Count 225 130-400 10^3/uL Mean Platelet Volume 10.2 7.4-10.4 FL Neutrophils (%) (Auto) 67 42-75 % Lymphocytes (%) (Auto) 19 12-44 % Monocytes (%) (Auto) 12 0-12 % Eosinophils (%) (Auto) 3 0-10 % Basophils (%) (Auto) 1 0-10 % Neutrophils # (Auto) 5.3 1.8-7.8 X 10^3 Lymphocytes # (Auto) 1.5 1.0-4.0 X 10^3 Monocytes # (Auto) 0.9 0.0-1.0 X 10^3 Eosinophils # (Auto) 0.2 0.0-0.3 10^3/uL Basophils # (Auto) 0.0 0.0-0.1 10^3/uL Sodium Level 138 135-145 MMOL/L Potassium Level 4.2 3.6-5.0 MMOL/L Chloride Level 103 98-107 MMOL/L Carbon Dioxide Level 28 21-32 MMOL/L Anion Gap 7 5-14 MMOL/L Blood Urea Nitrogen 12 7-18 MG/DL Creatinine 0.79 0.60-1.30 MG/DL Estimat Glomerular Filtration Rate > 60 BUN/Creatinine Ratio 15 Glucose Level 106 H 70-105 MG/DL Calcium Level 9.5 8.5-10.1 MG/DL Corrected Calcium 9.3 8.5-10.1 MG/DL Total Bilirubin 0.4 0.1-1.0 MG/DL Aspartate Amino Transf (AST/SGOT) 20 5-34 U/L Alanine Aminotransferase (ALT/SGPT) 32 0-55 U/L Alkaline Phosphatase 76 40-136 U/L C-Reactive Protein High Sensitivity 0.73 H 0.00-0.50 MG/DL Total Protein 7.3 6.4-8.2 GM/DL Albumin 4.2 3.2-4.5 GM/DL (TAINA SCHULER MD) My Orders Orders - TAINA SCHULER MD Ed Iv/Invasive Line Start (02/26/19 08:45) Ns Iv 1000 Ml (Sodium Chloride 0.9%) (02/26/19 08:45) Cbc With Automated Diff (02/26/19 08:45) Comprehensive Metabolic Panel (02/26/19 08:45) Hs C Reactive Protein (02/26/19 08:45) Ua Culture If Indicated (02/26/19 08:45) Fentanyl Injection (Sublimaze Injection (02/26/19 08:45) Ondansetron Injection (Zofran Injectio (02/26/19 08:45) Iohexol Injection (Omnipaque 350 Mg/Ml 1 (02/26/19 10:15) Received Contrast (Hold Metformin- Contr (02/26/19 10:15) Ns (Ivpb) (Sodium Chloride 0.9% Ivpb Bag (02/26/19 10:15) (TAINA SCHULER MD) Medications Given in ED Current Medications Medications Dose Ordered Sig/Jose G Route Start Time Stop Time Status Last Admin Dose Admin Ondansetron HCl 4 mg ONCE ONCE IVP 02/26/19 08:45 02/26/19 08:48 DC 02/26/19 09:14 4 MG Sodium Chloride 1,000 ml @ 0 mls/hr Q0M ONCE IV 02/26/19 08:45 02/26/19 08:48 DC 02/26/19 09:16 1,000 MLS/HR (TAINA SCHULER MD) Vital Signs/I&O 02/26/19 08:26 Temp 98.3 Pulse 98 Resp 18 B/P (MAP) 175/122 (139) O2 Delivery Nasal Cannula (TAINA SCHULER MD) Blood Pressure Mean: 139 Progress Progress Note : Time: 09:05 Progress Note Patient is resting in room with mild discomfort. Fentanyl and Odansetron ordered for pain and nausea. Will begin with urinalysis, CBC, CMP, CRP for initial analysis. (WLILIAM GONZALEZ MED STUDENT) Progress Note : Progress Note Had seen and evaluated the patient and agree with above except as indicated. I have directed the plan of care. Patient is here with abdominal pain is central to the left side of the midline scar below the umbilicus. Has had one episode of nausea and vomiting. Pain is been worsening over the last couple of days. It is better when laying down and worse when sitting up or moving. He has had multiple evaluations for abdominal pain including last month in which he had a negative CT scan. We will check labs and UA consider CT abdomen and pelvis. 1004: We have considered CT but ultimately decided to not do it. I did discuss at length with the patient regarding possibilities of what is going on with him including just simply pain related to the scar. There is no significant findings overall and labs to indicate significant abnormality. Patient would like to see if he gets better over the next day or 2 to try to prevent repeat radiation dosing. He does understand that if it worsens at all he needs to return and we will go ahead and get the CT at that point. Discharged home with return precautions. Patient verbalize understanding instructions and agreement with plan. We will give dose of pain medicine prior to departure but will not do prescribed pain medicine and patient is in agreement with this. (TAINA SCHULER MD) Departure Impression Primary Impression: Abdominal pain Qualified Codes: R10.30 - Lower abdominal pain, unspecified Disposition: HOME, SELF-CARE Condition: Stable Departure-Patient Inst. Decision time for Depature: 10:18 (TAINA SCHULER MD) Referrals: MAAME COTTRELL MD (PCP/Family) Primary Care Physician Patient Instructions: Acute Abdomen (Belly Pain), Adult (DC) Add. Discharge Instructions: All discharge instructions reviewed with patient and/or family. Voiced understanding. Clear liquid or light diet for the next 24-48 hours and then advance as tolerated. You may take Tylenol/acetaminophen 1000 mg every 6 hours as needed for pain. Return for worse pain, fever, swelling, weakness, breathing problems, vomiting, blood in urine or stool or other concerns as needed. Follow-up with your DrJeffy in one to 2 days for recheck and further evaluation. WILLIAM GONZALEZ MED STUDENT Feb 26, 2019 09:07 TAINA SCHULER MD Feb 26, 2019 10:06
[2019-02-26 09:13] LABS: BASOPHILS % (AUTO) 1 % (0-10); EOSINOPHILS # (AUTO) 0.2 10^3/uL (0.0-0.3); EOSINOPHILS % (AUTO) 3 % (0-10); HEMATOCRIT 44 % (40-54); HEMOGLOBIN 15.2 G/DL (13.3-17.7); LYMPHOCYTES # (AUTO) 1.5 X 10^3 (1.0-4.0); LYMPHOCYTES % (AUTO) 19 % (12-44); MEAN CORPUSCULAR HEMOGLOBIN 30 PG (25-34); MEAN CORPUSCULAR HGB CONC 35 G/DL (32-36); MEAN CORPUSCULAR VOLUME 87 FL (80-99); MEAN PLATELET VOLUME 10.2 FL (7.4-10.4); MONOCYTES # (AUTO) 0.9 X 10^3 (0.0-1.0); MONOCYTES % (AUTO) 12 % (0-12); NEUTROPHILS # (AUTO) 5.3 X 10^3 (1.8-7.8); NEUTROPHILS % (AUTO) 67 % (42-75); PLATELET COUNT 225 10^3/uL (130-400); RED CELL DISTRIBUTION WIDTH 12.6 % (10.0-14.5)
[2019-02-26 09:13] LABS: BILIRUBIN,URINE NEGATIVE (NEGATIVE); CLARITY,URINE CLEAR; COLOR,URINE YELLOW; GLUCOSE, URINE (UA) NEGATIVE (NEGATIVE); KETONES,URINE 1+ (NEGATIVE); LEUKOCYTE ESTERASE ,URINE 1+ (NEGATIVE); NITRITE,URINE NEGATIVE (NEGATIVE); PH,URINE 6.5 (5-9); PROTEIN,URINE 2+ (NEGATIVE); UROBILINOGEN,URINE 4 MG/DL (NORMAL)
[2019-02-26 09:27] LABS: BACTERIA,URINE TRACE /HPF
[2019-02-26 09:39] LABS: ALANINE AMINOTRANSFERASE 32 U/L (0-55); ALBUMIN 4.2 GM/DL (3.2-4.5); ALKALINE PHOSPHATASE 76 U/L (40-136); BILIRUBIN,TOTAL 0.4 MG/DL (0.1-1.0); BUN/CREATININE RATIO 15; CALCIUM 9.5 MG/DL (8.5-10.1); CARBON DIOXIDE 28 MMOL/L (21-32); CHLORIDE 103 MMOL/L (98-107); CREATININE SERUM 0.79 MG/DL (0.60-1.30); GFR ESTIMATED > 60; GLUCOSE 106 MG/DL (70-105); POTASSIUM 4.2 MMOL/L (3.6-5.0); SODIUM 138 MMOL/L (135-145); TOTAL PROTEIN 7.3 GM/DL (6.4-8.2)
[2019-02-26] MEDS ORDERED: HOLD METFORMIN - RECEIVED CONTRAST 20 ML VIAL IV SCH (10:15)
[2019-02-26] MEDS ORDERED: IOHEXOL 350 MG/ML 100 ML (OMNIPAQUE 350) VIAL IV ONE (10:15)
[2019-02-26] MEDS ORDERED: NS 100 ML (IVPB) BAG IV ONE (10:15)
[2019-02-26] MEDS ORDERED: HYDROcodone/APAP 7.5 MG/325 MG (LORTAB, LORCET PLUS) TABLET PO STA (10:19)
[2019-02-26 10:38] VITALS: BP 133/100
== END 2019-02-26 10:37 | disposition home or self-care (01) ==
LOC: EDUNIT# 08:23 → ER 08:24
DX: R10.31 Right lower quadrant pain (principal); R10.32 Left lower quadrant pain; J45.909 Unspecified asthma, uncomplicated; G47.33 Obstructive sleep apnea (adult) (pediatric); I10 Essential (primary) hypertension; K21.0 Gastro-esophageal reflux disease with esophagitis; E11.9 Type 2 diabetes mellitus without complications; F17.210 Nicotine dependence, cigarettes, uncomplicated; Z88.1 Allergy status to other antibiotic agents; Z88.6 Allergy status to analgesic agent; Z88.8 Allergy status to other drugs, medicaments and biological substances; Z98.890 Other specified postprocedural states; Z79.84 Long term (current) use of oral hypoglycemic drugs
CPT/HCPCS: 36415; 80053; 81000; 85025; 86141; 96361; 96374; 96375

== ENCOUNTER 2019-06-01 09:22 | Emergency (ER) | payer MEDICAID ==
[~2019-06-01] VITALS: Ht 185.5 cm; Wt 154.5 kg
[2019-06-01] MEDS ORDERED: ONDANSETRON 4 MG/2 ML (SDV) Z0FRAN IVP ONE (10:30)
[2019-06-01] MEDS ORDERED: fentaNYL INJECTION 100 MCG/2 ML AMP IVP ONE (10:30)
--- NOTE | 2019-06-01 10:30 | ED Abdominal Pain ---
General Chief Complaint: Abdominal/GI Problems Stated Complaint: ABD PAIN Nursing Triage Note: Pt amb to room #6 with c/o diffuse, medial abd discomfort. Pt reports onset of symptoms to be 05/31/19. Pt reports pain to be associated with nausea, vomiting, and diarrhea. Denies fever or chills. 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 The patient is complaining of midepigastric pain which is sharp in nature and radiates throughout the abdomen. Patient denies associated fever or chill, hematemesis or melena, dysuria or frequency, or acute changes in his medications. Patient was given steroid injection and an inhaler for bronchitis 6 days ago. Allergies and Home Medications Allergies Coded Allergies: ketoprofen (Verified Allergy, Unknown, RASH, 12/12/17) ketorolac (Verified Allergy, Unknown, RASH, 09/22/18) cephalexin (Verified Adverse Reaction, Mild, NAUSEA, 09/22/18) Home Medications Cariprazine Hydrochloride 3 Mg Capsule, 3 MG PO DAILY, (Reported) Hydrochlorothiazide 25 Mg Tablet, 25 MG PO DAILY, (Reported) Metformin HCl 500 Mg Tablet, 500 MG PO BID, (Reported) Omeprazole 20 Mg Tablet.dr, 20 MG PO BID PRN for HEARTBURN, (Reported) Ondansetron 4 Mg Tab.rapdis, 4 MG PO Q6H PRN for NAUSEA/VOMITING Prescribed by: SHAY SHARP on 01/30/19 1138 Varenicline Tartrate 1 Mg Tablet, 1 MG PO BID, (Reported) Patient Home Medication List Home Medication List Reviewed: Yes Review of Systems Review of Systems Constitutional: No chills, No fever EENTM: No Symptoms Reported Respiratory: Denies Cough Cardiovascular: Denies Chest Pain Gastrointestinal: Abdominal Pain, Diarrhea, Nausea, Vomiting Genitourinary: No Symptoms Reported Musculoskeletal: no symptoms reported Skin: no symptoms reported Psychiatric/Neurological: No Symptoms Reported Endocrine: No Symptoms Reported Hematologic/Lymphatic: No Symptoms Reported Past Ggjaryi-[id number] Hx Past Med/Social Hx: Reviewed Nursing Past Med/Soc Hx Patient Social History Alcohol Use: Rarely Uses Number of Drinks Today: 0 Alcohol Beverage of Choice: Beer Recreational Drug Use: No Smoking Status: Current Everyday Smoker Type Used: Cigarettes, Smokeless Tobacco Former Smoker, Quit: October 26, 2018 2nd Hand Smoke Exposure: Yes Recent Foreign Travel: No Contact w/Someone Who Travel: No Recent Infectious Disease Expo: No Recent Hopitalizations: No Immunizations Up To Date Tetanus Booster (TDap): Less than 5yrs PED Vaccines UTD: No Date of Influenza Vaccine: Mar 24, 2018 Seasonal Allergies Seasonal Allergies: Yes Past Medical History Surgeries: Yes (colon resection, r inguinal nerve cut, KNEE L SCOPE, hernia) Abdominal, Gallbladder Respiratory: Yes (asthma as kid) Asthma, Sleep Apnea Currently Using CPAP: Yes Cardiac: Yes Hypertension Neurological: No Sexually Transmitted Disease: No HIV/AIDS: No Genitourinary: No Gastrointestinal: Yes (HIRSCHSPRUNG'S, esophagitis, H. PYLORI) Gastroesophageal Reflux, Chronic Constipation, Ulcer Musculoskeletal: Yes (right foot fx) Endocrine: Yes Diabetes, Non-Insulin dep HEENT: Yes (GLASSES) Loss of Vision: Bilateral Hearing Impairment: Denies Cancer: No Psychosocial: Yes Sleep Difficulties Integumentary: No Blood Disorders: No Adverse Reaction/Blood Tranf: No (N/A) Family Medical History No Pertinent Family Hx Physical Exam Vital Signs Vital Signs - First Documented 06/01/19 09:28 Temp 36.7 Pulse 103 Resp 18 B/P (MAP) 159/107 (124) Pulse Ox 95 O2 Delivery Room Air Capillary Refill : Less Than 3 Seconds Height/Weight/BMI Height: 6'1.00" Weight: 320lbs. 0.0oz. [id number]; 44.00 BMI Method:Stated General Appearance: WD/WN, mild distress HEENT: normal ENT inspection Neck: full range of motion, supple Respiratory: normal breath sounds, no respiratory distress Cardiovascular: regular rate, rhythm, no murmur Gastrointestinal: soft, abnormal bowel sounds (diminished), tenderness (diffuse tenderness without rebound) Extremities: normal range of motion, normal inspection Back: normal inspection Neurologic/Psychiatric: no motor/sensory deficits, alert, normal mood/affect Skin: normal color, warm/dry Progress/Results/Core Measures Results/Orders Lab Results Laboratory Tests Test 06/01/19 10:35 06/01/19 12:12 Range/Units White Blood Count 7.8 4.3-11.0 10^3/uL Red Blood Count 4.95 4.35-5.85 10^6/uL Hemoglobin 15.2 13.3-17.7 G/DL Hematocrit 42 40-54 % Mean Corpuscular Volume 85 80-99 FL Mean Corpuscular Hemoglobin 31 25-34 PG Mean Corpuscular Hemoglobin Concent 36 32-36 G/DL Red Cell Distribution Width 12.5 10.0-14.5 % Platelet Count 260 130-400 10^3/uL Mean Platelet Volume 10.2 7.4-10.4 FL Neutrophils (%) (Auto) 69 42-75 % Lymphocytes (%) (Auto) 17 12-44 % Monocytes (%) (Auto) 12 0-12 % Eosinophils (%) (Auto) 2 0-10 % Basophils (%) (Auto) 0 0-10 % Neutrophils # (Auto) 5.4 1.8-7.8 X 10^3 Lymphocytes # (Auto) 1.3 1.0-4.0 X 10^3 Monocytes # (Auto) 1.0 0.0-1.0 X 10^3 Eosinophils # (Auto) 0.2 0.0-0.3 10^3/uL Basophils # (Auto) 0.0 0.0-0.1 10^3/uL Sodium Level 138 135-145 MMOL/L Potassium Level 4.0 3.6-5.0 MMOL/L Chloride Level 104 98-107 MMOL/L Carbon Dioxide Level 25 21-32 MMOL/L Anion Gap 9 5-14 MMOL/L Blood Urea Nitrogen 11 7-18 MG/DL Creatinine 0.77 0.60-1.30 MG/DL Estimat Glomerular Filtration Rate > 60 BUN/Creatinine Ratio 14 Glucose Level 129 H 70-105 MG/DL Calcium Level 9.2 8.5-10.1 MG/DL Corrected Calcium 9.2 8.5-10.1 MG/DL Total Bilirubin 0.2 0.1-1.0 MG/DL Aspartate Amino Transf (AST/SGOT) 16 5-34 U/L Alanine Aminotransferase (ALT/SGPT) 30 0-55 U/L Alkaline Phosphatase 72 40-136 U/L Total Protein 6.8 6.4-8.2 GM/DL Albumin 4.0 3.2-4.5 GM/DL Amylase Level 23 L 25-125 U/L My Orders Orders - AZAEL SUAREZ MD Cbc With Automated Diff (06/01/19 10:24) Comprehensive Metabolic Panel (06/01/19 10:24) Amylase (06/01/19 10:24) Ua Culture If Indicated (06/01/19 10:24) Fentanyl Injection (Sublimaze Injection (06/01/19 10:30) Ondansetron Injection (Zofran Injectio (06/01/19 10:30) Ct Abdomen/Pelvis W (06/01/19 10:24) Iohexol Injection (Omnipaque 350 Mg/Ml 1 (06/01/19 11:15) Received Contrast (Hold Metformin- Contr (06/01/19 11:15) Ns (Ivpb) (Sodium Chloride 0.9% Ivpb Bag (06/01/19 11:15) Medications Given in ED Current Medications Medications Dose Ordered Sig/Jose G Route Start Time Stop Time Status Last Admin Dose Admin Fentanyl Citrate 50 mcg ONCE ONCE IVP 06/01/19 10:30 06/01/19 10:31 DC 06/01/19 10:41 50 MCG Iohexol 100 ml ONCE ONCE IV 06/01/19 11:15 06/01/19 11:16 DC 06/01/19 11:05 100 ML Ondansetron HCl 4 mg ONCE ONCE IVP 06/01/19 10:30 06/01/19 10:31 DC 06/01/19 10:41 4 MG Sodium Chloride 100 ml ONCE ONCE IV 06/01/19 11:15 06/01/19 11:16 DC 06/01/19 11:05 180 ML Vital Signs/I&O 06/01/19 09:28 Temp 36.7 Pulse 103 Resp 18 B/P (MAP) 159/107 (124) Pulse Ox 95 O2 Delivery Room Air Blood Pressure Mean: 124 POS Progress Progress Note : Time: 12:28 Progress Note The patient's CT of the abdomen and pelvis with contrast was unremarkable. Patient's CBC was within normal limits. Other than a glucose of 129 his complete metabolic panel was unremarkable. His amylase was within normal limits. The patient's discomfort was still not relieved with the 50 g of set no. I prescribed Vicodin for home use until he can follow up closely with his physician in the next 24-48 hours. I gave him Zofran as this has been effective for his nausea. I asked him to return to emergency department if any further problems or questions Departure Impression Primary Impression: Abdominal pain Qualified Codes: R10.84 - Generalized abdominal pain Disposition: 01 HOME, SELF-CARE Condition: Improved Departure-Patient Inst. Decision time for Depature: 12:31 Referrals: MAAME COTTRELL MD (PCP) Primary Care Physician Patient Instructions: Acute Abdomen (Belly Pain) Add. Discharge Instructions: Zofran and Vicodin for nausea and pain. Follow-up with your doctor tomorrow for further evaluation. Return if any problems or questions. All discharge instructions reviewed with patient and/or family. Voiced understanding. Scripts Hydrocodone/Acetaminophen (Vicodin 5-300 mg Tablet) 1 Each Tablet 1-2 EACH PO Q6H PRN for PAIN-MODERATE MDD 10 for 7 Days, TAB Prov: AZAEL SUAREZ MD 06/01/19 Ondansetron (Ondansetron Odt) 4 Mg Tab.rapdis 4 MG PO Q4H PRN for NAUSEA/VOMITING, #14 TAB Prov: AZAEL SUAREZ MD 06/01/19 AZAEL SUAREZ MD Jun 01, 2019 10:30 POS
[2019-06-01 10:42] LABS: BASOPHILS % (AUTO) 0 % (0-10); EOSINOPHILS # (AUTO) 0.2 10^3/uL (0.0-0.3); EOSINOPHILS % (AUTO) 2 % (0-10); HEMATOCRIT 42 % (40-54); HEMOGLOBIN 15.2 G/DL (13.3-17.7); LYMPHOCYTES # (AUTO) 1.3 X 10^3 (1.0-4.0); LYMPHOCYTES % (AUTO) 17 % (12-44); MEAN CORPUSCULAR HEMOGLOBIN 31 PG (25-34); MEAN CORPUSCULAR HGB CONC 36 G/DL (32-36); MEAN CORPUSCULAR VOLUME 85 FL (80-99); MEAN PLATELET VOLUME 10.2 FL (7.4-10.4); MONOCYTES % (AUTO) 12 % (0-12); NEUTROPHILS # (AUTO) 5.4 X 10^3 (1.8-7.8); NEUTROPHILS % (AUTO) 69 % (42-75); PLATELET COUNT 260 10^3/uL (130-400); RED CELL DISTRIBUTION WIDTH 12.5 % (10.0-14.5); WHITE BLOOD COUNT 7.8 10^3/uL (4.3-11.0)
[2019-06-01 11:00] LABS: ALANINE AMINOTRANSFERASE 30 U/L (0-55); ALKALINE PHOSPHATASE 72 U/L (40-136); AMYLASE 23 U/L (25-125); BILIRUBIN,TOTAL 0.2 MG/DL (0.1-1.0); BUN/CREATININE RATIO 14; CALCIUM 9.2 MG/DL (8.5-10.1); CARBON DIOXIDE 25 MMOL/L (21-32); CHLORIDE 104 MMOL/L (98-107); CREATININE SERUM 0.77 MG/DL (0.60-1.30); GFR ESTIMATED > 60; GLUCOSE 129 MG/DL (70-105); SODIUM 138 MMOL/L (135-145); TOTAL PROTEIN 6.8 GM/DL (6.4-8.2)
[2019-06-01] MEDS ORDERED: HOLD METFORMIN - RECEIVED CONTRAST 20 ML VIAL IV SCH (11:15)
[2019-06-01] MEDS ORDERED: NS 100 ML (IVPB) BAG IV ONE (11:15)
[2019-06-01] MEDS ORDERED: IOHEXOL 350 MG/ML 100 ML (OMNIPAQUE 350) VIAL IV ONE (11:15)
--- NOTE | 2019-06-01 11:45 | Diagnostic Imaging Report ---
INDICATION: Abdominal pain. TECHNIQUE: Multiple contiguous axial images were obtained through the abdomen and pelvis after administration of intravenous contrast. Auto Exposure Controls were utilized during the CT exam to meet ALARA standards for radiation dose reduction. COMPARISON: Comparison is made with 01/30/2019. FINDINGS: The visualized portions of the lung bases are clear. There were no pleural effusions. The liver shows diffuse low-density change compatible with fatty infiltration. Gallbladder is surgically absent. The spleen is not enlarged and shows no focal lesions. The adrenals and pancreas appear normal. The kidneys are unremarkable except for a tiny cyst in the right kidney posteriorly. There is no retroperitoneal mass or adenopathy. There is no ascites or abnormal fluid collection. Visualized bowel loops show no evidence of obstruction. There are postoperative changes in the rectum. IMPRESSION: Fatty infiltration of the liver. Status post cholecystectomy. Postoperative changes status post rectal surgery. No acute abnormality is visualized. Dictated by: Dictated on workstation # [id number]
[2019-06-01 12:21] LABS: BILIRUBIN,URINE NEGATIVE (NEGATIVE); CLARITY,URINE CLEAR; COLOR,URINE YELLOW; GLUCOSE, URINE (UA) NEGATIVE (NEGATIVE); KETONES,URINE NEGATIVE (NEGATIVE); LEUKOCYTE ESTERASE ,URINE NEGATIVE (NEGATIVE); NITRITE,URINE NEGATIVE (NEGATIVE); PROTEIN,URINE NEGATIVE (NEGATIVE)
[2019-06-01] MEDS ORDERED: ONDA4TAB11 PO (12:33)
[2019-06-01 12:34] LABS: BACTERIA,URINE NEGATIVE /HPF; WBC,URINE RARE /HPF
[2019-06-01] MEDS ORDERED: HYDR-3455 PO (12:34)
[2019-06-01 12:50] VITALS: BP 141/95
== END 2019-06-01 12:50 | disposition home or self-care (01) ==
LOC: EDUNIT# 09:22 → ER 09:24
DX: R10.84 Generalized abdominal pain (principal); I10 Essential (primary) hypertension; J45.909 Unspecified asthma, uncomplicated; G47.30 Sleep apnea, unspecified; K21.9 Gastro-esophageal reflux disease without esophagitis; E11.9 Type 2 diabetes mellitus without complications; F17.210 Nicotine dependence, cigarettes, uncomplicated; F17.290 Nicotine dependence, other tobacco product, uncomplicated; Z88.1 Allergy status to other antibiotic agents; Z99.89 Dependence on other enabling machines and devices; Z88.6 Allergy status to analgesic agent; Z88.8 Allergy status to other drugs, medicaments and biological substances; Z79.84 Long term (current) use of oral hypoglycemic drugs
CPT/HCPCS: 36415; 74177; 80053; 81000; 82150; 85025